=== PATIENT | female | born 1940 | race Caucasian/White ===

== ENCOUNTER 2022-10-08 08:38 | Inpatient (IN) | payer MEDICARE ==
[2022-10-08 09:32] LABS: Basophils % (A) 0 %; Eosinophils # (A) 0.4 k/uL (0-0.7); Eosinophils % (A) 7 %; HCT 41.3 % (34.0-46.0); HGB 14.1 gm/dL (11.4-16.0); Lymphocytes # (A) 1.2 k/uL (1.0-4.8); Lymphocytes % (A) 20 %; MCHC 34.1 g/dL (31.0-37.0); MCV 93.9 fL (80.0-100.0); Mean Platelet Volume 7.1; Monocytes # (A) 0.3 k/uL (0-1.0); Monocytes % (A) 5 %; Neutrophils # (A) 4.1 k/uL (1.3-7.7); Neutrophils % (A) 66 %; Platelet Count 199 k/uL (150-450); RDW 12.7 % (11.5-15.5); WBC 6.2 k/uL (3.8-10.6)
--- NOTE | 2022-10-08 09:36 | ED ---
General Adult HPI - General Chief complaint: Fall Stated complaint: Fall Time Seen by Provider: 10/08/22 09:00 Source: patient, EMS Mode of arrival: EMS Limitations: no limitations - History of Present Illness Initial comments: Dictation was produced using [employer] dictation software. please excuse any grammatical, word or spelling errors. Chief Complaint: 87-year-old female presents emergency department for fall History of Present Illness: To 87-year-old female presents emergency department for fall. She got up when she lost her balance and fell. She stood up when she lost her balance and fell forward. She struck her chest on her walker. Patient also hit the back of her head. No loss of consciousness. Patient brought in by EMS. Patient complaining of central chest pain. Sharp worse when she takes a deep breath. Patient does take anti-correlation medications. The ROS documented in this emergency department record has been reviewed and confirmed by me. Those systems with pertinent positive or negative responses have been documented in the HPI. All other systems are other negative and/or noncontributory. - Related Data Allergies Allergy/AdvReac Type Severity Reaction Status Date / Time Sulfa (Sulfonamide Allergy Rash/Hives Verified 10/08/22 08:53 Antibiotics) Review of Systems ROS Statement: Those systems with pertinent positive or pertinent negative responses have been documented in the HPI. ROS Other: All systems not noted in ROS Statement are negative. Past Medical History Past Medical History: Asthma, Hypertension Additional Past Medical History / Comment(s): thyroid History of Any Multi-Drug Resistant Organisms: None Reported Past Surgical History: Appendectomy, Orthopedic Surgery, Tonsillectomy Past Psychological History: No Psychological Hx Reported Smoking Status: Never smoker Past Alcohol Use History: None Reported Past Drug Use History: None Reported General Exam - General Exam Comments Initial Comments: PHYSICAL EXAM: General Impression: Alert and oriented x3, not in acute distress HEENT: Small hematoma over the left parietal scalp, extra-ocular movements intact, pupils equal and reactive to light bilaterally, mucous membranes moist Cardiovascular: Heart regular rate and rhythm Chest: Able to complete full sentences, no retractions, no tachypnea, palpatory tenderness to the anterior chest Abdomen: abdomen soft, non-tender, non-distended, no organomegaly Musculoskeletal: Pulses present and equal in all extremities, no peripheral edema Motor: no focal deficits noted Neurological: CN II-XII grossly intact, no focal motor or sensory deficits noted Skin: Intact with no visualized rashes Psych: Normal affect and mood Limitations: no limitations Course Vital Signs 10/08/22 10/08/22 10/08/22 08:47 10:36 11:51 Temperature 97.4 F L 97.4 F L Pulse Rate 72 71 65 Respiratory 20 17 18 Rate Blood Pressure 185/82 178/84 183/95 O2 Sat by Pulse 97 97 97 Oximetry Medical Decision Making - Medical Decision Making Was pt. sent in by a medical professional or institution (, PA, GRAIN LOADER, urgent care, hospital, or [place] [facility] facility...) When possible be specific @ -No Did you speak to anyone other than the patient for history (EMS, parent, family, police, friend...)? What history was obtained from this source @ -No Did you review nursing and triage notes (agree or disagree)? Why? @ -I reviewed and agree with nursing and triage notes Were old charts reviewed (outside hosp., previous admission, EMS record, old EKG, old radiological studies, urgent care reports/EKG's, [place] [facility] facility records)? Report findings @ -No old charts were reviewed Differential Diagnosis (chest pain, altered mental status, abdominal pain women, abdominal pain men, vaginal bleeding, musculoskeletal, weakness, fever, dyspnea, syncope, headache, dizziness, GI bleed, back pain, seizure, CVA, palpatations, mental health)? @ -Differential Weakness: Hypoglycemia, shock, sepsis, hyponatremia, anemia, infection, [place], ETOH, adverse medicine reaction, overdose, stroke, this is not meant to be an all-inclusive list. EKG interpreted by me (3pts min.). @ -See above X-rays interpreted by me (1pt min.). @ -Pelvis x-ray was unremarkable CT interpreted by me (1pt min.). @ -Computed tomography scan of brain and C-spine shows no acute processes. Computed tomography scan of the chest shows no acute injuries. U/S interpreted by me (1pt. min.). @ -None done What testing was considered but not performed or refused? (CT, X-rays, U/S, labs)? Why? @ -None What meds were considered but not given or refused? Why? @ -None Did you discuss the management of the patient with other professionals (prof essionals i.e. , PA, GRAIN LOADER, lab, RT, psych nurse, social service worker, arcade attendant, teacher, staff weapons officer, correctional counselor/case manager)? Give summary @ -No Was smoking cessation discussed for >3mins.? @ -No Was critical care preformed (if so, how long)? @ -No Were there social determinants of health that impacted care today? How? (Homelessness, low income, unemployed, alcoholism, drug addiction, transportat ion, low edu. Level, literacy, decrease access to med. care, half-way, rehab)? @ -No Was there de-escalation of care discussed even if they declined (Discuss DNR or withdrawal of care, Hospice)? DNR status @ -No What co-morbidities impacted this encounter? (DM, HTN, Smoking, COPD, CAD, Cancer, CVA, ARF, Chemo, Hep., AIDS, mental health diagnosis, sleep apnea, morbid obesity)? @ -None Was patient admitted / discharged? Hospital course, mention meds given and route, prescriptions, significant lab abnormalities, going to OR and other pertinent info. @ -82-year-old female presents emergency department for her fall with chest pain. She also suffered closed head injury. CBC and metabolic panel obtained found within to be acceptable limits. Imaging studies are negative. Patient observed in emergency department for several hours. Reevaluated at bedside on 40 5 AM found to be in stable medical condition. Patient with a failed due to debility. Do not suspect that patient had a cardiac syncopal event. Disposition options were discussed. Patient states she feels weak. Daughter is at the bedside who lives with the patient states that she has back issues and cannot care for the patient. Family requests observation admission. Case discussed with Dr. Etienne for admission Undiagnosed new problem with uncertain prognosis? @ -No Drug Therapy requiring intensive monitoring for toxicity (Heparin, Nitro, Insulin, Cardizem)? @ -No Were any procedures done? @ -No Diagnosis/symptom? Acute, or Chronic, or Acute on Chronic? Uncomplicated (without systemic symptoms) or Complicated (systemic symptoms)? @ -1. Acute fall, closed head injury, chest contusion Side effects of treatment? @ -No Exacerbation, Progression, or Severe Exacerbation? @ -No Poses a threat to life or bodily function? How? (Chest pain, [place], [place], pneumonia, PE, COPD, DKA, ARF, appy, cholecystitis, CVA, Diverticulitis, Homicidal, Suicidal, threat to staff... and all critical care pts) @ -No - Lab Data Result diagrams: 10/08/22 09:22 10/08/22 09:22 Lab Results 10/08/22 10/08/22 Range/Units 09:22 09:22 WBC 6.2 (3.8-10.6) k/uL RBC 4.40 (3.80-5.40) m/uL Hgb 14.1 (11.4-16.0) gm/dL Hct 41.3 (34.0-46.0) % MCV 93.9 (80.0-100.0) fL MCH 32.0 (25.0-35.0) pg MCHC 34.1 (31.0-37.0) g/dL RDW 12.7 (11.5-15.5) % Plt Count 199 (150-450) k/uL MPV 7.1 Neutrophils % 66 % Lymphocytes % 20 % Monocytes % 5 % Eosinophils % 7 % Basophils % 0 % Neutrophils # 4.1 (1.3-7.7) k/uL Lymphocytes # 1.2 (1.0-4.8) k/uL Monocytes # 0.3 (0-1.0) k/uL Eosinophils # 0.4 (0-0.7) k/uL Basophils # 0.0 (0-0.2) k/uL Sodium 131 L (137-145) mmol/L Potassium 4.1 (3.5-5.1) mmol/L Chloride 94 L (98-107) mmol/L Carbon Dioxide 32 H (22-30) mmol/L Anion Gap 5 mmol/L BUN 11 (7-17) mg/dL Creatinine 0.47 L (0.52-1.04) mg/dL Est GFR (CKD-EPI)AfAm >90 (>60 ml/min/1.73 sqM) Est GFR (CKD-EPI)NonAf >90 (>60 ml/min/1.73 sqM) Glucose 103 H (74-99) mg/dL Calcium 8.9 (8.4-10.2) mg/dL Disposition Clinical Impression: Fall Disposition: ADMITTED IP TO THIS HOSP Condition: Fair Referrals: Nonstaff,Physician [Primary Care Provider] - 1-2 days Decision Time: 12:15
[2022-10-08 09:46] LABS: African American GFR (CKD) >90 (>60 ml/min/1.73 sqM); Anion Gap 5 mmol/L; Blood Urea Nitrogen 11 mg/dL (7-17); Calcium 8.9 mg/dL (8.4-10.2); Carbon Dioxide 32 mmol/L (22-30); Chloride 94 mmol/L (98-107); Glucose 103 mg/dL (74-99); Non-African American GFR(CKD) >90 (>60 ml/min/1.73 sqM); Potassium 4.1 mmol/L (3.5-5.1); Sodium 131 mmol/L (137-145)
--- NOTE | 2022-10-08 11:08 | XR ---
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 Right femoral head articulates with the acetabulum. Symphys is pubis and sacroiliac joints are normal. No acute pelvic fractures are evident. Normal bowel gas is present. Postsurgical changes are at the L4-5 level with pedicle screws and fixation rods. Prior randall tebral plasty appears to be present L3 and L4. IMPRESSION: 1. No acute osseous abnormality AP Pelvis
--- NOTE | 2022-10-08 11:15 | CT ---
EXAMINATION TYPE: CT brain kirk esteves con DATE OF EXAM: 10/08/2022 COMPARISON: None HISTORY: fall, hematoma on back of head CT DLP: 2683 mGycm, Automated exposure control for dose reduction was used. CONTRAST: Patient injected with 0 mL of Isovue 300. CT of the brain is performed utilizing 3 mm thick sections through the posterior fossa and 3 mm thick sections through the remaining calvarium. Study is performed within 24 hours of arrival to the hospital. No abnormal hyperdensity is present to suggest an acute intracranial hemorrhage. No mass lesion is evident. No acute infarcts are evident. Mild periventricular white matter hypodensity is present, likely on t he basis of chronic white matter ischemic changes. Ventricles and sulci are mildly prominent for the patient age. Paranasal sinuses and mastoid air cells within the [id number] are clear. There is soft tissue swelling over the left vertex. No underlying fracture is evident. IMPRESSIONS: 1. Mild age-related atrophy with chronic appearing periventricular white matter ischemic type changes . 2. Superficial soft tissue swelling left vertex CT cervical spine. COMPARISON: None CT of the cervical spine is performed in the axial plane at 2 mm thick sections. Reconstructed image s in the coronal, and sagittal plane are reviewed on the computer. No acute fractures are evident. Vertebral body alignment is normal. There is narrowing of disc height through the cervical spine. This appears greatest at C6-7. Vertebral body heights are preserved. No spinal canal stenosis is evident. No neural foraminal stenosis is evident. IMPRESSIONS: 1. Mild diffuse degenerative disc changes. 2. No acute osseous abnormality.
--- NOTE | 2022-10-08 11:23 | CT ---
EXAMINATION TYPE: CT chest wo con DATE OF EXAM: 10/08/2022 COMPARISON: None HISTORY: fall, chest pain CT DLP: 2683 mGycm, Automated exposure control for dose reduction was used. CONTRAST: Performed injected with 0 mL of Isovue 300. TECHNIQUE: Axial images were obtained at 5 mm thick sections. Reconstructed images are reviewed on [email or web address] computer in the coronal plane. FINDINGS: Beam hardening artifact from a right shoulder prosthesis is in the upper thoracic region. P ortion of the thyroid visualized is normal. Enmanuel this changes are present. Some scattered nonspecific infiltrate may be present. Consider sub segmental atelectasis and atypical pneumonia. There is some nodularity along the right lateral major fissure measuring 0.9 cm. Series 501 image 23. Consider evaluation with PET/CT Some peripheral pulmon murray fibrosis may be present within the anterior right lung base. No pneumothorax is evident. There is a 1.2 cm lymph node in the pretracheal space near the level of the parker. Additional shott y lymphadenopathy is present. No suspicious hilar adenopathy is evident. The ascending aorta diameter at the level of the main pulmonary artery is 3.5 cm. The main pulmonary artery diameter at the bifu rcation is 3.4 cm. Coronary artery calcification is present. Small hiatal hernia is present. There is some deviation of posterior lateral right third rib. Definite fracture is not identified. Th is could be some deformity. Correlate with location of any pain. No additional areas suspicious for r ib fractures evident. Limited CT sections are obtained through the upper abdomen. Abdomen is essentially unremarkable. IMPRESSIONS: 1. Emphysematous changes within the lungs.. 2. There is a prominent lymph node in the pretracheal space with additional smaller shotty adenopathy present. 3. 0.9 cm nodule major fissure right side with a 1.0 cm pleural-based density adjacent. Consider PET/ CT. 4. A nondisplaced posterior-lateral right third rib fractures not excluded. Correlate with pain
[2022-10-08] MEDS ORDERED: NALOXONE 0.4 MG/ML 1 ML VIAL IV PRN (12:15)
[2022-10-08] MEDS: KETOROLAC 15 MG/ML 1 ML VIAL IVP PRN ×2 (13:25→20:16)
[2022-10-08] MEDS: SODIUM CHLORIDE 0.9% 1,000 ML IV SCH (14:03)
[2022-10-08] MEDS: GABAPENTIN 400 MG CAP PO SCH ×2 (16:46→22:34)
[2022-10-08] MEDS: amLODIPine 5 MG TAB PO SCH (17:56)
[2022-10-08] MEDS: NORTRIPTYLINE 25 MG CAP PO SCH (22:34)
[2022-10-08] MEDS: carBAMazepine 200 MG TAB PO SCH (22:34)
[2022-10-09] MEDS: GABAPENTIN 400 MG CAP PO SCH ×4 (04:57→22:42)
[2022-10-09] MEDS: PANTOPRAZOLE 40 MG TABLET PO SCH ×2 (04:58→08:40)
[2022-10-09] MEDS: KETOROLAC 15 MG/ML 1 ML VIAL IVP PRN ×3 (06:17→23:12)
[2022-10-09] MEDS: SYMBICORT 80-4.5 MCG INHALER INHALATION SCH ×2 (08:24→20:25)
[2022-10-09] MEDS: ASCORBIC ACID 500 MG TAB PO SCH (08:40)
[2022-10-09] MEDS: CYANOCOBALAMIN 500 MCG TAB PO SCH (08:40)
[2022-10-09] MEDS: CYCLOBENZAPRINE 5 MG TAB PO PRN ×2 (08:40→17:58)
[2022-10-09 09:14] LABS: Blood Urea Nitrogen 16.1 mg/dL (9.0-27.0); Calcium 8.9 mg/dL (8.7-10.3); Chloride 95 mmol/L (96-109); Glucose 101 mg/dL (70-110); Potassium 4.1 mmol/L (3.5-5.5); Sodium 132 mmol/L (135-145)
[2022-10-09] MEDS: carBAMazepine 200 MG TAB PO SCH ×2 (10:00→22:43)
[2022-10-09] MEDS: lisinopriL 20 MG TAB PO SCH (10:00)
--- NOTE | 2022-10-09 10:37 | P.HPIM ---
History of Present Illness H&P Date: 10/08/22 Chief Complaint: Fall/inability to ambulate 87-year-old female presents emergency department for fall. She got up when she lost her balance and fell. She stood up when she lost her balance and fell forward. She struck her chest on her walker. Patient also hit the back of her head. No loss of consciousness. Patient brought in by EMS. Patient complaining of central chest pain. Sharp worse when she takes a deep breath. Patient does take anti-correlation medications. Upon arrival to ED patient was found to be hypertensive with a blood pressure of 183/95; rest of the vital signs are stable Workup includes CT of the brain and C-spine which was negative for any acute process CT of chest does not reveal any acute injuries Pelvic x-ray is negative for any acute injuries Patient presents to ED with fall and chest pain. She also suffered closed head injury. CBC and metabolic panel obtained found within to be acceptable limits. Imaging studies are negative. Patient was observed in emergency department for several hours. Reevaluated at bedside; Patient with a failed to ambulate due to debility and weakness. Daughter is at the bedside who lives with the patient states that she has back issues and cannot care for the patient. Family requests observation admission. Review of Systems REVIEW OF SYSTEMS: CONSTITUTIONAL: No fever, no malaise, no fatigue. HEENT: No recent visual problems or hearing problems. Denied any sore throat. CARDIOVASCULAR: No chest pain, orthopnea, PND, no palpitations, no syncope. PULMONARY: No shortness of breath, no cough, no hemoptysis. GASTROINTESTINAL: No diarrhea, no nausea, no vomiting, no abdominal pain. NEUROLOGICAL: No headaches, no weakness, no numbness. HEMATOLOGICAL: Denies any bleeding or petechiae. GENITOURINARY: Denies any burning micturition, frequency, or urgency. MUSCULOSKELETAL/RHEUMATOLOGICAL: Reports weakness and pain both knees and hips and inability to ambulate. ENDOCRINE: Denies any polyuria or polydipsia. The rest of the 14-point review of systems is negative. Past Medical History Past Medical History: Asthma, Hypertension Additional Past Medical History / Comment(s): thyroid History of Any Multi-Drug Resistant Organisms: None Reported Past Surgical History: Appendectomy, Orthopedic Surgery, Tonsillectomy Past Psychological History: No Psychological Hx Reported Smoking Status: Never smoker Past Alcohol Use History: None Reported Past Drug Use History: None Reported Medications and Allergies Home Medications Medication Instructions Recorded Confirmed Type Albuterol Inhaler [Ventolin Hfa 1 - 2 puff INHALATION RT-Q6H PRN 10/08/22 10/08/22 History Inhaler] Ascorbic Acid [Vitamin C] 1,000 mg PO DAILY 10/08/22 10/08/22 History Bifidobacterium Infantis [Align 10.5 mg PO DAILY 10/08/22 10/08/22 History Chew] Calcium Carbonate/Vitamin D3 2 tab PO DAILY@1400 10/08/22 10/08/22 History [Caltrate 600 Plus D3 20 Mcg (800 Iu)] Cyanocobalamin (Vitamin B-12) 1,000 mcg PO DAILY 10/08/22 10/08/22 History [Vitamin B-12] Fluticasone/Vilanterol [Breo 1 puff INHALATION RT-DAILY 10/08/22 10/08/22 History Ellipta 100-25 Mcg Inhaler] Gabapentin 400 mg PO HS@2330 10/08/22 10/08/22 History Gabapentin 800 mg PO TID@0500,1400,1800 10/08/22 10/08/22 History Lansoprazole [Prevacid 24Hr] 15 mg PO DAILY 10/08/22 10/08/22 History Nortriptyline [Pamelor] 50 mg PO HS@2300 10/08/22 10/08/22 History Omeprazole 20 mg PO DAILY@0500 10/08/22 10/08/22 History amLODIPine [Norvasc] 5 mg PO DAILY@1800 10/08/22 10/08/22 History carBAMazepine 400 mg PO BID@1000,2300 10/08/22 10/08/22 History lisinopriL 40 mg PO DAILY@1000 10/08/22 10/08/22 History Allergies Allergy/AdvReac Type Severity Reaction Status Date / Time Sulfa (Sulfonamide Allergy Rash/Hives Verified 10/08/22 13:24 Antibiotics) Physical Exam Vitals: Vital Signs Temp Pulse Resp BP Pulse Ox 10/08/22 11:51 65 18 183/95 97 10/08/22 10:36 97.4 F L 71 17 178/84 97 10/08/22 08:47 97.4 F L 72 20 185/82 97 Intake and Output 10/07/22 10/08/2223 22:59 06:59 14:59 Other: Weight 91.626 kg General Impression: Alert and oriented x3, not in acute distress HEENT: Small hematoma over the left parietal scalp, extra-ocular movements intact, pupils equal and reactive to light bilaterally, mucous membranes moist Cardiovascular: Heart regular rate and rhythm Chest: Able to complete full sentences, no retractions, no tachypnea, palpatory tenderness to the anterior chest Abdomen: abdomen soft, non-tender, non-distended, no organomegaly Musculoskeletal: Pulses present and equal in all extremities, no peripheral edema Motor: no focal deficits noted Neurological: CN II-XII grossly intact, no focal motor or sensory deficits noted Skin: Intact with no visualized rashes Psych: Normal affect and mood Results CBC & Chem 7: 10/08/22 09:22 10/09/22 05:59 Labs: Abnormal Lab Results - Last 24 Hours (Table) 10/08/22 Range/Units 09:22 Sodium 131 L (137-145) mmol/L Chloride 94 L (98-107) mmol/L Carbon Dioxide 32 H (22-30) mmol/L Creatinine 0.47 L (0.52-1.04) mg/dL Glucose 103 H (74-99) mg/dL Assessment and Plan Assessment: 1. Chest pain; likely musculoskeletal/ chest contusion - Patient reports falling forward while getting up from the toilet seat and reports falling on the walker bar that hit her in the chest; no shortness of breath, diaphoresis, nausea or vomiting - Patient has been placed on Toradol 15 mg IV every 6 hours as needed along with Flexeril 5 mg 3 times a day when necessary 2. Close head injury; patient reports that when she fell backwards - CT of the head and cervical spine is negative - We will continue to monitor closely 3. Debility/weakness; patient was unable to stand on her feet or ambulate in ED; we have consulted PT/OT for recommendations 4. Hypertension; amlodipine 5 mg daily, lisinopril 40 mg daily 5. Asthma; not in exacerbation; albuterol inhaler 4 times a day when necessary and Lipitor one puff daily 6. Vitamin B12 deficiency; supplemented with vitamin B12 thousand and 6 daily 7. Neuropathy patient takes Neurontin 800 mg 3 times a day and 400 mg daily at bedtime DVT prophylaxis; SCDs/subcu heparin CODE STATUS; full code
[2022-10-09] MEDS: SODIUM CHLORIDE 0.9% 1,000 ML IV SCH (12:43)
[2022-10-09] MEDS: CALCIUM CARB-VIT D 500 MG-5 MCG TAB PO SCH (14:19)
[2022-10-09] MEDS: amLODIPine 5 MG TAB PO SCH (17:58)
--- NOTE | 2022-10-09 21:09 | P.PN ---
Subjective Progress Note Date: 10/09/22 87-year-old female presents emergency department for fall. She got up when she lost her balance and fell. She stood up when she lost her balance and fell forward. She struck her chest on her walker. Patient also hit the back of her head. No loss of consciousness. Patient brought in by EMS. Patient complaining of central chest pain. Sharp worse when she takes a deep breath. Patient does take anti-correlation medications. Upon arrival to ED patient was found to be hypertensive with a blood pressure of 183/95; rest of the vital signs are stable Workup includes CT of the brain and C-spine which was negative for any acute process CT of chest does not reveal any acute injuries Pelvic x-ray is negative for any acute injuries Patient presents to ED with fall and chest pain. She also suffered closed head injury. CBC and metabolic panel obtained found within to be acceptable limits. Imaging studies are negative. Patient was observed in emergency department for several hours. Reevaluated at bedside; Patient with a failed to ambulate due to debility and weakness. Daughter is at the bedside who lives with the patient states that she has back issues and cannot care for the patient. Family requests observation admission. Objective - Vital Signs Vital signs: Vital Signs Temp 98.1 F 10/09/22 14:01 Pulse 70 10/09/22 14:01 Resp 20 10/09/22 14:01 BP 154/84 10/09/22 14:01 Pulse Ox 94 L 10/09/22 14:01 FiO2 Intake & Output 10/09/22 10/09/22 10/10/22 06:59 18:59 06:59 Intake Total 330 Output Total 550 Balance -220 Intake: Oral 330 Output: Urine 550 Other: Voiding Method External Catheter External Catheter # Bowel Movements 0 - Exam General Impression: Alert and oriented x3, not in acute distress HEENT: Small hematoma over the left parietal scalp, extra-ocular movements intact, pupils equal and reactive to light bilaterally, mucous membranes moist Cardiovascular: Heart regular rate and rhythm Chest: Able to complete full sentences, no retractions, no tachypnea, palpatory tenderness to the anterior chest Abdomen: abdomen soft, non-tender, non-distended, no organomegaly Musculoskeletal: Pulses present and equal in all extremities, no peripheral edema Motor: no focal deficits noted Neurological: CN II-XII grossly intact, no focal motor or sensory deficits noted Skin: Intact with no visualized rashes Psych: Normal affect and mood - Labs CBC & Chem 7: 10/08/22 09:22 10/09/22 05:59 Labs: Abnormal Lab Results - Last 24 Hours (Table) 10/09/22 Range/Units 05:59 Sodium 132 L (135-145) mmol/L Chloride 95 L (96-109) mmol/L BUN/Creatinine Ratio 23.00 H (12.00-20.00) Ratio Assessment and Plan Assessment: 1. Chest pain; likely musculoskeletal/ chest contusion - Patient reports falling forward while getting up from the toilet seat and reports falling on the walker bar that hit her in the chest; no shortness of breath, diaphoresis, nausea or vomiting - Patient has been placed on Toradol 15 mg IV every 6 hours as needed along with Flexeril 5 mg 3 times a day when necessary 2. Close head injury; patient reports that when she fell backwards - CT of the head and cervical spine is negative - We will continue to monitor closely 3. Debility/weakness; patient was unable to stand on her feet or ambulate in ED; we have consulted PT/OT for recommendations 4. Hypertension; amlodipine 5 mg daily, lisinopril 40 mg daily 5. Asthma; not in exacerbation; albuterol inhaler 4 times a day when necessary and Lipitor one puff daily 6. Vitamin B12 deficiency; supplemented with vitamin B12 thousand and 6 daily 7. Neuropathy patient takes Neurontin 800 mg 3 times a day and 400 mg daily at bedtime DVT prophylaxis; SCDs/subcu heparin CODE STATUS; full code
[2022-10-09] MEDS: NORTRIPTYLINE 25 MG CAP PO SCH (22:43)
[2022-10-10] MEDS: GABAPENTIN 400 MG CAP PO SCH ×4 (04:42→21:45)
[2022-10-10] MEDS: PANTOPRAZOLE 40 MG TABLET PO SCH ×2 (04:42→08:24)
[2022-10-10] MEDS: CYCLOBENZAPRINE 5 MG TAB PO PRN ×2 (06:23→13:56)
[2022-10-10] MEDS: CYANOCOBALAMIN 500 MCG TAB PO SCH (08:24)
[2022-10-10] MEDS: carBAMazepine 200 MG TAB PO SCH ×2 (08:24→21:45)
[2022-10-10] MEDS: ASCORBIC ACID 500 MG TAB PO SCH (08:24)
[2022-10-10] MEDS: KETOROLAC 15 MG/ML 1 ML VIAL IVP PRN (08:25)
[2022-10-10] MEDS: lisinopriL 20 MG TAB PO SCH (08:25)
[2022-10-10] MEDS: SYMBICORT 80-4.5 MCG INHALER INHALATION SCH ×2 (09:51→19:47)
--- NOTE | 2022-10-10 12:11 | P.CNPUL ---
History of Present Illness Consult date: 10/10/22 Requesting physician: Yandy Etienne Reason for consult: abnormal CXR/CT Chief complaint: Chest wall pain status post fall History of present illness: This is a pleasant 82-year-old female patient with a known history of hypertension, mild intermittent chronic bronchial asthma, gastroesophageal reflux disease, depression. She was brought into the emergency room on 10/08/2022 after sustaining a fall at her home. She states she was sitting on her toilet and fell forward hitting her walker with her chest and also hit the back of her head. She denied any loss of consciousness. She came in with ongoing chest wall pain. Pelvis x-ray revealed no acute fractures. The skin of the brain and C-spine revealed no acute intracranial process. No acute osseous abnormality. Computed tomography scan of the chest revealed areas of emphysema. A prominent pretracheal space lymph node. 1.0 cm pleural-based density. A nondisplaced posterior lateral right third rib fracture not excluded. White count 6.2. Hemoglobin 14.1. Platelets 199. Sodium 132. Potassium 4.1. Bicarb 27. BUN 16. Creatinine 0.7. Glucose 101. HEENT today in consultation on the regular medical floor. She is currently sitting up in a chair at the bedside. Awake and alert in no acute distress. She denies any worsening shortness of breath, cough or congestion. She is having some chest wall pain on deep inhalation. She is maintaining O2 saturations in the 90s on room air. Afebrile. Hemodynamically stable. She is continued on Symbicort and albuterol. Pain is better controlled today. Review of Systems REVIEW OF SYSTEMS: CONSTITUTIONAL: Denies any recent significant weight loss or weight gain. EYES: Denies change in vision. EARS, NOSE, MOUTH, THROAT: Denies headaches, denies sore throat. CARDIOVASCULAR: Positive for chest wall pain, no palpitations or syncopal episodes. RESPIRATORY: Denies shortness of breath, cough, congestion or hemoptysis. GASTROINTESTINAL: Denies change in appetite, denies abdominal pain GENITOURINARY: Denies hematuria, denies infections. MUSKULOSKELETAL: Denies pain, denies swelling. INTEGUMENTARY: Denies rash, denies eczema. NEUROLOGICAL: Denies recent memory loss, no recent seizure activity. PSYCHIATRIC: Denies anxiety, denies depression. HEMATOLOGIC/LYMPHATIC: Denies anemia, denies enlarged lymph nodes. Past Medical History Past Medical History: Asthma, Hypertension Additional Past Medical History / Comment(s): thyroid History of Any Multi-Drug Resistant Organisms: None Reported Past Surgical History: Appendectomy, Orthopedic Surgery, Tonsillectomy Additional Past Surgical History / Comment(s): Bilateral knee replacement, L4-L5 fusion, left hip replacement, right shoulder replacement Past Anesthesia/Blood Transfusion Reactions: No Reported Reaction Past Psychological History: No Psychological Hx Reported Smoking Status: Never smoker Past Alcohol Use History: None Reported Past Drug Use History: None Reported Medications and Allergies Home Medications Medication Instructions Recorded Confirmed Type Albuterol Inhaler [Ventolin Hfa 1 - 2 puff INHALATION RT-Q6H PRN 10/08/22 10/08/22 History Inhaler] Ascorbic Acid [Vitamin C] 1,000 mg PO DAILY 10/08/22 10/08/22 History Bifidobacterium Infantis [Align 10.5 mg PO DAILY 10/08/22 10/08/22 History Chew] Calcium Carbonate/Vitamin D3 2 tab PO DAILY@1400 10/08/22 10/08/22 History [Caltrate 600 Plus D3 20 Mcg (800 Iu)] Cyanocobalamin (Vitamin B-12) 1,000 mcg PO DAILY 10/08/22 10/08/22 History [Vitamin B-12] Fluticasone/Vilanterol [Breo 1 puff INHALATION RT-DAILY 10/08/22 10/08/22 History Ellipta 100-25 Mcg Inhaler] Gabapentin 400 mg PO HS@2330 10/08/22 10/08/22 History Gabapentin 800 mg PO TID@0500,1400,1800 10/08/22 10/08/22 History Lansoprazole [Prevacid 24Hr] 15 mg PO DAILY 10/08/22 10/08/22 History Nortriptyline [Pamelor] 50 mg PO HS@2300 10/08/22 10/08/22 History Omeprazole 20 mg PO DAILY@0500 10/08/22 10/08/22 History amLODIPine [Norvasc] 5 mg PO DAILY@1800 10/08/22 10/08/22 History carBAMazepine 400 mg PO BID@1000,2300 10/08/22 10/08/22 History lisinopriL 40 mg PO DAILY@1000 10/08/22 10/08/22 History Allergies Allergy/AdvReac Type Severity Reaction Status Date / Time Sulfa (Sulfonamide Allergy Rash/Hives Verified 10/08/22 13:24 Antibiotics) Physical Exam Vitals: Vital Signs Temp Pulse Resp BP Pulse Ox 10/10/22 07:00 97.7 F 72 16 188/83 94 L 10/10/22 02:47 97.9 F 68 15 128/72 97 10/09/22 19:36 97.9 F 71 15 138/75 95 10/09/22 14:01 98.1 F 70 20 154/84 94 L Intake and Output 10/09/22 10/10/22 10/10/22 22:59 06:59 14:59 Intake Total 110 188 Output Total 550 Balance -440 188 Intake: Oral 110 188 Output: Urine 550 Other: Voiding Method External Catheter External Catheter # Bowel Movements 0 GENERAL EXAM: Alert, pleasant 82-year-old female, on room air, fairly comfortable in no apparent distress. HEAD: Normocephalic. Small hematoma noted on the back of head. EYES: Normal reaction of pupils, equal size. NOSE: Clear with pink turbinates. THROAT: No erythema or exudates. NECK: No masses, no JVD. CHEST: No chest wall deformity. Tender to palpation. Tender with inhalation. LUNGS: Equal air entry with no crackles, wheeze, rhonchi or dullness. CVS: S1 and S2 normal with no audible murmur, regular rhythm. ABDOMEN: No hepatosplenomegaly, normal bowel sounds, no guarding or rigidity. SPINE: No scoliosis or deformity SKIN: No rashes CENTRAL NERVOUS SYSTEM: No focal deficits, tone is normal in all 4 extremities. EXTREMITIES: There is no peripheral edema. No clubbing, no cyanosis. Peripheral pulses are intact. Results - Laboratory Findings CBC and BMP: 10/08/22 09:22 10/09/22 05:59 Abnormal lab findings: Abnormal Labs 10/08/22 10/09/22 09:22 05:59 Sodium 131 L 132 L Chloride 94 L 95 L Carbon Dioxide 32 H Creatinine 0.47 L BUN/Creatinine Ratio 23.00 H Glucose 103 H - Diagnostic Findings CT scan - chest: image reviewed Assessment and Plan Assessment: Acute anterior chest wall pain secondary to fall. Computed tomography scan of the chest revealed emphysematous changes with a prominent lymph node in the pretracheal space and a 1.0 cm pleural based density. There is a nondisplaced posterior lateral right third rib fracture. Hypertension Mild intermittent chronic bronchial asthma Gastroesophageal reflux disease without esophagitis History of anxiety/depression. Plan: The patient was seen and evaluated Computed tomography scan of the chest, labs and medications reviewed Recommend follow-up CT scan of the chest in 3 months and/or PET scan Continue bronchodilators Add incentive spirometer and encourage deep breathing exercises Increase her activity as tolerated Probable discharge in the a.m. We will continue to follow and make further recommendations based on her clinical status I have personally seen and examined the patient, performed the documentation and the assessment and plan as written. Number of minutes spent on the visit: 20.
--- NOTE | 2022-10-10 12:43 | P.CRDCN ---
History of Present Illness Consult date: 10/10/22 History of present illness: History of present illness: This is an 82 year old female patient with past medical history of hypertension, gastroesophageal reflux disease, asthma. We have been asked to evaluate the patient for chest pain. Patient was brought into the emergency center on 10/08 after a trip and fall forward landing with her chest on her walker and also hit the back of the head. No loss of consciousness. She underwent a CAT scan of the chest which revealed nondisplaced posterior lateral right third rib fractures not excluded. CAT scan of the head and neck did not show any acute findings. EKG unable to be obtained today due to broken EKG machine CBC is unremarkable. Sodium 132, potassium 4.1, chloride 95, CO2 27, BUN 16 creatinine 2.7. Glucose 101. His C-reactive protein 3.4. Sed rate 11. Home cardiac medications: Amlodipine 5 mg daily, lisinopril 40 mg daily Review Of Systems: At the time of my evaluation: Constitutional: No fever, no chills. No weakness, fatigue or lethargy. EENT: No headache. No dizziness. Lungs: No shortness of breath, cough, no sputum production. No wheezing. Cardiovascular: Reports chest pain, no lower extremity edema. No palpitations. No paroxysmal nocturnal dyspnea. No orthopnea. No lightheadedness or dizziness. No syncopal episodes. Abdominal: No abdominal pain. No nausea, vomiting. No diarrhea. No constipation. No bloody or tarry stools. Genitourinary: No dysuria.. No urinary retention. Musculoskeletal: No myalgias. No muscle weakness, no frequent falls. No back pain. No neck pain. Integumentary: No wounds. No rash. No unusual bruising. Neurologic: No aphasia. No facial droop. No change in mentation. No head injury. No headache. Physical examination: Gen: This is an 82-year-old female. She is resting in bed and appears to be in no acute distress VS: reviewed HEENT: Head is atraumatic, normocephalic. Pupils equal, round. Sclerae is anicteric. NECK: Supple. No JVD. . LUNGS: Clear to auscultation. No wheezes or rhonchi. No intercostal retractions. HEART: Regular rate and rhythm. No murmur. Significant chest wall tenderness right of the sternum. ABDOMEN: Soft EXTREMITIES: No pedal edema. NEUROLOGICAL: Patient is awake, alert and oriented x3. Assessment: Mechanical fall Musculoskeletal chest pain, rule out cardiac contusion Hypertension Plan: Obtain EKG Obtain one troponin Obtain 2-D echocardiogram and Doppler study to assess cardiac structure and function Further recommendations to follow based upon clinical course Thank you kindly for this consultation. Nurse practitioner note has been reviewed, I agree with documented findings and plan of care. Patient was seen and examined. Past Medical History Past Medical History: Asthma, Hypertension Additional Past Medical History / Comment(s): thyroid History of Any Multi-Drug Resistant Organisms: None Reported Past Surgical History: Appendectomy, Orthopedic Surgery, Tonsillectomy Additional Past Surgical History / Comment(s): Bilateral knee replacement, L4-L5 fusion, left hip replacement, right shoulder replacement Past Anesthesia/Blood Transfusion Reactions: No Reported Reaction Past Psychological History: No Psychological Hx Reported Smoking Status: Never smoker Past Alcohol Use History: None Reported Past Drug Use History: None Reported Medications and Allergies Home Medications Medication Instructions Recorded Confirmed Type Albuterol Inhaler [Ventolin Hfa 1 - 2 puff INHALATION RT-Q6H PRN 10/08/22 10/08/22 History Inhaler] Ascorbic Acid [Vitamin C] 1,000 mg PO DAILY 10/08/22 10/08/22 History Bifidobacterium Infantis [Align 10.5 mg PO DAILY 10/08/22 10/08/22 History Chew] Calcium Carbonate/Vitamin D3 2 tab PO DAILY@1400 10/08/22 10/08/22 History [Caltrate 600 Plus D3 20 Mcg (800 Iu)] Cyanocobalamin (Vitamin B-12) 1,000 mcg PO DAILY 10/08/22 10/08/22 History [Vitamin B-12] Fluticasone/Vilanterol [Breo 1 puff INHALATION RT-DAILY 10/08/22 10/08/22 History Ellipta 100-25 Mcg Inhaler] Gabapentin 400 mg PO HS@2330 10/08/22 10/08/22 History Gabapentin 800 mg PO TID@0500,1400,1800 10/08/22 10/08/22 History Lansoprazole [Prevacid 24Hr] 15 mg PO DAILY 10/08/22 10/08/22 History Nortriptyline [Pamelor] 50 mg PO HS@2300 10/08/22 10/08/22 History Omeprazole 20 mg PO DAILY@0500 10/08/22 10/08/22 History amLODIPine [Norvasc] 5 mg PO DAILY@1800 10/08/22 10/08/22 History carBAMazepine 400 mg PO BID@1000,2300 10/08/22 10/08/22 History lisinopriL 40 mg PO DAILY@1000 10/08/22 10/08/22 History Allergies Allergy/AdvReac Type Severity Reaction Status Date / Time Sulfa (Sulfonamide Allergy Rash/Hives Verified 10/08/22 13:24 Antibiotics) Physical Exam Vitals: Vital Signs Temp Pulse Resp BP Pulse Ox 10/10/22 07:00 97.7 F 72 16 188/83 94 L 10/10/22 02:47 97.9 F 68 15 128/72 97 10/09/22 19:36 97.9 F 71 15 138/75 95 10/09/22 14:01 98.1 F 70 20 154/84 94 L Intake and Output 10/09/22 10/10/22 10/10/22 22:59 06:59 14:59 Intake Total 110 188 Output Total 550 Balance -440 188 Intake: Oral 110 188 Output: Urine 550 Other: Voiding Method External Catheter External Catheter # Bowel Movements 0 Results 10/08/22 09:22 10/09/22 05:59 Current Medications Generic Name Dose Route Start Last Admin Trade Name Freq PRN Reason Stop Dose Admin Albuterol Sulfate 2.5 mg 10/08/22 15:31 Albuterol Nebulized 2.5 Mg/3 Ml INHALATION RT-Q6H PRN Shortness Of Breath Amlodipine Besylate 5 mg 10/08/22 18:00 10/09/22 17:58 Amlodipine 5 Mg Tab PO 5 mg DAILY@1800 BEST Administration Ascorbic Acid 1,000 mg 10/09/22 09:00 10/10/22 08:24 Ascorbic Acid 500 Mg Tab PO 1,000 mg DAILY BEST Administration Budesonide/Formoterol Fumarate 2 puff 10/09/22 08:00 10/10/22 09:51 Symbicort 80-4.5 Mcg Inhaler INHALATION 2 puff RT-BID BEST Administration Calcium Carbonate 2 each 10/09/22 14:00 10/09/22 14:19 Calcium Carb-Vit D 500 Mg-5 Mcg Tab PO 2 each DAILY@1400 BEST Administration Carbamazepine 400 mg 10/08/22 23:00 10/10/22 08:24 Carbamazepine 200 Mg Tab PO 400 mg BID@1000,2300 BEST Administration Cyanocobalamin 1,000 mcg 10/09/22 09:00 10/10/22 08:24 Cyanocobalamin 500 Mcg Tab PO 1,000 mcg DAILY BEST Administration Cyclobenzaprine HCl 5 mg 10/08/22 13:01 10/10/22 06:23 Cyclobenzaprine 5 Mg Tab PO 5 mg TID PRN Administration Muscle Spasm Gabapentin 400 mg 10/08/22 23:30 10/09/22 22:42 Gabapentin 400 Mg Cap PO 400 mg HS@2330 BEST Administration Gabapentin 800 mg 10/08/22 18:00 10/10/22 04:42 Gabapentin 400 Mg Cap PO 800 mg TID@0500,1400,1800 BEST Administration Sodium Chloride 1,000 mls @ 20 mls/hr 10/08/22 12:15 10/09/22 12:43 Saline 0.9% IV Not Given .Q24H [facility] Ketorolac Tromethamine 15 mg 10/08/22 13:01 10/10/22 08:25 Ketorolac 15 Mg/Ml 1 Ml Vial IVP 10/13/22 13:02 15 mg Q6HR PRN Administration Pain Scale 6 to 10 Lactobacillus Acidophilus 1 each 10/11/22 09:00 Lactobacillus Acidophilus/Pect 1 Each Capsule PO DAILY [facility] Lisinopril 40 mg 10/09/22 10:00 10/10/22 08:25 Lisinopril 20 Mg Tab PO 40 mg DAILY@1000 BEST Administration Naloxone HCl 0.2 mg 10/08/22 12:15 Naloxone 0.4 Mg/Ml 1 Ml Vial IV Q2M PRN Opioid Reversal Nortriptyline HCl 50 mg 10/08/22 23:00 10/09/22 22:43 Nortriptyline 25 Mg Cap PO 50 mg HS@2300 BSET Administration Pantoprazole Sodium 40 mg 10/09/22 09:00 10/10/22 08:24 Pantoprazole 40 Mg Tablet PO 40 mg DAILY BEST Administration Pantoprazole Sodium 40 mg 10/09/22 05:00 10/10/22 04:42 Pantoprazole 40 Mg Tablet PO 40 mg DAILY@0500 BEST Administration Tramadol HCl 50 mg 10/10/22 09:59 Tramadol 50 Mg Tab PO QID PRN Pain Intake and Output 10/09/22 10/10/22 10/10/22 22:59 06:59 14:59 Intake Total 110 188 Output Total 550 Balance -440 188 Intake: Oral 110 188 Output: Urine 550 Other: Voiding Method External Catheter External Catheter # Bowel Movements 0 10/08/22 09:22 10/09/22 05:59
--- NOTE | 2022-10-10 13:35 | XR ---
EXAMINATION TYPE: XR chest 1V portable DATE OF EXAM: 10/10/2022 12:49 PM COMPARISON: 10/08/2022 CT TECHNIQUE: XR chest 1V portable Frontal view of the chest. CLINICAL INDICATION:Female, 82 years old with history of chf chest pain, trauma; FINDINGS: Lungs/Pleura: Prominent interstitial lung markings are seen scattered throughout the lungs with tg ening of the diaphragm and increased lucency of the lung apices. No evidence of focal consolidation, pneumothorax or pleural effusion. Pulmonary vascularity: Unremarkable. Heart/mediastinum: Cardiomediastinal silhouette is unremarkable. Atherosclerotic calcifications are seen in the aorta. Musculoskeletal: No acute osseous pathology. Right shoulder arthroplasty changes. 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 IMPRESSION: No acute cardiopulmonary disease/process. Interstitial lung changes no significant change from prior CT given differences in technique.
[2022-10-10] MEDS: SODIUM CHLORIDE 0.9% 1,000 ML IV SCH (13:53)
[2022-10-10] MEDS: CALCIUM CARB-VIT D 500 MG-5 MCG TAB PO SCH (13:53)
[2022-10-10] MEDS: traMADol 50 MG TAB PO PRN ×2 (13:56→20:09)
[2022-10-10] MEDS: amLODIPine 5 MG TAB PO SCH (17:19)
[2022-10-10] MEDS: NORTRIPTYLINE 25 MG CAP PO SCH (21:44)
[2022-10-11] MEDS: GABAPENTIN 400 MG CAP PO SCH ×4 (05:35→21:49)
[2022-10-11] MEDS: PANTOPRAZOLE 40 MG TABLET PO SCH ×2 (05:35→09:00)
[2022-10-11] MEDS: traMADol 50 MG TAB PO PRN ×2 (05:41→15:27)
--- NOTE | 2022-10-11 07:41 | HP ---
HISTORY AND PHYSICAL HISTORY OF PRESENT ILLNESS: This 82-year-old woman was admitted with persistent chest pain for the last 2 or 3 days. The patient apparently had a trauma to the chest wall also. The patient had abnormal CAT scan. The patient has been closely monitored. PAST MEDICAL HISTORY: Reviewed. REVIEW OF SYSTEMS: 14-point review of systems negative except as mentioned earlier. CURRENT MEDICATIONS: Reviewed include Dose and rest of medication noted. PHYSICAL EXAMINATION: VITAL SIGNS: Pulse is 72, blood pressure 188/80, respirations 16. CHEST: Few scattered rhonchi and crackles. ABDOMEN: Soft. NERVOUS SYSTEM: No focal deficit. LABORATORY DATA: Reviewed. ASSESSMENT: 1. Chest pain, possibly musculoskeletal. Rule out coronary artery disease. 2. Closed head injury. 3. Debility, weakness. 4. Hypertension. 5. History of asthma. RECOMMENDATION AND DISCUSSION: Recommend to continue current medications. Continue symptomatic treatment. Otherwise, Cardiology, Pulmonology consultation. The patient had abnormal CAT scan. So I would recommend a chest x-ray and would also recommend PT/OT evaluation. 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 The prognosis guarded. Further recommendation to follow. See orders for details. MMODL / IJN: [id number] / MTDD
[2022-10-11] MEDS: carBAMazepine 200 MG TAB PO SCH ×2 (08:52→21:49)
[2022-10-11] MEDS: LACTOBACILLUS ACIDOPHILUS/PECT 1 EACH CAPSULE PO SCH (08:52)
[2022-10-11] MEDS: ASCORBIC ACID 500 MG TAB PO SCH (08:52)
[2022-10-11] MEDS: lisinopriL 20 MG TAB PO SCH (08:53)
[2022-10-11] MEDS: LIDOCAINE 5% PATCH TOPICAL SCH (08:53)
[2022-10-11] MEDS: CYANOCOBALAMIN 500 MCG TAB PO SCH (08:53)
[2022-10-11] MEDS: SYMBICORT 80-4.5 MCG INHALER INHALATION SCH ×2 (09:35→20:13)
--- NOTE | 2022-10-11 10:25 | P.PN ---
Subjective Progress Note Date: 10/11/22 History of present illness: This is an 82 year old female patient with past medical history of hypertension, gastroesophageal reflux disease, asthma. We have been asked to evaluate the patient for chest pain. Patient was brought into the emergency center on 10/08 after a trip and fall forward landing with her chest on her walker and also hit the back of the head. No loss of consciousness. She underwent a CAT scan of the chest which revealed nondisplaced posterior lateral right third rib fractures not excluded. CAT scan of the head and neck did not show any acute findings. EKG unable to be obtained today due to broken EKG machine CBC is unremarkable. Sodium 132, potassium 4.1, chloride 95, CO2 27, BUN 16 creatinine 2.7. Glucose 101. His C-reactive protein 3.4. Sed rate 11. Home cardiac medications: Amlodipine 5 mg daily, lisinopril 40 mg daily 10/11 Patient is seen today in follow-up. No change in her chest pain. EKG showed no acute findings. Troponin negative. Limited echocardiogram reveals normal LV size and systolic function. No pericardial effusion, probable fat pad anterior ly. No wall motion abnormalities. Physical examination: Gen: This is an 82-year-old female. She is resting in bed and appears to be in no acute distress VS: reviewed 166/88, heart rate in the 70s, pulse ox 96% on room air, afebrile HEENT: Head is atraumatic, normocephalic. Pupils equal, round. Sclerae is anicteric. NECK: Supple. No JVD. . LUNGS: Clear to auscultation. No wheezes or rhonchi. No intercostal retractions. HEART: Regular rate and rhythm. No murmur. Significant chest wall tenderness right of the sternum. ABDOMEN: Soft EXTREMITIES: No pedal edema. NEUROLOGICAL: Patient is awake, alert and oriented x3. Assessment: Mechanical fall Musculoskeletal chest pain, rule out cardiac contusion Hypertension Plan: Patient is cleared for discharge home. No further cardiac workup is warranted. Cardiology will sign off this case and follow on an as-needed basis. Please reconsult for any new concerns. Nurse practitioner note has been reviewed, I agree with documented findings and plan of care. Patient was seen and examined. Objective - Vital Signs Vital signs: Vital Signs Temp 98.1 F 10/11/22 08:00 Pulse 72 10/11/22 08:00 Resp 16 10/11/22 08:00 BP 166/88 10/11/22 08:00 Pulse Ox 96 10/11/22 08:00 FiO2 Intake & Output 10/10/22 10/11/22 10/11/22 18:59 06:59 18:59 Intake Total 188 Balance 188 Intake: Oral 188 Other: Voiding Method External Catheter External Catheter # Voids 1 500 - Labs CBC & Chem 7: 10/08/22 09:22 10/09/22 05:59 Labs: Abnormal Lab Results - Last 24 Hours (Table) 10/10/22 Range/Units 11:10 C-Reactive Protein 3.4 H (<1.0) mg/dL
--- NOTE | 2022-10-11 10:29 | P.PN ---
Subjective Progress Note Date: 10/11/22 Principal diagnosis: This is a pleasant 82-year-old female patient with a known history of hypertension, mild intermittent chronic bronchial asthma, gastroesophageal reflux disease, depression. She was brought into the emergency room on 10/08/2022 after sustaining a fall at her home. She states she was sitting on her toilet and fell forward hitting her walker with her chest and also hit the back of her head. She denied any loss of consciousness. She came in with ongoing chest wall pain. Pelvis x-ray revealed no acute fractures. The skin of the brain and C-spine revealed no acute intracranial process. No acute osseous abnormality. Computed tomography scan of the chest revealed areas of emphysema. A prominent pretracheal space lymph node. 1.0 cm pleural-based density. A nondisplaced posterior lateral right third rib fracture not excluded. White count 6.2. Hemoglobin 14.1. Platelets 199. Sodium 132. Potassium 4.1. Bicarb 27. BUN 16. Creatinine 0.7. Glucose 101. HEENT today in consultation on the regular medical floor. She is currently sitting up in a chair at the bedside. Awake and alert in no acute distress. She denies any worsening shortness of breath, cough or congestion. She is having some chest wall pain on deep inhalation. She is maintaining O2 saturations in the 90s on room air. Afebrile. Hemodynamically stable. She is continued on Symbicort and albuterol. Pain is better controlled today. The patient is seen today 10/11/2022 in follow-up on the regular medical floor. She is currently sitting up in bed. Awake and alert in no acute distress. She is still having ongoing issues with anterior chest wall pain over the sternal area. No worsening shortness of breath, cough or congestion. Maintaining good O2 saturations in the mid 90s on room air. She's afebrile. Follow-up chest x- ray revealed no acute cardiopulmonary process. She is working well with the incentive spirometer. He tended on Symbicort and albuterol. Objective - Vital Signs Vital signs: Vital Signs Temp 98.1 F 10/11/22 08:00 Pulse 72 10/11/22 08:00 Resp 16 10/11/22 08:00 BP 166/88 10/11/22 08:00 Pulse Ox 96 08/08/23 08:00 FiO2 Intake & Output 10/10/22 10/11/22 10/11/22 18:59 06:59 18:59 Intake Total 188 Balance 188 Intake: Oral 188 Other: Voiding Method External Catheter External Catheter # Voids 1 500 - Exam GENERAL EXAM: Alert, oriented 82-year-old female patient, on room air, fairly comfortable in no apparent distress. HEAD: Normocephalic. Small hematoma noted on the back of head. EYES: Normal reaction of pupils, equal size. NOSE: Clear with pink turbinates. THROAT: No erythema or exudates. NECK: No masses, no JVD. CHEST: No chest wall deformity. Tender to palpation. Tender with inhalation. LUNGS: Equal air entry with no crackles, wheeze, rhonchi or dullness. CVS: S1 and S2 normal with no audible murmur, regular rhythm. ABDOMEN: No hepatosplenomegaly, normal bowel sounds, no guarding or rigidity. SPINE: No scoliosis or deformity SKIN: No rashes CENTRAL NERVOUS SYSTEM: No focal deficits, tone is normal in all 4 extremities. EXTREMITIES: There is no peripheral edema. No clubbing, no cyanosis. Peripheral pulses are intact. - Labs CBC & Chem 7: 10/08/22 09:22 10/09/22 05:59 Labs: Abnormal Lab Results - Last 24 Hours (Table) 10/10/22 Range/Units 11:10 C-Reactive Protein 3.4 H (<1.0) mg/dL Assessment and Plan Assessment: Acute anterior chest wall pain secondary to fall. Computed tomography scan of the chest revealed emphysematous changes with a prominent lymph node in the pretracheal space and a 1.0 cm pleural based density. There is a nondisplaced posterior lateral right third rib fracture. Hypertension Mild intermittent chronic bronchial asthma Gastroesophageal reflux disease without esophagitis History of anxiety/depression. Plan: The patient was seen and evaluated Chest x-ray and medications reviewed Add Lidoderm patch to anterior chest Recommend follow-up CT scan of the chest in 3 months and/or PET scan Continue incentive spirometer and encourage deep breathing exercises Stable and on room air Increase her activity as tolerated Cleared for discharge from the pulmonary standpoint Follow-up in our office in 1 week I have personally seen and examined the patient, performed the documentation and the assessment and plan as written. Number of minutes spent on the visit: 10.
--- NOTE | 2022-10-11 10:33 | CA ---
Transthoracic Echo Report Name: Debbi Robins Age: 82 Gender: F : 1940 Exam Date: 10/10/2022 12:05 Exam Location: [facility] Ht (in): 67 Wt (lb): 202 Ordering Physician: Radha June Attending/Referring Phys: [id number], [employer] Fredo Khan Procedure CPT: Indications: LVF Cardiac Hx: Technical Quality: Fair Contrast 1: Total Dose (mL): Contrast 2: Total Dose (mL): MEASUREMENTS (Male / Female) Normal Values 2D ECHO LV Diastolic Volume MOD BP 35.3 cm??? 67 - 155 / 56 - 104 cm??? LV Systolic Volume MOD BP 9.6 cm??? 22 - 58 / 19 - 49 cm??? LV Ejection Fraction MOD BP 72.8 % >= 55 % LV Cardiac Index MOD BP 840.7 cm???/min???m??? LV Diastolic Volume MOD 4C 42.6 cm??? LV Systolic Volume MOD 4C 10.6 cm??? LV Ejection Fraction MOD 4C 75.0 % LV Cardiac Index MOD 4C 1044.4 cm???/min???m??? LV Diastolic Length 4C 6.0 cm LV Systolic Length 4C 5.2 cm LV Diastolic Volume MOD 2C 27.8 cm??? LV Systolic Volume MOD 2C 8.1 cm??? LV Ejection Fraction MOD 2C 71.0 % LV Cardiac Index MOD 2C 646.3 cm???/min???m??? LV Diastolic Length 2C 6.3 cm LV Systolic Length 2C 5.6 cm FINDINGS Left Ventricle Normal LV size. Left ventricular ejection fraction is estimated at 55 %. Right Ventricle Right Atrium Left Atrium Mitral Valve Aortic Valve Tricuspid Valve Pulmonic Valve Pericardium Grossly normal. Aorta CONCLUSIONS Limited study normal LV size and systolic function. No significant pericardial issue effusion, probable fat pad anteriorly. No wall motion abnormalities Previewed by: Dr. Maryam Man MD (Electronically Signed) Final Date: 11 October 2022 10:32
[2022-10-11 10:58] LABS: ALT 18 U/L (8-44); AST 26 U/L (13-35); Albumin 3.9 d/dL (3.8-4.9); Albumin/Globulin Ratio 1.62 Ratio (1.60-3.17); Alkaline Phosphatase 151 U/L (41-126); Blood Urea Nitrogen 13.7 mg/dL (9.0-27.0); Calcium 8.9 mg/dL (8.7-10.3); Carbon Dioxide 27.5 mmol/L (21.6-31.8); Chloride 92 mmol/L (96-109); Globulin 2.4 d/dL (1.6-3.3); Glucose 102 mg/dL (70-110); Potassium 4.2 mmol/L (3.5-5.5); Sodium 128 mmol/L (135-145); Total Bilirubin 0.3 mg/dL (0.3-1.2); Total Protein 6.3 d/dL (6.2-8.2)
[2022-10-11 11:01] LABS: Basophils # (A) 0.04 X 10*3/uL (0.00-0.10); Basophils % (A) 0.6 %; Eosinophils # (A) 0.45 X 10*3/uL (0.04-0.35); Eosinophils % (A) 6.7 %; HCT 38.7 % (37.2-46.3); HGB 12.9 d/dL (12.0-15.0); Lymphocytes # (A) 1.79 X 10*3/uL (0.90-5.00); Lymphocytes % (A) 26.7 %; MCH 31.3 pg (27.0-32.0); MCHC 33.3 d/dL (32.0-37.0); MCV 93.9 FL (80.0-97.0); Mean Platelet Volume 9.4 FL (9.5-12.2); Monocytes # (A) 0.77 X 10*3/uL (0.20-1.00); Monocytes % (A) 11.5 %; NRBC Per 100 WBC 0 X 10*3/uL (0.00-0.01); Neutrophils # (A) 3.64 X 10*3/uL (1.80-7.70); Neutrophils % (A) 54.2 %; Platelet Count 216 X 10*3/uL (140-440); RBC 4.12 X 10*6/uL (4.10-5.20); RDW 12.8 % (11.5-14.5); WBC 6.71 X 10*3/uL (4.50-10.00)
--- NOTE | 2022-10-11 11:34 | XR ---
EXAMINATION TYPE: XR chest 2V DATE OF EXAM: 10/11/2022 COMPARISON: 10/10/2022 HISTORY: Shortness of breath TECHNIQUE: Frontal and lateral views of the chest are obtained. FINDINGS: Scattered senescent parenchymal changes noted. Hyperinflation compatible with COPD. No evidence for infiltrate. No evidence for atelectasis. Heart size is stable. Mediastinal structures are stable and grossly unremarkable. No evidence for hilar prominence. Degenerative changes dorsal spine. IMPRESSION: 1. No evidence for acute pulmonary disease.
[2022-10-11] MEDS: CALCIUM CARB-VIT D 500 MG-5 MCG TAB PO SCH (15:20)
[2022-10-11] MEDS: amLODIPine 5 MG TAB PO SCH (18:41)
[2022-10-11] MEDS: ALBUTEROL NEBULIZED 2.5 MG/3 ML INHALATION PRN (20:13)
[2022-10-11] MEDS: ONDANSETRON ODT 4 MG TAB PO PRN (21:06)
[2022-10-11] MEDS: NORTRIPTYLINE 25 MG CAP PO SCH (21:49)
[2022-10-12] MEDS: ONDANSETRON ODT 4 MG TAB PO PRN (02:06)
[2022-10-12] MEDS: PANTOPRAZOLE 40 MG TABLET PO SCH ×2 (05:29→10:11)
[2022-10-12] MEDS: GABAPENTIN 400 MG CAP PO SCH ×2 (05:29→15:17)
--- NOTE | 2022-10-12 06:11 | P.PN ---
Subjective Progress Note Date: 10/11/22 This is a pleasant 82-year-old female who was recently admitted with chest pain and generalized weakness with recent fall. Patient being evaluated by cardiology as well as pulmonary recently underwent a CT of the chest which showed emphysematous changes with a prominent lymph node in the pretracheal sp wily and a 1.0 cm pleural based density. There is a nondisplaced posterior lateral right third rib fracture. Will add incentive spirometer and continue with pain management and lidocaine patches. Patient working with physical therapy reports she feels she did a little better today and will have therapy evaluate for possible ECF. Social work is following and has been accepted and requires insurance authorization which has been submitted and pending. Patient is afebrile but no reports of shortness of breath or palpitations. No reported nausea or vomiting and encouraged oral intake. Review of systems: Constitutional: No reports of fatigue, fever, or chills Cardiovascular: No reports of chest pain or palpitations Respiratory: No reports of shortness of breath or cough GI: reports of nausea, no reports of vomiting, or diarrhea : No reports of dysuria or retention Neurovascular: reports of generalized weakness, continued chest wall pain All medications have been reviewed PHYSICAL EXAMINATION: GENERAL: The patient is alert and oriented x4, Well developed, well nourished. Obese HEENT: Pupils are round and equally reacting to light. EOMI. no scleral icterus. No conjunctival pallor. Normocephalic, atraumatic. No pharyngeal erythema. No thyromegaly. CARDIOVASCULAR: S1 and S2 muffled PULMONARY: diminished breath sounds bilaterally with no wheezing or rhonchi noted. ABDOMEN: soft. Nontender on exam. obese. non-distended, normoactive bowel sounds. No palpable organomegaly. MUSCULOSKELETAL: No joint swelling or deformity. EXTREMITIES: No cyanosis, clubbing, or pedal edema. NEUROLOGICAL: Gross neurological examination did not reveal any focal deficits. Diffuse weakness SKIN: No rashes. Assessment: Chest pain, likely musculoskeletal due to fall, ruled out coronary disease Debility with generalized weakness and gait dysfunction Hypertension History of asthma, not in exacerbation Obesity with a BMI of 31.6 GI prophylaxis DVT prophylaxis Full code Plan: Patient to be continued on pain medications and other medications as prescribed. Patient was evaluated by cardiology as well as pulmonary with no further workup warranted recommending pain control and outpatient follow-up Patient working with physical therapy with continued weakness and reports she feels she did better today Patient has been accepted at ECF and social work following and has submitted for insurance authorization Will follow-up with PT/OT therapy for evaluation tomorrow and discuss possible ECF versus home with home care Encouraged increased activity as tolerated Possible discharge in the next 24 hours The impression and plan of care has been dictated by Jessica Castro, nurse practitioner as directed. Dr. Dav MD I have performed a history and examination and MDM of this patient, discussed the same with the dictator, and agree with the dictator's assessment and plan as written ,documented as a scribe. Based on total visit time, I have performed more than 50% of the visit. Any additional findings or plans will be noted. Objective - Vital Signs Vital signs: Vital Signs Temp 98.2 F 10/11/22 14:00 Pulse 95 10/11/22 14:00 Resp 16 10/11/22 14:00 BP 131/83 10/11/22 14:00 Pulse Ox 97 10/11/22 14:00 FiO2 Intake & Output 10/10/22 10/11/22 10/11/22 18:59 06:59 18:59 Intake Total 188 Balance 188 Intake: Oral 188 Other: Voiding Method External Catheter External Catheter External Catheter # Voids 1 500 - Labs CBC & Chem 7: 10/11/22 05:50 10/11/22 05:50 Labs: Abnormal Lab Results - Last 24 Hours (Table) 10/11/22 10/11/22 Range/Units 05:50 05:50 MPV 9.4 L (9.5-12.2) FL Eosinophils # 0.45 H (0.04-0.35) X 10*3/uL Sodium 128 L (135-145) mmol/L Chloride 92 L (96-109) mmol/L Creatinine 0.5 L (0.6-1.5) mg/dL BUN/Creatinine Ratio 27.40 H (12.00-20.00) Ratio Alkaline Phosphatase 151 H (41-126) U/L
[2022-10-12 08:19] LABS: African American GFR (CKD) >90 (>60 ml/min/1.73 sqM); Anion Gap 8 mmol/L; Blood Urea Nitrogen 19 mg/dL (7-17); Calcium 8.8 mg/dL (8.4-10.2); Carbon Dioxide 29 mmol/L (22-30); Chloride 85 mmol/L (98-107); Glucose 114 mg/dL (74-99); Non-African American GFR(CKD) 85 (>60 ml/min/1.73 sqM); Potassium 4.6 mmol/L (3.5-5.1); Sodium 122 mmol/L (137-145)
[2022-10-12] MEDS: SYMBICORT 80-4.5 MCG INHALER INHALATION SCH ×2 (09:02→19:33)
--- NOTE | 2022-10-12 09:51 | P.PN ---
Subjective Progress Note Date: 10/12/22 This is a pleasant 82-year-old female patient with a known history of hypertension, mild intermittent chronic bronchial asthma, gastroesophageal reflux disease, depression. She was brought into the emergency room on 10/08/2022 after sustaining a fall at her home. She states she was sitting on her toilet and fell forward hitting her walker with her chest and also hit the back of her head. She denied any loss of consciousness. She came in with ongoing chest wall pain. Pelvis x-ray revealed no acute fractures. The skin of the brain and C-spine revealed no acute intracranial process. No acute osseous abnormality. Computed tomography scan of the chest revealed areas of emphysema. A prominent pretracheal space lymph node. 1.0 cm pleural-based density. A nondisplaced posterior lateral right third rib fracture not excluded. White count 6.2. Hemoglobin 14.1. Platelets 199. Sodium 132. Potassium 4.1. Bicarb 27. BUN 16. Creatinine 0.7. Glucose 101. HEENT today in consultation on the regular medical floor. She is currently sitting up in a chair at the bedside. Awake and alert in no acute distress. She denies any worsening shortness of breath, cough or congestion. She is having some chest wall pain on deep inhalation. She is maintaining O2 saturations in the 90s on room air. Afebrile. Hemodynamically stable. She is continued on Symbicort and albuterol. Pain is better controlled today. The patient is seen today 10/11/2022 in follow-up on the regular medical floor. She is currently sitting up in bed. Awake and alert in no acute distress. She is still having ongoing issues with anterior chest wall pain over the sternal area. No worsening shortness of breath, cough or congestion. Maintaining good O2 saturations in the mid 90s on room air. She's afebrile. Follow-up chest x- ray revealed no acute cardiopulmonary process. She is working well with the incentive spirometer. He tended on Symbicort and albuterol. Patient is seen today 10/12/2022 in follow-up on the regular medical floor. She is currently sitting up in bed. Awake and alert in no acute distress. Her pain is better controlled today compared to yesterday. Still with discomfort with minimal movement. She continues to work with the incentive spirometer. She is maintaining good O2 saturations in the 90s on room air. Sodium 122. Potassium 4.6. Bicarb 29. BUN 19. Creatinine 0.60. Glucose 114. Pro-calcitonin 0.05. She is continued on Symbicort and albuterol. Objective - Vital Signs Vital signs: Vital Signs Temp 98.8 F 10/12/22 07:57 Pulse 75 10/12/22 07:57 Resp 18 10/12/22 07:57 BP 118/73 10/12/22 07:57 Pulse Ox 90 L 10/12/22 02:35 FiO2 Intake & Output 10/11/22 10/12/22 10/12/22 18:59 06:59 18:59 Output Total 200 675 Balance -200 -675 Output: Urine 200 675 Other: Voiding Method External Catheter External Catheter # Voids 0 - Exam GENERAL EXAM: Alert, 82-year-old female, on room air, fairly comfortable in no apparent distress. HEAD: Normocephalic. Small hematoma noted on the back of head. EYES: Normal reaction of pupils, equal size. NOSE: Clear with pink turbinates. THROAT: No erythema or exudates. NECK: No masses, no JVD. CHEST: No chest wall deformity. Tender to palpation. Tender with inhalation. LUNGS: Equal air entry with no crackles, wheeze, rhonchi or dullness. CVS: S1 and S2 normal with no audible murmur, regular rhythm. ABDOMEN: No hepatosplenomegaly, normal bowel sounds, no guarding or rigidity. SPINE: No scoliosis or deformity SKIN: No rashes CENTRAL NERVOUS SYSTEM: No focal deficits, tone is normal in all 4 extremities. EXTREMITIES: There is no peripheral edema. No clubbing, no cyanosis. Peripheral pulses are intact. - Labs CBC & Chem 7: 10/11/22 05:50 10/12/22 07:42 Labs: Abnormal Lab Results - Last 24 Hours (Table) 10/11/22 10/11/22 10/12/22 Range/Units 05:50 05:50 07:42 MPV 9.4 L (9.5-12.2) FL Eosinophils # 0.45 H (0.04-0.35) X 10*3/uL Sodium 128 L 122 L (135-145) mmol/L Chloride 92 L 85 L (96-109) mmol/L BUN 19 H (7-17) mg/dL Creatinine 0.5 L (0.6-1.5) mg/dL BUN/Creatinine Ratio 27.40 H (12.00-20.00) Ratio Glucose 114 H (74-99) mg/dL Alkaline Phosphatase 151 H (41-126) U/L Assessment and Plan Assessment: Acute anterior chest wall pain secondary to fall. Computed tomography scan of the chest revealed emphysematous changes with a prominent lymph node in the pretracheal space and a 1.0 cm pleural based density. There is a nondisplaced posterior lateral right third rib fracture. Hyponatremia Hypertension Mild intermittent chronic bronchial asthma Gastroesophageal reflux disease without esophagitis History of anxiety/depression. Plan: The patient was seen and evaluated Labs and medications reviewed Nephrology consult for hyponatremia Recommend follow-up CT scan of the chest in 3 months and/or PET scan Continue incentive spirometer and encourage deep breathing exercises Stable and on room air Increase her activity as tolerated Cleared for discharge from the pulmonary standpoint Follow-up in our office in 1 week Plan is for subacute rehab at [facility] I have personally seen and examined the patient, performed the documentation and the assessment and plan as written. Number of minutes spent on the visit: 10.
[2022-10-12] MEDS: ASCORBIC ACID 500 MG TAB PO SCH ×2 (10:10→10:11)
[2022-10-12] MEDS: LACTOBACILLUS ACIDOPHILUS/PECT 1 EACH CAPSULE PO SCH (10:11)
[2022-10-12] MEDS: CYANOCOBALAMIN 500 MCG TAB PO SCH (10:11)
[2022-10-12] MEDS: LIDOCAINE 5% PATCH TOPICAL SCH (10:12)
[2022-10-12] MEDS: carBAMazepine 200 MG TAB PO SCH ×2 (10:13→23:30)
[2022-10-12] MEDS ORDERED: SODIUM CHLORIDE 0.9% 1,000 ML IV SCH (10:15)
--- NOTE | 2022-10-12 10:27 | P.NPCON ---
History of Present Illness - Reason for Consult hyponatremia - History of Present Illness Reason for consultation: Hyponatremia History of present illness: Patient is a 82-year-old female seen in consultation for hyponatremia. Patient's sodium level was 131 on admission dated 10/08/2022 and has been grad ually decreasing and is down to 122 today. Patient's his oral intake is poor. She denies drinking excessive fluids. Denies use of nonsteroidals. Denies personal history of malignancy. I don't see any diuretics and her home medication list. She is getting Toradol as needed for pain. She is currently not on any IV fluids. No edema. Good urine output. No hematuria. No chest pain or shortness of breath. Patient came to the hospital initially after she fell in the bathroom by tripping. Patient is also maintained on Tegretol. No vomiting or diarrhea. Echocardiogram showed preserved ejection fraction. CT of the chest on this admission showed emphysema in the lungs as well as a prominent lymph node and a 0.9 cm right major fissure nodule. Vital signs are stable. General: No acute distress. HEENT: Head exam is unremarkable. LUNGS: No audible rhonchi or wheezes. HEART: Rate and Rhythm are regular. ABDOMEN: Soft, nontender. EXTREMITITES: No edema. Past Medical History Past Medical History: Asthma, Hypertension Additional Past Medical History / Comment(s): thyroid History of Any Multi-Drug Resistant Organisms: None Reported Past Surgical History: Appendectomy, Orthopedic Surgery, Tonsillectomy Additional Past Surgical History / Comment(s): Bilateral knee replacement, L4-L5 fusion, left hip replacement, right shoulder replacement Past Anesthesia/Blood Transfusion Reactions: No Reported Reaction Past Psychological History: No Psychological Hx Reported Smoking Status: Never smoker Past Alcohol Use History: None Reported Past Drug Use History: None Reported Medications and Allergies Home Medications Medication Instructions Recorded Confirmed Type Albuterol Inhaler [Ventolin Hfa 1 - 2 puff INHALATION RT-Q6H PRN 10/08/22 10/08/22 History Inhaler] Ascorbic Acid [Vitamin C] 1,000 mg PO DAILY 10/08/22 10/08/22 History Bifidobacterium Infantis [Align 10.5 mg PO DAILY 10/08/22 10/08/22 History Chew] Calcium Carbonate/Vitamin D3 2 tab PO DAILY@1400 10/08/22 10/08/22 History [Caltrate 600 Plus D3 20 Mcg (800 Iu)] Cyanocobalamin (Vitamin B-12) 1,000 mcg PO DAILY 10/08/22 10/08/22 History [Vitamin B-12] Fluticasone/Vilanterol [Breo 1 puff INHALATION RT-DAILY 10/08/22 10/08/22 History Ellipta 100-25 Mcg Inhaler] Lansoprazole [Prevacid 24Hr] 15 mg PO DAILY 10/08/22 10/08/22 History Nortriptyline [Pamelor] 50 mg PO HS@2300 10/08/22 10/08/22 History Omeprazole 20 mg PO DAILY@0500 10/08/22 10/08/22 History amLODIPine [Norvasc] 5 mg PO DAILY@1800 10/08/22 10/08/22 History carBAMazepine 400 mg PO BID@1000,2300 10/08/22 10/08/22 History lisinopriL 40 mg PO DAILY@1000 10/08/22 10/08/22 History Cyclobenzaprine [Flexeril] 5 mg PO TID PRN tab 10/12/22 Rx Gabapentin 400 mg PO HS@2330 #4 tab 10/12/22 Rx Gabapentin 800 mg PO TID@0500,1400,1800 #3 tab 10/12/22 Rx Lidocaine 5% Patch [Lidoderm 5% 1 patch TOPICAL DAILY patch 10/12/22 Rx Patch] Ondansetron Odt [Zofran ODT] 4 mg PO Q6HR PRN tab 10/12/22 Rx traMADol HCl [Ultram] 50 mg PO QID PRN #4 tab 10/12/22 Rx Allergies Allergy/AdvReac Type Severity Reaction Status Date / Time Sulfa (Sulfonamide Allergy Rash/Hives Verified 10/08/22 13:24 Antibiotics) Physical Exam Vitals: Vital Signs Temp Pulse Pulse Resp BP Pulse Ox 10/12/22 07:57 98.8 F 75 18 118/73 10/12/22 02:35 98.9 F 74 13 127/76 90 L 10/11/22 20:27 90 10/11/22 20:14 97 10/11/22 19:35 98.2 F 103 H 16 156/86 90 L 10/11/22 14:00 98.2 F 95 16 131/83 97 Intake and Output 10/11/22 10/12/22 10/12/22 22:59 06:59 14:59 Intake Total 0 Output Total 200 675 Balance -200 -675 0 Intake: Oral 0 Output: Urine 200 675 Other: Voiding Method External Catheter # Voids 0 Results - Lab Results Most recent lab results Calcium 8.8 mg/dL (8.4-10.2) 10/12/22 07:42 10/11/22 05:50 10/12/22 07:42 Assessment and Plan Plan: Assessment: 1. Hypovolemic hyponatremia from poor solute intake and use of NSAIDs. 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 Sodium level 122 today. 2. Status post fall. 3. Benign hypertension. Stable. 4. Lymphadenopathy and lung nodule being followed by pulmonology. Plan: Start normal saline at 75 mL an hour. Encourage oral intake. Add 1200 mL fluid restriction. Check serum and urine osmolality and urine sodium level. Check TSH and PTH related peptide. Repeat sodium level this evening. Thank you for the consultation. I will continue to follow the patient with you during her hospital stay.
[2022-10-12 12:28] LABS: African American GFR (CKD) 80 (>60 ml/min/1.73 sqM); Anion Gap 7 mmol/L; Blood Urea Nitrogen 22 mg/dL (7-17); Calcium 8.9 mg/dL (8.4-10.2); Carbon Dioxide 26 mmol/L (22-30); Chloride 87 mmol/L (98-107); Glucose 136 mg/dL (74-99); Non-African American GFR(CKD) 69 (>60 ml/min/1.73 sqM); Potassium 4.4 mmol/L (3.5-5.1); Sodium 120 mmol/L (137-145)
--- NOTE | 2022-10-12 12:57 | P.PN ---
Subjective Progress Note Date: 10/12/22 This is a pleasant 82-year-old female who was recently admitted with chest pain and generalized weakness with recent fall. Patient being evaluated by cardiology as well as pulmonary recently underwent a CT of the chest which showed emphysematous changes with a prominent lymph node in the pretracheal sp wily and a 1.0 cm pleural based density. There is a nondisplaced posterior lateral right third rib fracture. Will add incentive spirometer and continue with pain management and lidocaine patches. Patient working with physical therapy reports she feels she did a little better today and will have therapy evaluate for possible ECF. Social work is following and has been accepted and requires insurance authorization which has been submitted and pending. Patient is afebrile but no reports of shortness of breath or palpitations. No reported nausea or vomiting and encouraged oral intake. 10/12/2022 Patient is seen and evaluated in follow-up this morning currently sitting up in the chair and has been cleared by cardiology and pulmonary. Patient continues to report some chest wall pain and feeling generally weak. Repeat labs done showing a sodium of 122 which she reports she runs in the 127 range normally. Patient does take Tegretol scheduled which could contribute to some of the hypon atremia along with poor oral intake. Patient reports has not been eating very well. Nephrology consulted and appreciate input and recommendations. Patient also having some intermittent nausea which is being controlled by Zofran. Patient is currently afebrile denies vomiting, denies palpitations or shortness of breath. Patient to be started on gentle IV hydration with follow-up labs this afternoon as well as tomorrow. Encouraged increase activity as tolerated and continued physical therapy evaluation. Plan is for ECF in the next few days and insurance authorization has been obtained. Review of systems: Constitutional: No reports of fatigue, fever, or chills Cardiovascular: No reports of chest pain or palpitations Respiratory: No reports of shortness of breath or cough GI: reports of nausea, no reports of vomiting, or diarrhea : No reports of dysuria or retention Neurovascular: reports of generalized weakness, continued chest wall pain All medications have been reviewed PHYSICAL EXAMINATION: GENERAL: The patient is alert and oriented x4, Well developed, well nourished. Obese, elderly-appearing HEENT: Pupils are round and equally reacting to light. EOMI. no scleral icterus. No conjunctival pallor. Normocephalic, atraumatic. No pharyngeal erythema. No thyromegaly. CARDIOVASCULAR: S1 and S2 muffled PULMONARY: diminished breath sounds bilaterally with no wheezing or rhonchi noted. ABDOMEN: soft. Nontender on exam. obese. non-distended, normoactive bowel s ounds. No palpable organomegaly. MUSCULOSKELETAL: No joint swelling or deformity. EXTREMITIES: No cyanosis, clubbing, or pedal edema. NEUROLOGICAL: Gross neurological examination did not reveal any focal deficits. Diffuse weakness SKIN: No rashes. Assessment: Chest pain, likely musculoskeletal due to fall, ruled out coronary disease Hyponatremia, likely secondary to poor solute intake Debility with generalized weakness and gait dysfunction Hypertension History of asthma, not in exacerbation Obesity with a BMI of 31.6 GI prophylaxis DVT prophylaxis Full code Plan: Patient to be continued on pain medications and other medications as prescribed. Patient was evaluated by cardiology as well as pulmonary with no further workup warranted recommending pain control and outpatient follow-up. Patient will need outpatient CT or PET imaging in the next 3 months regarding a prominent lymph node Patient working with physical therapy with continued weakness and has been accepted at [facility] and insurance authorization has been obtained Patient with some hyponatremia and poor oral intake is being started on gentle IV hydration and will have follow-up labs this afternoon as well as tomorrow and nephrology has been consulted and following Patient reports she has had issues with her sodium being low previously normally in the 127 range Patient with some nausea will use Zofran and will add Protonix Encouraged increased activity as tolerated Possible discharge to [facility] in the next 24-48 hours The impression and plan of care has been dictated by nurse Dangelo pra ctitioner as directed. Dr. Dav MD I have performed a history and examination and MDM of this patient, discussed the same with the dictator, and agree with the dictator's assessment and plan as written ,documented as a scribe. Based on total visit time, I have performed more than 50% of the visit. Any additional findings or plans will be noted. Objective - Vital Signs Vital signs: Vital Signs Temp 98.8 F 10/12/22 07:57 Pulse 75 10/12/22 07:57 Resp 18 10/12/22 10:11 BP 118/73 10/12/22 07:57 Pulse Ox 90 L 10/12/22 02:35 FiO2 Intake & Output 10/11/22 10/12/22 10/12/22 18:59 06:59 18:59 Intake Total 0 Output Total 200 675 Balance -200 -675 0 Intake: Oral 0 Output: Urine 200 675 Other: Voiding Method External Catheter External Catheter External Catheter # Voids 0 - Labs CBC & Chem 7: 10/11/22 05:50 10/12/22 10:49 Labs: Abnormal Lab Results - Last 24 Hours (Table) 10/12/22 Range/Units 07:42 Sodium 122 L (137-145) mmol/L Chloride 85 L (98-107) mmol/L BUN 19 H (7-17) mg/dL Glucose 114 H (74-99) mg/dL
[2022-10-12 13:05] LABS: Glucose,Whole Blood 147 mg/dL (70-110)
--- NOTE | 2022-10-12 14:26 | CT ---
EXAMINATION TYPE: CT brain wo con DATE OF EXAM: 10/12/2022 COMPARISON: 10/08/2022 HISTORY: Fall, weakness, altered mentation CT DLP: 1199.[address] of the brain was performed. The ventricles, basal cisterns and sulci overlying the cerebral convexities demonstrate mild enlargem ent. There is no evidence for intracranial hemorrhage or sulcal effacement. There is decreased attenuation about the periventricular white matter and deep white matter of both c erebral hemispheres, compatible with chronic small vessel ischemia. Differential diagnosis does inclu de demyelination. No mass effects are seen.No midline shift. Osseous calvarium is intact. Small scalp hematoma posterior left parietal region. If symptoms persist consider MRI. IMPRESSION: 1. Age related atrophic and chronic small vessel ischemic change without acute intracranial process s een at this time.
--- NOTE | 2022-10-12 14:31 | XR ---
EXAMINATION TYPE: XR knee limited LT DATE OF EXAM: 10/12/2022 COMPARISON: NONE HISTORY: 82-year-old female fall left hip and knee pain TECHNIQUE: 2 views FINDINGS: There is a nondisplaced, oblique fracture extending through the distal femoral diaphysis, metadiaphys is, and likely to the level of the femoral prosthetic component. Minimal offset of the oblique compon ent of the fracture by 5 mm. Underlying large knee joint effusion. IMPRESSION: Minimally comminuted, long, oblique fracture spanning from the distal femoral diaphysis down to the f emoral component of the knee arthroplasty. The oblique component along the shaft of the femur is mini luis felipe offset by 5 mm. Associated large knee joint effusion.
--- NOTE | 2022-10-12 14:31 | XR ---
EXAMINATION TYPE: XR Hip Limited LT DATE OF EXAM: 10/12/2022 CLINICAL HISTORY: Postoperative evaluation TECHNIQUE: Single portable view of the left hip was submitted. FINDINGS: Noted are changes of total hip arthroplasty with femoral and acetabular components appearin g well seated. Alignment is anatomic. Postsurgical soft tissue changes are evident. IMPRESSION: Satisfactory postoperative alignment
--- NOTE | 2022-10-12 15:11 | US ---
EXAMINATION TYPE: US venous doppler duplex LE LT DATE OF EXAM: 10/12/2022 3:01 PM COMPARISON: NONE CLINICAL INDICATION: Female, 82 years old with history of fall, left hip and knee pain; No hx of DVT. Patient fell, left hip and knee pain. SIDE PERFORMED: Left TECHNIQUE: The lower extremity deep venous system is examined utilizing real time linear array sonog emir with graded compression, doppler sonography and color-flow sonography. VESSELS IMAGED: Common Femoral Vein Deep Femoral Vein Greater Saphenous Vein * Femoral Vein Popliteal Vein Small Saphenous Vein * Proximal Calf Veins (* superficial vessels) Left Leg: No evidence of DVT. IMPRESSION: No ultrasound evidence for deep venous thrombosis of the left lower extremity.
[2022-10-12] MEDS ORDERED: CYCLOBENZAPRINE 5 MG TAB PO PRN (15:12)
[2022-10-12] MEDS: CALCIUM CARB-VIT D 500 MG-5 MCG TAB PO SCH (15:32)
[2022-10-12] MEDS ORDERED: SODIUM CHLORIDE 3%(HYPERTONIC) 500 ML IV ONE ×2 (16:30→23:00)
[2022-10-12 18:10] LABS: Glucose,Whole Blood 143 mg/dL (70-110)
[2022-10-12] MEDS: amLODIPine 5 MG TAB PO SCH (18:20)
[2022-10-12 19:42] LABS: Glucose,Whole Blood 128 mg/dL (70-110)
[2022-10-12] MEDS ORDERED: SODIUM CHLORIDE 0.9% 500 ML 500 ML IV ONE (19:59)
[2022-10-12 20:07] LABS: ABG Base Excess 1.7 mmol/L; ABG HCO3 26 mmol/L (21-25); ABG Oxygen Saturation 94.8 % (94-97); ABG PCO2 42 mmHg (35-45); ABG PH 7.41 (7.35-7.45); ABG PO2 77 mmHg (83-108); ABG TCO2 28 mmol/L (19-24); Allen Test Performed? Yes
[2022-10-12] MEDS: NOREPINEPHRINE 4 MG in SODIUM CHLORIDE 0.9% 250 ML IV SCH (20:07)
[2022-10-12] MEDS ORDERED: DEXTROSE 5% IN WATER 1,000 ML IV ONE (20:21)
--- NOTE | 2022-10-12 21:17 | CT ---
EXAMINATION TYPE: CT brain wo con DATE OF EXAM: 10/12/2022 COMPARISON: 10/12/2022 HISTORY: 82-year-old female with confusion, Unresponsive TECHNIQUE: Examination was done in axial plane without intravenous contrast. Coronal and sagittal r econstructions performed. CT DLP: combined DLP 2242.1 mGycm Automated exposure control for dose reduction was used. FINDINGS: There is no evidence of acute intracranial hemorrhage, acute ischemic changes, mass, mass-effect, or extra-axial fluid collection. There is no effacement of cerebral sulci or basal subarachnoid cister ns. There is no hydrocephalus. There is no midline shift. Webb-white matter distinction is preserv ed. There is mild generalized supratentorial volume loss. Mild patchy white matter hypodensities in poste rior hemispheres. Paranasal sinuses and mastoid air cells are well pneumatized. Orbits and globes are intact. IMPRESSION: Mild generalized atrophy and mild burden of chronic small vessel ischemic disease. No acute intracran ial abnormality seen.
--- NOTE | 2022-10-12 21:28 | CT ---
EXAMINATION TYPE: CT angio chest DATE OF EXAM: 10/12/2022 COMPARISON: 10/08/2022 HISTORY: 82-year-old female unresponsive confusion, Rule our cardiac tamponade TECHNIQUE: Contiguous axial scanning of the chest performed without and with IV Contrast, patient inj ected with 100 mL of Isovue 370. Coronal and sagittal MIP reconstructions performed. CT DLP: combined DLP 2242.1 mGycm Automated exposure control for dose reduction was used. FINDINGS: Heart normal size without pericardial effusion. There is left ventricular wall hypertrophy noted. Pr ominent proximal LAD coronary artery calcifications are present. Initial noncontrast images show no evidence for acute intramural hematoma. Ectatic ascending aorta 3.6 cm. Mild atherosclerotic arch calcifications. No evidence for aortic dissection. No evidence for pulmonary embolus. Mildly enlarged lower right paratracheal lymph node at 1.2 cm. Otherwise, no thoracic lymphadenopathy by CT size criteria. Extensive patchy peripheral groundglass changes are redemonstrated. Extensive septal lines and microc ystic change in the areas of patchy peripheral densities. Underlying emphysematous change. Some scattered granular opacities overlie may be slightly increased from prior. No bertha consolidation or pleural effusion. Scattered bronchial opacification throughout the lower lobes. There is a small hiatal hernia. Circumferential wall thickening. Appears to have progressed from rece nt 10/08/2022 prior. Visualized upper abdomen shows moderate fatty stool. Bones: Multiple vertebral compression deformities. Vertebroplasty change at multiple levels including T5, T12, L1, and L2 levels IMPRESSION: 1. NO PERICARDIAL EFFUSION OR CT EVIDENCE FOR CARDIAC TAMPONADE. THERE IS SOME LEFT VENTRICULAR WALL HYPERTROPHY NOTED. 2. PROMINENT PROXIMAL LAD CORONARY ARTERY CALCIFICATIONS. 3. NO EVIDENCE FOR AORTIC DISSECTION OR PULMONARY EMBOLUS. 4. PATCHY PERIPHERAL GROUNDGLASS CHANGES AND SCATTERED INTERSTITIAL CHANGES. 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 5. SOME TREE-IN-BUD OPACITY IS NOTED IN THE UPPER LOBES MAY BE SLIGHTLY INCREASED AND MAY BE SEEN WIT H BRONCHIOLITIS. SOME SCATTERED ENDOBRONCHIAL OPACIFICATION IN THE LOWER LOBES PROBABLY RETAINED SECR ETIONS OR ASPIRATION. CLINICALLY CORRELATE. 6. SMALL HIATAL HERNIA. CIRCUMFERENTIAL WALL THICKENING OF THE DISTAL ESOPHAGUS HAS DEVELOPED FROM 10/08/2022. CONSIDER ESOPHAGITIS.
[2022-10-12 21:32] LABS: Basophils % (A) 0 %; Eosinophils # (A) 0.2 k/uL (0-0.7); Eosinophils % (A) 2 %; HCT 35.9 % (34.0-46.0); HGB 12.3 gm/dL (11.4-16.0); Lymphocytes # (A) 2.2 k/uL (1.0-4.8); Lymphocytes % (A) 18 %; MCH 32.6 pg (25.0-35.0); MCHC 34.2 g/dL (31.0-37.0); MCV 95.5 fL (80.0-100.0); Mean Platelet Volume 7.6; Monocytes # (A) 0.7 k/uL (0-1.0); Monocytes % (A) 6 %; Neutrophils % (A) 72 %; Platelet Count 262 k/uL (150-450); RBC 3.76 m/uL (3.80-5.40); RDW 12.9 % (11.5-15.5); WBC 12.4 k/uL (3.8-10.6)
[2022-10-12 22:09] LABS: African American GFR (CKD) 60 (>60 ml/min/1.73 sqM); Anion Gap 10 mmol/L; Blood Urea Nitrogen 27 mg/dL (7-17); Calcium 8.8 mg/dL (8.4-10.2); Carbon Dioxide 23 mmol/L (22-30); Chloride 88 mmol/L (98-107); Glucose 139 mg/dL (74-99); Non-African American GFR(CKD) 52 (>60 ml/min/1.73 sqM); Potassium 4.7 mmol/L (3.5-5.1); Sodium 121 mmol/L (137-145)
[2022-10-12] MEDS: NORTRIPTYLINE 25 MG CAP PO SCH (23:29)
[2022-10-12] MEDS: traMADol 50 MG TAB PO PRN (23:30)
[2022-10-12] MEDS: PANTOPRAZOLE 40 MG/10 ML VIAL IVP SCH (23:38)
[2022-10-13] MEDS: NOREPINEPHRINE 4 MG in SODIUM CHLORIDE 0.9% 250 ML IV SCH ×3 (03:03→15:48)
[2022-10-13] MEDS ORDERED: SODIUM CHLORIDE 0.9% 1,000 ML IV ONE (03:28)
[2022-10-13] MEDS ORDERED: LIDOCAINE 1% INJ 10MG/ML (20 ML MDV) ONE (03:54)
[2022-10-13 05:23] LABS: Appearance,Urine Clear (Clear); Bilirubin,Urine Negative (Negative); Blood,Urine Trace (Negative); Color,Urine Dark Brown; Glucose,Urine (UA) Negative (Negative); Ketones,Urine Negative (Negative); Leukocyte Esterase,Urine Small (Negative); Nitrite,Urine Negative (Negative); PH, Urine 5.5 (5.0-8.0); Protein,Urine 1+ (Negative); RBC,Urine 5 /hpf (0-5); Specific Gravity,Urine >1.050 (1.001-1.035); WBC,Urine 9 /hpf (0-5)
--- NOTE | 2022-10-13 05:33 | P.PCN ---
Date of Procedure: 10/13/22 Preoperative Diagnosis: Hypotension and shock Postoperative Diagnosis: Hypotension and shock Procedure(s) Performed: Insertion of a right radial arterial line Indications for Procedure: Continuous blood pressure monitoring and frequent blood draws Description of Procedure: Informed consent was obtained, and a procedural timeout was performed . The patient was placed in supine position. Jason test indicates adequate collateral perfusion. The right radial region was prepared in a sterile fashion, and a sterile drape was applied. The right radial artery was palpated, easily cannulated, and a guidewire was placed. A Cook catheter was inserted over the guidewire, and the guidewire was removed. There was good arterial blood flow, good arterial waveform, and no complications. The line was secured with using a 3-0 silk suture.
[2022-10-13 06:11] LABS: ABG Base Excess 0.2 mmol/L; ABG HCO3 26 mmol/L (21-25); ABG Oxygen Saturation 93.5 % (94-97); ABG PCO2 44 mmHg (35-45); ABG PH 7.37 (7.35-7.45); ABG PO2 69 mmHg (83-108); ABG TCO2 27 mmol/L (19-24)
[2022-10-13 06:18] LABS: Allen Test Performed? no
[2022-10-13 07:26] LABS: Basophils % (A) 0 %; Eosinophils % (A) 0 %; HCT 31.9 % (34.0-46.0); HGB 10.9 gm/dL (11.4-16.0); Lymphocytes # (A) 1.3 k/uL (1.0-4.8); Lymphocytes % (A) 8 %; MCH 32.2 pg (25.0-35.0); MCHC 34.3 g/dL (31.0-37.0); MCV 93.7 fL (80.0-100.0); Mean Platelet Volume 7.6; Monocytes # (A) 0.9 k/uL (0-1.0); Monocytes % (A) 5 %; Neutrophils # (A) 13.6 k/uL (1.3-7.7); Neutrophils % (A) 85 %; Platelet Count 259 k/uL (150-450); RDW 12.9 % (11.5-15.5)
--- NOTE | 2022-10-13 07:28 | P.CNOR ---
History of Present Illness - [facility] Consult date: 10/13/22 Consult reason: fracture History of present illness: The patient is an 82-year-old female who presents after a fall at home recently with left leg/knee pain. She is in the ICU and is a poor story. She claims to walk with a walker at home. She is unable to give details of her injury. Review of Systems ROS unobtainable: due to mental status Past Medical History Past Medical History: Asthma, Hypertension Additional Past Medical History / Comment(s): thyroid History of Any Multi-Drug Resistant Organisms: None Reported Past Surgical History: Appendectomy, Orthopedic Surgery, Tonsillectomy Additional Past Surgical History / Comment(s): Bilateral knee replacement, L4-L5 fusion, left hip replacement, right shoulder replacement Past Anesthesia/Blood Transfusion Reactions: No Reported Reaction Past Psychological History: No Psychological Hx Reported Smoking Status: Never smoker Past Alcohol Use History: None Reported Past Drug Use History: None Reported Medications and Allergies Home Medications Medication Instructions Recorded Confirmed Type Albuterol Inhaler [Ventolin Hfa 1 - 2 puff INHALATION RT-Q6H PRN 10/08/22 10/08/22 History Inhaler] Ascorbic Acid [Vitamin C] 1,000 mg PO DAILY 10/08/22 10/08/22 History Bifidobacterium Infantis [Align 10.5 mg PO DAILY 10/08/22 10/08/22 History Chew] Calcium Carbonate/Vitamin D3 2 tab PO DAILY@1400 10/08/22 10/08/22 History [Caltrate 600 Plus D3 20 Mcg (800 Iu)] Cyanocobalamin (Vitamin B-12) 1,000 mcg PO DAILY 10/08/22 10/08/22 History [Vitamin B-12] Fluticasone/Vilanterol [Breo 1 puff INHALATION RT-DAILY 10/08/22 10/08/22 History Ellipta 100-25 Mcg Inhaler] Lansoprazole [Prevacid 24Hr] 15 mg PO DAILY 10/08/22 10/08/22 History Nortriptyline [Pamelor] 50 mg PO HS@2300 10/08/22 10/08/22 History Omeprazole 20 mg PO DAILY@0500 10/08/22 10/08/22 History amLODIPine [Norvasc] 5 mg PO DAILY@1800 10/08/22 10/08/22 History carBAMazepine 400 mg PO BID@1000,2300 10/08/22 10/08/22 History lisinopriL 40 mg PO DAILY@1000 10/08/22 10/08/22 History Cyclobenzaprine [Flexeril] 5 mg PO TID PRN tab 10/12/22 Rx Gabapentin 400 mg PO HS@2330 #4 tab 10/12/22 Rx Gabapentin 800 mg PO TID@0500,1400,1800 #3 tab 10/12/22 Rx Lidocaine 5% Patch [Lidoderm 5% 1 patch TOPICAL DAILY patch 10/12/22 Rx Patch] Ondansetron Odt [Zofran ODT] 4 mg PO Q6HR PRN tab 10/12/22 Rx traMADol HCl [Ultram] 50 mg PO QID PRN #4 tab 10/12/22 Rx Allergies Allergy/AdvReac Type Severity Reaction Status Date / Time Sulfa (Sulfonamide Allergy Rash/Hives Verified 10/08/22 13:24 Antibiotics) Physical Examination - Knee left Appearance: effusion Effusion grade: grade 3 Tenderness with palpation: medial, lateral Pain: throughout ROM Gait: other (Nonambulatory) ROM: extension: -15 degrees ROM: flexion: 40 degrees Results The patient is a well-developed well-nourished obese elderly female who appears to be in mild distress. She is currently on maximum oxygen per nasal cannula. She is nontender about the cervical, thoracic, and lumbar spine. No point ten derness about the upper extremities is noted. The pelvis is stable external rotation stress. She has minimal discomfort with log roll of the left hip. She's tender about the left distal thigh/medial and lateral distal femur. She has moderate swelling along with a large joint effusion. Homans is negative. Her distal neurovascular exam appears to be intact in the left lower Knee. She is nontender about the right knee, bilateral ankles and feet. - Labs Labs: Abnormal Lab Results - Last 24 Hours (Table) 10/12/22 10/12/22 10/12/22 Range/Units 07:42 10:49 10:49 WBC (3.8-10.6) k/uL RBC (3.80-5.40) m/uL Neutrophils # (1.3-7.7) k/uL ABG pO2 (83-108) mmHg ABG HCO3 (21-25) mmol/L ABG Total CO2 (19-24) mmol/L ABG O2 Saturation (94-97) % Sodium 122 L 120 L (137-145) mmol/L Chloride 85 L 87 L (98-107) mmol/L BUN 19 H 22 H (7-17) mg/dL Glucose 114 H 136 H (74-99) mg/dL POC Glucose (mg/dL) (70-110) mg/dL Osmolality 265 L (280-301) mosm/kg Plasma Lactic Acid Artem (0.7-2.0) mmol/L Vitamin B12 (200.0-944.0) pg/mL Ur Specific Clarkia (1.001-1.035) Urine Protein (Negative) Urine Blood (Negative) Ur Leukocyte Esterase (Negative) Urine WBC (0-5) /hpf Ur Random Sodium (40-220) mmol/L 10/12/22 10/12/22 10/12/22 Range/Units 13:03 14:31 16:40 WBC (3.8-10.6) k/uL RBC (3.80-5.40) m/uL Neutrophils # (1.3-7.7) k/uL ABG pO2 (83-108) mmHg ABG HCO3 (21-25) mmol/L ABG Total CO2 (19-24) mmol/L ABG O2 Saturation (94-97) % Sodium 120 L (137-145) mmol/L Chloride (98-107) mmol/L BUN (7-17) mg/dL Glucose (74-99) mg/dL POC Glucose (mg/dL) 147 H (70-110) mg/dL Osmolality (280-301) mosm/kg Plasma Lactic Acid Artem (0.7-2.0) mmol/L Vitamin B12 (200.0-944.0) pg/mL Ur Specific Clarkia (1.001-1.035) Urine Protein (Negative) Urine Blood (Negative) Ur Leukocyte Esterase (Negative) Urine WBC (0-5) /hpf Ur Random Sodium 25 L (40-220) mmol/L 10/12/22 10/12/22 10/12/22 Range/Units 16:47 16:47 18:09 WBC (3.8-10.6) k/uL RBC (3.80-5.40) m/uL Neutrophils # (1.3-7.7) k/uL ABG pO2 (83-108) mmHg ABG HCO3 (21-25) mmol/L ABG Total CO2 (19-24) mmol/L ABG O2 Saturation (94-97) % Sodium 120 L (137-145) mmol/L Chloride (98-107) mmol/L BUN (7-17) mg/dL Glucose (74-99) mg/dL POC Glucose (mg/dL) 143 H (70-110) mg/dL Osmolality (280-301) mosm/kg Plasma Lactic Acid Artem (0.7-2.0) mmol/L Vitamin B12 1937.0 H (200.0-944.0) pg/mL Ur Specific Clarkia (1.001-1.035) Urine Protein (Negative) Urine Blood (Negative) Ur Leukocyte Esterase (Negative) Urine WBC (0-5) /hpf Ur Random Sodium (40-220) mmol/L 10/12/22 10/12/22 10/12/22 Range/Units 19:40 20:05 21:28 WBC 12.4 H (3.8-10.6) k/uL RBC 3.76 L (3.80-5.40) m/uL Neutrophils # 9.0 H (1.3-7.7) k/uL ABG pO2 77 L (83-108) mmHg ABG HCO3 26 H (21-25) mmol/L ABG Total CO2 28 H (19-24) mmol/L ABG O2 Saturation (94-97) % Sodium (137-145) mmol/L Chloride (98-107) mmol/L BUN (7-17) mg/dL Glucose (74-99) mg/dL POC Glucose (mg/dL) 128 H (70-110) mg/dL Osmolality (280-301) mosm/kg Plasma Lactic Acid Artem (0.7-2.0) mmol/L Vitamin B12 (200.0-944.0) pg/mL Ur Specific Clarkia (1.001-1.035) Urine Protein (Negative) Urine Blood (Negative) Ur Leukocyte Esterase (Negative) Urine WBC (0-5) /hpf Ur Random Sodium (40-220) mmol/L 10/12/22 10/13/22 10/13/22 Range/Units 21:39 00:32 01:54 WBC (3.8-10.6) k/uL RBC (3.80-5.40) m/uL Neutrophils # (1.3-7.7) k/uL ABG pO2 (83-108) mmHg ABG HCO3 (21-25) mmol/L ABG Total CO2 (19-24) mmol/L ABG O2 Saturation (94-97) % Sodium 121 L 120 L 120 L (137-145) mmol/L Chloride 88 L (98-107) mmol/L BUN 27 H (7-17) mg/dL Glucose 139 H (74-99) mg/dL POC Glucose (mg/dL) (70-110) mg/dL Osmolality (280-301) mosm/kg Plasma Lactic Acid Artem (0.7-2.0) mmol/L Vitamin B12 (200.0-944.0) pg/mL Ur Specific Clarkia (1.001-1.035) Urine Protein (Negative) Urine Blood (Negative) Ur Leukocyte Esterase (Negative) Urine WBC (0-5) /hpf Ur Random Sodium (40-220) mmol/L 10/13/22 10/13/22 10/13/22 Range/Units 03:26 03:26 04:58 WBC (3.8-10.6) k/uL RBC (3.80-5.40) m/uL Neutrophils # (1.3-7.7) k/uL ABG pO2 (83-108) mmHg ABG HCO3 (21-25) mmol/L ABG Total CO2 (19-24) mmol/L ABG O2 Saturation (94-97) % Sodium 121 L (137-145) mmol/L Chloride (98-107) mmol/L BUN (7-17) mg/dL Glucose (74-99) mg/dL POC Glucose (mg/dL) (70-110) mg/dL Osmolality (280-301) mosm/kg Plasma Lactic Acid Artem 3.2 H* (0.7-2.0) mmol/L Vitamin B12 (200.0-944.0) pg/mL Ur Specific Clarkia >1.050 H (1.001-1.035) Urine Protein 1+ H (Negative) Urine Blood Trace H (Negative) Ur Leukocyte Esterase Small H (Negative) Urine WBC 9 H (0-5) /hpf Ur Random Sodium (40-220) mmol/L 10/13/22 10/13/22 Range/Units 05:26 06:10 WBC (3.8-10.6) k/uL RBC (3.80-5.40) m/uL Neutrophils # (1.3-7.7) k/uL ABG pO2 69 L (83-108) mmHg ABG HCO3 26 H (21-25) mmol/L ABG Total CO2 27 H (19-24) mmol/L ABG O2 Saturation 93.5 L (94-97) % Sodium 122 L (137-145) mmol/L Chloride (98-107) mmol/L BUN (7-17) mg/dL Glucose (74-99) mg/dL POC Glucose (mg/dL) (70-110) mg/dL Osmolality (280-301) mosm/kg Plasma Lactic Acid Artem (0.7-2.0) mmol/L Vitamin B12 (200.0-944.0) pg/mL Ur Specific Clarkia (1.001-1.035) Urine Protein (Negative) Urine Blood (Negative) Ur Leukocyte Esterase (Negative) Urine WBC (0-5) /hpf Ur Random Sodium (40-220) mmol/L H & H 10/08/22 10/11/22 10/12/22 Range/Units 09:22 05:50 21:28 Hgb 14.1 12.9 12.3 (11.4-16.0) gm/dL Hct 41.3 38.7 35.9 (34.0-46.0) % Result Diagrams: 10/12/22 21:28 10/13/22 05:26 - Diagnostic results Knee x-ray: image reviewed (X-rays of the left femur/knee show a periprosthetic distal femur fracture with mild displacement. Associated total knee and total hip arthroplasties are noted.) Assessment and Plan Assessment: Left periprosthetic distal femur fracture Multiple medical comorbidities Plan: At this point I recommend attempted conservative measures as the patient does not appear to be a surgical candidate. We will order a hinged knee brace locked at 30 of flexion. Once she is fitted for that, mobilization to a chair may be possible. Thank you for this consultation, we will continue to follow the patient while in the hospital.
[2022-10-13] MEDS: SYMBICORT 80-4.5 MCG INHALER INHALATION SCH ×2 (07:59→21:22)
[2022-10-13] MEDS ORDERED: DEXTROSE 5%-0.45% NACL 1,000 ML IV SCH (08:30)
[2022-10-13 09:04] LABS: African American GFR (CKD) 51 (>60 ml/min/1.73 sqM); Anion Gap 10 mmol/L; Blood Urea Nitrogen 29 mg/dL (7-17); Calcium 8.5 mg/dL (8.4-10.2); Carbon Dioxide 21 mmol/L (22-30); Chloride 91 mmol/L (98-107); Glucose 132 mg/dL (74-99); Non-African American GFR(CKD) 45 (>60 ml/min/1.73 sqM); Potassium 5.3 mmol/L (3.5-5.1); Sodium 122 mmol/L (137-145)
--- NOTE | 2022-10-13 09:39 | P.PN ---
Subjective Progress Note Date: 10/13/22 The patient is an 82-year-old female who initially presented to the hospital after a fall. She experienced rib and right distal femur fracture. She underwent echocardiogram showed preserved LV function and she was cleared for discharged by cardiology. Yesterday she experienced a fall on the orthopedic f jerome yet again. She was noted to be hyponatremic and was transferred to the ICU. While on a bedpan, she became nonresponsive for approximately 15 minutes according to nursing staff. At that time she was notably hypotensive. She had neurological changes and was seen by neurology. She is currently on low-dose Levophed and has received multiple fluid boluses. Patient was interviewed and examined resting comfortably in bed. She is lethargic, but answers questions appropriately. She denies any chest pain, chest pressure, difficulty breathing, or dizziness. GENERAL: Well-appearing, well-nourished and in no acute distress. NECK: Supple without JVD or thyromegaly. LUNGS: Breath sounds clear to auscultation bilaterally. Respiration equal and unlabored. No wheezes, rales or rhonchi. HEART: Regular rate and rhythm without murmurs, rubs or gallops. S1 and S2 heard. EXTREMITIES: Normal range of motion, no edema. No clubbing or cyanosis. Peripheral pulses intact and strong. VITALS: Systolic pressures in the 80s to 90s TELEMETRY: Sinus rhythm to sinus tachycardia LABS: WBC 16.0, hemoglobin 10.9, hematocrit 31.9, platelet 259, sodium 123 IMPRESSION: Mechanical fall Hyponatremia Hypotension PLAN: Repeat limited echo pending Continue supportive treatment Further recommendations based on clinical course I am dictating on behalf of Dr Sg Loza's history/physical and assessmen t/plan. Objective - Vital Signs Vital signs: Vital Signs Temp 99.1 F 10/13/22 07:00 Pulse 96 10/13/22 07:00 Resp 20 10/13/22 07:00 BP 110/79 10/13/22 07:00 Pulse Ox 96 10/13/22 06:00 FiO2 Intake & Output 10/12/22 10/13/22 10/13/22 18:59 06:59 18:59 Intake Total 120 2439.472 103.783 Output Total 630 280 40 Balance -510 2159.472 63.783 Intake: IV 1910 20 Dextrose 5% in Water 1, 200 000 ml @ 100 mls/hr IV . Q10H ONE Rx#:[id number] Sodium Chloride 0.9% 1, 1000 000 ml @ 999 mls/hr IV . Q1H1M ONE Rx#:[id number] Sodium Chloride 0.9% 500 500 ml 500 ml @ 999 mls/hr IV .Q31M ONE Rx#:[id number] Sodium Chloride 3%( 160 20 Hypertonic) 500 ml @ 20 mls/hr IV .Q24H ONE Rx#: [id number] cefTRIAXone 2 gm In 50 Sodium Chloride 0.9% 50 ml @ 100 mls/hr IVPB Q24H [facility] Rx#:[id number] Intake, IV Titration 529.472 83.783 Amount Norepinephrine 4 mg In 499.472 83.783 Sodium Chloride 0.9% 250 ml @ 0.03 MCG/KG/MIN 10. 473 mls/hr IV .Q24H [facility] Rx#:[id number] Sodium Chloride 3%( 30 Hypertonic) 500 ml @ 30 mls/hr IV .[id number] ONE Rx #:[id number] Oral 120 Output: Urine 630 280 40 Uretheral ([place]) 320 Other: Voiding Method External Catheter Indwelling Catheter # Voids 0 ABP, PAP, CO, CI - Last Documented Arterial Blood Pressure 100/47 - Labs CBC & Chem 7: 10/13/22 07:17 10/13/22 07:17 Labs: Abnormal Lab Results - Last 24 Hours (Table) 10/12/22 10/12/22 10/12/22 Range/Units 10:49 10:49 13:03 WBC (3.8-10.6) k/uL RBC (3.80-5.40) m/uL Hgb (11.4-16.0) gm/dL Hct (34.0-46.0) % Neutrophils # (1.3-7.7) k/uL ABG pO2 (83-108) mmHg ABG HCO3 (21-25) mmol/L ABG Total CO2 (19-24) mmol/L ABG O2 Saturation (94-97) % Sodium 120 L (137-145) mmol/L Potassium (3.5-5.1) mmol/L Chloride 87 L (98-107) mmol/L Carbon Dioxide (22-30) mmol/L BUN 22 H (7-17) mg/dL Creatinine (0.52-1.04) mg/dL Glucose 136 H (74-99) mg/dL POC Glucose (mg/dL) 147 H (70-110) mg/dL Osmolality 265 L (280-301) mosm/kg Plasma Lactic Acid Artem (0.7-2.0) mmol/L Vitamin B12 (200.0-944.0) pg/mL Ur Specific [place] (1.001-1.035) Urine Protein (Negative) Urine Blood (Negative) Ur Leukocyte Esterase (Negative) Urine WBC (0-5) /hpf Ur Random Sodium (40-220) mmol/L 10/12/22 10/12/22 10/12/22 Range/Units 14:31 16:40 16:47 WBC (3.8-10.6) k/uL RBC (3.80-5.40) m/uL Hgb (11.4-16.0) gm/dL Hct (34.0-46.0) % Neutrophils # (1.3-7.7) k/uL ABG pO2 (83-108) mmHg ABG HCO3 (21-25) mmol/L ABG Total CO2 (19-24) mmol/L ABG O2 Saturation (94-97) % Sodium 120 L 120 L (137-145) mmol/L Potassium (3.5-5.1) mmol/L Chloride (98-107) mmol/L Carbon Dioxide (22-30) mmol/L BUN (7-17) mg/dL Creatinine (0.52-1.04) mg/dL Glucose (74-99) mg/dL POC Glucose (mg/dL) (70-110) mg/dL Osmolality (280-301) mosm/kg Plasma Lactic Acid Artem (0.7-2.0) mmol/L Vitamin B12 (200.0-944.0) pg/mL Ur Specific [place] (1.001-1.035) Urine Protein (Negative) Urine Blood (Negative) Ur Leukocyte Esterase (Negative) Urine WBC (0-5) /hpf Ur Random Sodium 25 L (40-220) mmol/L 10/12/22 10/12/22 10/12/22 Range/Units 16:47 18:09 19:40 WBC (3.8-10.6) k/uL RBC (3.80-5.40) m/uL Hgb (11.4-16.0) gm/dL Hct (34.0-46.0) % Neutrophils # (1.3-7.7) k/uL ABG pO2 (83-108) mmHg ABG HCO3 (21-25) mmol/L ABG Total CO2 (19-24) mmol/L ABG O2 Saturation (94-97) % Sodium (137-145) mmol/L Potassium (3.5-5.1) mmol/L Chloride (98-107) mmol/L Carbon Dioxide (22-30) mmol/L BUN (7-17) mg/dL Creatinine (0.52-1.04) mg/dL Glucose (74-99) mg/dL POC Glucose (mg/dL) 143 H 128 H (70-110) mg/dL Osmolality (280-301) mosm/kg Plasma Lactic Acid Artem (0.7-2.0) mmol/L Vitamin B12 1937.0 H (200.0-944.0) pg/mL Ur Specific [place] (1.001-1.035) Urine Protein (Negative) Urine Blood (Negative) Ur Leukocyte Esterase (Negative) Urine WBC (0-5) /hpf Ur Random Sodium (40-220) mmol/L 10/12/22 10/12/22 10/12/22 Range/Units 20:05 21:28 21:39 WBC 12.4 H (3.8-10.6) k/uL RBC 3.76 L (3.80-5.40) m/uL Hgb (11.4-16.0) gm/dL Hct (34.0-46.0) % Neutrophils # 9.0 H (1.3-7.7) k/uL ABG pO2 77 L (83-108) mmHg ABG HCO3 26 H (21-25) mmol/L ABG Total CO2 28 H (19-24) mmol/L ABG O2 Saturation (94-97) % Sodium 121 L (137-145) mmol/L Potassium (3.5-5.1) mmol/L Chloride 88 L (98-107) mmol/L Carbon Dioxide (22-30) mmol/L BUN 27 H (7-17) mg/dL Creatinine (0.52-1.04) mg/dL Glucose 139 H (74-99) mg/dL POC Glucose (mg/dL) (70-110) mg/dL Osmolality (280-301) mosm/kg Plasma Lactic Acid Artem (0.7-2.0) mmol/L Vitamin B12 (200.0-944.0) pg/mL Ur Specific [place] (1.001-1.035) Urine Protein (Negative) Urine Blood (Negative) Ur Leukocyte Esterase (Negative) Urine WBC (0-5) /hpf Ur Random Sodium (40-220) mmol/L 10/13/22 10/13/22 10/13/22 Range/Units 00:32 01:54 03:26 WBC (3.8-10.6) k/uL RBC (3.80-5.40) m/uL Hgb (11.4-16.0) gm/dL Hct (34.0-46.0) % Neutrophils # (1.3-7.7) k/uL ABG pO2 (83-108) mmHg ABG HCO3 (21-25) mmol/L ABG Total CO2 (19-24) mmol/L ABG O2 Saturation (94-97) % Sodium 120 L 120 L 121 L (137-145) mmol/L Potassium (3.5-5.1) mmol/L Chloride (98-107) mmol/L Carbon Dioxide (22-30) mmol/L BUN (7-17) mg/dL Creatinine (0.52-1.04) mg/dL Glucose (74-99) mg/dL POC Glucose (mg/dL) (70-110) mg/dL Osmolality (280-301) mosm/kg Plasma Lactic Acid Artem (0.7-2.0) mmol/L Vitamin B12 (200.0-944.0) pg/mL Ur Specific [place] (1.001-1.035) Urine Protein (Negative) Urine Blood (Negative) Ur Leukocyte Esterase (Negative) Urine WBC (0-5) /hpf Ur Random Sodium (40-220) mmol/L 10/13/22 10/13/22 10/13/22 Range/Units 03:26 04:58 05:26 WBC (3.8-10.6) k/uL RBC (3.80-5.40) m/uL Hgb (11.4-16.0) gm/dL Hct (34.0-46.0) % Neutrophils # (1.3-7.7) k/uL ABG pO2 (83-108) mmHg ABG HCO3 (21-25) mmol/L ABG Total CO2 (19-24) mmol/L ABG O2 Saturation (94-97) % Sodium 122 L (137-145) mmol/L Potassium 5.3 H (3.5-5.1) mmol/L Chloride 91 L (98-107) mmol/L Carbon Dioxide 21 L (22-30) mmol/L BUN 29 H (7-17) mg/dL Creatinine 1.15 H (0.52-1.04) mg/dL Glucose 132 H (74-99) mg/dL POC Glucose (mg/dL) (70-110) mg/dL Osmolality (280-301) mosm/kg Plasma Lactic Acid Artem 3.2 H* (0.7-2.0) mmol/L Vitamin B12 (200.0-944.0) pg/mL Ur Specific [place] >1.050 H (1.001-1.035) Urine Protein 1+ H (Negative) Urine Blood Trace H (Negative) Ur Leukocyte Esterase Small H (Negative) Urine WBC 9 H (0-5) /hpf Ur Random Sodium (40-220) mmol/L 10/13/22 10/13/22 10/13/22 Range/Units 05:26 06:10 07:17 WBC (3.8-10.6) k/uL RBC (3.80-5.40) m/uL Hgb (11.4-16.0) gm/dL Hct (34.0-46.0) % Neutrophils # (1.3-7.7) k/uL ABG pO2 69 L (83-108) mmHg ABG HCO3 26 H (21-25) mmol/L ABG Total CO2 27 H (19-24) mmol/L ABG O2 Saturation 93.5 L (94-97) % Sodium 122 L 123 L (137-145) mmol/L Potassium (3.5-5.1) mmol/L Chloride (98-107) mmol/L Carbon Dioxide (22-30) mmol/L BUN (7-17) mg/dL Creatinine (0.52-1.04) mg/dL Glucose (74-99) mg/dL POC Glucose (mg/dL) (70-110) mg/dL Osmolality (280-301) mosm/kg Plasma Lactic Acid Artem (0.7-2.0) mmol/L Vitamin B12 (200.0-944.0) pg/mL Ur Specific [place] (1.001-1.035) Urine Protein (Negative) Urine Blood (Negative) Ur Leukocyte Esterase (Negative) Urine WBC (0-5) /hpf Ur Random Sodium (40-220) mmol/L 10/13/22 Range/Units 07:17 WBC 16.0 H (3.8-10.6) k/uL RBC 3.40 L (3.80-5.40) m/uL Hgb 10.9 L (11.4-16.0) gm/dL Hct 31.9 L (34.0-46.0) % Neutrophils # 13.6 H (1.3-7.7) k/uL ABG pO2 (83-108) mmHg ABG HCO3 (21-25) mmol/L ABG Total CO2 (19-24) mmol/L ABG O2 Saturation (94-97) % Sodium (137-145) mmol/L Potassium (3.5-5.1) mmol/L Chloride (98-107) mmol/L Carbon Dioxide (22-30) mmol/L BUN (7-17) mg/dL Creatinine (0.52-1.04) mg/dL Glucose (74-99) mg/dL POC Glucose (mg/dL) (70-110) mg/dL Osmolality (280-301) mosm/kg Plasma Lactic Acid Artem (0.7-2.0) mmol/L Vitamin B12 (200.0-944.0) pg/mL Ur Specific [place] (1.001-1.035) Urine Protein (Negative) Urine Blood (Negative) Ur Leukocyte Esterase (Negative) Urine WBC (0-5) /hpf Ur Random Sodium (40-220) mmol/L
[2022-10-13 10:07] LABS: T4, Free (Free Thyroxine) 1.56 ng/dL (0.78-2.19)
[2022-10-13] MEDS: CYANOCOBALAMIN 500 MCG TAB PO SCH (10:07)
[2022-10-13] MEDS: PANTOPRAZOLE 40 MG/10 ML VIAL IVP SCH ×2 (10:07→20:11)
[2022-10-13] MEDS: LACTOBACILLUS ACIDOPHILUS/PECT 1 EACH CAPSULE PO SCH (10:07)
[2022-10-13] MEDS: LIDOCAINE 5% PATCH TOPICAL SCH (10:08)
[2022-10-13] MEDS ORDERED: SODIUM CHLORIDE 0.9% 500 ML 500 ML IV ONE (11:03)
--- NOTE | 2022-10-13 11:41 | P.PN ---
Subjective Patient is seen in follow-up for acute kidney injury and hyponatremia. Sodium level 123 this morning. Receiving 3% at 20 mL an hour. Patient's mentation worsened yesterday and she also sustained a fall. She is noted to have left knee fracture. Also on vasopressor support. Urine output 35-40 mL an hour for the last few hours. Vital signs are stable. On vasopressor support. General: No acute distress. HEENT: Head exam is unremarkable. On nasal cannula. LUNGS: No audible rhonchi or wheezes. HEART: Rate and Rhythm are regular. ABDOMEN: Soft, no distention. EXTREMITITES: No edema. Objective - Vital Signs Vital signs: Vital Signs Temp 99.1 F 10/13/22 07:00 Pulse 96 10/13/22 07:00 Resp 20 10/13/22 07:00 BP 110/79 10/13/22 07:00 Pulse Ox 96 10/13/22 06:00 FiO2 Intake & Output 10/12/22 10/13/22 10/13/22 18:59 06:59 18:59 Intake Total 120 2439.472 274.000 Output Total 630 280 40 Balance -510 2159.472 234.000 Intake: IV 1910 20 Dextrose 5% in Water 1, 200 000 ml @ 100 mls/hr IV . Q10H [facility] Rx#:[id number] Sodium Chloride 0.9% 1, 1000 000 ml @ 999 mls/hr IV . Q1H1M [facility] Rx#:[id number] Sodium Chloride 0.9% 500 500 ml 500 ml @ 999 mls/hr IV .Q31M [facility] Rx#:[id number] Sodium Chloride 3%( 160 20 Hypertonic) 500 ml @ 20 mls/hr IV .Q24H [facility] Rx#: [id number] cefTRIAXone 2 gm In 50 Sodium Chloride 0.9% 50 ml @ 100 mls/hr IVPB Q24H [facility] Rx#:[id number] Intake, IV Titration 529.472 254.000 Amount Norepinephrine 4 mg In 499.472 254.000 Sodium Chloride 0.9% 250 ml @ 0.03 MCG/KG/MIN 10. 473 mls/hr IV .Q24H [facility] Rx#:[id number] Sodium Chloride 3%( 30 Hypertonic) 500 ml @ 30 mls/hr IV .[id number] [facility] Rx #:[id number] Oral 120 Output: Urine 630 280 40 Uretheral ([place]) 320 Other: Voiding Method External Catheter Indwelling Catheter # Voids 0 ABP, PAP, CO, CI - Last Documented Arterial Blood Pressure 100/47 - Labs CBC & Chem 7: 10/13/22 07:17 10/13/22 10:10 Labs: Abnormal Lab Results - Last 24 Hours (Table) 10/12/22 10/12/22 10/12/22 Range/Units 10:49 10:49 13:03 WBC (3.8-10.6) k/uL RBC (3.80-5.40) m/uL Hgb (11.4-16.0) gm/dL Hct (34.0-46.0) % Neutrophils # (1.3-7.7) k/uL ABG pO2 (83-108) mmHg ABG HCO3 (21-25) mmol/L ABG Total CO2 (19-24) mmol/L ABG O2 Saturation (94-97) % Sodium 120 L (137-145) mmol/L Potassium (3.5-5.1) mmol/L Chloride 87 L (98-107) mmol/L Carbon Dioxide (22-30) mmol/L BUN 22 H (7-17) mg/dL Creatinine (0.52-1.04) mg/dL Glucose 136 H (74-99) mg/dL POC Glucose (mg/dL) 147 H (70-110) mg/dL Osmolality 265 L (280-301) mosm/kg Plasma Lactic Acid Artem (0.7-2.0) mmol/L Vitamin B12 (200.0-944.0) pg/mL TSH (0.465-4.680) mIU/L Ur Specific [place] (1.001-1.035) Urine Protein (Negative) Urine Blood (Negative) Ur Leukocyte Esterase (Negative) Urine WBC (0-5) /hpf Ur Random Sodium (40-220) mmol/L 10/12/22 10/12/22 10/12/22 Range/Units 14:31 16:40 16:47 WBC (3.8-10.6) k/uL RBC (3.80-5.40) m/uL Hgb (11.4-16.0) gm/dL Hct (34.0-46.0) % Neutrophils # (1.3-7.7) k/uL ABG pO2 (83-108) mmHg ABG HCO3 (21-25) mmol/L ABG Total CO2 (19-24) mmol/L ABG O2 Saturation (94-97) % Sodium 120 L 120 L (137-145) mmol/L Potassium (3.5-5.1) mmol/L Chloride (98-107) mmol/L Carbon Dioxide (22-30) mmol/L BUN (7-17) mg/dL Creatinine (0.52-1.04) mg/dL Glucose (74-99) mg/dL POC Glucose (mg/dL) (70-110) mg/dL Osmolality (280-301) mosm/kg Plasma Lactic Acid Artem (0.7-2.0) mmol/L Vitamin B12 (200.0-944.0) pg/mL TSH (0.465-4.680) mIU/L Ur Specific [place] (1.001-1.035) Urine Protein (Negative) Urine Blood (Negative) Ur Leukocyte Esterase (Negative) Urine WBC (0-5) /hpf Ur Random Sodium 25 L (40-220) mmol/L 10/12/22 10/12/22 10/12/22 Range/Units 16:47 18:09 19:40 WBC (3.8-10.6) k/uL RBC (3.80-5.40) m/uL Hgb (11.4-16.0) gm/dL Hct (34.0-46.0) % Neutrophils # (1.3-7.7) k/uL ABG pO2 (83-108) mmHg ABG HCO3 (21-25) mmol/L ABG Total CO2 (19-24) mmol/L ABG O2 Saturation (94-97) % Sodium (137-145) mmol/L Potassium (3.5-5.1) mmol/L Chloride (98-107) mmol/L Carbon Dioxide (22-30) mmol/L BUN (7-17) mg/dL Creatinine (0.52-1.04) mg/dL Glucose (74-99) mg/dL POC Glucose (mg/dL) 143 H 128 H (70-110) mg/dL Osmolality (280-301) mosm/kg Plasma Lactic Acid Artem (0.7-2.0) mmol/L Vitamin B12 1937.0 H (200.0-944.0) pg/mL TSH (0.465-4.680) mIU/L Ur Specific [place] (1.001-1.035) Urine Protein (Negative) Urine Blood (Negative) Ur Leukocyte Esterase (Negative) Urine WBC (0-5) /hpf Ur Random Sodium (40-220) mmol/L 10/12/22 10/12/22 10/12/22 Range/Units 20:05 21:28 21:39 WBC 12.4 H (3.8-10.6) k/uL RBC 3.76 L (3.80-5.40) m/uL Hgb (11.4-16.0) gm/dL Hct (34.0-46.0) % Neutrophils # 9.0 H (1.3-7.7) k/uL ABG pO2 77 L (83-108) mmHg ABG HCO3 26 H (21-25) mmol/L ABG Total CO2 28 H (19-24) mmol/L ABG O2 Saturation (94-97) % Sodium 121 L (137-145) mmol/L Potassium (3.5-5.1) mmol/L Chloride 88 L (98-107) mmol/L Carbon Dioxide (22-30) mmol/L BUN 27 H (7-17) mg/dL Creatinine (0.52-1.04) mg/dL Glucose 139 H (74-99) mg/dL POC Glucose (mg/dL) (70-110) mg/dL Osmolality (280-301) mosm/kg Plasma Lactic Acid Artem (0.7-2.0) mmol/L Vitamin B12 (200.0-944.0) pg/mL TSH (0.465-4.680) mIU/L Ur Specific [place] (1.001-1.035) Urine Protein (Negative) Urine Blood (Negative) Ur Leukocyte Esterase (Negative) Urine WBC (0-5) /hpf Ur Random Sodium (40-220) mmol/L 10/13/22 10/13/22 10/13/22 Range/Units 00:32 01:54 03:26 WBC (3.8-10.6) k/uL RBC (3.80-5.40) m/uL Hgb (11.4-16.0) gm/dL Hct (34.0-46.0) % Neutrophils # (1.3-7.7) k/uL ABG pO2 (83-108) mmHg ABG HCO3 (21-25) mmol/L ABG Total CO2 (19-24) mmol/L ABG O2 Saturation (94-97) % Sodium 120 L 120 L 121 L (137-145) mmol/L Potassium (3.5-5.1) mmol/L Chloride (98-107) mmol/L Carbon Dioxide (22-30) mmol/L BUN (7-17) mg/dL Creatinine (0.52-1.04) mg/dL Glucose (74-99) mg/dL POC Glucose (mg/dL) (70-110) mg/dL Osmolality (280-301) mosm/kg Plasma Lactic Acid Artem (0.7-2.0) mmol/L Vitamin B12 (200.0-944.0) pg/mL TSH (0.465-4.680) mIU/L Ur Specific [place] (1.001-1.035) Urine Protein (Negative) Urine Blood (Negative) Ur Leukocyte Esterase (Negative) Urine WBC (0-5) /hpf Ur Random Sodium (40-220) mmol/L 10/13/22 10/13/22 10/13/22 Range/Units 03:26 04:58 05:26 WBC (3.8-10.6) k/uL RBC (3.80-5.40) m/uL Hgb (11.4-16.0) gm/dL Hct (34.0-46.0) % Neutrophils # (1.3-7.7) k/uL ABG pO2 (83-108) mmHg ABG HCO3 (21-25) mmol/L ABG Total CO2 (19-24) mmol/L ABG O2 Saturation (94-97) % Sodium 122 L (137-145) mmol/L Potassium 5.3 H (3.5-5.1) mmol/L Chloride 91 L (98-107) mmol/L Carbon Dioxide 21 L (22-30) mmol/L BUN 29 H (7-17) mg/dL Creatinine 1.15 H (0.52-1.04) mg/dL Glucose 132 H (74-99) mg/dL POC Glucose (mg/dL) (70-110) mg/dL Osmolality (280-301) mosm/kg Plasma Lactic Acid Artem 3.2 H* (0.7-2.0) mmol/L Vitamin B12 (200.0-944.0) pg/mL TSH 0.230 L (0.465-4.680) mIU/L Ur Specific [place] >1.050 H (1.001-1.035) Urine Protein 1+ H (Negative) Urine Blood Trace H (Negative) Ur Leukocyte Esterase Small H (Negative) Urine WBC 9 H (0-5) /hpf Ur Random Sodium (40-220) mmol/L 10/13/22 10/13/22 10/13/22 Range/Units 05:26 06:10 07:17 WBC (3.8-10.6) k/uL RBC (3.80-5.40) m/uL Hgb (11.4-16.0) gm/dL Hct (34.0-46.0) % Neutrophils # (1.3-7.7) k/uL ABG pO2 69 L (83-108) mmHg ABG HCO3 26 H (21-25) mmol/L ABG Total CO2 27 H (19-24) mmol/L ABG O2 Saturation 93.5 L (94-97) % Sodium 122 L 123 L (137-145) mmol/L Potassium (3.5-5.1) mmol/L Chloride (98-107) mmol/L Carbon Dioxide (22-30) mmol/L BUN (7-17) mg/dL Creatinine (0.52-1.04) mg/dL Glucose (74-99) mg/dL POC Glucose (mg/dL) (70-110) mg/dL Osmolality (280-301) mosm/kg Plasma Lactic Acid Artem (0.7-2.0) mmol/L Vitamin B12 (200.0-944.0) pg/mL TSH (0.465-4.680) mIU/L Ur Specific [place] (1.001-1.035) Urine Protein (Negative) Urine Blood (Negative) Ur Leukocyte Esterase (Negative) Urine WBC (0-5) /hpf Ur Random Sodium (40-220) mmol/L 10/13/22 10/13/22 Range/Units 07:17 10:10 WBC 16.0 H (3.8-10.6) k/uL RBC 3.40 L (3.80-5.40) m/uL Hgb 10.9 L (11.4-16.0) gm/dL Hct 31.9 L (34.0-46.0) % Neutrophils # 13.6 H (1.3-7.7) k/uL ABG pO2 (83-108) mmHg ABG HCO3 (21-25) mmol/L ABG Total CO2 (19-24) mmol/L ABG O2 Saturation (94-97) % Sodium 123 L (137-145) mmol/L Potassium (3.5-5.1) mmol/L Chloride (98-107) mmol/L Carbon Dioxide (22-30) mmol/L BUN (7-17) mg/dL Creatinine (0.52-1.04) mg/dL Glucose (74-99) mg/dL POC Glucose (mg/dL) (70-110) mg/dL Osmolality (280-301) mosm/kg Plasma Lactic Acid Artem (0.7-2.0) mmol/L Vitamin B12 (200.0-944.0) pg/mL TSH (0.465-4.680) mIU/L Ur Specific [place] (1.001-1.035) Urine Protein (Negative) Urine Blood (Negative) Ur Leukocyte Esterase (Negative) Urine WBC (0-5) /hpf Ur Random Sodium (40-220) mmol/L Assessment and Plan Plan: Assessment: 1. Hypovolemic hyponatremia from poor solute intake and use of NSAIDs. 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 Sodium level 123 this morning. Currently on 3% saline. TSH 0.23. Cortisol level not low. Urine sodium 25 and urine osmolality 454. 2. Status post fall with left knee fracture. 3. Shock maintained on Levophed. Questionable septic versus fat emboli. CTA done 10/12/2022 showed no evidence of pericardial effusion or tamponade. No evidence of PE. 4. Lymphadenopathy and lung nodule being followed by pulmonology. 5. Acute kidney injury secondary to ATN secondary to hypotension. Also received IV contrast on 10/12/2022. Creatinine 1.15 today. Plan: Maintain 3%. Stop once sodium level above 125. Encourage oral intake. Maintain 1200 mL fluid restriction. Follow-up PTH related peptide. Add midodrine. Wean Levophed. Follow-up cultures.
--- NOTE | 2022-10-13 11:49 | P.CNNES ---
History of Present Illness Consult date: 10/12/22 Requesting physician: Jessica Castro Reason for Consult: altered mentation, fall, weakness History of Present Illness: Patient was seen in the [address] room number 630 at around 4 PM. Patient is a 82-year-old female with history of trigeminal neuralgia since 1988, follows up with Dr. Dumont in [facility], came to the hospital by ambulance on 10/08/2022 at 8:38 AM after patient suffered from a fall. Patient was laying on the bathroom floor when EMS arrived with alert and oriented 4. Patient was attempting to stand from the toilet when she fell hitting the walker in front of her with her chest and then fell to the ground striking her head. She did not lose consciousness before or during after the fall. No dizziness or lightheadedness prior to the fall. Her head was hurting where the hematoma was forming. Patient's vitals in the scene was blood pressure 189/97, pulse rate 68, respirations 16, saturation 97%. Patient states that she fell 2 months ago on the walker as well. Patient says that she has been confused at night time when she goes to bed. Her neurologist has decreased the dose of gabapentin. She is to take gabapentin 800 mg at bedtime and her neurologist told her to take half tablet. I spoke to patient's nurse and the nursing department chairperson, who states that since morning patient has been slightly confused, "spaces out" off and on. Sometimes she answers questions, sometimes don't fully understand. at around 1 PM, patient was on the bedside commode and while trying to get back to the recliner, her legs buckled and she was lowered to the floor. Her vitals taken at that time showed blood pressure 101/67, pulse rate 62, and saturation 93% on room air. Patient was alert and oriented 3 but delayed in response and was sleepy. Blood sugar was 146. Patient complained of pain in the left leg with movement. X-ray revealed left knee fracture. Patient's blood test shows normal CBC, sodium is 120 (on arrival sodium was 131), potassium 4.4, BU and 22 creatinine 0.8. Hepatic panel is normal. Troponin is negative. CRP mildly elevated 3.4, with normal ESR 11. CT head re vealed age-related atrophic and chronic small vessel ischemic disease. I personally reviewed CT head, agree with the findings. Venous Doppler negative for DVT in the left lower limb. X-ray of the left knee revealed minimally comminuted long of like fractures spanning from the distal femoral diaphysis down to the femoral component of the knee arthroplasty. The of like component along the shaft of the femur is minimally offset by 5 mm. Associated large knee joint effusion. CT of the cervical spine showed mild diffuse degenerative disc changes, no acute osseous abnormality. 2-D echo revealed normal left ventricular size and systolic function with EF 55%. No wall motion abnormalities. Patient has history of trigeminal neuralgia that was diagnosed in 1988. She is currently on Tegretol 400 mg twice a day. Her last breakthrough neuralgia was about a year ago when her . She believes that it was the stress of her passing away that resulted in a flareup. Patient currently takes carbamazepine 400 mg twice a day, admitted B12 1000 g daily, Flexeril, nortriptyline 50 mg at bedtime and tramadol 50 mg 4 times a day when necessary. Review of Systems Constitutional: Reports weight loss, Denies chills, Denies fever Eyes: denies blurred vision, denies diplopia, denies pain Ears: bilateral: decreased hearing, tinnitus, deny: ear discharge, earache Ears, nose, mouth and throat: Denies headache, Denies sore throat Cardiovascular: Reports chest pain (Fell on monday on her chest (sternum)), Denies shortness of breath Respiratory: Reports excessive sputum, Denies cough Gastrointestinal: Denies abdominal pain, Denies diarrhea, Denies nausea, Denies vomiting Genitourinary: Reports urge incontinence, Reports urgency, Denies urinary frequency Musculoskeletal: Reports low back pain, Denies myalgias, Denies neck pain Musculoskeletal: left: knee pain, knee stiffness Integumentary: Denies pruritus, Denies rash Neurological: Reports as per HPI Psychiatric: Denies anxiety, Denies depression Endocrine: Reports weight change, Denies fatigue Past Medical History Past Medical History: Asthma, Hypertension Additional Past Medical History / Comment(s): thyroid History of Any Multi-Drug Resistant Organisms: None Reported Past Surgical History: Appendectomy, Orthopedic Surgery, Tonsillectomy Additional Past Surgical History / Comment(s): Bilateral knee replacement, L4-L5 fusion, left hip replacement, right shoulder replacement Past Anesthesia/Blood Transfusion Reactions: No Reported Reaction Past Psychological History: No Psychological Hx Reported Smoking Status: Never smoker Past Alcohol Use History: None Reported Past Drug Use History: None Reported Medications and Allergies Home Medications Medication Instructions Recorded Confirmed Type Albuterol Inhaler [Ventolin Hfa 1 - 2 puff INHALATION RT-Q6H PRN 10/08/22 10/08/22 History Inhaler] Ascorbic Acid [Vitamin C] 1,000 mg PO DAILY 10/08/22 10/08/22 History Bifidobacterium Infantis [Align 10.5 mg PO DAILY 10/08/22 10/08/22 History Chew] Calcium Carbonate/Vitamin D3 2 tab PO DAILY@1400 10/08/22 10/08/22 History [Caltrate 600 Plus D3 20 Mcg (800 Iu)] Cyanocobalamin (Vitamin B-12) 1,000 mcg PO DAILY 10/08/22 10/08/22 History [Vitamin B-12] Fluticasone/Vilanterol [Breo 1 puff INHALATION RT-DAILY 10/08/22 10/08/22 History Ellipta 100-25 Mcg Inhaler] Lansoprazole [Prevacid 24Hr] 15 mg PO DAILY 10/08/22 10/08/22 History Nortriptyline [Pamelor] 50 mg PO HS@2300 10/08/22 10/08/22 History Omeprazole 20 mg PO DAILY@0500 10/08/22 10/08/22 History amLODIPine [Norvasc] 5 mg PO DAILY@1800 10/08/22 10/08/22 History carBAMazepine 400 mg PO BID@1000,2300 10/08/22 10/08/22 History lisinopriL 40 mg PO DAILY@1000 10/08/22 10/08/22 History Cyclobenzaprine [Flexeril] 5 mg PO TID PRN tab 10/12/22 Rx Gabapentin 400 mg PO HS@2330 #4 tab 10/12/22 Rx Gabapentin 800 mg PO TID@0500,1400,1800 #3 tab 10/12/22 Rx Lidocaine 5% Patch [Lidoderm 5% 1 patch TOPICAL DAILY patch 10/12/22 Rx Patch] Ondansetron Odt [Zofran ODT] 4 mg PO Q6HR PRN tab 10/12/22 Rx traMADol HCl [Ultram] 50 mg PO QID PRN #4 tab 10/12/22 Rx Allergies Allergy/AdvReac Type Severity Reaction Status Date / Time Sulfa (Sulfonamide Allergy Rash/Hives Verified 10/08/22 13:24 Antibiotics) Physical Examination - Vital Signs Vital Signs: Vital Signs Temp Pulse Pulse Resp BP Pulse Ox 10/12/22 15:31 97.5 F L 71 18 92/53 96 10/12/22 10:11 18 10/12/22 07:57 98.8 F 75 18 118/73 10/12/22 02:35 98.9 F 74 13 127/76 90 L 10/11/22 20:27 90 10/11/22 20:14 97 10/11/22 19:35 98.2 F 103 H 16 156/86 90 L Intake and Output 10/12/22 10/12/22 10/12/22 06:59 14:59 22:59 Intake Total 120 Output Total 675 300 Balance -675 -180 Intake: Oral 120 Output: Urine 675 300 Other: Voiding Method External Catheter # Voids 0 Patient is an elderly female, very pleasant, in no acute distress. Patient is alert awake oriented to time place and person. Patient states it is September, but then said it is November 2022. She knows that she is in the hospital in [facility]. She could not tell which hospital but after given roldan jolly, she did state was [facility]. She knows name of the current president Mr. Phu Muñoz. Speech and language functions are normal. Patient can name and repeat very well. No aphasia or dysarthria. Attention, concentration is slightly impaired and fund of knowledge is adequate. Patient has slightly hoarse voice. On cranial nerve examination, pupils are equal, round and reacting to light, visual broderick are full on confrontation, with no neglect on double simultaneous stimulation. Extraocular muscles are intact with no nystagmus. Face is symmetric, tongue protrudes to the midline. Palatal elevation and sensation normal, hearing and shoulder shrug normal, facial sensation normal. On muscle strength testing, there is no pronator drift and the strength is normal in both arms and the right leg. The left leg not checked because of recent fracture. Deep tendon reflexes are symmetric 2 at the biceps, 2 brachioradialis, absent in the lower limbs. Plantars are flat. Sensory to touch is equal with no neglect on double simultaneous stimulation. Cerebellar function showed mild ataxia for [id number] testing bilaterally. Tone and bulk of muscles normal. Patient has mild myoclonic jerks of outstretched hands. Gait deferred.. On general examination, there is no carotid bruit or murmur, S1-S2 audible. Chest is clear on consultation. Abdomen is soft nontender. No organomegaly, bowel sounds present. Peripheral pulses are present. No edema. Results - Laboratory Findings CBC and BMP: 10/13/22 07:17 10/13/22 10:10 Abnormal Lab Findings: Abnormal Labs 10/08/22 10/09/22 10/10/22 09:22 05:59 11:10 MPV Eosinophils # Sodium 131 L 132 L Chloride 94 L 95 L Carbon Dioxide 32 H BUN Creatinine 0.47 L BUN/Creatinine Ratio 23.00 H Glucose 103 H POC Glucose (mg/dL) Osmolality Alkaline Phosphatase C-Reactive Protein 3.4 H 10/11/22 10/11/22 10/12/22 05:50 05:50 07:42 MPV 9.4 L Eosinophils # 0.45 H Sodium 128 L 122 L Chloride 92 L 85 L Carbon Dioxide BUN 19 H Creatinine 0.5 L BUN/Creatinine Ratio 27.40 H Glucose 114 H POC Glucose (mg/dL) Osmolality Alkaline Phosphatase 151 H C-Reactive Protein 10/12/22 10/12/22 10/12/22 10:49 10:49 13:03 MPV Eosinophils # Sodium 120 L Chloride 87 L Carbon Dioxide BUN 22 H Creatinine BUN/Creatinine Ratio Glucose 136 H POC Glucose (mg/dL) 147 H Osmolality 265 L Alkaline Phosphatase C-Reactive Protein Assessment and Plan Assessment: * Altered mental status, likely due metabolic encephalopathy. Reasons multifactorial as below. * Acute hyponatremia * Rule out Tegretol toxicity * Status post in-hospital fall earlier today, with left knee fracture. * Myoclonic jerks noted of outstretched hands, suggestive of metabolic encephalopathy. * History of trigeminal neuralgia since 1988, on carbamazepine 400 mg twice a day. * Hypertension * History of bilateral knee replacement * History of L4-L5 fusion Plan: * Patient has metabolic encephalopathy likely due to acute hyponatremia. The hyponatremia is likely from carbamazepine, which she is on for trigeminal neuralgia. * May consider decreasing the dose of Tegretol, but concerns about flareup of trigeminal neuralgia. Nephrology on board for hyponatremia. * Tegretol level, B12, folate, methylmalonic acid level. * Orthopedic surgery on board for left knee fracture. * Patient being transferred to ICU for close monitoring due to her hyponatremia. * Neurology will follow clinically. Thank you for the consult. Addendum: I was called by the ICU staff at 7:30 PM, the patient was in the bed henley, when she suddenly became unresponsive. Her blood pressure dropped to 64/45, then 92/34. IV fluids were started. Patient has been on 3% hypertonic saline for hyponatremia at 30 mL per hour. I immediately came over in the ICU to examine the patient. Patient was laying in the bed, appeared comfortable, but was unresponsive. Patient was not responding to calling her name. As soon as I pressed on her nail bed, patient woke up, was fully alert and awake, oriented. She knew that when she was on a bedpan, her leg was hurting, and when the nurse tried to lift her up to remove the bedpan, apparently she passed out. Appears vasovagal syncope. On examination at this time, patient's speech and language functions are completely normal. No aphasia or dysarthria. Patient can name and repeat. Her face is symmetric, pupils are equal, round and reacting, visual broderick are fu ll. Tongue protrudes to the midline. No seizure-like activity noted. On muscle strength testing, there is no pronator drift. The strength is normal in the arms. Her strength is at baseline in the legs. Left leg not checked. At present patient's examination is completely nonfocal as compared to earlier examination. Appears vasovagal syncope. No evidence of stroke or TIA. Patient will undergo CT head. Continue neuro checks. Neurology will follow. Time with Patient: Greater than 30
[2022-10-13] MEDS: carBAMazepine 200 MG TAB PO SCH ×2 (12:14→22:29)
--- NOTE | 2022-10-13 12:21 | P.PN ---
Subjective Progress Note Date: 10/13/22 Principal diagnosis: Anterior chest wall contusion secondary to fall, hyponatremia This is a pleasant 82-year-old female patient with a known history of hypertension, mild intermittent chronic bronchial asthma, gastroesophageal reflux disease, depression. She was brought into the emergency room on 10/08/2022 after sustaining a fall at her home. She states she was sitting on her toilet and fell forward hitting her walker with her chest and also hit the back of her head. She denied any loss of consciousness. She came in with ongoing chest wall pain. Pelvis x-ray revealed no acute fractures. The skin of the brain and C-spine revealed no acute intracranial process. No acute osseous abnormality. Computed tomography scan of the chest revealed areas of emphysema. A prominent pretracheal space lymph node. 1.0 cm pleural-based density. A nondisplaced posterior lateral right third rib fracture not excluded. White count 6.2. Hemoglobin 14.1. Platelets 199. Sodium 132. Potassium 4.1. Bicarb 27. BUN 16. Creatinine 0.7. Glucose 101. HEENT today in consultation on the regular medical floor. She is currently sitting up in a chair at the bedside. Awake and alert in no acute distress. She denies any worsening shortness of breath, cough or congestion. She is having some chest wall pain on deep inhalation. She is maintaining O2 saturations in the 90s on room air. Afebrile. Hemodynamically stable. She is continued on Symbicort and albuterol. Pain is better controlled today. The patient is seen today 10/11/2022 in follow-up on the regular medical floor. She is currently sitting up in bed. Awake and alert in no acute distress. She is still having ongoing issues with anterior chest wall pain over the sternal area. No worsening shortness of breath, cough or congestion. Maintaining good O2 saturations in the mid 90s on room air. She's afebrile. Follow-up chest x- ray revealed no acute cardiopulmonary process. She is working well with the incentive spirometer. He tended on Symbicort and albuterol. Patient is seen today 10/12/2022 in follow-up on the regular medical floor. She is currently sitting up in bed. Awake and alert in no acute distress. Her pain is better controlled today compared to yesterday. Still with discomfort with minimal movement. She continues to work with the incentive spirometer. She is maintaining good O2 saturations in the 90s on room air. Sodium 122. Potassium 4.6. Bicarb 29. BUN 19. Creatinine 0.60. Glucose 114. Pro-calcitonin 0.05. She is continued on Symbicort and albuterol. Patient was reevaluated today on 10/13/2022, patient was transferred to the ICU yesterday because of hyponatremia requiring hypertonic saline, however as soon as the patient arrived to the ICU, she developed an episode of syncope and sustained a fall, further workup revealed a left knee fracture patient had CT of the head which came back negative for acute process. She required vasopressor support and she is still receiving vasopressors for her borderline low blood pressure. She is now on norepinephrine at 0.2 mcg/kg/m. She received 3% saline and her sodium today is 123 hence the percent saline is presently on hold. ABG on 36% FiO2 showed a pO2 of 69 pCO2 44 pH of 7.37 hence patient did not require intubation or mechanical ventilation. Mentation-escobar, the patient remains a bit slow but she was quite confused yesterday after her fall, workup included a workup for pulmonary embolism which came back negative CT of the brain findings were negative, EKG showed mostly sinus tachycardia, no acute process. Venous Doppler of the legs came back negative x-rays of the knee showed comminuted long oblique fracture spanning from the distal femoral diaphyses down to the femoral component of the knee arthroplasty. Hence I'm raising fat embolism, her blood pressure remains low and the patient is most likely dehydrated/hypovolemic, I'm recommending a liter of D5 45 bolus to be given and hopefully we could taper down the norepinephrine and possibly discontinue. And right femoral triple- lumen catheter was placed because the patient is requiring pressors she is also on antibiotics empirically although possibility of sepsis is extremely low. Cultures of blood and urine are pending labs today showed WBC count of 16 hemoglobin is 10.9. Sodium is up to 123 patient had a baseline in the 126 trace supposedly. Cortisol level came back normal. Urine specific gravity is elevated which is consistent with hypovolemia. I believe the hyponatremia could be either related to SIADH or could be hypovolemia related. Considering her recent head injury and a sudden change in her sodium upon her presentation this could be related to her recent head injury/SIADH. Objective - Vital Signs Vital signs: Vital Signs Temp 99.1 F 10/13/22 07:00 Pulse 96 10/13/22 07:00 Resp 20 10/13/22 07:00 BP 110/79 10/13/22 07:00 Pulse Ox 96 10/13/22 06:00 FiO2 Intake & Output 10/12/22 10/13/22 10/13/22 18:59 06:59 18:59 Intake Total 120 2439.472 274.000 Output Total 630 280 40 Balance -510 2159.472 234.000 Intake: IV 1910 20 Dextrose 5% in Water 1, 200 000 ml @ 100 mls/hr IV . Q10H [facility] Rx#:[id number] Sodium Chloride 0.9% 1, 1000 000 ml @ 999 mls/hr IV . Q1H1M [facility] Rx#:[id number] Sodium Chloride 0.9% 500 500 ml 500 ml @ 999 mls/hr IV .Q31M [facility] Rx#:[id number] Sodium Chloride 3%( 160 20 Hypertonic) 500 ml @ 20 mls/hr IV .Q24H [facility] Rx#: [id number] cefTRIAXone 2 gm In 50 Sodium Chloride 0.9% 50 ml @ 100 mls/hr IVPB Q24H [facility] Rx#:[id number] Intake, IV Titration 529.472 254.000 Amount Norepinephrine 4 mg In 499.472 254.000 Sodium Chloride 0.9% 250 ml @ 0.03 MCG/KG/MIN 10. 473 mls/hr IV .Q24H [facility] Rx#:[id number] Sodium Chloride 3%( 30 Hypertonic) 500 ml @ 30 mls/hr IV .[id number] [facility] Rx #:[id number] Oral 120 Output: Urine 630 280 40 Uretheral ([place]) 320 Other: Voiding Method External Catheter Indwelling Catheter # Voids 0 ABP, PAP, CO, CI - Last Documented Arterial Blood Pressure 100/47 - Exam Physical Exam: Revealed 82-year-old female slightly lethargic however arousable, follows instructions, and seems to be oriented 3. Head: Atraumatic, normocephalic she does have a small tiny bruising at the upper portion of her scalp. From recent trauma and fall. HEENT:[Neck is supple.] [No neck masses.] [No thyromegaly.] [No JVD.] Chest: [Clear throughout, no crackles, no rhonchi, no wheezes.] Cardiac Exam: [Normal S1 and S2, no S3 gallop, no murmur.] Abdomen: [Soft, nontender, no megaly, no rebound, no guarding, normal bowel sounds.] Extremities: [No clubbing, no edema, no cyanosis.] Neurological Exam: [No focal neurologic deficit.] Slightly lethargic but seems to be oriented to time and place. Psychiatric: Normal mood, flat affect, normal mental status except slow. - Labs CBC & Chem 7: 10/13/22 07:17 10/13/22 10:10 Labs: Abnormal Lab Results - Last 24 Hours (Table) 10/12/22 10/12/22 10/12/22 Range/Units 10:49 10:49 13:03 WBC (3.8-10.6) k/uL RBC (3.80-5.40) m/uL Hgb (11.4-16.0) gm/dL Hct (34.0-46.0) % Neutrophils # (1.3-7.7) k/uL ABG pO2 (83-108) mmHg ABG HCO3 (21-25) mmol/L ABG Total CO2 (19-24) mmol/L ABG O2 Saturation (94-97) % Sodium 120 L (137-145) mmol/L Potassium (3.5-5.1) mmol/L Chloride 87 L (98-107) mmol/L Carbon Dioxide (22-30) mmol/L BUN 22 H (7-17) mg/dL Creatinine (0.52-1.04) mg/dL Glucose 136 H (74-99) mg/dL POC Glucose (mg/dL) 147 H (70-110) mg/dL Osmolality 265 L (280-301) mosm/kg Plasma Lactic Acid Artem (0.7-2.0) mmol/L Vitamin B12 (200.0-944.0) pg/mL TSH (0.465-4.680) mIU/L Ur Specific [place] (1.001-1.035) Urine Protein (Negative) Urine Blood (Negative) Ur Leukocyte Esterase (Negative) Urine WBC (0-5) /hpf Ur Random Sodium (40-220) mmol/L 0810/12/22 10/12/22 Range/Units 14:31 16:40 16:47 WBC (3.8-10.6) k/uL RBC (3.80-5.40) m/uL Hgb (11.4-16.0) gm/dL Hct (34.0-46.0) % Neutrophils # (1.3-7.7) k/uL ABG pO2 (83-108) mmHg ABG HCO3 (21-25) mmol/L ABG Total CO2 (19-24) mmol/L ABG O2 Saturation (94-97) % Sodium 120 L 120 L (137-145) mmol/L Potassium (3.5-5.1) mmol/L Chloride (98-107) mmol/L Carbon Dioxide (22-30) mmol/L BUN (7-17) mg/dL Creatinine (0.52-1.04) mg/dL Glucose (74-99) mg/dL POC Glucose (mg/dL) (70-110) mg/dL Osmolality (280-301) mosm/kg Plasma Lactic Acid Artem (0.7-2.0) mmol/L Vitamin B12 (200.0-944.0) pg/mL TSH (0.465-4.680) mIU/L Ur Specific [place] (1.001-1.035) Urine Protein (Negative) Urine Blood (Negative) Ur Leukocyte Esterase (Negative) Urine WBC (0-5) /hpf Ur Random Sodium 25 L (40-220) mmol/L 10/12/22 10/12/22 10/12/22 Range/Units 16:47 18:09 19:40 WBC (3.8-10.6) k/uL RBC (3.80-5.40) m/uL Hgb (11.4-16.0) gm/dL Hct (34.0-46.0) % Neutrophils # (1.3-7.7) k/uL ABG pO2 (83-108) mmHg ABG HCO3 (21-25) mmol/L ABG Total CO2 (19-24) mmol/L ABG O2 Saturation (94-97) % Sodium (137-145) mmol/L Potassium (3.5-5.1) mmol/L Chloride (98-107) mmol/L Carbon Dioxide (22-30) mmol/L BUN (7-17) mg/dL Creatinine (0.52-1.04) mg/dL Glucose (74-99) mg/dL POC Glucose (mg/dL) 143 H 128 H (70-110) mg/dL Osmolality (280-301) mosm/kg Plasma Lactic Acid Artem (0.7-2.0) mmol/L Vitamin B12 1937.0 H (200.0-944.0) pg/mL TSH (0.465-4.680) mIU/L Ur Specific [place] (1.001-1.035) Urine Protein (Negative) Urine Blood (Negative) Ur Leukocyte Esterase (Negative) Urine WBC (0-5) /hpf Ur Random Sodium (40-220) mmol/L 10/12/22 10/12/22 10/12/22 Range/Units 20:05 21:28 21:39 WBC 12.4 H (3.8-10.6) k/uL RBC 3.76 L (3.80-5.40) m/uL Hgb (11.4-16.0) gm/dL Hct (34.0-46.0) % Neutrophils # 9.0 H (1.3-7.7) k/uL ABG pO2 77 L (83-108) mmHg ABG HCO3 26 H (21-25) mmol/L ABG Total CO2 28 H (19-24) mmol/L ABG O2 Saturation (94-97) % Sodium 121 L (137-145) mmol/L Potassium (3.5-5.1) mmol/L Chloride 88 L (98-107) mmol/L Carbon Dioxide (22-30) mmol/L BUN 27 H (7-17) mg/dL Creatinine (0.52-1.04) mg/dL Glucose 139 H (74-99) mg/dL POC Glucose (mg/dL) (70-110) mg/dL Osmolality (280-301) mosm/kg Plasma Lactic Acid Artem (0.7-2.0) mmol/L Vitamin B12 (200.0-944.0) pg/mL TSH (0.465-4.680) mIU/L Ur Specific [place] (1.001-1.035) Urine Protein (Negative) Urine Blood (Negative) Ur Leukocyte Esterase (Negative) Urine WBC (0-5) /hpf Ur Random Sodium (40-220) mmol/L 08/10/23 08/10/23 08/10/23 Range/Units 00:32 01:54 03:26 WBC (3.8-10.6) k/uL RBC (3.80-5.40) m/uL Hgb (11.4-16.0) gm/dL Hct (34.0-46.0) % Neutrophils # (1.3-7.7) k/uL ABG pO2 (83-108) mmHg ABG HCO3 (21-25) mmol/L ABG Total CO2 (19-24) mmol/L ABG O2 Saturation (94-97) % Sodium 120 L 120 L 121 L (137-145) mmol/L Potassium (3.5-5.1) mmol/L Chloride (98-107) mmol/L Carbon Dioxide (22-30) mmol/L BUN (7-17) mg/dL Creatinine (0.52-1.04) mg/dL Glucose (74-99) mg/dL POC Glucose (mg/dL) (70-110) mg/dL Osmolality (280-301) mosm/kg Plasma Lactic Acid Artem (0.7-2.0) mmol/L Vitamin B12 (200.0-944.0) pg/mL TSH (0.465-4.680) mIU/L Ur Specific [place] (1.001-1.035) Urine Protein (Negative) Urine Blood (Negative) Ur Leukocyte Esterase (Negative) Urine WBC (0-5) /hpf Ur Random Sodium (40-220) mmol/L 10/13/22 10/13/22 10/13/22 Range/Units 03:26 04:58 05:26 WBC (3.8-10.6) k/uL RBC (3.80-5.40) m/uL Hgb (11.4-16.0) gm/dL Hct (34.0-46.0) % Neutrophils # (1.3-7.7) k/uL ABG pO2 (83-108) mmHg ABG HCO3 (21-25) mmol/L ABG Total CO2 (19-24) mmol/L ABG O2 Saturation (94-97) % Sodium 122 L (137-145) mmol/L Potassium 5.3 H (3.5-5.1) mmol/L Chloride 91 L (98-107) mmol/L Carbon Dioxide 21 L (22-30) mmol/L BUN 29 H (7-17) mg/dL Creatinine 1.15 H (0.52-1.04) mg/dL Glucose 132 H (74-99) mg/dL POC Glucose (mg/dL) (70-110) mg/dL Osmolality (280-301) mosm/kg Plasma Lactic Acid Artem 3.2 H* (0.7-2.0) mmol/L Vitamin B12 (200.0-944.0) pg/mL TSH 0.230 L (0.465-4.680) mIU/L Ur Specific [place] >1.050 H (1.001-1.035) Urine Protein 1+ H (Negative) Urine Blood Trace H (Negative) Ur Leukocyte Esterase Small H (Negative) Urine WBC 9 H (0-5) /hpf Ur Random Sodium (40-220) mmol/L 10/13/22 10/13/22 10/13/22 Range/Units 05:26 06:10 07:17 WBC (3.8-10.6) k/uL RBC (3.80-5.40) m/uL Hgb (11.4-16.0) gm/dL Hct (34.0-46.0) % Neutrophils # (1.3-7.7) k/uL ABG pO2 69 L (83-108) mmHg ABG HCO3 26 H (21-25) mmol/L ABG Total CO2 27 H (19-24) mmol/L ABG O2 Saturation 93.5 L (94-97) % Sodium 122 L 123 L (137-145) mmol/L Potassium (3.5-5.1) mmol/L Chloride (98-107) mmol/L Carbon Dioxide (22-30) mmol/L BUN (7-17) mg/dL Creatinine (0.52-1.04) mg/dL Glucose (74-99) mg/dL POC Glucose (mg/dL) (70-110) mg/dL Osmolality (280-301) mosm/kg Plasma Lactic Acid Artem (0.7-2.0) mmol/L Vitamin B12 (200.0-944.0) pg/mL TSH (0.465-4.680) mIU/L Ur Specific [place] (1.001-1.035) Urine Protein (Negative) Urine Blood (Negative) Ur Leukocyte Esterase (Negative) Urine WBC (0-5) /hpf Ur Random Sodium (40-220) mmol/L 10/13/22 10/13/22 Range/Units 07:17 10:10 WBC 16.0 H (3.8-10.6) k/uL RBC 3.40 L (3.80-5.40) m/uL Hgb 10.9 L (11.4-16.0) gm/dL Hct 31.9 L (34.0-46.0) % Neutrophils # 13.6 H (1.3-7.7) k/uL ABG pO2 (83-108) mmHg ABG HCO3 (21-25) mmol/L ABG Total CO2 (19-24) mmol/L ABG O2 Saturation (94-97) % Sodium 123 L (137-145) mmol/L Potassium (3.5-5.1) mmol/L Chloride (98-107) mmol/L Carbon Dioxide (22-30) mmol/L BUN (7-17) mg/dL Creatinine (0.52-1.04) mg/dL Glucose (74-99) mg/dL POC Glucose (mg/dL) (70-110) mg/dL Osmolality (280-301) mosm/kg Plasma Lactic Acid [place]em (0.7-2.0) mmol/L Vitamin B12 (200.0-944.0) pg/mL TSH (0.465-4.680) mIU/L Ur Specific [place] (1.001-1.035) Urine Protein (Negative) Urine Blood (Negative) Ur Leukocyte Esterase (Negative) Urine WBC (0-5) /hpf Ur Random Sodium (40-220) mmol/L Assessment and Plan Assessment: Impression: Altered mental status, suspect metabolic encephalopathy also suspect possible fat embolism. From recent fracture. Hyponatremia, most likely secondary to SIADH and should improve with fluid restriction, patient did receive 3% saline and her sodium today is 123. Benign essential hypertension Chest wall trauma/contusion History of bilateral knee replacements History of L4-L5 fusion Nonspecific mediastinal adenopathy Acute kidney injury secondary to ATN secondary to hypotension patient is now on norepinephrine Doubt sepsis, although it is not entirely ruled out, patient is empirically on Rocephin. Recommendation: Discontinue 3% saline once her sodium is 125 or higher Maintain fluid restrictions 1200 mL per day. Wean off norepinephrine if possible patient did receive fluid boluses yesterday and this morning and hopefully that will help weaning off norepinephrine Agree with midodrine Continue to monitor in the ICU Continue antibiotics/Rocephin empirically, check cultures We will continue to follow. Discussed her condition with different consultants including cardiology and nephrology on the case. Critical care time is over 30 minutes not including time for procedures. Time with Patient: Greater than 30
[2022-10-13] MEDS: MIDODRINE 5 MG TAB PO SCH ×2 (13:08→17:46)
--- NOTE | 2022-10-13 14:05 | OP ---
OPERATIVE REPORT DATE OF SERVICE : PROCEDURE PERFORMED: Placement of a right femoral triple-lumen catheter. PREOPERATIVE DIAGNOSIS: Hypotension. POSTOPERATIVE DIAGNOSIS: Hypotension. The patient is requiring norepinephrine. ANESTHESIA USED: 2 mL of 1% lidocaine. DESCRIPTION OF PROCEDURE: The patient was placed in the supine position. The right groin was prepared in a sterile fashion, and drapes were applied. The area was locally anesthetized. Then, medial to the right femoral artery, the right femoral vein was easily cannulated, and a guidewire was placed. The area around the guidewire was dilated. Then, a triple-lumen catheter was inserted over the guidewire, and the guidewire was removed. Good blood flow was noted. No immediate complications. Line was secured using 3-0 silk sutures. Procedure was well tolerated. MMODL / IJN: [id number] /
[2022-10-13] MEDS ORDERED: SODIUM CHLORIDE 3%(HYPERTONIC) 500 ML IV ONE (15:00)
[2022-10-13] MEDS ORDERED: KETOROLAC 15 MG/ML 1 ML VIAL IVP SCH (15:28)
[2022-10-13] MEDS: CALCIUM CARB-VIT D 500 MG-5 MCG TAB PO SCH (15:48)
[2022-10-13] MEDS: GABAPENTIN 400 MG CAP PO SCH ×2 (15:48→22:29)
--- NOTE | 2022-10-13 16:39 | P.PN ---
Subjective Progress Note Date: 10/13/22 This is a pleasant 82-year-old female who was recently admitted with chest pain and generalized weakness with recent fall. Patient being evaluated by cardiology as well as pulmonary recently underwent a CT of the chest which showed emphysematous changes with a prominent lymph node in the pretracheal sp wily and a 1.0 cm pleural based density. There is a nondisplaced posterior lateral right third rib fracture. Will add incentive spirometer and continue with pain management and lidocaine patches. Patient working with physical therapy reports she feels she did a little better today and will have therapy evaluate for possible ECF. Social work is following and has been accepted and requires insurance authorization which has been submitted and pending. Patient is afebrile but no reports of shortness of breath or palpitations. No reported nausea or vomiting and encouraged oral intake. 10/12/2022 Patient is seen and evaluated in follow-up this morning currently sitting up in the chair and has been cleared by cardiology and pulmonary. Patient continues to report some chest wall pain and feeling generally weak. Repeat labs done showing a sodium of 122 which she reports she runs in the 127 range normally. Patient does take Tegretol scheduled which could contribute to some of the hypon atremia along with poor oral intake. Patient reports has not been eating very well. Nephrology consulted and appreciate input and recommendations. Patient also having some intermittent nausea which is being controlled by Zofran. Patient is currently afebrile denies vomiting, denies palpitations or shortness of breath. Patient to be started on gentle IV hydration with follow-up labs this afternoon as well as tomorrow. Encouraged increase activity as tolerated and continued physical therapy evaluation. Plan is for ECF in the next few days and insurance authorization has been obtained. 10/13/2022 Patient is seen and evaluated and was transferred to the ICU after patient's sodium was found to be 120 and placed on 3% hypertonic solution with nephrology following. Patient became somewhat more lethargic and delayed and confused with difficulty in ambulation and left leg buckling from under her while attempting to get up from the commode and assisted to the floor and having some increased pain in the left knee. CT brain along with hip and left knee x-rays were obtained and CT was negative for acute process. Hip was intact with postsurgical changes noted from previous surgery. Left knee showed a minimally comminuted long oblique fracture spanning from the distal femoral diaphysis down to the femoral component of the knee arthroplasty with oblique component along the shaft of the femur minimally offset by 5 mm along with an associated large knee effusion. Orthopedics consultation recommending conservative management is patient is not a good surgical candidate at this time and a knee brace is being ordered. Patient is having some pain and will readdress medications as mentation is improved somewhat today. Patient continues on 3% and sodium level is improved at 121. Nephrology following closely. Patient is hypotensive as well and currently on pressor support which per nursing staff is slowly being weaned. Patient is afebrile currently although did have a low-grade temp of 100.4 this morning and has been started on antibiotics empirically. CT Billie of the chest was also done showing some prominent proximal LAD coronary artery calcifications with no evidence of aortic dissection or PE with some groundglass changes and scattered interstitial changes with concerns of pneumonitis with some tree-in-bud opacification is noted that may be seen in those with bronchiolitis along with a small hiatal hernia and some circumferential wall thickening of the distal esophagus representing possible esophagitis. Patient is on Protonix IV twice daily and is continued on a heart healthy diet with fluid restrictions. Neurology consulted as well and pending. 2-D echo was ordered and awaiting report. Review of systems: Constitutional: reports of fatigue, no reports of fever, or chills Cardiovascular: No reports of chest pain or palpitations Respiratory: No reports of shortness of breath or cough GI: reports of nausea, no reports of vomiting, or diarrhea : No reports of dysuria or retention Neurovascular: reports of generalized weakness, continued chest wall pain And severe left knee pain All medications have been reviewed Active Medications Acetaminophen (Acetaminophen Tab 325 Mg Tab) 650 mg PO Q6HR PRN PRN Reason: Fever and/ or Pain Albuterol Sulfate (Albuterol Nebulized 2.5 Mg/3 Ml) 2.5 mg INHALATION RT-Q6H FL N PRN Reason: Shortness Of Breath Last Admin: 10/11/22 20:13 Dose: 2.5 mg Ascorbic Acid (Ascorbic Acid 500 Mg Tab) 1,000 mg PO DAILY [facility] Last Admin: 10/12/22 10:11 Dose: 1,000 mg Budesonide/Formoterol Fumarate (Symbicort 80-4.5 Mcg Inhaler) 2 puff INHALATION RT-BID [facility]ST Last Admin: 10/13/22 07:59 Dose: 2 puff Calcium Carbonate (Calcium Carb-Vit D 500 Mg-5 Mcg Tab) 2 each PO DAILY@1400 [facility] Last Admin: 10/13/22 15:48 Dose: 2 each Carbamazepine (Carbamazepine 200 Mg Tab) 400 mg PO BID@1000,2300 [facility] Last Admin: 10/13/22 12:14 Dose: 400 mg Cyanocobalamin (Cyanocobalamin 500 Mcg Tab) 1,000 mcg PO DAILY [facility] Last Admin: 10/13/22 10:07 Dose: 1,000 mcg Cyclobenzaprine HCl (Cyclobenzaprine 5 Mg Tab) 5 mg PO BID PRN PRN Reason: Muscle Spasm Gabapentin (Gabapentin 400 Mg Cap) 800 mg PO TID [facility] Last Admin: 10/13/22 15:48 Dose: 800 mg Gabapentin (Gabapentin 400 Mg Cap) 400 mg PO DAILY@2300 [facility]ST Norepinephrine Bitartrate 4 mg (/ Sodium Chloride) 254 mls @ 10.473 mls/hr IV .Q24H [facility]; Protocol Last Admin: 10/13/22 15:48 Dose: 0.1 mcg/kg/min, 34.91 mls/hr Ceftriaxone Sodium 2 gm/ (Sodium Chloride) 50 mls @ 100 mls/hr IVPB Q24H [facility]; Protocol Last Admin: 10/13/22 06:02 Dose: 100 mls/hr Sodium Chloride (Hypertonic) (Saline 3% (Hypertonic)) 500 mls @ 30 mls/hr IV .[id number] [facility]; Protocol Stop: 10/14/22 07:39 Last Admin: 10/13/22 15:48 Dose: 30 mls/hr Ketorolac Tromethamine (Ketorolac 15 Mg/Ml 1 Ml Vial) 15 mg IVP Q6HR [facility] Stop: 10/18/22 15:28 Last Admin: 10/13/22 15:47 Dose: 15 mg Lactobacillus Acidophilus (Lactobacillus Acidophilus/Pect 1 Each Capsule) 1 each PO DAILY [facility] Last Admin: 10/13/22 10:07 Dose: 1 each Lidocaine (Lidocaine 5% Patch) 1 patch TOPICAL DAILY [facility]; Protocol Last Admin: 10/13/22 10:08 Dose: 1 patch Midodrine (Midodrine 5 Mg Tab) 10 mg PO AC-TID [facility] Last Admin: 08/10/23 13:08 Dose: 10 mg Naloxone HCl (Naloxone 0.4 Mg/Ml 1 Ml Vial) 0.2 mg IV Q2M PRN PRN Reason: Opioid Reversal Ondansetron HCl (Ondansetron Odt 4 Mg Tab) 4 mg PO Q6HR PRN PRN Reason: Nausea And Vomiting Last Admin: 10/12/22 02:06 Dose: 4 mg Pantoprazole Sodium (Pantoprazole 40 Mg/10 Ml Vial) 40 mg IVP BID [facility]ST Last Admin: 10/13/22 10:07 Dose: 40 mg Tramadol HCl (Tramadol 50 Mg Tab) 50 mg PO QID PRN PRN Reason: Pain Last Admin: 10/12/22 23:30 Dose: 50 mg PHYSICAL EXAMINATION: GENERAL: The patient is alert and oriented x3, lethargic but easily arousable, Well developed, well nourished. Obese, elderly-appearing HEENT: Pupils are round and equally reacting to light. EOMI. no scleral icterus. No conjunctival pallor. Normocephalic, atraumatic. No pharyngeal erythema. No thyromegaly. CARDIOVASCULAR: S1 and S2 muffled PULMONARY: diminished breath sounds bilaterally with no wheezing or rhonchi noted. ABDOMEN: soft. Nontender on exam. obese. non-distended, normoactive bowel sounds. No palpable organomegaly. MUSCULOSKELETAL: No joint swelling or deformity. EXTREMITIES: No cyanosis, clubbing, or pedal edema. Left knee and lower extremity tenderness and pain with palpation with some swelling noted at the kneecap posteriorly NEUROLOGICAL: Gross neurological examination did not reveal any focal deficits. Diffuse weakness SKIN: No rashes. Assessment: Chest pain, likely musculoskeletal due to fall, ruled out coronary disease Hyponatremia, multifactorial, likely secondary to SIADH as well as poor solute intake Debility with generalized weakness and gait dysfunction Hypertension, currently hypotensive requiring pressor support Fall with left knee pain , imaging showing minimally comminuted long oblique fracture spanning from the distal femoral diaphysis down to the femoral component of the knee arthroplasty with oblique component along the shaft of the femur minimally offset by 5 mm along with an associated large knee effusion. History of asthma, not in exacerbation Obesity with a BMI of 31.6 GI prophylaxis DVT prophylaxis Full code Plan: Patient became extremely hyponatremic requiring 3% solution and moved to the ICU for close monitoring as well as some hypotension receiving fluid boluses Multiple consultations following including cardiology, nephrology, pulmonary chemist enzymes as well as neurology and orthopedics Patient experienced an assisted fall to the floor after her knee was buckling and patient became increasingly weak after getting off a commode and was noted t o have a minimally comminuted long oblique fracture of the left femur and orthopedics evaluated the patient recommending conservative management as patient is not a surgical candidate at this time Patient having significant pain and will resume Neurontin and give IV Toradol scheduled Patient undergoing neurological workup which is currently pending Patient to continue on 3% hypertonic saline with follow-up labs this evening and continued fluid restrictions Will follow-up with repeat labs Due to multiple complex medical issues, prognosis is guarded The impression and plan of care has been dictated by Jessica Castro, nurse practitioner as directed. Dr. Dav MD I have performed a history and examination and MDM of this patient, discussed the same with the dictator, and agree with the dictator's assessment and plan as written ,documented as a scribe. Based on total visit time, I have performed more than 50% of the visit. Any additional findings or plans will be noted. Objective - Vital Signs Vital signs: Vital Signs Temp 100.4 F H 10/13/22 04:00 Pulse 91 10/13/22 05:00 Resp 18 10/13/22 05:00 BP 108/48 10/13/22 05:00 Pulse Ox 100 10/13/22 05:00 FiO2 Intake & Output 10/12/22 10/12/22 10/13/22 06:59 18:59 06:59 Intake Total 120 2293.835 Output Total 675 630 230 Balance -675 -510 2063.835 Intake: IV 1840 Dextrose 5% in Water 1, 200 000 ml @ 100 mls/hr IV . Q10H [facility] Rx#:[id number] Sodium Chloride 0.9% 1, 1000 000 ml @ 999 mls/hr IV . Q1H1M [facility] Rx#:[id number] Sodium Chloride 0.9% 500 500 ml 500 ml @ 999 mls/hr IV .Q31M [facility] Rx#:[id number] Sodium Chloride 3%( 140 Hypertonic) 500 ml @ 20 mls/hr IV .Q24H [facility] Rx#: [id number] Intake, IV Titration 453.835 Amount Norepinephrine 4 mg In 423.835 Sodium Chloride 0.9% 250 ml @ 0.03 MCG/KG/MIN 10. 473 mls/hr IV .Q24H [facility] Rx#:[id number] Sodium Chloride 3%( 30 Hypertonic) 500 ml @ 30 mls/hr IV .[id number] ONE Rx #:[id number] Oral 120 Output: Urine 675 630 230 Uretheral ([place]) 320 Other: Voiding Method External Catheter External Catheter Indwelling Catheter # Voids 0 ABP, PAP, CO, CI - Last Documented Arterial Blood Pressure 98/43 - Labs CBC & Chem 7: 10/13/22 07:17 10/13/22 15:30 Labs: Abnormal Lab Results - Last 24 Hours (Table) 10/12/22 10/12/22 10/12/22 Range/Units 07:42 10:49 10:49 WBC (3.8-10.6) k/uL RBC (3.80-5.40) m/uL Neutrophils # (1.3-7.7) k/uL ABG pO2 (83-108) mmHg ABG HCO3 (21-25) mmol/L ABG Total CO2 (19-24) mmol/L Sodium 122 L 120 L (137-145) mmol/L Chloride 85 L 87 L (98-107) mmol/L BUN 19 H 22 H (7-17) mg/dL Glucose 114 H 136 H (74-99) mg/dL POC Glucose (mg/dL) (70-110) mg/dL Osmolality 265 L (280-301) mosm/kg Plasma Lactic Acid Artem (0.7-2.0) mmol/L Ur Specific Tatamy (1.001-1.035) Urine Protein (Negative) Urine Blood (Negative) Ur Leukocyte Esterase (Negative) Urine WBC (0-5) /hpf Ur Random Sodium (40-220) mmol/L 10/12/22 10/12/22 10/12/22 Range/Units 13:03 14:31 16:40 WBC (3.8-10.6) k/uL RBC (3.80-5.40) m/uL Neutrophils # (1.3-7.7) k/uL ABG pO2 (83-108) mmHg ABG HCO3 (21-25) mmol/L ABG Total CO2 (19-24) mmol/L Sodium 120 L (137-145) mmol/L Chloride (98-107) mmol/L BUN (7-17) mg/dL Glucose (74-99) mg/dL POC Glucose (mg/dL) 147 H (70-110) mg/dL Osmolality (280-301) mosm/kg Plasma Lactic Acid Artem (0.7-2.0) mmol/L Ur Specific Tatamy (1.001-1.035) Urine Protein (Negative) Urine Blood (Negative) Ur Leukocyte Esterase (Negative) Urine WBC (0-5) /hpf Ur Random Sodium 25 L (40-220) mmol/L 10/12/22 10/12/22 10/12/22 Range/Units 16:47 18:09 19:40 WBC (3.8-10.6) k/uL RBC (3.80-5.40) m/uL Neutrophils # (1.3-7.7) k/uL ABG pO2 (83-108) mmHg ABG HCO3 (21-25) mmol/L ABG Total CO2 (19-24) mmol/L Sodium 120 L (137-145) mmol/L Chloride (98-107) mmol/L BUN (7-17) mg/dL Glucose (74-99) mg/dL POC Glucose (mg/dL) 143 H 128 H (70-110) mg/dL Osmolality (280-301) mosm/kg Plasma Lactic Acid Artem (0.7-2.0) mmol/L Ur Specific Tatamy (1.001-1.035) Urine Protein (Negative) Urine Blood (Negative) Ur Leukocyte Esterase (Negative) Urine WBC (0-5) /hpf Ur Random Sodium (40-220) mmol/L 10/12/22 10/12/22 10/12/22 Range/Units 20:05 21:28 21:39 WBC 12.4 H (3.8-10.6) k/uL RBC 3.76 L (3.80-5.40) m/uL Neutrophils # 9.0 H (1.3-7.7) k/uL ABG pO2 77 L (83-108) mmHg ABG HCO3 26 H (21-25) mmol/L ABG Total CO2 28 H (19-24) mmol/L Sodium 121 L (137-145) mmol/L Chloride 88 L (98-107) mmol/L BUN 27 H (7-17) mg/dL Glucose 139 H (74-99) mg/dL POC Glucose (mg/dL) (70-110) mg/dL Osmolality (280-301) mosm/kg Plasma Lactic Acid Artem (0.7-2.0) mmol/L Ur Specific Tatamy (1.001-1.035) Urine Protein (Negative) Urine Blood (Negative) Ur Leukocyte Esterase (Negative) Urine WBC (0-5) /hpf Ur Random Sodium (40-220) mmol/L 10/13/22 10/13/22 10/13/22 Range/Units 00:32 01:54 03:26 WBC (3.8-10.6) k/uL RBC (3.80-5.40) m/uL Neutrophils # (1.3-7.7) k/uL ABG pO2 (83-108) mmHg ABG HCO3 (21-25) mmol/L ABG Total CO2 (19-24) mmol/L Sodium 120 L 120 L 121 L (137-145) mmol/L Chloride (98-107) mmol/L BUN (7-17) mg/dL Glucose (74-99) mg/dL POC Glucose (mg/dL) (70-110) mg/dL Osmolality (280-301) mosm/kg Plasma Lactic Acid Artem (0.7-2.0) mmol/L Ur Specific Tatamy (1.001-1.035) Urine Protein (Negative) Urine Blood (Negative) Ur Leukocyte Esterase (Negative) Urine WBC (0-5) /hpf Ur Random Sodium (40-220) mmol/L 10/13/22 10/13/22 Range/Units 03:26 04:58 WBC (3.8-10.6) k/uL RBC (3.80-5.40) m/uL Neutrophils # (1.3-7.7) k/uL ABG pO2 (83-108) mmHg ABG HCO3 (21-25) mmol/L ABG Total CO2 (19-24) mmol/L Sodium (137-145) mmol/L Chloride (98-107) mmol/L BUN (7-17) mg/dL Glucose (74-99) mg/dL POC Glucose (mg/dL) (70-110) mg/dL Osmolality (280-301) mosm/kg Plasma Lactic Acid Artem 3.2 H* (0.7-2.0) mmol/L Ur Specific Tatamy >1.050 H (1.001-1.035) Urine Protein 1+ H (Negative) Urine Blood Trace H (Negative) Ur Leukocyte Esterase Small H (Negative) Urine WBC 9 H (0-5) /hpf Ur Random Sodium (40-220) mmol/L
[2022-10-13] MEDS ORDERED: MORPHINE SULFATE 2 MG/ML SYRINGE IVP STA (17:11)
[2022-10-13] MEDS ORDERED: MORPHINE SULFATE 2 MG/ML SYRINGE IVP PRN (17:11)
--- NOTE | 2022-10-13 17:22 | CA ---
Transthoracic Echo Report Name: Debbi Robins Age: 82 Gender: F : 1940 Exam Date: 10/12/2022 21:30 Exam Location: [place] [facility] Ht (in): 67 Wt (lb): 202 Ordering Physician: Jessenia Mcclendon MD Attending/Referring Phys: [employer] Law Clerk Omayra Maya RDCS Procedure CPT: Indications: Rule our cardiac tamponade Cardiac Hx: Technical Quality: Fair Contrast 1: Total Dose (mL): Contrast 2: Total Dose (mL): MEASUREMENTS (Male / Female) Normal Values 2D ECHO LV Diastolic Diameter PLAX 3.0 cm 4.2 - 5.9 / 3.9 - 5.3 cm LV Systolic Diameter PLAX 2.1 cm IVS Diastolic Thickness 1.1 cm 0.6 - 1.0 / 0.6 - 0.9 cm LVPW Diastolic Thickness 1.3 cm 0.6 - 1.0 / 0.6 - 0.9 cm LV Relative Wall Thickness 0.8 FINDINGS Left Ventricle Limited study to R/O tamponade. Mildly increased left ventricular wall thickness. Left ventricular cavity size normal. Normal left ventricular systolic function with no obvious regional wall motion abnormalities. Left ventricular ejection fraction is estimated at 55 %. Right Ventricle Right Atrium Left Atrium Mitral Valve Aortic Valve Tricuspid Valve Pulmonic Valve Pericardium No Tamponade. No pericardial effusion. No echocardiographic findings to suggest a hemodynamically significant pericardial effusion. Prominent epicardial fat. Aorta CONCLUSIONS Limited study to R/O tamponade. Left ventricular ejection fraction is estimated at 55 %. No obvious regional wall motion abnormalities. No pericardial effusion. Prominent epicardial fat. Previewed by: Dr Rodney Duncan (Electronically Signed) Final Date: 13 October 2022 17:21
[2022-10-13] MEDS: ALBUTEROL NEBULIZED 2.5 MG/3 ML INHALATION PRN (17:25)
[2022-10-13] MEDS ORDERED: FUROSEMIDE 10 MG/ML 2 ML VIAL IV ONE (22:58)
[2022-10-14] MEDS: NOREPINEPHRINE 4 MG in SODIUM CHLORIDE 0.9% 250 ML IV SCH (01:26)
[2022-10-14] MEDS: ACETAMINOPHEN TAB 325 MG TAB PO PRN ×2 (03:09→16:20)
[2022-10-14 05:20] LABS: Basophils % (A) 0 %; Eosinophils # (A) 0.1 k/uL (0-0.7); Eosinophils % (A) 1 %; HCT 25.9 % (34.0-46.0); Lymphocytes # (A) 0.7 k/uL (1.0-4.8); Lymphocytes % (A) 6 %; MCH 32.5 pg (25.0-35.0); MCHC 33.9 g/dL (31.0-37.0); MCV 95.8 fL (80.0-100.0); Mean Platelet Volume 7.6; Monocytes # (A) 0.6 k/uL (0-1.0); Monocytes % (A) 6 %; Neutrophils # (A) 8.9 k/uL (1.3-7.7); Neutrophils % (A) 85 %; Platelet Count 162 k/uL (150-450); RDW 13.1 % (11.5-15.5); WBC 10.4 k/uL (3.8-10.6)
[2022-10-14 05:31] LABS: African American GFR (CKD) 60 (>60 ml/min/1.73 sqM); Anion Gap 5 mmol/L; Blood Urea Nitrogen 31 mg/dL (7-17); Calcium 7.8 mg/dL (8.4-10.2); Carbon Dioxide 23 mmol/L (22-30); Chloride 97 mmol/L (98-107); Glucose 122 mg/dL (74-99); Non-African American GFR(CKD) 52 (>60 ml/min/1.73 sqM); Sodium 125 mmol/L (137-145)
[2022-10-14 06:05] LABS: HGB 8.8 gm/dL (11.4-16.0)
[2022-10-14] MEDS: MIDODRINE 5 MG TAB PO SCH ×3 (06:45→17:31)
--- NOTE | 2022-10-14 07:55 | XR ---
EXAMINATION TYPE: XR chest 1V portable DATE OF EXAM: 10/14/2022 HISTORY: Shortness of breath. COMPARISON: October 11, 2022 TECHNIQUE: Single view of the chest is submitted. FINDINGS: Demonstrated are scattered senescent parenchymal change. There is no evidence for focal infiltrate. Chronic appearing interstitial prominence primarily throug hout the right lung. The heart is stable. Hilar and mediastinal structures are within normal limits. Degenerative changes are seen of the dorsal spine. IMPRESSION: 1. Chronic changes without evidence for acute pulmonary disease.
[2022-10-14] MEDS: SYMBICORT 80-4.5 MCG INHALER INHALATION SCH ×2 (08:40→19:29)
[2022-10-14] MEDS: ALBUTEROL NEBULIZED 2.5 MG/3 ML INHALATION PRN ×3 (08:40→21:52)
[2022-10-14] MEDS: GABAPENTIN 400 MG CAP PO SCH ×2 (08:46→22:08)
[2022-10-14] MEDS: traMADol 50 MG TAB PO PRN (08:47)
[2022-10-14] MEDS: LIDOCAINE 5% PATCH TOPICAL SCH (08:48)
[2022-10-14] MEDS: ASCORBIC ACID 500 MG TAB PO SCH (08:48)
[2022-10-14] MEDS: LACTOBACILLUS ACIDOPHILUS/PECT 1 EACH CAPSULE PO SCH (08:48)
[2022-10-14] MEDS: CYANOCOBALAMIN 500 MCG TAB PO SCH (08:48)
[2022-10-14] MEDS: PANTOPRAZOLE 40 MG/10 ML VIAL IVP SCH ×2 (08:49→20:39)
--- NOTE | 2022-10-14 10:06 | P.PN ---
Subjective Progress Note Date: 10/14/22 The patient is an 82-year-old female who initially presented to the hospital after a fall. She experienced rib and right distal femur fracture. She underwent echocardiogram showed preserved LV function and she was cleared for discharged by cardiology. She had an additional phone the orthopedic floor and was transferred to the ICU. While on a bedpan, she became nonresponsive for approximately 15 minutes according to nursing staff. At that time she was notably hypotensive. Overnight nursing staff states they were able to wean off the Levophed. She currently has systolic pressures in the high 80s with overall MAP in the 70s. Patient was interviewed and examined resting comfortably in bed. She is lethargic, but answers questions appropriately. She denies any chest pain, chest pressure, difficulty breathing, or dizziness. GENERAL: Well-appearing, well-nourished and in no acute distress. NECK: Supple without JVD or thyromegaly. LUNGS: Breath sounds clear to auscultation bilaterally. Respiration equal and unlabored. No wheezes, rales or rhonchi. HEART: Regular rate and rhythm without murmurs, rubs or gallops. S1 and S2 heard. EXTREMITIES: Normal range of motion, no edema. No clubbing or cyanosis. Peripheral pulses intact and strong. VITALS: Systolic pressures in the 80s to 90s TELEMETRY: Sinus rhythm to sinus tachycardia LABS: WBC 10.4, hemoglobin 8.8, hematocrit 25.9, platelet 162, sodium 125, potassium 5.0, BUN 31, creatinine 1.02 IMPRESSION: Mechanical fall Hyponatremia, unchanged Hypotension Anemia, likely hemodilution PLAN: Continue supportive treatment No further recommendations from the cardiac standpoint I am dictating on behalf of Dr Sg Loza's history/physical and assessment/plan. Objective - Vital Signs Vital signs: Vital Signs Temp 100.5 F H 10/14/22 08:00 Pulse 85 10/14/22 08:53 Resp 20 10/14/22 08:00 BP 94/53 10/14/22 08:00 Pulse Ox 96 10/14/22 04:00 FiO2 Intake & Output 10/13/22 10/14/22 10/14/22 18:59 06:59 18:59 Intake Total 1675.930 475.705 10 Output Total 505 1332 Balance 1170.930 -856.295 10 Weight 101.1 kg Intake: IV 250 180 10 Sodium Chloride 3%( 250 180 Hypertonic) 500 ml @ 20 mls/hr IV .Q24H [facility] Rx#: [id number] normal saline 10 Intake, IV Titration 875.930 265.705 Amount Norepinephrine 4 mg In 345.930 165.705 Sodium Chloride 0.9% 250 ml @ 0.03 MCG/KG/MIN 10. 473 mls/hr IV .Q24H [facility] Rx#:[id number] Sodium Chloride 0.9% 500 500 ml 500 ml @ 999 mls/hr IV .Q31M [facility] Rx#:[id number] Sodium Chloride 3%( 30 Hypertonic) 500 ml @ 30 mls/hr IV .[id number] ONE Rx #:[id number] cefTRIAXone 2 gm In 100 Sodium Chloride 0.9% 50 ml @ 100 mls/hr IVPB Q24H [facility] Rx#:[id number] Oral 550 30 Output: Urine 505 1332 Other: Voiding Method Indwelling Catheter Indwelling Catheter # Bowel Movements 1 ABP, PAP, CO, CI - Last Documented Arterial Blood Pressure 81/75 - Labs CBC & Chem 7: 10/14/22 04:19 10/14/22 04:19 Labs: Abnormal Lab Results - Last 24 Hours (Table) 10/13/22 10/13/22 10/13/22 Range/Units 10:10 12:28 15:30 RBC (3.80-5.40) m/uL Hgb (11.4-16.0) gm/dL Hct (34.0-46.0) % Neutrophils # (1.3-7.7) k/uL Lymphocytes # (1.0-4.8) k/uL Sodium 123 L 122 L 123 L (137-145) mmol/L Chloride (98-107) mmol/L BUN (7-17) mg/dL Glucose (74-99) mg/dL Calcium (8.4-10.2) mg/dL 10/13/22 10/13/22 10/13/22 Range/Units 17:45 19:45 21:41 RBC (3.80-5.40) m/uL Hgb (11.4-16.0) gm/dL Hct (34.0-46.0) % Neutrophils # (1.3-7.7) k/uL Lymphocytes # (1.0-4.8) k/uL Sodium 123 L 124 L 123 L (137-145) mmol/L Chloride (98-107) mmol/L BUN (7-17) mg/dL Glucose (74-99) mg/dL Calcium (8.4-10.2) mg/dL 10/13/22 10/14/22 10/14/22 Range/Units 23:48 01:39 04:19 RBC 2.70 L (3.80-5.40) m/uL Hgb 8.8 L D (11.4-16.0) gm/dL Hct 25.9 L (34.0-46.0) % Neutrophils # 8.9 H (1.3-7.7) k/uL Lymphocytes # 0.7 L (1.0-4.8) k/uL Sodium 125 L 126 L (137-145) mmol/L Chloride (98-107) mmol/L BUN (7-17) mg/dL Glucose (74-99) mg/dL Calcium (8.4-10.2) mg/dL 10/14/22 Range/Units 04:19 RBC (3.80-5.40) m/uL Hgb (11.4-16.0) gm/dL Hct (34.0-46.0) % Neutrophils # (1.3-7.7) k/uL Lymphocytes # (1.0-4.8) k/uL Sodium 125 L (137-145) mmol/L Chloride 97 L (98-107) mmol/L BUN 31 H (7-17) mg/dL Glucose 122 H (74-99) mg/dL Calcium 7.8 L (8.4-10.2) mg/dL
[2022-10-14] MEDS: carBAMazepine 200 MG TAB PO SCH (10:09)
--- NOTE | 2022-10-14 10:43 | P.PN ---
Subjective Patient is seen in follow-up for acute kidney injury and hyponatremia. Sodium level 125 this morning. Status post 3%. Resting in bed. Oral intake poor. Renal function stable. Levophed turned off this morning. Vital signs are stable. General: No acute distress. HEENT: Head exam is unremarkable. On nasal cannula. LUNGS: No audible rhonchi or wheezes. HEART: Rate and Rhythm are regular. ABDOMEN: Soft, no distention. EXTREMITITES: No edema. Objective - Vital Signs Vital signs: Vital Signs Temp 100.5 F H 10/14/22 08:00 Pulse 85 10/14/22 08:53 Resp 20 10/14/22 08:00 BP 94/53 10/14/22 08:00 Pulse Ox 96 10/14/22 04:00 FiO2 Intake & Output 10/13/22 10/14/22 10/14/22 18:59 06:59 18:59 Intake Total 1675.930 475.705 10 Output Total 505 1332 Balance 1170.930 -856.295 10 Weight 101.1 kg Intake: IV 250 180 10 Sodium Chloride 3%( 250 180 Hypertonic) 500 ml @ 20 mls/hr IV .Q24H [facility] Rx#: [id number] normal saline 10 Intake, IV Titration 875.930 265.705 Amount Norepinephrine 4 mg In 345.930 165.705 Sodium Chloride 0.9% 250 ml @ 0.03 MCG/KG/MIN 10. 473 mls/hr IV .Q24H [facility] Rx#:[id number] Sodium Chloride 0.9% 500 500 ml 500 ml @ 999 mls/hr IV .Q31M [facility] Rx#:[id number] Sodium Chloride 3%( 30 Hypertonic) 500 ml @ 30 mls/hr IV .[id number] [facility] Rx #:[id number] cefTRIAXone 2 gm In 100 Sodium Chloride 0.9% 50 ml @ 100 mls/hr IVPB Q24H [facility] Rx#:[id number] Oral 550 30 Output: Urine 505 1332 Other: Voiding Method Indwelling Catheter Indwelling Catheter # Bowel Movements 1 ABP, PAP, CO, CI - Last Documented Arterial Blood Pressure 81/75 - Labs CBC & Chem 7: 10/14/22 04:19 10/14/22 04:19 Labs: Abnormal Lab Results - Last 24 Hours (Table) 10/13/22 10/13/22 10/13/22 Range/Units 12:28 15:30 17:45 RBC (3.80-5.40) m/uL Hgb (11.4-16.0) gm/dL Hct (34.0-46.0) % Neutrophils # (1.3-7.7) k/uL Lymphocytes # (1.0-4.8) k/uL Sodium 122 L 123 L 123 L (137-145) mmol/L Chloride (98-107) mmol/L BUN (7-17) mg/dL Glucose (74-99) mg/dL Calcium (8.4-10.2) mg/dL 10/13/22 10/13/22 10/13/22 Range/Units 19:45 21:41 23:48 RBC (3.80-5.40) m/uL Hgb (11.4-16.0) gm/dL Hct (34.0-46.0) % Neutrophils # (1.3-7.7) k/uL Lymphocytes # (1.0-4.8) k/uL Sodium 124 L 123 L 125 L (137-145) mmol/L Chloride (98-107) mmol/L BUN (7-17) mg/dL Glucose (74-99) mg/dL Calcium (8.4-10.2) mg/dL 10/14/22 10/14/22 10/14/22 Range/Units 01:39 04:19 04:19 RBC 2.70 L (3.80-5.40) m/uL Hgb 8.8 L D (11.4-16.0) gm/dL Hct 25.9 L (34.0-46.0) % Neutrophils # 8.9 H (1.3-7.7) k/uL Lymphocytes # 0.7 L (1.0-4.8) k/uL Sodium 126 L 125 L (137-145) mmol/L Chloride 97 L (98-107) mmol/L BUN 31 H (7-17) mg/dL Glucose 122 H (74-99) mg/dL Calcium 7.8 L (8.4-10.2) mg/dL Assessment and Plan Plan: Assessment: 1. Hypovolemic hyponatremia (acute on chronic) from poor solute intake and use of NSAIDs. 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 Sodium level 125 this morning. Currently on 3% saline. TSH 0.23. Cortisol level not low. Urine sodium 25 and urine osmolality 454. 2. Status post fall with left knee fracture. 3. Shock s/p Levophed. Questionable septic versus fat emboli. CTA done 10/12/2022 showed no evidence of pericardial effusion or tamponade. No evidence of PE. 4. Lymphadenopathy and lung nodule being followed by pulmonology. 5. Acute kidney injury secondary to ATN secondary to hypotension. Also received IV contrast on 10/12/2022. Creatinine 1.02 today. Plan: Currently off 3%. Add sodium chloride tablet 1 g twice daily. Encourage oral intake. Maintain 1200 mL fluid restriction. Follow-up PTH related peptide. Maintain midodrine. Discontinued Toradol. Status post 1 dose of IV Lasix last night.
--- NOTE | 2022-10-14 10:58 | P.PN ---
Subjective Progress Note Date: 10/14/22 Principal diagnosis: Anterior chest wall contusion secondary to fall, hyponatremia This is a pleasant 82-year-old female patient with a known history of hypertension, mild intermittent chronic bronchial asthma, gastroesophageal reflux disease, depression. She was brought into the emergency room on 10/08/2022 after sustaining a fall at her home. She states she was sitting on her toilet and fell forward hitting her walker with her chest and also hit the back of her head. She denied any loss of consciousness. She came in with ongoing chest wall pain. Pelvis x-ray revealed no acute fractures. The skin of the brain and C-spine revealed no acute intracranial process. No acute osseous abnormality. Computed tomography scan of the chest revealed areas of emphysema. A prominent pretracheal space lymph node. 1.0 cm pleural-based density. A nondisplaced posterior lateral right third rib fracture not excluded. White count 6.2. Hemoglobin 14.1. Platelets 199. Sodium 132. Potassium 4.1. Bicarb 27. BUN 16. Creatinine 0.7. Glucose 101. HEENT today in consultation on the regular medical floor. She is currently sitting up in a chair at the bedside. Awake and alert in no acute distress. She denies any worsening shortness of breath, cough or congestion. She is having some chest wall pain on deep inhalation. She is maintaining O2 saturations in the 90s on room air. Afebrile. Hemodynamically stable. She is continued on Symbicort and albuterol. Pain is better controlled today. The patient is seen today 10/11/2022 in follow-up on the regular medical floor. She is currently sitting up in bed. Awake and alert in no acute distress. She is still having ongoing issues with anterior chest wall pain over the sternal area. No worsening shortness of breath, cough or congestion. Maintaining good O2 saturations in the mid 90s on room air. She's afebrile. Follow-up chest x- ray revealed no acute cardiopulmonary process. She is working well with the incentive spirometer. He tended on Symbicort and albuterol. Patient is seen today 10/12/2022 in follow-up on the regular medical floor. She is currently sitting up in bed. Awake and alert in no acute distress. Her pain is better controlled today compared to yesterday. Still with discomfort with minimal movement. She continues to work with the incentive spirometer. She is maintaining good O2 saturations in the 90s on room air. Sodium 122. Potassium 4.6. Bicarb 29. BUN 19. Creatinine 0.60. Glucose 114. Pro-calcitonin 0.05. She is continued on Symbicort and albuterol. Patient was reevaluated today on 10/13/2022, patient was transferred to the ICU yesterday because of hyponatremia requiring hypertonic saline, however as soon as the patient arrived to the ICU, she developed an episode of syncope and sustained a fall, further workup revealed a left knee fracture patient had CT of the head which came back negative for acute process. She required vasopressor support and she is still receiving vasopressors for her borderline low blood pressure. She is now on norepinephrine at 0.2 mcg/kg/m. She received 3% saline and her sodium today is 123 hence the percent saline is presently on hold. ABG on 36% FiO2 showed a pO2 of 69 pCO2 44 pH of 7.37 hence patient did not require intubation or mechanical ventilation. Mentation-escobar, the patient remains a bit slow but she was quite confused yesterday after her fall, workup included a workup for pulmonary embolism which came back negative CT of the brain findings were negative, EKG showed mostly sinus tachycardia, no acute process. Venous Doppler of the legs came back negative x-rays of the knee showed comminuted long oblique fracture spanning from the distal femoral diaphyses down to the femoral component of the knee arthroplasty. Hence I'm raising fat embolism, her blood pressure remains low and the patient is most likely dehydrated/hypovolemic, I'm recommending a liter of D5 45 bolus to be given and hopefully we could taper down the norepinephrine and possibly discontinue. And right femoral triple- lumen catheter was placed because the patient is requiring pressors she is also on antibiotics empirically although possibility of sepsis is extremely low. Cultures of blood and urine are pending labs today showed WBC count of 16 hemoglobin is 10.9. Sodium is up to 123 patient had a baseline in the 126 trace supposedly. Cortisol level came back normal. Urine specific gravity is elevated which is consistent with hypovolemia. I believe the hyponatremia could be either related to SIADH or could be hypovolemia related. Considering her recent head injury and a sudden change in her sodium upon her presentation this could be related to her recent head injury/SIADH. Reevaluated today on 10/14/2022, patient remains in the ICU, she is having intermittent episodes of low-grade fever, her mental status is waxing and waning this morning she seems to be doing better and her mental status is improved. Mark mancilla has her sodium up to 125 today, responded well to 3% saline, however she is off the 3% percent saline at this point. WBC count today is 10.4 hemoglobin is 8.8, patient came in initially with a hemoglobin of 14.1 and has been gradually dropping down. No clear-cut evidence of any GI blood losses. On hemoglobin was 14.1 patient is on few liters nasal cannula, not in any distress, he seems to be quite comfortable. She was on norepinephrine and they will early this morning this was discontinued and now she is maintaining adequate blood pressure off norepinephrine. Remains on fluid restriction at 1200 mL per day remains on midodrine. Remains on ceftriaxone empirically patient is having episodes of diarrhea, and I ordered a C. difficile screen on this patient Objective - Vital Signs Vital signs: Vital Signs Temp 100.5 F H 10/14/22 08:00 Pulse 85 10/14/22 08:53 Resp 20 10/14/22 08:00 BP 94/53 10/14/22 08:00 Pulse Ox 96 10/14/22 04:00 FiO2 Intake & Output 10/13/22 10/14/22 10/14/22 18:59 06:59 18:59 Intake Total 1675.930 475.705 10 Output Total 505 1332 Balance 1170.930 -856.295 10 Weight 101.1 kg Intake: IV 250 180 10 Sodium Chloride 3%( 250 180 Hypertonic) 500 ml @ 20 mls/hr IV .Q24H [facility] Rx#: [id number] normal saline 10 Intake, IV Titration 875.930 265.705 Amount Norepinephrine 4 mg In 345.930 165.705 Sodium Chloride 0.9% 250 ml @ 0.03 MCG/KG/MIN 10. 473 mls/hr IV .Q24H [facility] Rx#:[id number] Sodium Chloride 0.9% 500 500 ml 500 ml @ 999 mls/hr IV .Q31M [facility] Rx#:[id number] Sodium Chloride 3%( 30 Hypertonic) 500 ml @ 30 mls/hr IV .[id number] [facility] Rx #:[id number] cefTRIAXone 2 gm In 100 Sodium Chloride 0.9% 50 ml @ 100 mls/hr IVPB Q24H [facility] Rx#:[id number] Oral 550 30 Output: Urine 505 1332 Other: Voiding Method Indwelling Catheter Indwelling Catheter # Bowel Movements 1 ABP, PAP, CO, CI - Last Documented Arterial Blood Pressure 81/75 - Exam Physical Exam: Revealed 82-year-old female awake, not in distress, on 3 L nasal cannula Head: Atraumatic, normocephalic she does have a small tiny bruising at the upper portion of her scalp. From recent trauma and fall. HEENT:[Neck is supple.] [No neck masses.] [No thyromegaly.] [No JVD.] Chest: [Clear throughout, no crackles, no rhonchi, no wheezes.] Cardiac Exam: [Normal S1 and S2, no S3 gallop, no murmur.] Abdomen: [Soft, nontender, no megaly, no rebound, no guarding, normal bowel sounds.] Extremities: [No clubbing, no edema, no cyanosis.] Neurological Exam: [No focal neurologic deficit.] Intermittently her mental status is waxing and waning Psychiatric: Normal mood, flat affect, normal mental status except slow. - Labs CBC & Chem 7: 10/14/22 04:19 10/14/22 04:19 Labs: Abnormal Lab Results - Last 24 Hours (Table) 10/13/22 10/13/22 10/13/22 Range/Units 12:28 15:30 17:45 RBC (3.80-5.40) m/uL Hgb (11.4-16.0) gm/dL Hct (34.0-46.0) % Neutrophils # (1.3-7.7) k/uL Lymphocytes # (1.0-4.8) k/uL Sodium 122 L 123 L 123 L (137-145) mmol/L Chloride (98-107) mmol/L BUN (7-17) mg/dL Glucose (74-99) mg/dL Calcium (8.4-10.2) mg/dL 10/13/22 10/13/22 10/13/22 Range/Units 19:45 21:41 23:48 RBC (3.80-5.40) m/uL Hgb (11.4-16.0) gm/dL Hct (34.0-46.0) % Neutrophils # (1.3-7.7) k/uL Lymphocytes # (1.0-4.8) k/uL Sodium 124 L 123 L 125 L (137-145) mmol/L Chloride (98-107) mmol/L BUN (7-17) mg/dL Glucose (74-99) mg/dL Calcium (8.4-10.2) mg/dL 10/14/22 10/14/22 10/14/22 Range/Units 01:39 04:19 04:19 RBC 2.70 L (3.80-5.40) m/uL Hgb 8.8 L D (11.4-16.0) gm/dL Hct 25.9 L (34.0-46.0) % Neutrophils # 8.9 H (1.3-7.7) k/uL Lymphocytes # 0.7 L (1.0-4.8) k/uL Sodium 126 L 125 L (137-145) mmol/L Chloride 97 L (98-107) mmol/L BUN 31 H (7-17) mg/dL Glucose 122 H (74-99) mg/dL Calcium 7.8 L (8.4-10.2) mg/dL Assessment and Plan Assessment: Impression: Altered mental status, suspect metabolic encephalopathy also suspect possible fat embolism. From recent fracture. Hyponatremia, most likely secondary to SIADH and should improve with fluid restriction, patient did receive 3% saline. Sodium today is 125 Benign essential hypertension Chest wall trauma/contusion History of bilateral knee replacements History of L4-L5 fusion Nonspecific mediastinal adenopathy Acute kidney injury secondary to ATN secondary to hypotension , required norepinephrine, presently off norepinephrine Diarrhea, rule out C. difficile colitis Doubt sepsis, although it is not entirely ruled out, patient is empirically on Rocephin. Recommendation: Discontinue 3% saline Continue fluid restrictions 1200 mL per day Discontinue norepinephrine Continue midodrine Continue to monitor in the ICU Continue antibiotics/Rocephin empirically, check cultures, check C. difficile toxin Not quite ready for transfer out of the ICU yet We will continue to follow. Time with Patient: Less than 30
[2022-10-14] MEDS: SODIUM CHLORIDE TAB 1 GM TAB PO SCH ×2 (11:53→20:28)
--- NOTE | 2022-10-14 13:00 | P.PN ---
Subjective Progress Note Date: 10/14/22 Principal diagnosis: Left periprosthetic distal femur fracture Patient was seen at bedside this morning. Patient nurse was present at bedside during encounter and stated that patient did lose continence of her bowels overnight and had a hinged knee brace on and fecal matter got onto the knee brace so it is drying currently. Medicine currently following the patient as well as other medical specialties and planning for discharge to rehab next week. Patient is currently sleeping and doesn't respond when asked questions. No other changes orthopedically at this time Objective - Vital Signs Vital signs: Vital Signs Temp 100.5 F H 10/14/22 08:00 Pulse 79 10/14/22 11:30 Resp 17 10/14/22 11:30 BP 111/56 10/14/22 11:30 Pulse Ox 96 10/14/22 04:00 FiO2 Intake & Output 10/13/22 10/14/22 10/14/22 18:59 06:59 18:59 Intake Total 1675.930 475.705 190 Output Total 505 1332 35 Balance 1170.930 -856.295 155 Weight 101.1 kg Intake: IV 250 180 40 Sodium Chloride 3%( 250 180 Hypertonic) 500 ml @ 20 mls/hr IV .Q24H [facility] Rx#: [id number] normal saline 40 Intake, IV Titration 875.930 265.705 0 Amount Norepinephrine 4 mg In 345.930 165.705 0 Sodium Chloride 0.9% 250 ml @ 0.03 MCG/KG/MIN 10. 473 mls/hr IV .Q24H [facility] Rx#:[id number] Sodium Chloride 0.9% 500 500 ml 500 ml @ 999 mls/hr IV .Q31M [facility] Rx#:[id number] Sodium Chloride 3%( 30 Hypertonic) 500 ml @ 30 mls/hr IV .[id number] [facility] Rx #:[id number] cefTRIAXone 2 gm In 100 Sodium Chloride 0.9% 50 ml @ 100 mls/hr IVPB Q24H [facility] Rx#:[id number] Oral 550 30 150 Output: Urine 505 1332 35 Other: Voiding Method Indwelling Catheter Indwelling Catheter Indwelling Catheter # Bowel Movements 1 ABP, PAP, CO, CI - Last Documented Arterial Blood Pressure 81/75 - Exam Patient nontender about the cervical, thoracic, and lumbar spine. No point tenderness about the upper extremities is noted. The pelvis is stable external rotation stress. She has minimal discomfort with log roll of the left hip. She's tender about the left distal thigh/medial and lateral distal femur. She has moderate swelling along with a large joint effusion. Homans is negative. Her distal neurovascular exam appears to be intact in the left lower Knee. She is nontender about the right knee, bilateral ankles and feet. - Labs CBC & Chem 7: 10/14/22 04:19 10/14/22 04:19 Labs: Abnormal Lab Results - Last 24 Hours (Table) 10/13/22 10/13/22 10/13/22 Range/Units 12:28 15:30 17:45 RBC (3.80-5.40) m/uL Hgb (11.4-16.0) gm/dL Hct (34.0-46.0) % Neutrophils # (1.3-7.7) k/uL Lymphocytes # (1.0-4.8) k/uL Sodium 122 L 123 L 123 L (137-145) mmol/L Chloride (98-107) mmol/L BUN (7-17) mg/dL Glucose (74-99) mg/dL Calcium (8.4-10.2) mg/dL 10/13/22 10/13/22 10/13/22 Range/Units 19:45 21:41 23:48 RBC (3.80-5.40) m/uL Hgb (11.4-16.0) gm/dL Hct (34.0-46.0) % Neutrophils # (1.3-7.7) k/uL Lymphocytes # (1.0-4.8) k/uL Sodium 124 L 123 L 125 L (137-145) mmol/L Chloride (98-107) mmol/L BUN (7-17) mg/dL Glucose (74-99) mg/dL Calcium (8.4-10.2) mg/dL 10/14/22 10/14/22 10/14/22 Range/Units 01:39 04:19 04:19 RBC 2.70 L (3.80-5.40) m/uL Hgb 8.8 L D (11.4-16.0) gm/dL Hct 25.9 L (34.0-46.0) % Neutrophils # 8.9 H (1.3-7.7) k/uL Lymphocytes # 0.7 L (1.0-4.8) k/uL Sodium 126 L 125 L (137-145) mmol/L Chloride 97 L (98-107) mmol/L BUN 31 H (7-17) mg/dL Glucose 122 H (74-99) mg/dL Calcium 7.8 L (8.4-10.2) mg/dL Assessment and Plan Assessment: Left periprosthetic distal femur fracture Multiple medical comorbidities Plan: 1. Left periprosthetic distal femur fracture - x-ray of the left knee/femur does reveal left periprosthetic distal femur fracture with total hip arthroplasty and total knee arthroplasty components in place. Due to the patient's medical comor bidities currently being in the ICU we do not recommend any emergent/urgent orthopedic surgical intervention. We have ordered a hinged knee brace that is at bedside for patient. Brace is to be locked at 30 of flexion. When patient has the brace on locked in 30 flexion patient may ambulate to chair with assistance as needed. We recommend patient to follow-up with the orthopedic surgeon who performed her knee and hip replacements. Patient is stable from an orthopedic standpoint for discharge. Orthopedics is signing off at this time. Please do not hesitate to contact us for any further questions. 2. Appreciate medical management 3. Pain management - Tylenol; gabapentin; tramadol 4. DVT prophylaxis - mechanical 5. GI prophylaxis - Protonix 6. PT/OT recs 7. Appreciate consult Time with Patient: Less than 30
[2022-10-14] MEDS: ENOXAPARIN 40 MG/0.4 ML SYRINGE SQ SCH (15:08)
--- NOTE | 2022-10-14 15:45 | P.PN ---
Subjective Progress Note Date: 10/14/22 This is a pleasant 82-year-old female who was recently admitted with chest pain and generalized weakness with recent fall. Patient being evaluated by cardiology as well as pulmonary recently underwent a CT of the chest which showed emphysematous changes with a prominent lymph node in the pretracheal sp wily and a 1.0 cm pleural based density. There is a nondisplaced posterior lateral right third rib fracture. Will add incentive spirometer and continue with pain management and lidocaine patches. Patient working with physical therapy reports she feels she did a little better today and will have therapy evaluate for possible ECF. Social work is following and has been accepted and requires insurance authorization which has been submitted and pending. Patient is afebrile but no reports of shortness of breath or palpitations. No reported nausea or vomiting and encouraged oral intake. 10/12/2022 Patient is seen and evaluated in follow-up this morning currently sitting up in the chair and has been cleared by cardiology and pulmonary. Patient continues to report some chest wall pain and feeling generally weak. Repeat labs done showing a sodium of 122 which she reports she runs in the 127 range normally. Patient does take Tegretol scheduled which could contribute to some of the hypon atremia along with poor oral intake. Patient reports has not been eating very well. Nephrology consulted and appreciate input and recommendations. Patient also having some intermittent nausea which is being controlled by Zofran. Patient is currently afebrile denies vomiting, denies palpitations or shortness of breath. Patient to be started on gentle IV hydration with follow-up labs this afternoon as well as tomorrow. Encouraged increase activity as tolerated and continued physical therapy evaluation. Plan is for ECF in the next few days and insurance authorization has been obtained. 10/13/2022 Patient is seen and evaluated and was transferred to the ICU after patient's sodium was found to be 120 and placed on 3% hypertonic solution with nephrology following. Patient became somewhat more lethargic and delayed and confused with difficulty in ambulation and left leg buckling from under her while attempting to get up from the commode and assisted to the floor and having some increased pain in the left knee. CT brain along with hip and left knee x-rays were obtained and CT was negative for acute process. Hip was intact with postsurgical changes noted from previous surgery. Left knee showed a minimally comminuted long oblique fracture spanning from the distal femoral diaphysis down to the femoral component of the knee arthroplasty with oblique component along the shaft of the femur minimally offset by 5 mm along with an associated large knee effusion. Orthopedics consultation recommending conservative management is patient is not a good surgical candidate at this time and a knee brace is being ordered. Patient is having some pain and will readdress medications as mentation is improved somewhat today. Patient continues on 3% and sodium level is improved at 121. Nephrology following closely. Patient is hypotensive as well and currently on pressor support which per nursing staff is slowly being weaned. Patient is afebrile currently although did have a low-grade temp of 100.4 this morning and has been started on antibiotics empirically. CT Billie of the chest was also done showing some prominent proximal LAD coronary artery calcifications with no evidence of aortic dissection or PE with some groundglass changes and scattered interstitial changes with concerns of pneumonitis with some tree-in-bud opacification is noted that may be seen in those with bronchiolitis along with a small hiatal hernia and some circumferential wall thickening of the distal esophagus representing possible esophagitis. Patient is on Protonix IV twice daily and is continued on a heart healthy diet with fluid restrictions. Neurology consulted as well and pending. 2-D echo was ordered and awaiting report. 10/14/2022 Patient seen and evaluated in the ICU continues to be on low-dose Levophed for low blood pressures and has been started on midodrine although continues to have periods of fatigue and lethargy. Patient is maintained on pain medications as patient continues to report significant left knee pain. Patient was evaluated by orthopedics recommending no surgical interventions and conservative management for now. Discussed possible large knee effusion drainage as well as possible steroid injection and was reported to risky and close to her previous l eft knee arthroplasty. Patient also continues to be hyponatremic and sodium is improving and currently at 125. Kidney function stable at 1.02 with a BUN of 31. Patient is having some diarrhea and C. diff sample was sent and came back positive. Will initiate oral Vanco liquid and consult infectious disease and appreciate input and recommendations. Review of systems: Constitutional: reports of fatigue, no reports of fever, or chills Cardiovascular: No reports of chest pain or palpitations Respiratory: No reports of shortness of breath or cough GI: No reports of nausea, no reports of vomiting, reports diarrhea : No reports of dysuria or retention Neurovascular: reports of generalized weakness, continued severe left knee pain with any movement All medications have been reviewed Active Medications Acetaminophen (Acetaminophen Tab 325 Mg Tab) 650 mg PO Q6HR PRN PRN Reason: Fever and/ or Pain Last Admin: 10/14/22 03:09 Dose: 650 mg Albuterol Sulfate (Albuterol Nebulized 2.5 Mg/3 Ml) 2.5 mg INHALATION RT-Q6H PRN PRN Reason: Shortness Of Breath Last Admin: 10/14/22 08:40 Dose: 2.5 mg Ascorbic Acid (Ascorbic Acid 500 Mg Tab) 1,000 mg PO DAILY [facility] Last Admin: 10/14/22 08:48 Dose: 1,000 mg Budesonide/Formoterol Fumarate (Symbicort 80-4.5 Mcg Inhaler) 2 puff INHALATION RT-BID [facility] Last Admin: 10/14/22 08:40 Dose: 2 puff Calcium Carbonate (Calcium Carb-Vit D 500 Mg-5 Mcg Tab) 2 each PO DAILY@1400 [facility] Last Admin: 10/13/22 15:48 Dose: 2 each Carbamazepine (Carbamazepine 200 Mg Tab) 400 mg PO DAILY [facility] Carbamazepine (Carbamazepine 200 Mg Tab) 300 mg PO HS [facility] Cyanocobalamin (Cyanocobalamin 500 Mcg Tab) 1,000 mcg PO DAILY [facility] Last Admin: 10/14/22 08:48 Dose: 1,000 mcg Cyclobenzaprine HCl (Cyclobenzaprine 5 Mg Tab) 5 mg PO BID PRN PRN Reason: Muscle Spasm Enoxaparin Sodium (Enoxaparin 40 Mg/0.4 Ml Syringe) 40 mg SQ DAILY [facility] Last Admin: 10/14/22 15:08 Dose: 40 mg Gabapentin (Gabapentin 400 Mg Cap) 800 mg PO TID [facility] Last Admin: 10/14/22 08:46 Dose: 800 mg Gabapentin (Gabapentin 400 Mg Cap) 400 mg PO DAILY@2300 [facility] Norepinephrine Bitartrate 4 mg (/ Sodium Chloride) 254 mls @ 10.473 mls/hr IV .Q24H [facility]; Protocol Last Titration: 10/14/22 12:32 Dose: 0 mcg/kg/min, 0 mls/hr Ceftriaxone Sodium 2 gm/ (Sodium Chloride) 50 mls @ 100 mls/hr IVPB Q24H [facility]; Protocol Last Admin: 10/14/22 06:27 Dose: 100 mls/hr Lactobacillus Acidophilus (Lactobacillus Acidophilus/Pect 1 Each Capsule) 1 each PO DAILY [facility] Last Admin: 10/14/22 08:48 Dose: 1 each Lidocaine (Lidocaine 5% Patch) 1 patch TOPICAL DAILY [facility]; Protocol Last Admin: 10/14/22 08:48 Dose: 1 patch Midodrine (Midodrine 5 Mg Tab) 10 mg PO AC-TID [facility] Last Admin: 10/14/22 11:54 Dose: 10 mg Morphine Sulfate (Morphine Sulfate 2 Mg/Ml Syringe) 2 mg IVP Q4HR PRN PRN Reason: Pain/Discomfort Last Admin: 10/14/22 00:35 Dose: 2 mg Naloxone HCl (Naloxone 0.4 Mg/Ml 1 Ml Vial) 0.2 mg IV Q2M PRN PRN Reason: Opioid Reversal Ondansetron HCl (Ondansetron Odt 4 Mg Tab) 4 mg PO Q6HR PRN PRN Reason: Nausea And Vomiting Last Admin: 10/12/22 02:06 Dose: 4 mg Pantoprazole Sodium (Pantoprazole 40 Mg/10 Ml Vial) 40 mg IVP BID [facility] Last Admin: 10/14/22 08:49 Dose: 40 mg Sodium Bicarbonate (Sodium Bicarbonate Tab 650 Mg Tab) 325 mg PO BID [facility] Sodium Chloride (Sodium Chloride Tab 1 Gm Tab) 1 gm PO BID [facility] Last Admin: 10/14/22 11:53 Dose: 1 gm Tramadol HCl (Tramadol 50 Mg Tab) 50 mg PO QID PRN PRN Reason: Pain Last Admin: 10/14/22 08:47 Dose: 50 mg PHYSICAL EXAMINATION: GENERAL: The patient is alert and oriented x3, lethargic but easily arousable, Well developed, well nourished. Obese, elderly-appearing HEENT: Pupils are round and equally reacting to light. EOMI. no scleral icterus. No conjunctival pallor. Normocephalic, atraumatic. No pharyngeal erythema. No thyromegaly. CARDIOVASCULAR: S1 and S2 muffled PULMONARY: diminished breath sounds bilaterally with no wheezing or rhonchi noted. ABDOMEN: soft. Nontender on exam. obese. non-distended, normoactive bowel sounds. No palpable organomegaly. MUSCULOSKELETAL: No joint swelling or deformity. EXTREMITIES: No cyanosis, clubbing, or pedal edema. Left knee and lower extremity tenderness and pain with palpation with some swelling noted at the kneecap posteriorly NEUROLOGICAL: Gross neurological examination did not reveal any focal deficits. Diffuse weakness SKIN: No rashes. Assessment: Chest pain, likely musculoskeletal due to fall, ruled out coronary disease Hyponatremia, multifactorial, likely secondary to SIADH as well as poor solute intake Debility with generalized weakness and gait dysfunction Hypertension history, currently hypotensive requiring pressor support, likely hypovolemic shock Fall with left knee pain , imaging showing minimally comminuted long oblique fracture spanning from the distal femoral diaphysis down to the femoral component of the knee arthroplasty with oblique component along the shaft of the femur minimally offset by 5 mm along with an associated large knee effusion. Diarrhea with multiple loose stools, positive for C. diff 10/14/2022 History of asthma, not in exacerbation Obesity with a BMI of 31.6 GI prophylaxis DVT prophylaxis Full code Plan: Patient became extremely hyponatremic requiring 3% solution and moved to the ICU for close monitoring as well as some hypotension receiving fluid boluses. Patient is on pressor support currently attempting to wean and sodiums are impro ving and has been taken off 3% solution maintained on sodium bicarb along with sodium chloride tablets. Multiple consultations following including cardiology, nephrology, pulmonary watch dial maker as well as neurology and orthopedics Patient continues with severe pain of the left knee and discussed with orthopedics about possible knee aspiration or steroid injection as there was a large effusion noted as well and per Dr. Palacios, intervention is too risky given the location of the previous arthroplasty on the left knee recommending using the knee immobilizer as well as pain management Patient had multiple episodes of loose stool and C. diff was sent and positive and will initiate vancomycin oral and also consult infectious disease and appreciate input and recommendations. Patient undergoing neurological workup which is currently pending Will follow-up with repeat labs Due to multiple complex medical issues, prognosis is guarded Patient will need rehab once stabilized and discharged The impression and plan of care has been dictated by Jessica Castro, nurse practitioner as directed. Dr. Dav MD I have performed a history and examination and MDM of this patient, discussed the same with the dictator, and agree with the dictator's assessment and plan as written ,documented as a scribe. Based on total visit time, I have performed more than 50% of the visit. Any additional findings or plans will be noted. Objective - Vital Signs Vital signs: Vital Signs Temp 99.9 F H 10/14/22 12:00 Pulse 92 10/14/22 15:00 Resp 21 10/14/22 15:00 BP 102/48 10/14/22 15:00 Pulse Ox 95 10/14/22 12:00 FiO2 Intake & Output 10/13/22 10/14/22 10/14/22 18:59 06:59 18:59 Intake Total 1675.930 475.705 338.437 Output Total 505 1332 175 Balance 1170.930 -856.295 163.437 Weight 101.1 kg Intake: IV 250 180 80 Sodium Chloride 3%( 250 180 Hypertonic) 500 ml @ 20 mls/hr IV .Q24H [facility] Rx#: [id number] normal saline 80 Intake, IV Titration 875.930 265.705 8.437 Amount Norepinephrine 4 mg In 345.930 165.705 8.437 Sodium Chloride 0.9% 250 ml @ 0.03 MCG/KG/MIN 10. 473 mls/hr IV .Q24H [facility] Rx#:[id number] Sodium Chloride 0.9% 500 500 ml 500 ml @ 999 mls/hr IV .Q31M [facility] Rx#:[id number] Sodium Chloride 3%( 30 Hypertonic) 500 ml @ 30 mls/hr IV .[id number] [facility] Rx #:[id number] cefTRIAXone 2 gm In 100 Sodium Chloride 0.9% 50 ml @ 100 mls/hr IVPB Q24H [facility] Rx#:[id number] Oral 550 30 250 Output: Urine 505 1332 175 Other: Voiding Method Indwelling Catheter Indwelling Catheter Indwelling Catheter # Bowel Movements 1 ABP, PAP, CO, CI - Last Documented Arterial Blood Pressure 81/75 - Labs CBC & Chem 7: 10/14/22 04:19 10/14/22 04:19 Labs: Abnormal Lab Results - Last 24 Hours (Table) 10/13/22 10/13/22 10/13/22 Range/Units 15:30 17:45 19:45 RBC (3.80-5.40) m/uL Hgb (11.4-16.0) gm/dL Hct (34.0-46.0) % Neutrophils # (1.3-7.7) k/uL Lymphocytes # (1.0-4.8) k/uL Sodium 123 L 123 L 124 L (137-145) mmol/L Chloride (98-107) mmol/L BUN (7-17) mg/dL Glucose (74-99) mg/dL Calcium (8.4-10.2) mg/dL C. difficile (EIA) Intrp (Negative) 10/13/22 10/13/22 10/14/22 Range/Units 21:41 23:48 01:39 RBC (3.80-5.40) m/uL Hgb (11.4-16.0) gm/dL Hct (34.0-46.0) % Neutrophils # (1.3-7.7) k/uL Lymphocytes # (1.0-4.8) k/uL Sodium 123 L 125 L 126 L (137-145) mmol/L Chloride (98-107) mmol/L BUN (7-17) mg/dL Glucose (74-99) mg/dL Calcium (8.4-10.2) mg/dL C. difficile (EIA) Intrp (Negative) 10/14/22 10/14/22 10/14/22 Range/Units 04:19 04:19 06:00 RBC 2.70 L (3.80-5.40) m/uL Hgb 8.8 L D (11.4-16.0) gm/dL Hct 25.9 L (34.0-46.0) % Neutrophils # 8.9 H (1.3-7.7) k/uL Lymphocytes # 0.7 L (1.0-4.8) k/uL Sodium 125 L (137-145) mmol/L Chloride 97 L (98-107) mmol/L BUN 31 H (7-17) mg/dL Glucose 122 H (74-99) mg/dL Calcium 7.8 L (8.4-10.2) mg/dL C. difficile (EIA) Intrp Positive A (Negative)
--- NOTE | 2022-10-14 16:04 | P.PN ---
Subjective Progress Note Date: 10/13/22 Patient was seen for a follow-up. Patient's daughter and son both were present today. Patient continues to have hyponatremia. Patient continues to be encephalopathic. She is also hypertensive on Levophed. Patient's daughter mentions that patients lives with her for last few years. Patient walks with a walker for last 12 years. She has history of recent frequent falls, which could be related to medication side effect. Objective - Vital Signs Vital signs: Vital Signs Temp 98.1 F 10/13/22 08:00 Pulse 104 H 10/13/22 13:00 Resp 19 10/13/22 13:00 BP 83/67 10/13/22 13:00 Pulse Ox 95 10/13/22 10:00 FiO2 Intake & Output 10/12/22 10/13/22 10/13/22 18:59 06:59 18:59 Intake Total 120 2439.472 1794.000 Output Total 630 280 310 Balance -510 2159.472 1484.000 Intake: IV 1910 140 Dextrose 5% in Water 1, 200 000 ml @ 100 mls/hr IV . Q10H [facility] Rx#:[id number] Sodium Chloride 0.9% 1, 1000 000 ml @ 999 mls/hr IV . Q1H1M [facility] Rx#:[id number] Sodium Chloride 0.9% 500 500 ml 500 ml @ 999 mls/hr IV .Q31M [facility] Rx#:[id number] Sodium Chloride 3%( 160 140 Hypertonic) 500 ml @ 20 mls/hr IV .Q24H [facility] Rx#: [id number] cefTRIAXone 2 gm In 50 Sodium Chloride 0.9% 50 ml @ 100 mls/hr IVPB Q24H [facility] Rx#:[id number] Intake, IV Titration 529.472 754.000 Amount Norepinephrine 4 mg In 499.472 254.000 Sodium Chloride 0.9% 250 ml @ 0.03 MCG/KG/MIN 10. 473 mls/hr IV .Q24H [facility] Rx#:[id number] Sodium Chloride 0.9% 500 500 ml 500 ml @ 999 mls/hr IV .Q31M [facility] Rx#:[id number] Sodium Chloride 3%( 30 Hypertonic) 500 ml @ 30 mls/hr IV .[id number] [facility] Rx #:[id number] Oral 120 900 Output: Urine 630 280 310 Uretheral ([place]) 320 Other: Voiding Method External Catheter Indwelling Catheter # Voids 0 ABP, PAP, CO, CI - Last Documented Arterial Blood Pressure 103/55 - Exam Patient is alert and awake, but appears encephalopathic. Speech and language functions are normal. She has slow mentation, worse than yesterday. Her strength appears normal in the arms. Left leg not checked. - Labs CBC & Chem 7: 10/14/22 04:19 10/14/22 04:19 Labs: Abnormal Lab Results - Last 24 Hours (Table) 10/12/22 10/12/22 10/12/22 Range/Units 14:31 16:40 16:47 WBC (3.8-10.6) k/uL RBC (3.80-5.40) m/uL Hgb (11.4-16.0) gm/dL Hct (34.0-46.0) % Neutrophils # (1.3-7.7) k/uL ABG pO2 (83-108) mmHg ABG HCO3 (21-25) mmol/L ABG Total CO2 (19-24) mmol/L ABG O2 Saturation (94-97) % Sodium 120 L 120 L (137-145) mmol/L Potassium (3.5-5.1) mmol/L Chloride (98-107) mmol/L Carbon Dioxide (22-30) mmol/L BUN (7-17) mg/dL Creatinine (0.52-1.04) mg/dL Glucose (74-99) mg/dL POC Glucose (mg/dL) (70-110) mg/dL Plasma Lactic Acid Artem (0.7-2.0) mmol/L Vitamin B12 (200.0-944.0) pg/mL TSH (0.465-4.680) mIU/L Ur Specific [place] (1.001-1.035) Urine Protein (Negative) Urine Blood (Negative) Ur Leukocyte Esterase (Negative) Urine WBC (0-5) /hpf Ur Random Sodium 25 L (40-220) mmol/L 10/12/22 10/12/22 10/12/22 Range/Units 16:47 18:09 19:40 WBC (3.8-10.6) k/uL RBC (3.80-5.40) m/uL Hgb (11.4-16.0) gm/dL Hct (34.0-46.0) % Neutrophils # (1.3-7.7) k/uL ABG pO2 (83-108) mmHg ABG HCO3 (21-25) mmol/L ABG Total CO2 (19-24) mmol/L ABG O2 Saturation (94-97) % Sodium (137-145) mmol/L Potassium (3.5-5.1) mmol/L Chloride (98-107) mmol/L Carbon Dioxide (22-30) mmol/L BUN (7-17) mg/dL Creatinine (0.52-1.04) mg/dL Glucose (74-99) mg/dL POC Glucose (mg/dL) 143 H 128 H (70-110) mg/dL Plasma Lactic Acid Artem (0.7-2.0) mmol/L Vitamin B12 1937.0 H (200.0-944.0) pg/mL TSH (0.465-4.680) mIU/L Ur Specific [place] (1.001-1.035) Urine Protein (Negative) Urine Blood (Negative) Ur Leukocyte Esterase (Negative) Urine WBC (0-5) /hpf Ur Random Sodium (40-220) mmol/L 10/12/22 10/12/22 10/12/22 Range/Units 20:05 21:28 21:39 WBC 12.4 H (3.8-10.6) k/uL RBC 3.76 L (3.80-5.40) m/uL Hgb (11.4-16.0) gm/dL Hct (34.0-46.0) % Neutrophils # 9.0 H (1.3-7.7) k/uL ABG pO2 77 L (83-108) mmHg ABG HCO3 26 H (21-25) mmol/L ABG Total CO2 28 H (19-24) mmol/L ABG O2 Saturation (94-97) % Sodium 121 L (137-145) mmol/L Potassium (3.5-5.1) mmol/L Chloride 88 L (98-107) mmol/L Carbon Dioxide (22-30) mmol/L BUN 27 H (7-17) mg/dL Creatinine (0.52-1.04) mg/dL Glucose 139 H (74-99) mg/dL POC Glucose (mg/dL) (70-110) mg/dL Plasma Lactic Acid Artem (0.7-2.0) mmol/L Vitamin B12 (200.0-944.0) pg/mL TSH (0.465-4.680) mIU/L Ur Specific [place] (1.001-1.035) Urine Protein (Negative) Urine Blood (Negative) Ur Leukocyte Esterase (Negative) Urine WBC (0-5) /hpf Ur Random Sodium (40-220) mmol/L 10/13/22 10/13/22 10/13/22 Range/Units 00:32 01:54 03:26 WBC (3.8-10.6) k/uL RBC (3.80-5.40) m/uL Hgb (11.4-16.0) gm/dL Hct (34.0-46.0) % Neutrophils # (1.3-7.7) k/uL ABG pO2 (83-108) mmHg ABG HCO3 (21-25) mmol/L ABG Total CO2 (19-24) mmol/L ABG O2 Saturation (94-97) % Sodium 120 L 120 L 121 L (137-145) mmol/L Potassium (3.5-5.1) mmol/L Chloride (98-107) mmol/L Carbon Dioxide (22-30) mmol/L BUN (7-17) mg/dL Creatinine (0.52-1.04) mg/dL Glucose (74-99) mg/dL POC Glucose (mg/dL) (70-110) mg/dL Plasma Lactic Acid Artem (0.7-2.0) mmol/L Vitamin B12 (200.0-944.0) pg/mL TSH (0.465-4.680) mIU/L Ur Specific [place] (1.001-1.035) Urine Protein (Negative) Urine Blood (Negative) Ur Leukocyte Esterase (Negative) Urine WBC (0-5) /hpf Ur Random Sodium (40-220) mmol/L 10/13/22 10/13/22 10/13/22 Range/Units 03:26 04:58 05:26 WBC (3.8-10.6) k/uL RBC (3.80-5.40) m/uL Hgb (11.4-16.0) gm/dL Hct (34.0-46.0) % Neutrophils # (1.3-7.7) k/uL ABG pO2 (83-108) mmHg ABG HCO3 (21-25) mmol/L ABG Total CO2 (19-24) mmol/L ABG O2 Saturation (94-97) % Sodium 122 L (137-145) mmol/L Potassium 5.3 H (3.5-5.1) mmol/L Chloride 91 L (98-107) mmol/L Carbon Dioxide 21 L (22-30) mmol/L BUN 29 H (7-17) mg/dL Creatinine 1.15 H (0.52-1.04) mg/dL Glucose 132 H (74-99) mg/dL POC Glucose (mg/dL) (70-110) mg/dL Plasma Lactic Acid Artem 3.2 H* (0.7-2.0) mmol/L Vitamin B12 (200.0-944.0) pg/mL TSH 0.230 L (0.465-4.680) mIU/L Ur Specific [place] >1.050 H (1.001-1.035) Urine Protein 1+ H (Negative) Urine Blood Trace H (Negative) Ur Leukocyte Esterase Small H (Negative) Urine WBC 9 H (0-5) /hpf Ur Random Sodium (40-220) mmol/L 10/13/22 10/13/22 10/13/22 Range/Units 05:26 06:10 07:17 WBC (3.8-10.6) k/uL RBC (3.80-5.40) m/uL Hgb (11.4-16.0) gm/dL Hct (34.0-46.0) % Neutrophils # (1.3-7.7) k/uL ABG pO2 69 L (83-108) mmHg ABG HCO3 26 H (21-25) mmol/L ABG Total CO2 27 H (19-24) mmol/L ABG O2 Saturation 93.5 L (94-97) % Sodium 122 L 123 L (137-145) mmol/L Potassium (3.5-5.1) mmol/L Chloride (98-107) mmol/L Carbon Dioxide (22-30) mmol/L BUN (7-17) mg/dL Creatinine (0.52-1.04) mg/dL Glucose (74-99) mg/dL POC Glucose (mg/dL) (70-110) mg/dL Plasma Lactic Acid Artem (0.7-2.0) mmol/L Vitamin B12 (200.0-944.0) pg/mL TSH (0.465-4.680) mIU/L Ur Specific [place] (1.001-1.035) Urine Protein (Negative) Urine Blood (Negative) Ur Leukocyte Esterase (Negative) Urine WBC (0-5) /hpf Ur Random Sodium (40-220) mmol/L 10/13/22 10/13/22 10/13/22 Range/Units 07:17 10:10 12:28 WBC 16.0 H (3.8-10.6) k/uL RBC 3.40 L (3.80-5.40) m/uL Hgb 10.9 L (11.4-16.0) gm/dL Hct 31.9 L (34.0-46.0) % Neutrophils # 13.6 H (1.3-7.7) k/uL ABG pO2 (83-108) mmHg ABG HCO3 (21-25) mmol/L ABG Total CO2 (19-24) mmol/L ABG O2 Saturation (94-97) % Sodium 123 L 122 L (137-145) mmol/L Potassium (3.5-5.1) mmol/L Chloride (98-107) mmol/L Carbon Dioxide (22-30) mmol/L BUN (7-17) mg/dL Creatinine (0.52-1.04) mg/dL Glucose (74-99) mg/dL POC Glucose (mg/dL) (70-110) mg/dL Plasma Lactic Acid Artem (0.7-2.0) mmol/L Vitamin B12 (200.0-944.0) pg/mL TSH (0.465-4.680) mIU/L Ur Specific [place] (1.001-1.035) Urine Protein (Negative) Urine Blood (Negative) Ur Leukocyte Esterase (Negative) Urine WBC (0-5) /hpf Ur Random Sodium (40-220) mmol/L Assessment and Plan Assessment: * Altered mental status, likely due metabolic encephalopathy. Reasons multifactorial as below. * Acute hyponatremia * Mild Tegretol toxicity * Status post vasovagal syncope while having bowel movement in the ICU 10/13/2022. * Status post in-hospital fall 10/13/2022, with left knee fracture. * Myoclonic jerks noted of outstretched hands, suggestive of metabolic encephalopathy. * History of trigeminal neuralgia since 1988, on carbamazepine 400 mg twice a day. * Hypertension * History of bilateral knee replacement * History of L4-L5 fusion Plan: * Patient has metabolic encephalopathy likely due to acute hyponatremia. The hyponatremia is likely from carbamazepine, which she is on for trigeminal neuralgia. * I discussed at length with patient's daughter and son about cutting back on the dose of Tegretol, but patient declined, as her trigeminal neuralgia is very severe when it acts up. We will resume her home dose of gabapentin to 800 mg 3 times a day and 400 mg at night, which she was on prior to arrival. Her renal functions are normal. Nephrology on board for hyponatremia. * Tegretol level 11(4-12), B12 1937, folate, methylmalonic acid level still pending. * Orthopedic surgery on board for left knee fracture. * Medical management as per ICU and IM team.
--- NOTE | 2022-10-14 16:13 | P.PN ---
Subjective Progress Note Date: 10/14/22 Patient was seen for a follow-up. Patient's daughter was present today. They have discussed with the patient, and she has agreed to decrease Tegretol slightly. Her sodium is 125 daily. Patient continues to have hyponatremia. Patient continues to be encephalopathic, appears slightly worse than yesterday. She is off Levophed. However her urine output decreases in Levophed is discontinued. Patient appears to have chest congestion, slightly labored breathing, appears that encephalopathic. Patient's daughter mentions that patients lives with her for last few years. Patient walks with a walker for last 12 years. She has history of recent frequent falls, which could be related to medication side effect. Objective - Vital Signs Vital signs: Vital Signs Temp 99.9 F H 10/14/22 12:00 Pulse 92 10/14/22 15:54 Resp 21 10/14/22 15:00 BP 102/48 10/14/22 15:00 Pulse Ox 95 10/14/22 12:00 FiO2 Intake & Output 10/13/22 10/14/22 10/14/22 18:59 06:59 18:59 Intake Total 1675.930 475.705 338.437 Output Total 505 1332 175 Balance 1170.930 -856.295 163.437 Weight 101.1 kg Intake: IV 250 180 80 Sodium Chloride 3%( 250 180 Hypertonic) 500 ml @ 20 mls/hr IV .Q24H [facility] Rx#: [id number] normal saline 80 Intake, IV Titration 875.930 265.705 8.437 Amount Norepinephrine 4 mg In 345.930 165.705 8.437 Sodium Chloride 0.9% 250 ml @ 0.03 MCG/KG/MIN 10. 473 mls/hr IV .Q24H [facility] Rx#:[id number] Sodium Chloride 0.9% 500 500 ml 500 ml @ 999 mls/hr IV .Q31M [facility] Rx#:[id number] Sodium Chloride 3%( 30 Hypertonic) 500 ml @ 30 mls/hr IV .[id number] [facility] Rx #:[id number] cefTRIAXone 2 gm In 100 Sodium Chloride 0.9% 50 ml @ 100 mls/hr IVPB Q24H [facility] Rx#:[id number] Oral 550 30 250 Output: Urine 505 1332 175 Other: Voiding Method Indwelling Catheter Indwelling Catheter Indwelling Catheter # Bowel Movements 1 ABP, PAP, CO, CI - Last Documented Arterial Blood Pressure 81/75 - Exam Patient is alert and awake, but appears more encephalopathic as compared to yesterday. Speech and language functions are normal. She has slow mentation, worse than yesterday. Prolonged latency time to answer questions. Patient states it is October and the year is 2022. She states that she is in [facility]. Her pupils are equal, round and reactive to light, visual broderick are full on confrontation, face is symmetric and tongue protrudes in midline. Hearing is decreased. On muscle strength testing, patient has very significant myoclonic jerks of the outstretched hands. The strength is normal in the arms. - Labs CBC & Chem 7: 10/14/22 04:19 10/14/22 04:19 Labs: Abnormal Lab Results - Last 24 Hours (Table) 10/13/22 10/13/22 10/13/22 Range/Units 17:45 19:45 21:41 RBC (3.80-5.40) m/uL Hgb (11.4-16.0) gm/dL Hct (34.0-46.0) % Neutrophils # (1.3-7.7) k/uL Lymphocytes # (1.0-4.8) k/uL Sodium 123 L 124 L 123 L (137-145) mmol/L Chloride (98-107) mmol/L BUN (7-17) mg/dL Glucose (74-99) mg/dL Calcium (8.4-10.2) mg/dL C. difficile (EIA) Intrp (Negative) 10/13/22 10/14/22 10/14/22 Range/Units 23:48 01:39 04:19 RBC 2.70 L (3.80-5.40) m/uL Hgb 8.8 L D (11.4-16.0) gm/dL Hct 25.9 L (34.0-46.0) % Neutrophils # 8.9 H (1.3-7.7) k/uL Lymphocytes # 0.7 L (1.0-4.8) k/uL Sodium 125 L 126 L (137-145) mmol/L Chloride (98-107) mmol/L BUN (7-17) mg/dL Glucose (74-99) mg/dL Calcium (8.4-10.2) mg/dL C. difficile (EIA) Intrp (Negative) 10/14/22 10/14/22 Range/Units 04:19 06:00 RBC (3.80-5.40) m/uL Hgb (11.4-16.0) gm/dL Hct (34.0-46.0) % Neutrophils # (1.3-7.7) k/uL Lymphocytes # (1.0-4.8) k/uL Sodium 125 L (137-145) mmol/L Chloride 97 L (98-107) mmol/L BUN 31 H (7-17) mg/dL Glucose 122 H (74-99) mg/dL Calcium 7.8 L (8.4-10.2) mg/dL C. difficile (EIA) Intrp Positive A (Negative) Assessment and Plan Assessment: * Altered mental status, likely due metabolic encephalopathy. Reasons multifactorial as below. * Acute hyponatremia, most recent sodium 125 * Spiking temperature with T-max of 101.6, rule out sepsis. Rule out pneumonia. Patient has labored breathing. * Mild Tegretol toxicity * Status post vasovagal syncope while having bowel movement in the ICU 10/13/2022. * Status post in-hospital fall 10/13/2022, with left knee fracture. * Myoclonic jerks noted of outstretched hands, suggestive of metabolic encephalopathy. * History of trigeminal neuralgia since 1988, on carbamazepine 400 mg twice a da y. * Hypertension * History of bilateral knee replacement * History of L4-L5 fusion Plan: * Patient has metabolic encephalopathy likely due to acute hyponatremia, possible sepsis, with spiking temperature. 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 * I discussed at length with patient's daughter about cutting back on the dose of Tegretol, and she agreed. We will decrease Tegretol to 400 mg in the morning and 300 mg at bedtime. * Patient has very profound myoclonic jerks. We will decrease gabapentin down to 600 mg 3 times a day, and stay with 400 mg at bedtime. Nephrology on board for hyponatremia. * Tegretol level 11(4-12), B12 1937, folate, methylmalonic acid level still pending. * Orthopedic surgery on board for left knee fracture. * Medical management as per ICU and IM team. * Dr. Tang covering neurology service over the weekend.
[2022-10-14] MEDS: CALCIUM CARB-VIT D 500 MG-5 MCG TAB PO SCH (16:21)
[2022-10-14] MEDS: VANCOMYCIN ORAL SOLUTION 250 MG/5 ML BOTTLE PO SCH ×2 (17:31→20:36)
[2022-10-14] MEDS: GABAPENTIN 300 MG CAP PO SCH (17:31)
[2022-10-14] MEDS: SODIUM BICARBONATE TAB 650 MG TAB PO SCH (20:29)
--- NOTE | 2022-10-14 21:57 | P.CONS ---
History of Present Illness - Reason for Consult Consult date: 10/14/22 - History of Present Illness Patient is a 82-year-old female presenting to the hospital about a week ago after the patient did have a fall apparently the patient did got up and lost her balance fell forward and struck her chest on the walker no loss of consciousness patient was subsequently admitted to the hospital has been evaluated by cardiology pulmonary and neurology services x-rays did shows left femur/knee periprosthetic distal femur fracture with mild displacement with associated total knee and total hip arthroplasties for which orthopedics has advised hinged knee brace patient was afebrile initially however she did spike a fever 100.4 on 10/13/2022 and did spike a fever of 101. degrees Fahrenheit earlier this morning patient also has developed significant diarrhea stool for C. difficile came back positive this afternoon that has prompted this infectious disease consultation patient did have a white count of 16,000 yesterday however is down to 20.4 today with a left shift lactic acid elevated creatinine was normal lipase is normal urine has been negative patient did have a chest x-ray this morning chronic change without evidence for acute pulmonary disease patient is currently on Rocephin 2 g daily in addition to oral vancomycin most information has been obtained from review the chart and talking to nursing staff patient is currently awake alert however did not answer any question patient is on 2 L nasal cannula oxygen, patient did have a significant diarrhea with multiple loose stools per the nursing staff patient also have a right groin triple-lumen catheter that has been there since admission patient to have an IV on the right forearm with no evidence of any cellulitis no vomiting has been reported Past Medical History Past Medical History: Asthma, Hypertension Additional Past Medical History / Comment(s): thyroid History of Any Multi-Drug Resistant Organisms: None Reported Past Surgical History: Appendectomy, Orthopedic Surgery, Tonsillectomy Additional Past Surgical History / Comment(s): Bilateral knee replacement, L4-L5 fusion, left hip replacement, right shoulder replacement Past Anesthesia/Blood Transfusion Reactions: No Reported Reaction Past Psychological History: No Psychological Hx Reported Smoking Status: Never smoker Past Alcohol Use History: None Reported Past Drug Use History: None Reported Medications and Allergies Home Medications Medication Instructions Recorded Confirmed Type Albuterol Inhaler [Ventolin Hfa 1 - 2 puff INHALATION RT-Q6H PRN 10/08/22 10/08/22 History Inhaler] Ascorbic Acid [Vitamin C] 1,000 mg PO DAILY 10/08/22 10/08/22 History Bifidobacterium Infantis [Align 10.5 mg PO DAILY 10/08/22 10/08/22 History Chew] Calcium Carbonate/Vitamin D3 2 tab PO DAILY@1400 10/08/22 10/08/22 History [Caltrate 600 Plus D3 20 Mcg (800 Iu)] Cyanocobalamin (Vitamin B-12) 1,000 mcg PO DAILY 10/08/22 10/08/22 History [Vitamin B-12] Fluticasone/Vilanterol [Breo 1 puff INHALATION RT-DAILY 10/08/22 10/08/22 History Ellipta 100-25 Mcg Inhaler] Lansoprazole [Prevacid 24Hr] 15 mg PO DAILY 10/08/22 10/08/22 History Nortriptyline [Pamelor] 50 mg PO HS@2300 10/08/22 10/08/22 History Omeprazole 20 mg PO DAILY@0500 10/08/22 10/08/22 History amLODIPine [Norvasc] 5 mg PO DAILY@1800 10/08/22 10/08/22 History carBAMazepine 400 mg PO BID@1000,2300 10/08/22 10/08/22 History lisinopriL 40 mg PO DAILY@1000 10/08/22 10/08/22 History Cyclobenzaprine [Flexeril] 5 mg PO TID PRN tab 10/12/22 Rx Gabapentin 400 mg PO HS@2330 #4 tab 10/12/22 Rx Gabapentin 800 mg PO TID@0500,1400,1800 #3 tab 10/12/22 Rx Lidocaine 5% Patch [Lidoderm 5% 1 patch TOPICAL DAILY patch 10/12/22 Rx Patch] Ondansetron Odt [Zofran ODT] 4 mg PO Q6HR PRN tab 10/12/22 Rx traMADol HCl [Ultram] 50 mg PO QID PRN #4 tab 10/12/22 Rx Allergies Allergy/AdvReac Type Severity Reaction Status Date / Time Sulfa (Sulfonamide Allergy Rash/Hives Verified 10/08/22 13:24 Antibiotics) Physical Exam Vitals: Vital Signs Temp Pulse Resp BP Pulse Ox 10/14/22 15:41 93 10/14/22 15:00 92 21 102/48 10/14/22 14:30 85 18 126/60 10/14/22 14:00 86 18 133/61 10/14/22 13:30 87 20 115/69 10/14/22 13:00 89 18 122/62 10/14/22 12:30 87 19 110/67 10/14/22 12:00 99.9 F H 82 15 95/51 95 10/14/22 11:30 79 17 111/56 10/14/22 11:15 81 17 86/58 10/14/22 11:00 84 18 90/43 94 L 10/14/22 10:45 81 17 102/44 10/14/22 10:30 84 20 92/61 10/14/22 10:15 83 17 99/53 10/14/22 10:00 82 19 99/49 95 10/14/22 09:45 84 20 101/50 10/14/22 09:30 83 14 104/51 10/14/22 09:15 83 20 80/62 10/14/22 09:00 84 22 104/53 95 10/14/22 08:53 85 10/14/22 08:45 80 20 88/49 10/14/22 08:43 83 10/14/22 08:30 80 20 90/52 10/14/22 08:15 82 20 91/47 10/14/22 08:00 100.5 F H 82 20 94/53 95 10/14/22 07:45 85 22 103/50 10/14/22 07:30 85 20 97/54 10/14/22 07:15 85 20 120/49 10/14/22 07:00 89 22 92/58 10/14/22 06:45 86 18 92/58 10/14/22 06:30 86 20 110/49 10/14/22 06:15 94 17 103/52 10/14/22 06:00 89 22 115/56 10/14/22 05:45 88 21 100/59 10/14/22 05:30 88 22 98/44 10/14/22 05:15 89 18 114/51 10/14/22 05:00 99.6 F 87 22 101/51 10/14/22 04:45 90 23 99/57 10/14/22 04:30 89 21 105/52 10/14/22 04:15 90 22 102/61 10/14/22 04:00 101.6 F H 89 18 112/54 96 10/14/22 03:45 88 96/46 10/14/22 03:30 90 20 109/51 10/14/22 03:15 92 22 85/60 10/14/22 03:00 101.6 F H 93 18 105/49 10/14/22 02:45 92 23 98/52 10/14/22 02:30 93 23 119/57 10/14/22 02:15 93 22 118/54 10/14/22 02:00 93 22 118/54 94 L 10/14/22 01:45 94 24 10/14/22 01:30 94 21 114/44 10/14/22 01:15 93 23 115/55 10/14/22 01:00 92 21 107/52 10/14/22 00:45 93 22 107/55 10/14/22 00:30 96 21 116/56 10/14/22 00:15 93 22 101/52 10/14/22 00:00 99.6 F 93 21 95/51 10/13/22 23:45 96 21 116/61 10/13/22 23:30 99 22 122/74 10/13/22 23:15 97 24 134/59 10/13/22 23:00 98 23 126/75 10/13/22 22:45 98 23 132/68 10/13/22 22:30 100 22 125/65 10/13/22 22:15 101 H 17 125/73 10/13/22 22:00 97 22 116/71 10/13/22 21:45 99 25 H 99/85 10/13/22 21:30 94 23 123/59 10/13/22 21:15 90 20 109/52 10/13/22 21:00 89 20 104/75 10/13/22 20:45 88 20 119/75 10/13/22 20:30 88 21 10/13/22 20:20 87 19 10/13/22 20:15 86 21 10/13/22 20:00 97.7 F 86 21 10/13/22 19:45 85 22 10/13/22 19:30 84 20 10/13/22 19:15 85 16 10/13/22 19:00 85 19 10/13/22 18:45 85 17 83/67 10/13/23 18:30 86 20 8310/13/22 18:15 87 20 8310/13/22 18:00 86 21 10/13/22 17:45 87 23 10/13/22 17:38 90 20 10/13/22 17:30 87 18 10/13/22 17:26 90 23 10/13/22 17:15 90 17 10/13/22 17:00 88 22 10/13/22 16:45 87 21 10/13/22 16:30 88 22 10/13/22 16:15 88 21 10/13/22 16:00 98.2 F 88 92 L Intake and Output 10/14/22 10/14/22 10/14/22 06:59 14:59 22:59 Intake Total 256.328 328.437 10 Output Total 1102 130 45 Balance -845.672 198.437 -35 Intake: IV 60 70 10 Sodium Chloride 3%( 60 Hypertonic) 500 ml @ 20 mls/hr IV .Q24H [facility] Rx#: [id number] normal saline 70 10 Intake, IV Titration 166.328 8.437 Amount Norepinephrine 4 mg In 66.328 8.437 Sodium Chloride 0.9% 250 ml @ 0.03 MCG/KG/MIN 10. 473 mls/hr IV .Q24H [facility] Rx#:[id number] cefTRIAXone 2 gm In 100 Sodium Chloride 0.9% 50 ml @ 100 mls/hr IVPB Q24H [facility] Rx#:[id number] Oral 30 250 Output: Urine 1102 130 45 Other: Voiding Method Indwelling Catheter Indwelling Catheter # Bowel Movements 1 Weight 101.1 kg Results CBC & Chem 7: 10/14/22 04:19 10/14/22 17:01 Labs: Abnormal Lab Results - Last 24 Hours (Table) 10/13/22 10/13/22 10/13/22 Range/Units 15:30 17:45 19:45 RBC (3.80-5.40) m/uL Hgb (11.4-16.0) gm/dL Hct (34.0-46.0) % Neutrophils # (1.3-7.7) k/uL Lymphocytes # (1.0-4.8) k/uL Sodium 123 L 123 L 124 L (137-145) mmol/L Chloride (98-107) mmol/L BUN (7-17) mg/dL Glucose (74-99) mg/dL Calcium (8.4-10.2) mg/dL C. difficile (EIA) Intrp (Negative) 10/13/22 10/13/22 10/14/22 Range/Units 21:41 23:48 01:39 RBC (3.80-5.40) m/uL Hgb (11.4-16.0) gm/dL Hct (34.0-46.0) % Neutrophils # (1.3-7.7) k/uL Lymphocytes # (1.0-4.8) k/uL Sodium 123 L 125 L 126 L (137-145) mmol/L Chloride (98-107) mmol/L BUN (7-17) mg/dL Glucose (74-99) mg/dL Calcium (8.4-10.2) mg/dL C. difficile (EIA) Intrp (Negative) 10/14/22 10/14/22 10/14/22 Range/Units 04:19 04:19 06:00 RBC 2.70 L (3.80-5.40) m/uL Hgb 8.8 L D (11.4-16.0) gm/dL Hct 25.9 L (34.0-46.0) % Neutrophils # 8.9 H (1.3-7.7) k/uL Lymphocytes # 0.7 L (1.0-4.8) k/uL Sodium 125 L (137-145) mmol/L Chloride 97 L (98-107) mmol/L BUN 31 H (7-17) mg/dL Glucose 122 H (74-99) mg/dL Calcium 7.8 L (8.4-10.2) mg/dL C. difficile (EIA) Intrp Positive A (Negative) Assessment and Plan Plan: 1patient presented to hospital with a fall with evidence of left distal femur/periprosthetic joint fracture being treated conservatively patient did have a fever yesterday and also having significant diarrhea with the stool for C . difficile is positive, I currently do not have any other obvious focus of infection and need for Rocephin which will be discontinued 2-nursing staff has been advised to discontinue right groin triple-lumen catheter to decrease risk of meningitis sepsis 3-we will continue patient on oral vancomycin, will add Questran if have persistent diarrhea however avoid antimotility agents We will follow on clinical condition and cultures to further adjust medication if needed Thank you for this consultation we will follow the patient along with you Dictation was produced using [employer] dictation software. please excuse any grammatical, word or spelling errors. Time with Patient: Greater than 30
[2022-10-14] MEDS ORDERED: GABAPENTIN 300 MG CAP PO SCH (22:00)
[2022-10-15] MEDS: ACETAMINOPHEN TAB 325 MG TAB PO PRN ×3 (04:00→17:18)
[2022-10-15] MEDS: GABAPENTIN 300 MG CAP PO SCH ×3 (05:37→17:18)
[2022-10-15 06:16] LABS: HCT 22.9 % (34.0-46.0); HGB 7.5 gm/dL (11.4-16.0); MCH 31.5 pg (25.0-35.0); MCHC 32.6 g/dL (31.0-37.0); MCV 96.7 fL (80.0-100.0); Mean Platelet Volume 7.9; Platelet Count 165 k/uL (150-450); RBC 2.36 m/uL (3.80-5.40); RDW 13.3 % (11.5-15.5); WBC 8.4 k/uL (3.8-10.6)
[2022-10-15 06:44] LABS: African American GFR (CKD) 80 (>60 ml/min/1.73 sqM); Anion Gap 4 mmol/L; Blood Urea Nitrogen 29 mg/dL (7-17); Calcium 7.6 mg/dL (8.4-10.2); Carbon Dioxide 26 mmol/L (22-30); Chloride 96 mmol/L (98-107); Glucose 115 mg/dL (74-99); Non-African American GFR(CKD) 69 (>60 ml/min/1.73 sqM); Potassium 4.8 mmol/L (3.5-5.1); Sodium 126 mmol/L (137-145)
[2022-10-15] MEDS: MIDODRINE 5 MG TAB PO SCH ×3 (07:00→17:05)
[2022-10-15] MEDS: SYMBICORT 80-4.5 MCG INHALER INHALATION SCH ×2 (08:28→19:52)
[2022-10-15] MEDS: ENOXAPARIN 40 MG/0.4 ML SYRINGE SQ SCH (08:31)
[2022-10-15] MEDS: ASCORBIC ACID 500 MG TAB PO SCH (08:31)
[2022-10-15] MEDS: CYANOCOBALAMIN 500 MCG TAB PO SCH (08:31)
[2022-10-15] MEDS: carBAMazepine 200 MG TAB PO SCH ×2 (08:31→19:27)
[2022-10-15] MEDS: LIDOCAINE 5% PATCH TOPICAL SCH (08:32)
[2022-10-15] MEDS: LACTOBACILLUS ACIDOPHILUS/PECT 1 EACH CAPSULE PO SCH (08:32)
[2022-10-15] MEDS: PANTOPRAZOLE 40 MG/10 ML VIAL IVP SCH ×3 (08:33→19:33)
[2022-10-15] MEDS: SODIUM CHLORIDE TAB 1 GM TAB PO SCH ×2 (08:34→19:27)
[2022-10-15] MEDS: SODIUM BICARBONATE TAB 650 MG TAB PO SCH (08:36)
[2022-10-15] MEDS: VANCOMYCIN ORAL SOLUTION 250 MG/5 ML BOTTLE PO SCH ×4 (08:38→19:33)
--- NOTE | 2022-10-15 09:48 | P.PN ---
Subjective Progress Note Date: 10/15/22 Principal diagnosis: Anterior chest wall contusion secondary to fall, hyponatremia This is a pleasant 82-year-old female patient with a known history of hypertension, mild intermittent chronic bronchial asthma, gastroesophageal reflux disease, depression. She was brought into the emergency room on 10/08/2022 after sustaining a fall at her home. She states she was sitting on her toilet and fell forward hitting her walker with her chest and also hit the back of her head. She denied any loss of consciousness. She came in with ongoing chest wall pain. Pelvis x-ray revealed no acute fractures. The skin of the brain and C-spine revealed no acute intracranial process. No acute osseous abnormality. Computed tomography scan of the chest revealed areas of emphysema. A prominent pretracheal space lymph node. 1.0 cm pleural-based density. A nondisplaced posterior lateral right third rib fracture not excluded. White count 6.2. Hemoglobin 14.1. Platelets 199. Sodium 132. Potassium 4.1. Bicarb 27. BUN 16. Creatinine 0.7. Glucose 101. HEENT today in consultation on the regular medical floor. She is currently sitting up in a chair at the bedside. Awake and alert in no acute distress. She denies any worsening shortness of breath, cough or congestion. She is having some chest wall pain on deep inhalation. She is maintaining O2 saturations in the 90s on room air. Afebrile. Hemodynamically stable. She is continued on Symbicort and albuterol. Pain is better controlled today. The patient is seen today 10/11/2022 in follow-up on the regular medical floor. She is currently sitting up in bed. Awake and alert in no acute distress. She is still having ongoing issues with anterior chest wall pain over the sternal area. No worsening shortness of breath, cough or congestion. Maintaining good O2 saturations in the mid 90s on room air. She's afebrile. Follow-up chest x- ray revealed no acute cardiopulmonary process. She is working well with the incentive spirometer. He tended on Symbicort and albuterol. Patient is seen today 10/12/2022 in follow-up on the regular medical floor. She is currently sitting up in bed. Awake and alert in no acute distress. Her pain is better controlled today compared to yesterday. Still with discomfort with minimal movement. She continues to work with the incentive spirometer. She is maintaining good O2 saturations in the 90s on room air. Sodium 122. Potassium 4.6. Bicarb 29. BUN 19. Creatinine 0.60. Glucose 114. Pro-calcitonin 0.05. She is continued on Symbicort and albuterol. Patient was reevaluated today on 10/13/2022, patient was transferred to the ICU yesterday because of hyponatremia requiring hypertonic saline, however as soon as the patient arrived to the ICU, she developed an episode of syncope and sustained a fall, further workup revealed a left knee fracture patient had CT of the head which came back negative for acute process. She required vasopressor support and she is still receiving vasopressors for her borderline low blood pressure. She is now on norepinephrine at 0.2 mcg/kg/m. She received 3% saline and her sodium today is 123 hence the percent saline is presently on hold. ABG on 36% FiO2 showed a pO2 of 69 pCO2 44 pH of 7.37 hence patient did not require intubation or mechanical ventilation. Mentation-escobar, the patient remains a bit slow but she was quite confused yesterday after her fall, workup included a workup for pulmonary embolism which came back negative CT of the brain findings were negative, EKG showed mostly sinus tachycardia, no acute process. Venous Doppler of the legs came back negative x-rays of the knee showed comminuted long oblique fracture spanning from the distal femoral diaphyses down to the femoral component of the knee arthroplasty. Hence I'm raising fat embolism, her blood pressure remains low and the patient is most likely dehydrated/hypovolemic, I'm recommending a liter of D5 45 bolus to be given and hopefully we could taper down the norepinephrine and possibly discontinue. And right femoral triple- lumen catheter was placed because the patient is requiring pressors she is also on antibiotics empirically although possibility of sepsis is extremely low. Cultures of blood and urine are pending labs today showed WBC count of 16 hemoglobin is 10.9. Sodium is up to 123 patient had a baseline in the 126 trace supposedly. Cortisol level came back normal. Urine specific gravity is elevated which is consistent with hypovolemia. I believe the hyponatremia could be either related to SIADH or could be hypovolemia related. Considering her recent head injury and a sudden change in her sodium upon her presentation this could be related to her recent head injury/SIADH. Reevaluated today on 10/14/2022, patient remains in the ICU, she is having intermittent episodes of low-grade fever, her mental status is waxing and waning this morning she seems to be doing better and her mental status is improved. Mark mancilla has her sodium up to 125 today, responded well to 3% saline, however she is off the 3% percent saline at this point. WBC count today is 10.4 hemoglobin is 8.8, patient came in initially with a hemoglobin of 14.1 and has been gradually dropping down. No clear-cut evidence of any GI blood losses. On hemoglobin was 14.1 patient is on few liters nasal cannula, not in any distress, he seems to be quite comfortable. She was on norepinephrine and they will early this morning this was discontinued and now she is maintaining adequate blood pressure off norepinephrine. Remains on fluid restriction at 1200 mL per day remains on midodrine. Remains on ceftriaxone empirically patient is having episodes of diarrhea, and I ordered a C. difficile screen on this patient Reevaluated today on 10/15/2022, patient remains in the ICU, she is definitely more alert today, oriented 3, she is now on oral vancomycin for what seems to be a C. difficile colitis. She had a low temp of 100.8, she is on 2 L nasal cannula, does not seem to be in any distress. Not receiving any fluids, remains on fluid restrictions because of her hyponatremia, and her sodium today is up to 126. WBC count is 8.4 hemoglobin 7.5 renal profile is normal BUN is 29 creatinine 0.8, C. diff screening is positive Objective - Vital Signs Vital signs: Vital Signs Temp 100.8 F H 10/15/22 04:00 Pulse 93 10/15/22 07:00 Resp 18 10/15/22 07:00 BP 122/104 10/15/22 07:00 Pulse Ox 94 L 10/15/22 07:00 FiO2 2 10/15/22 04:00 Intake & Output 10/14/22 10/15/22 10/15/22 18:59 06:59 18:59 Intake Total 468.437 451.011 10 Output Total 275 605 80 Balance 193.437 -153.989 -70 Weight 99.5 kg Intake: IV 110 120 10 normal saline 110 120 10 Intake, IV Titration 8.437 31.011 Amount Norepinephrine 4 mg In 8.437 31.011 Sodium Chloride 0.9% 250 ml @ 0.03 MCG/KG/MIN 10. 473 mls/hr IV .Q24H [facility] Rx#:[id number] Oral 350 300 Output: Urine 275 605 80 Other: Voiding Method Indwelling Catheter Indwelling Catheter ABP, PAP, CO, CI - Last Documented Arterial Blood Pressure 81/75 - Exam Physical Exam: Revealed 82-year-old female awake, not in distress, on 2 L nasal cannula Head: Atraumatic, normocephalic HEENT:[Neck is supple.] [No neck masses.] [No thyromegaly.] [No JVD.] Chest: [Clear throughout, no crackles, no rhonchi, no wheezes.] Cardiac Exam: [Normal S1 and S2, no S3 gallop, no murmur.] Abdomen: [Soft, nontender, no megaly, no rebound, no guarding, normal bowel sounds.] Extremities: [No clubbing, no edema, no cyanosis.] Neurological Exam: Alert and oriented 3, no gross focal deficit Psychiatric: Normal mood, flat affect, normal mental status except slow. - Labs CBC & Chem 7: 10/15/22 05:30 10/15/22 05:30 Labs: Abnormal Lab Results - Last 24 Hours (Table) 10/14/22 10/14/22 10/15/22 Range/Units 06:00 17:01 05:30 RBC 2.36 L (3.80-5.40) m/uL Hgb 7.5 L (11.4-16.0) gm/dL Hct 22.9 L (34.0-46.0) % Sodium 127 L (137-145) mmol/L Chloride (98-107) mmol/L BUN (7-17) mg/dL Glucose (74-99) mg/dL Calcium (8.4-10.2) mg/dL C. difficile (EIA) Intrp Positive A (Negative) 10/15/22 Range/Units 05:30 RBC (3.80-5.40) m/uL Hgb (11.4-16.0) gm/dL Hct (34.0-46.0) % Sodium 126 L (137-145) mmol/L Chloride 96 L (98-107) mmol/L BUN 29 H (7-17) mg/dL Glucose 115 H (74-99) mg/dL Calcium 7.6 L (8.4-10.2) mg/dL C. difficile (EIA) Intrp (Negative) Microbiology - Last 24 Hours (Table) 10/13/22 15:30 Blood Culture - Preliminary Blood Assessment and Plan Assessment: Impression: Altered mental status, suspect metabolic encephalopathy also suspect possible fat embolism. From recent fracture. Hyponatremia, most likely secondary to SIADH improving with fluid restrictions Benign essential hypertension Chest wall trauma/contusion History of bilateral knee replacements History of L4-L5 fusion Nonspecific mediastinal adenopathy Acute kidney injury secondary to ATN secondary to hypotension , required norepinephrine, presently off norepinephrine Acute C. diff colitis, on oral vancomycin Recommendation: Continue fluid restrictions Continue oral vancomycin Continue midodrine Discontinue ceftriaxone Continue to monitor the ICU for one more day. We will continue to follow. Time with Patient: Less than 30
--- NOTE | 2022-10-15 12:19 | P.PN ---
Subjective Progress Note Date: 10/15/22 The patient is an 82-year-old female who is seen in neurologic follow-up on October 15, 2022, in collaboration with Ina Finn, via teleneurology. The chart has been reviewed. Per nursing, the patient is alert and oriented today. They report that she had been receiving morphine and tramadol for pain. These medications were reportedly making the patient very sleepy. Nursing has significantly reduced the frequency of Dosing of this medication. Since that has occurred, the patient has been more alert and responsive. According to the patient today, she is feeling well. Objective - Vital Signs Vital signs: Vital Signs Temp 97.5 F L 10/15/22 08:00 Pulse 92 10/15/22 12:00 Resp 21 10/15/22 12:00 BP 135/57 10/15/22 12:00 Pulse Ox 92 L 10/15/22 12:00 FiO2 2 10/15/22 04:00 Intake & Output 10/14/22 10/15/22 10/15/22 18:59 06:59 18:59 Intake Total 468.437 451.011 310 Output Total 275 605 690 Balance 193.437 -153.989 -380 Weight 99.5 kg Intake: IV 110 120 10 normal saline 110 120 10 Intake, IV Titration 8.437 31.011 Amount Norepinephrine 4 mg In 8.437 31.011 Sodium Chloride 0.9% 250 ml @ 0.03 MCG/KG/MIN 10. 473 mls/hr IV .Q24H [facility] Rx#:[id number] Oral 350 300 300 Output: Urine 275 605 690 Other: Voiding Method Indwelling Catheter Indwelling Catheter Indwelling Catheter ABP, PAP, CO, CI - Last Documented Arterial Blood Pressure 81/75 - Exam Gen.: The patient is reclining in the bed. She is well-nourished, well- developed and in no acute distress. HEENT: Head is atraumatic, normocephalic. Fundus not visualized. There is no scleral icterus. Mucous membranes are moist. Neurological examination Mental status: The patient is awake, alert and oriented 3. Her speech is clear. There is no dysarthria or aphasia. Cranial nerves: 2-12 grossly intact - Labs CBC & Chem 7: 10/15/22 05:30 10/15/22 11:26 Labs: Abnormal Lab Results - Last 24 Hours (Table) 10/14/22 10/14/22 10/15/22 Range/Units 06:00 17:01 05:30 RBC 2.36 L (3.80-5.40) m/uL Hgb 7.5 L (11.4-16.0) gm/dL Hct 22.9 L (34.0-46.0) % Sodium 127 L (137-145) mmol/L Chloride (98-107) mmol/L BUN (7-17) mg/dL Glucose (74-99) mg/dL Calcium (8.4-10.2) mg/dL C. difficile (EIA) Intrp Positive A (Negative) 10/15/22 10/15/22 Range/Units 05:30 11:26 RBC (3.80-5.40) m/uL Hgb (11.4-16.0) gm/dL Hct (34.0-46.0) % Sodium 126 L 128 L (137-145) mmol/L Chloride 96 L (98-107) mmol/L BUN 29 H (7-17) mg/dL Glucose 115 H (74-99) mg/dL Calcium 7.6 L (8.4-10.2) mg/dL C. difficile (EIA) Intrp (Negative) Microbiology - Last 24 Hours (Table) 10/13/22 15:30 Blood Culture - Preliminary Blood Assessment and Plan Assessment: 1. Toxic metabolic encephalopathy secondary to hyponatremia as well as likely, medication effect-markedly improved today 2. History of trigeminal [id number] 3. Femur fracture Plan: 1. Continue current dosing of Tegretol and gabapentin 2. Agree with nursing regarding frequency of the morphine and tramadol 3. Continue to slowly raise sodium level Thank you for allowing us to participate in the care of this patient. Neurology will sign off at this time. If there are questions or concerns please contact us Time with Patient: Less than 30 (25 minutes were spent caring for this patient today including, obtained history, examining the patient, reviewing labs, chart documentation and creating this note)
--- NOTE | 2022-10-15 12:43 | P.PN ---
Subjective Patient is seen for follow-up for hyponatremia and acute kidney injury. Renal function has improved Serum sodium has improved as well. Patient is status post 3% saline. Mentation is better. Tolerating oral intake fairly well. Sodium at 128 today Objective - Vital Signs Vital signs: Vital Signs Temp 97.5 F L 10/15/22 08:00 Pulse 92 10/15/22 12:00 Resp 21 10/15/22 12:00 BP 135/57 10/15/22 12:00 Pulse Ox 92 L 10/15/22 12:00 FiO2 2 10/15/22 04:00 Intake & Output 10/14/22 10/15/22 10/15/22 18:59 06:59 18:59 Intake Total 468.437 451.011 310 Output Total 275 605 690 Balance 193.437 -153.989 -380 Weight 99.5 kg Intake: IV 110 120 10 normal saline 110 120 10 Intake, IV Titration 8.437 31.011 Amount Norepinephrine 4 mg In 8.437 31.011 Sodium Chloride 0.9% 250 ml @ 0.03 MCG/KG/MIN 10. 473 mls/hr IV .Q24H [facility] Rx#:[id number] Oral 350 300 300 Output: Urine 275 605 690 Other: Voiding Method Indwelling Catheter Indwelling Catheter Indwelling Catheter ABP, PAP, CO, CI - Last Documented Arterial Blood Pressure 81/75 - Exam Awake, comfortable, no acute distress Examination of the heart S1 and S2 Examination of the lungs bilateral breath sounds are heard Abdomen is soft nontender Examination lower ex Mittie shows no evidence of edema OBSTETRICS SPECIALIST exam shows patient is moving all 4 extremities. - Labs CBC & Chem 7: 10/15/22 05:30 10/15/22 11:26 Labs: Abnormal Lab Results - Last 24 Hours (Table) 10/14/22 10/14/22 10/15/22 Range/Units 06:00 17:01 05:30 RBC 2.36 L (3.80-5.40) m/uL Hgb 7.5 L (11.4-16.0) gm/dL Hct 22.9 L (34.0-46.0) % Sodium 127 L (137-145) mmol/L Chloride (98-107) mmol/L BUN (7-17) mg/dL Glucose (74-99) mg/dL Calcium (8.4-10.2) mg/dL C. difficile (EIA) Intrp Positive A (Negative) 10/15/22 10/15/22 Range/Units 05:30 11:26 RBC (3.80-5.40) m/uL Hgb (11.4-16.0) gm/dL Hct (34.0-46.0) % Sodium 126 L 128 L (137-145) mmol/L Chloride 96 L (98-107) mmol/L BUN 29 H (7-17) mg/dL Glucose 115 H (74-99) mg/dL Calcium 7.6 L (8.4-10.2) mg/dL C. difficile (EIA) Intrp (Negative) Microbiology - Last 24 Hours (Table) 10/13/22 15:30 Blood Culture - Preliminary Blood Assessment and Plan Assessment: 1. Hypovolemic hyponatremia (acute on chronic) from poor solute intake and use of NSAIDs. 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 Status post 3% saline Sodium level 128 this morning. TSH 0.23. Cortisol level not low. Urine sodium 25 and urine osmolality 454. 2. Status post fall with left knee fracture. 3. Shock s/p Levophed. Questionable septic versus fat emboli. CTA done 10/12/2022 showed no evidence of pericardial effusion or tamponade. No evidence of PE. 4. Lymphadenopathy and lung nodule being followed by pulmonology. 5. Acute kidney injury secondary to ATN secondary to hypotension. Also receiv ed IV contrast on 10/12/2022. Creatinine 1.02 today. 6. C. diff colitis Plan: Decrease sodium bicarb Continue with sodium chloride tabs Continue to encourage increase oral intake.
[2022-10-15] MEDS: CALCIUM CARB-VIT D 500 MG-5 MCG TAB PO SCH (15:25)
[2022-10-15] MEDS: GABAPENTIN 400 MG CAP PO SCH (22:06)
--- NOTE | 2022-10-15 22:14 | PN ---
PROGRESS NOTE DATE OF SERVICE: 10/15/2022 SUBJECTIVE: This is an 82-year-old woman, who was admitted with hyponatremia, who also had a comminuted oblique fracture spanning from the distal femoral area. The patient is confused. The patient is also getting Tylenol with some improvement. Multiple consultants are following the patient closely. The patient also had C difficile positive. PAST MEDICAL HISTORY: Reviewed. REVIEW OF SYSTEMS: Could not be taken. The patient is confused. CURRENT MEDICATIONS: Reviewed include p.o. vancomycin. Rest of the medications and rest of the chart is also reviewed. PHYSICAL EXAMINATION: VITAL SIGNS: Pulse is 93, blood pressure 159/74, respirations 20. HEENT: Conjunctivae normal. NECK: No JVD. CARDIOVASCULAR: S1, S2. RESPIRATIONS: Breath sounds diminished at the bases. ABDOMEN: Soft. NERVOUS SYSTEM: No focal deficits. LABORATORY DATA: Hemoglobin 7.5. Rest of the labs are noted. Sodium 126. ASSESSMENT: 1. Fall and left knee pain with comminuted fracture of the distal femur. 2. Severe pain. 3. Change in mental status, acute metabolic encephalopathy. 4. Hyponatremia, multifactorial, possibly secondary to SIADH and excess solute intake. 5. Clostridium difficile colitis. 6. History of asthma. 7. Multiple complex medical issues. RECOMMENDATIONS: Recommend to continue current management and continue symptomatic treatment. Otherwise, recommend repeat labs in the morning. Closely follow with multiple consultants. P.o. vancomycin. Stick to Tylenol for now till the sensorium improves. Otherwise, Neurology is following the patient closely as well. Prognosis guarded. Further recommendations to follow. MMODL / IJN: [id number] /
[2022-10-15] MEDS: HYDROmorphone 0.5 MG/0.5 ML SYRINGE IVP PRN (22:40)
[2022-10-16 04:22] LABS: Basophils % (A) 0 %; Eosinophils # (A) 0.3 k/uL (0-0.7); Eosinophils % (A) 4 %; HCT 22.2 % (34.0-46.0); HGB 7.5 gm/dL (11.4-16.0); Lymphocytes # (A) 0.8 k/uL (1.0-4.8); Lymphocytes % (A) 12 %; MCH 32.5 pg (25.0-35.0); MCV 95.6 fL (80.0-100.0); Mean Platelet Volume 7.5; Monocytes # (A) 0.3 k/uL (0-1.0); Monocytes % (A) 5 %; Neutrophils # (A) 4.9 k/uL (1.3-7.7); Neutrophils % (A) 76 %; Platelet Count 183 k/uL (150-450); RBC 2.32 m/uL (3.80-5.40); WBC 6.5 k/uL (3.8-10.6)
[2022-10-16 04:26] LABS: African American GFR (CKD) >90 (>60 ml/min/1.73 sqM); Anion Gap 5 mmol/L; Blood Urea Nitrogen 24 mg/dL (7-17); Calcium 7.8 mg/dL (8.4-10.2); Carbon Dioxide 27 mmol/L (22-30); Chloride 98 mmol/L (98-107); Glucose 102 mg/dL (74-99); Non-African American GFR(CKD) >90 (>60 ml/min/1.73 sqM); Potassium 3.9 mmol/L (3.5-5.1); Sodium 130 mmol/L (137-145)
[2022-10-16] MEDS: SYMBICORT 80-4.5 MCG INHALER INHALATION SCH ×2 (06:18→20:23)
[2022-10-16] MEDS: ALBUTEROL NEBULIZED 2.5 MG/3 ML INHALATION PRN (06:18)
[2022-10-16] MEDS: GABAPENTIN 300 MG CAP PO SCH ×3 (06:20→17:25)
[2022-10-16] MEDS ORDERED: Potassium Replacement Protocol 1 EACH MISC MISCELLANE PRN (06:47)
[2022-10-16] MEDS: HYDROmorphone 0.5 MG/0.5 ML SYRINGE IVP PRN (07:00)
[2022-10-16] MEDS ORDERED: POTASSIUM CHLORIDE ER 20 MEQ TAB.ER PO SCH (08:00)
[2022-10-16] MEDS: MIDODRINE 5 MG TAB PO SCH ×3 (08:14→16:46)
[2022-10-16] MEDS: ENOXAPARIN 40 MG/0.4 ML SYRINGE SQ SCH (08:21)
[2022-10-16] MEDS: CYANOCOBALAMIN 500 MCG TAB PO SCH (08:22)
[2022-10-16] MEDS: LACTOBACILLUS ACIDOPHILUS/PECT 1 EACH CAPSULE PO SCH (08:22)
[2022-10-16] MEDS: ASCORBIC ACID 500 MG TAB PO SCH (08:22)
[2022-10-16] MEDS: SODIUM CHLORIDE TAB 1 GM TAB PO SCH ×2 (08:23→19:54)
[2022-10-16] MEDS: carBAMazepine 200 MG TAB PO SCH ×2 (08:23→19:54)
[2022-10-16] MEDS: LIDOCAINE 5% PATCH TOPICAL SCH (08:26)
[2022-10-16] MEDS: VANCOMYCIN ORAL SOLUTION 250 MG/5 ML BOTTLE PO SCH ×4 (08:26→19:55)
[2022-10-16] MEDS ORDERED: SODIUM BICARBONATE TAB 650 MG TAB PO SCH (09:00)
--- NOTE | 2022-10-16 09:50 | P.PN ---
Subjective Progress Note Date: 10/15/22 Principal diagnosis: c diff colitis Patient is a 82-year-old female presenting to the hospital about a week ago after the patient did have a fall apparently the patient did got up and lost her balance fell forward and struck her chest on the walker no loss of consciousness, patient did have a left distal femur/periprosthetic fracture being managed by Ortho conservatively did spike a fever significant diarrhea stool for C. difficile positive. On today's evaluation that is 10/15/2022 the patient did have a low-grade fever 100.8 around 4 this a.m. the patient is afebrile since then patient is breathing comfortably on 2 L nasal cannula oxygen the patient is more awake and alert per the nursing staff patient diarrhea has slowed down no vomiting has been reported. Patient did have a white count of 8.4 creatinine 0.80 blood cultures so far pending Objective - Vital Signs Vital signs: Vital Signs Temp 97.5 F L 10/15/22 08:00 Pulse 93 10/15/22 15:00 Resp 22 10/15/22 15:00 BP 159/74 10/15/22 15:00 Pulse Ox 95 10/15/22 15:00 FiO2 2 10/15/22 04:00 Intake & Output 10/14/22 10/15/22 10/15/22 18:59 06:59 18:59 Intake Total 468.437 451.011 510 Output Total 275 605 825 Balance 193.437 -153.989 -315 Weight 99.5 kg Intake: IV 110 120 10 normal saline 110 120 10 Intake, IV Titration 8.437 31.011 Amount Norepinephrine 4 mg In 8.437 31.011 Sodium Chloride 0.9% 250 ml @ 0.03 MCG/KG/MIN 10. 473 mls/hr IV .Q24H [facility] Rx#:[id number] Oral 350 300 500 Output: Urine 275 605 825 Other: Voiding Method Indwelling Catheter Indwelling Catheter Indwelling Catheter ABP, PAP, CO, CI - Last Documented Arterial Blood Pressure 81/75 - Exam GENERAL DESCRIPTION: Elderly female lying in bed in no distress RESPIRATORY SYSTEM: Unlabored breathing , decreased breath sounds at bases HEART: S1 S2 regular rate and rhythm ,no loud murmurs ABDOMEN: Soft , no tenderness EXTREMITIES: No edema feet - Labs CBC & Chem 7: 10/16/22 03:44 10/16/22 03:44 Labs: Abnormal Lab Results - Last 24 Hours (Table) 10/14/22 10/15/22 10/15/22 Range/Units 17:01 05:30 05:30 RBC 2.36 L (3.80-5.40) m/uL Hgb 7.5 L (11.4-16.0) gm/dL Hct 22.9 L (34.0-46.0) % Sodium 127 L 126 L (137-145) mmol/L Chloride 96 L (98-107) mmol/L BUN 29 H (7-17) mg/dL Glucose 115 H (74-99) mg/dL Calcium 7.6 L (8.4-10.2) mg/dL 10/15/22 Range/Units 11:26 RBC (3.80-5.40) m/uL Hgb (11.4-16.0) gm/dL Hct (34.0-46.0) % Sodium 128 L (137-145) mmol/L Chloride (98-107) mmol/L BUN (7-17) mg/dL Glucose (74-99) mg/dL Calcium (8.4-10.2) mg/dL Microbiology - Last 24 Hours (Table) 10/13/22 15:30 Blood Culture - Preliminary Blood Assessment and Plan (1) C. difficile colitis Current Visit: Yes Status: Acute Code(s): A04.72 - ENTEROCOLITIS D/T CLOSTRIDIUM DIFFICILE, NOT SPCF RECUR SNOMED Code(s): 538790416 Plan: 1patient presented to hospital with a fall with evidence of left distal femur/periprosthetic joint fracture being treated conservatively patient did have a fever yesterday and also having significant diarrhea with the stool for C. difficile is positive, I currently do not have any other obvious focus of infection and need for Rocephin which was discontinued 2patient seems to-some clinical improvement per the nursing staff and did have improvement the diarrhea we will keep the patient on oral vancomycin and monitor clinical course closely Dictation was produced using orderboltation software. please excuse any grammatical, word or spelling errors.
--- NOTE | 2022-10-16 10:39 | P.PN ---
Subjective Patient is seen for follow-up for hyponatremia and acute kidney injury. Renal function has improved Serum sodium has improved as well. Patient is status post 3% saline. Patient is more sleepy today but arousable and able to communicate well. She did get Dilaudid for pain. Sodium at 130 today Objective - Vital Signs Vital signs: Vital Signs Temp 99.3 F 10/16/22 08:00 Pulse 92 10/16/22 10:00 Resp 25 H 10/16/22 10:00 BP 125/55 10/16/22 10:00 Pulse Ox 94 L 10/16/22 10:00 FiO2 2 10/15/22 04:00 Intake & Output 10/15/22 10/16/22 10/16/22 18:59 06:59 18:59 Intake Total 810 100 100 Output Total 925 625 90 Balance -115 -525 10 Weight 97.9 kg Intake: IV 10 normal saline 10 Oral 800 100 100 Output: Urine 925 625 90 Other: Voiding Method Indwelling Catheter Indwelling Catheter Indwelling Catheter ABP, PAP, CO, CI - Last Documented Arterial Blood Pressure 81/75 - Exam Awake, comfortable, no acute distress Examination of the heart S1 and S2 Examination of the lungs bilateral breath sounds are heard Abdomen is soft nontender Examination lower ex Mittie shows no evidence of edema DISTILLATION OPERATOR HELPER exam shows patient is moving all 4 extremities. - Labs CBC & Chem 7: 10/16/22 03:44 10/16/22 03:44 Labs: Abnormal Lab Results - Last 24 Hours (Table) 10/15/22 10/16/22 10/16/22 Range/Units 11:26 03:44 03:44 RBC 2.32 L (3.80-5.40) m/uL Hgb 7.5 L (11.4-16.0) gm/dL Hct 22.2 L (34.0-46.0) % Lymphocytes # 0.8 L (1.0-4.8) k/uL Sodium 128 L 130 L (137-145) mmol/L BUN 24 H (7-17) mg/dL Creatinine 0.49 L (0.52-1.04) mg/dL Glucose 102 H (74-99) mg/dL Calcium 7.8 L (8.4-10.2) mg/dL Microbiology - Last 24 Hours (Table) 08/10/23 15:30 Blood Culture - Preliminary Blood Assessment and Plan Assessment: 1. Hypovolemic hyponatremia (acute on chronic) from poor solute intake and use of NSAIDs. 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 Status post 3% saline Sodium level 130 this morning. TSH 0.23. Cortisol level not low. Urine sodium 25 and urine osmolality 454. Maintained on sodium chloride tab. 2. Status post fall with left knee fracture. 3. Shock s/p Levophed. Questionable septic versus fat emboli. CTA done 10/12/2022 showed no evidence of pericardial effusion or tamponade. No evidence of PE. 4. Lymphadenopathy and lung nodule being followed by pulmonology. 5. Acute kidney injury secondary to ATN secondary to hypotension. Also received IV contrast on 10/12/2022. Creatinine 1.02 today. 6. C. diff colitis Plan: Discontinue sodium bicarb Continue with sodium chloride tabs Continue to encourage increase oral intake. Okay to try one dose of Toradol for pain.
--- NOTE | 2022-10-16 10:56 | XR ---
EXAMINATION TYPE: XR chest 1V portable DATE OF EXAM: 10/16/2022 HISTORY: Shortness of breath. COMPARISON: 10/14/2022 TECHNIQUE: Single view of the chest is submitted. FINDINGS: Demonstrated are scattered senescent parenchymal change. There is no evidence for focal infiltrate. The heart is stable. Hilar and mediastinal structures are within normal limits. Degenerative changes are seen of the dorsal spine. IMPRESSION: 1. Chronic changes without evidence for acute pulmonary disease.
[2022-10-16] MEDS ORDERED: KETOROLAC 15 MG/ML 1 ML VIAL IVP STA (11:58)
--- NOTE | 2022-10-16 12:15 | P.PN ---
Subjective Progress Note Date: 10/16/22 Principal diagnosis: Anterior chest wall contusion secondary to fall, hyponatremia This is a pleasant 82-year-old female patient with a known history of hypertension, mild intermittent chronic bronchial asthma, gastroesophageal reflux disease, depression. She was brought into the emergency room on 10/08/2022 after sustaining a fall at her home. She states she was sitting on her toilet and fell forward hitting her walker with her chest and also hit the back of her head. She denied any loss of consciousness. She came in with ongoing chest wall pain. Pelvis x-ray revealed no acute fractures. The skin of the brain and C-spine revealed no acute intracranial process. No acute osseous abnormality. Computed tomography scan of the chest revealed areas of emphysema. A prominent pretracheal space lymph node. 1.0 cm pleural-based density. A nondisplaced posterior lateral right third rib fracture not excluded. White count 6.2. Hemoglobin 14.1. Platelets 199. Sodium 132. Potassium 4.1. Bicarb 27. BUN 16. Creatinine 0.7. Glucose 101. HEENT today in consultation on the regular medical floor. She is currently sitting up in a chair at the bedside. Awake and alert in no acute distress. She denies any worsening shortness of breath, cough or congestion. She is having some chest wall pain on deep inhalation. She is maintaining O2 saturations in the 90s on room air. Afebrile. Hemodynamically stable. She is continued on Symbicort and albuterol. Pain is better controlled today. The patient is seen today 10/11/2022 in follow-up on the regular medical floor. She is currently sitting up in bed. Awake and alert in no acute distress. She is still having ongoing issues with anterior chest wall pain over the sternal area. No worsening shortness of breath, cough or congestion. Maintaining good O2 saturations in the mid 90s on room air. She's afebrile. Follow-up chest x- ray revealed no acute cardiopulmonary process. She is working well with the incentive spirometer. He tended on Symbicort and albuterol. Patient is seen today 10/12/2022 in follow-up on the regular medical floor. She is currently sitting up in bed. Awake and alert in no acute distress. Her pain is better controlled today compared to yesterday. Still with discomfort with minimal movement. She continues to work with the incentive spirometer. She is maintaining good O2 saturations in the 90s on room air. Sodium 122. Potassium 4.6. Bicarb 29. BUN 19. Creatinine 0.60. Glucose 114. Pro-calcitonin 0.05. She is continued on Symbicort and albuterol. Patient was reevaluated today on 10/13/2022, patient was transferred to the ICU yesterday because of hyponatremia requiring hypertonic saline, however as soon as the patient arrived to the ICU, she developed an episode of syncope and sustained a fall, further workup revealed a left knee fracture patient had CT of the head which came back negative for acute process. She required vasopressor support and she is still receiving vasopressors for her borderline low blood pressure. She is now on norepinephrine at 0.2 mcg/kg/m. She received 3% saline and her sodium today is 123 hence the percent saline is presently on hold. ABG on 36% FiO2 showed a pO2 of 69 pCO2 44 pH of 7.37 hence patient did not require intubation or mechanical ventilation. Mentation-escobar, the patient remains a bit slow but she was quite confused yesterday after her fall, workup included a workup for pulmonary embolism which came back negative CT of the brain findings were negative, EKG showed mostly sinus tachycardia, no acute process. Venous Doppler of the legs came back negative x-rays of the knee showed comminuted long oblique fracture spanning from the distal femoral diaphyses down to the femoral component of the knee arthroplasty. Hence I'm raising fat embolism, her blood pressure remains low and the patient is most likely dehydrated/hypovolemic, I'm recommending a liter of D5 45 bolus to be given and hopefully we could taper down the norepinephrine and possibly discontinue. And right femoral triple- lumen catheter was placed because the patient is requiring pressors she is also on antibiotics empirically although possibility of sepsis is extremely low. Cultures of blood and urine are pending labs today showed WBC count of 16 hemoglobin is 10.9. Sodium is up to 123 patient had a baseline in the 126 trace supposedly. Cortisol level came back normal. Urine specific gravity is elevated which is consistent with hypovolemia. I believe the hyponatremia could be either related to SIADH or could be hypovolemia related. Considering her recent head injury and a sudden change in her sodium upon her presentation this could be related to her recent head injury/SIADH. Reevaluated today on 10/14/2022, patient remains in the ICU, she is having intermittent episodes of low-grade fever, her mental status is waxing and waning this morning she seems to be doing better and her mental status is improved. Mark mancilla has her sodium up to 125 today, responded well to 3% saline, however she is off the 3% percent saline at this point. WBC count today is 10.4 hemoglobin is 8.8, patient came in initially with a hemoglobin of 14.1 and has been gradually dropping down. No clear-cut evidence of any GI blood losses. On hemoglobin was 14.1 patient is on few liters nasal cannula, not in any distress, he seems to be quite comfortable. She was on norepinephrine and they will early this morning this was discontinued and now she is maintaining adequate blood pressure off norepinephrine. Remains on fluid restriction at 1200 mL per day remains on midodrine. Remains on ceftriaxone empirically patient is having episodes of diarrhea, and I ordered a C. difficile screen on this patient Reevaluated today on 10/15/2022, patient remains in the ICU, she is definitely more alert today, oriented 3, she is now on oral vancomycin for what seems to be a C. difficile colitis. She had a low temp of 100.8, she is on 2 L nasal cannula, does not seem to be in any distress. Not receiving any fluids, remains on fluid restrictions because of her hyponatremia, and her sodium today is up to 126. WBC count is 8.4 hemoglobin 7.5 renal profile is normal BUN is 29 creatinine 0.8, C. diff screening is positive Reevaluated today on 10/16/2022, patient remains in the ICU, her mental status seems to be waxing and waning times, she is on 2 L nasal cannula, does not seem to be in any distress. Her sodium is significantly improved it's up to 130 today. Renal profile is normal. Basic metabolic profile is normal hemoglobin remains low at 7.5 WBC count is 6.5. Minimal episodes of diarrhea, patient remains on treatment for C. difficile colitis. Objective - Vital Signs Vital signs: Vital Signs Temp 99.3 F 10/16/22 08:00 Pulse 92 10/16/22 10:00 Resp 25 H 10/16/22 10:00 BP 125/55 10/16/22 10:00 Pulse Ox 94 L 10/16/22 10:00 FiO2 2 10/15/22 04:00 Intake & Output 10/15/22 10/16/22 10/16/22 18:59 06:59 18:59 Intake Total 810 100 100 Output Total 925 625 90 Balance -115 -525 10 Weight 97.9 kg Intake: IV 10 normal saline 10 Oral 800 100 100 Output: Urine 925 625 90 Other: Voiding Method Indwelling Catheter Indwelling Catheter Indwelling Catheter ABP, PAP, CO, CI - Last Documented Arterial Blood Pressure 81/75 - Exam Physical Exam: Revealed 82-year-old female awake, not in distress, on 2 L nasal cannula Head: Atraumatic, normocephalic HEENT:[Neck is supple.] [No neck masses.] [No thyromegaly.] [No JVD.] Chest: [Clear throughout, no crackles, no rhonchi, no wheezes.] Cardiac Exam: [Normal S1 and S2, no S3 gallop, no murmur.] Abdomen: [Soft, nontender, no megaly, no rebound, no guarding, normal bowel sounds.] Extremities: [No clubbing, no edema, no cyanosis.] Neurological Exam: Alert and oriented 3, no gross focal deficit Psychiatric: Normal mood, flat affect, normal mental status except slow. - Labs CBC & Chem 7: 10/16/22 03:44 10/16/22 03:44 Labs: Abnormal Lab Results - Last 24 Hours (Table) 10/16/22 10/16/22 Range/Units 03:44 03:44 RBC 2.32 L (3.80-5.40) m/uL Hgb 7.5 L (11.4-16.0) gm/dL Hct 22.2 L (34.0-46.0) % Lymphocytes # 0.8 L (1.0-4.8) k/uL Sodium 130 L (137-145) mmol/L BUN 24 H (7-17) mg/dL Creatinine 0.49 L (0.52-1.04) mg/dL Glucose 102 H (74-99) mg/dL Calcium 7.8 L (8.4-10.2) mg/dL Microbiology - Last 24 Hours (Table) 10/13/22 15:30 Blood Culture - Preliminary Blood Assessment and Plan Assessment: Impression: Altered mental status, suspect metabolic encephalopathy also suspect possible f at embolism. From recent fracture. Hyponatremia, most likely secondary to SIADH improving with fluid restrictions Benign essential hypertension Chest wall trauma/contusion History of bilateral knee replacements History of L4-L5 fusion Nonspecific mediastinal adenopathy Acute kidney injury secondary to ATN secondary to hypotension , required norepinephrine, presently off norepinephrine Acute C. diff colitis, on oral vancomycin Left femoral fracture secondary to fall, being addressed by orthopedics on the case, no plans for surgery Recommendation: Continue fluid restrictions Continue oral vancomycin Continue midodrine Continue to monitor the ICU Likely transfer to a regular medical floor in the next 24 hours. We will continue to follow. Time with Patient: Less than 30
--- NOTE | 2022-10-16 16:01 | P.PN ---
Subjective Progress Note Date: 10/16/22 Principal diagnosis: c diff colitis Patient is a 82-year-old female presenting to the hospital about a week ago after the patient did have a fall apparently the patient did got up and lost her balance fell forward and struck her chest on the walker no loss of consciousness, patient did have a left distal femur/periprosthetic fracture being managed by Ortho conservatively did spike a fever significant diarrhea stool for C. difficile positive. On today's evaluation that is 10/16/2022 the patient is afebrile today, the patient is breathing comfortably on 2 L nasal cannula oxygen the patient is slightly confused per the nursing staff patient diarrhea has slowed down no vomiting has been reported. Patient denies having any chest pain shortness of breath or cough when asked specifically Patient did have a white count of 6.5 creatinine is 0.49, the patient blood c ultures so far pending Objective - Vital Signs Vital signs: Vital Signs Temp 98.4 F 10/16/22 12:00 Pulse 84 10/16/22 15:00 Resp 17 10/16/22 15:00 BP 143/68 10/16/22 15:00 Pulse Ox 95 10/16/22 15:00 FiO2 2 10/15/22 04:00 Intake & Output 10/15/22 10/16/22 10/16/22 18:59 06:59 18:59 Intake Total 810 100 450 Output Total 925 625 300 Balance -115 -525 150 Weight 97.9 kg Intake: IV 10 normal saline 10 Oral 800 100 450 Output: Urine 925 625 300 Other: Voiding Method Indwelling Catheter Indwelling Catheter Indwelling Catheter ABP, PAP, CO, CI - Last Documented Arterial Blood Pressure 81/75 - Exam GENERAL DESCRIPTION: Elderly female lying in bed in no distress RESPIRATORY SYSTEM: Unlabored breathing , decreased breath sounds at bases HEART: S1 S2 regular rate and rhythm ,no loud murmurs ABDOMEN: Soft , no tenderness EXTREMITIES: No edema feet - Labs CBC & Chem 7: 10/16/22 03:44 10/16/22 03:44 Labs: Abnormal Lab Results - Last 24 Hours (Table) 10/16/22 10/16/22 Range/Units 03:44 03:44 RBC 2.32 L (3.80-5.40) m/uL Hgb 7.5 L (11.4-16.0) gm/dL Hct 22.2 L (34.0-46.0) % Lymphocytes # 0.8 L (1.0-4.8) k/uL Sodium 130 L (137-145) mmol/L BUN 24 H (7-17) mg/dL Creatinine 0.49 L (0.52-1.04) mg/dL Glucose 102 H (74-99) mg/dL Calcium 7.8 L (8.4-10.2) mg/dL Microbiology - Last 24 Hours (Table) 10/13/22 15:30 Blood Culture - Preliminary Blood Assessment and Plan (1) C. difficile colitis Current Visit: Yes Status: Acute Code(s): A04.72 - ENTEROCOLITIS D/T CLOSTRIDIUM DIFFICILE, NOT SPCF RECUR SNOMED Code(s): 596468586 Plan: 1patient presented to hospital with a fall with evidence of left distal femur/periprosthetic joint fracture being treated conservatively patient did have a fever yesterday and also having significant diarrhea with the stool for C. difficile is positive, I currently do not have any other obvious focus of infection and need for Rocephin which was discontinued 2patient has shown clinical improvement and did have improvement the diarrhea, we will continue the patient on oral vancomycin and monitor clinical course closely Dictation was produced using [employer] dictation software. please excuse any grammatical, word or spelling errors. Time with Patient: Less than 30
[2022-10-16] MEDS: CALCIUM CARB-VIT D 500 MG-5 MCG TAB PO SCH (16:15)
[2022-10-16] MEDS: PANTOPRAZOLE 40 MG/10 ML VIAL IVP SCH (19:54)
[2022-10-16] MEDS ORDERED: FUROSEMIDE 10 MG/ML 2 ML VIAL IV ONE (20:00)
[2022-10-16] MEDS: ACETAMINOPHEN TAB 325 MG TAB PO PRN (20:35)
[2022-10-16 21:33] LABS: African American GFR (CKD) >90 (>60 ml/min/1.73 sqM); Carbon Dioxide 29 mmol/L (22-30); Non-African American GFR(CKD) >90 (>60 ml/min/1.73 sqM)
[2022-10-16 21:54] LABS: Anion Gap 6 mmol/L; Blood Urea Nitrogen 22 mg/dL (7-17); Chloride 95 mmol/L (98-107); Glucose 113 mg/dL (74-99); Potassium 4.1 mmol/L (3.5-5.1); Sodium 130 mmol/L (137-145)
[2022-10-16 22:11] LABS: Calcium 8.2 mg/dL (8.4-10.2)
[2022-10-16] MEDS: GABAPENTIN 400 MG CAP PO SCH (23:00)
[2022-10-17] MEDS: ALBUTEROL NEBULIZED 2.5 MG/3 ML INHALATION PRN ×3 (02:09→21:05)
[2022-10-17] MEDS: ACETAMINOPHEN TAB 325 MG TAB PO PRN ×2 (02:38→20:08)
--- NOTE | 2022-10-17 03:41 | PN ---
PROGRESS NOTE DATE OF SERVICE: 10/16/2022 SUBJECTIVE: This 82-year-old woman who was admitted due to fall and left knee pain and had comminuted fracture of the distal femur. The patient also complains of severe pain, but because of the change in mental status, all the narcotics have been stopped. Hemoglobin 7.5 today. REVIEW OF SYSTEMS: 14-point review is negative as mentioned earlier. CURRENT MEDICATIONS: Reviewed. PHYSICAL EXAMINATION: VITAL SIGNS: Pulse is 84, blood pressure 143/68, respirations 17. CHEST: Few scattered crackles. ABDOMEN: Soft. NERVOUS SYSTEM: No focal deficits. LABORATORY DATA: Reviewed. ASSESSMENT: 1. Fall and left knee pain with comminuted fracture of the distal femur. 2. Severe pain. 3. Change in mental status and acute metabolic encephalopathy. 4. Hyponatremia, multifactorial, possibly secondary to SIADH and excess solute intake. 5. Clostridium difficile colitis history. 6. History of asthma. 7. Multiple complex medical issues. RECOMMENDATIONS: Recommend to continue current medications and continue symptomatic treatment. The patient has been sanctioned 1 dose of Toradol by Nephrology because of improving renal function, however, Dr. Mcclendon has recommended to avoid all sedatives and narcotics because change in mental status. Otherwise, prognosis extremely guarded. Closely follow with Orthopedic Surgery. I would also recommend 1 unit of transfusion with Lasix 20 after that for symptomatic anemia. Prognosis guarded. See orders for details. MMODL / IJN: [id number] /
[2022-10-17 04:27] LABS: HCT 25.3 % (34.0-46.0); HGB 8.5 gm/dL (11.4-16.0); MCH 31.6 pg (25.0-35.0); MCHC 33.6 g/dL (31.0-37.0); MCV 94.2 fL (80.0-100.0); Platelet Count 213 k/uL (150-450); RBC 2.69 m/uL (3.80-5.40); RDW 14.8 % (11.5-15.5); WBC 8.9 k/uL (3.8-10.6)
[2022-10-17] MEDS: GABAPENTIN 300 MG CAP PO SCH ×3 (06:05→18:24)
[2022-10-17] MEDS: SYMBICORT 80-4.5 MCG INHALER INHALATION SCH ×2 (08:15→21:04)
[2022-10-17] MEDS: LACTOBACILLUS ACIDOPHILUS/PECT 1 EACH CAPSULE PO SCH (09:45)
[2022-10-17] MEDS: MIDODRINE 5 MG TAB PO SCH ×3 (09:45→16:44)
[2022-10-17] MEDS: CYANOCOBALAMIN 500 MCG TAB PO SCH (09:45)
[2022-10-17] MEDS: ASCORBIC ACID 500 MG TAB PO SCH (09:45)
[2022-10-17] MEDS: ENOXAPARIN 40 MG/0.4 ML SYRINGE SQ SCH (09:45)
[2022-10-17] MEDS: LIDOCAINE 5% PATCH TOPICAL SCH (09:46)
[2022-10-17] MEDS: carBAMazepine 200 MG TAB PO SCH ×2 (09:46→20:08)
[2022-10-17] MEDS: PANTOPRAZOLE 40 MG/10 ML VIAL IVP SCH ×2 (09:48→20:08)
[2022-10-17] MEDS: VANCOMYCIN ORAL SOLUTION 250 MG/5 ML BOTTLE PO SCH ×4 (09:48→22:02)
[2022-10-17] MEDS: SODIUM CHLORIDE TAB 1 GM TAB PO SCH ×2 (09:50→22:01)
[2022-10-17 10:06] LABS: African American GFR (CKD) >90 (>60 ml/min/1.73 sqM); Anion Gap 4 mmol/L; Blood Urea Nitrogen 19 mg/dL (7-17); Calcium 7.7 mg/dL (8.4-10.2); Carbon Dioxide 29 mmol/L (22-30); Chloride 95 mmol/L (98-107); Glucose 115 mg/dL (74-99); Non-African American GFR(CKD) >90 (>60 ml/min/1.73 sqM); Potassium 3.7 mmol/L (3.5-5.1); Sodium 128 mmol/L (137-145)
[2022-10-17 10:36] VITALS: BMI 33.7
--- NOTE | 2022-10-17 10:54 | P.PN ---
Subjective Progress Note Date: 10/17/22 Principal diagnosis: This is a pleasant 82-year-old female patient with a known history of hypertension, mild intermittent chronic bronchial asthma, gastroesophageal reflux disease, depression. She was brought into the emergency room on 10/08/2022 after sustaining a fall at her home. She states she was sitting on her toilet and fell forward hitting her walker with her chest and also hit the back of her head. She denied any loss of consciousness. She came in with ongoing chest wall pain. Pelvis x-ray revealed no acute fractures. The skin of the brain and C-spine revealed no acute intracranial process. No acute osseous abnormality. Computed tomography scan of the chest revealed areas of emphysema. A prominent pretracheal space lymph node. 1.0 cm pleural-based density. A nondisplaced posterior lateral right third rib fracture not excluded. White count 6.2. Hemoglobin 14.1. Platelets 199. Sodium 132. Potassium 4.1. Bicarb 27. BUN 16. Creatinine 0.7. Glucose 101. HEENT today in consultation on the regular medical floor. She is currently sitting up in a chair at the bedside. Awake and alert in no acute distress. She denies any worsening shortness of breath, cough or congestion. She is having some chest wall pain on deep inhalation. She is maintaining O2 saturations in the 90s on room air. Afebrile. Hemodynamically stable. She is continued on Symbicort and albuterol. Pain is better controlled today. The patient is seen today 10/11/2022 in follow-up on the regular medical floor. She is currently sitting up in bed. Awake and alert in no acute distress. She is still having ongoing issues with anterior chest wall pain over the sternal area. No worsening shortness of breath, cough or congestion. Maintaining good O2 saturations in the mid 90s on room air. She's afebrile. Follow-up chest x- ray revealed no acute cardiopulmonary process. She is working well with the incentive spirometer. He tended on Symbicort and albuterol. This is a pleasant 82-year-old female patient with a known history of hypertension, mild intermittent chronic bronchial asthma, gastroesophageal reflux disease, depression. She was brought into the emergency room on 10/08/2022 after sustaining a fall at her home. She states she was sitting on h er toilet and fell forward hitting her walker with her chest and also hit the back of her head. She denied any loss of consciousness. She came in with ongoing chest wall pain. Pelvis x-ray revealed no acute fractures. The skin of the brain and C-spine revealed no acute intracranial process. No acute osseous abnormality. Computed tomography scan of the chest revealed areas of emphysema. A prominent pretracheal space lymph node. 1.0 cm pleural-based density. A nondisplaced posterior lateral right third rib fracture not excluded. White count 6.2. Hemoglobin 14.1. Platelets 199. Sodium 132. Potassium 4.1. Bicarb 27. BUN 16. Creatinine 0.7. Glucose 101. HEENT today in consultation on the regular medical floor. She is currently sitting up in a chair at the bedside. Awake and alert in no acute distress. She denies any worsening shortness of breath, cough or congestion. She is having some chest wall pain on deep inhalation. She is maintaining O2 saturations in the 90s on room air. Afebrile. Hemodynamically stable. She is continued on Symbicort and albuterol. Pain is better controlled today. The patient is seen today 10/11/2022 in follow-up on the regular medical floor. She is currently sitting up in bed. Awake and alert in no acute distress. She is still having ongoing issues with anterior chest wall pain over the sternal area. No worsening shortness of breath, cough or congestion. Maintaining good O2 saturations in the mid 90s on room air. She's afebrile. Follow-up chest x- ray revealed no acute cardiopulmonary process. She is working well with the incentive spirometer. He tended on Symbicort and albuterol. Patient is seen today 10/12/2022 in follow-up on the regular medical floor. She is currently sitting up in bed. Awake and alert in no acute distress. Her pain is better controlled today compared to yesterday. Still with discomfort with minimal movement. She continues to work with the incentive spirometer. She is maintaining good O2 saturations in the 90s on room air. Sodium 122. Potassium 4.6. Bicarb 29. BUN 19. Creatinine 0.60. Glucose 114. Pro-calcitonin 0.05. She is continued on Symbicort and albuterol. The patient is seen today October 17 2022 in follow-up in the intensive care unit. She is currently awake and alert sitting up in bed having breakfast. She is maintaining good O2 saturations in the 90s on 2 L/m per nasal cannula. White count 8.9. Hemoglobin 8.5. Platelets 213. Sodium 128. Potassium 3.7. Bicarb 29. BUN 19. Creatinine 0.40. Glucose 1:15. She remains on Symbicort, albuterol. Continued on oral vancomycin for her C. diff colitis. Objective - Vital Signs Vital signs: Vital Signs Temp 97.7 F 10/17/22 04:00 Pulse 88 10/17/22 08:32 Resp 23 10/17/22 07:00 BP 120/109 10/17/22 07:00 Pulse Ox 98 10/17/22 07:00 FiO2 2 10/17/22 01:00 Intake & Output 10/16/22 10/17/22 10/17/22 18:59 06:59 18:59 Intake Total 750 360 Output Total 390 1460 80 Balance 360 -1100 -80 Weight 97.9 kg 97.9 kg Intake: Oral 750 50 Blood Product 0 310 Rc As-1 Unit 0 310 [id number] Output: Urine 390 1460 80 Other: Voiding Method Indwelling Catheter Indwelling Catheter Indwelling Catheter ABP, PAP, CO, CI - Last Documented Arterial Blood Pressure 81/75 - Exam GENERAL EXAM: Alert, 82-year-old female, on 2 L nasal cannula, comfortable in no apparent distress. HEAD: Normocephalic. Small hematoma noted on the back of head. EYES: Normal reaction of pupils, equal size. NOSE: Clear with pink turbinates. THROAT: No erythema or exudates. NECK: No masses, no JVD. CHEST: No chest wall deformity. Tender to palpation. Tender with inhalation. LUNGS: Equal air entry with no crackles, wheeze, rhonchi or dullness. CVS: S1 and S2 normal with no audible murmur, regular rhythm. ABDOMEN: No hepatosplenomegaly, normal bowel sounds, no guarding or rigidity. SPINE: No scoliosis or deformity SKIN: No rashes CENTRAL NERVOUS SYSTEM: No focal deficits, tone is normal in all 4 extremities. EXTREMITIES: There is no peripheral edema. No clubbing, no cyanosis. Peripheral pulses are intact. - Labs CBC & Chem 7: 10/17/22 03:40 10/17/22 03:40 Labs: Abnormal Lab Results - Last 24 Hours (Table) 10/16/22 10/16/22 10/17/22 Range/Units 15:17 20:40 03:40 RBC 2.69 L (3.80-5.40) m/uL Hgb 8.5 L (11.4-16.0) gm/dL Hct 25.3 L (34.0-46.0) % Sodium 130 L (137-145) mmol/L Chloride 95 L (98-107) mmol/L BUN 22 H (7-17) mg/dL Creatinine 0.43 L (0.52-1.04) mg/dL Glucose 113 H (74-99) mg/dL Calcium 8.2 L (8.4-10.2) mg/dL Crossmatch See Detail 10/17/22 Range/Units 03:40 RBC (3.80-5.40) m/uL Hgb (11.4-16.0) gm/dL Hct (34.0-46.0) % Sodium 128 L (137-145) mmol/L Chloride 95 L (98-107) mmol/L BUN 19 H (7-17) mg/dL Creatinine 0.40 L (0.52-1.04) mg/dL Glucose 115 H (74-99) mg/dL Calcium 7.7 L (8.4-10.2) mg/dL Crossmatch Microbiology - Last 24 Hours (Table) 10/13/22 15:30 Blood Culture - Preliminary Blood Assessment and Plan Assessment: Acute anterior chest wall pain secondary to fall. Computed tomography scan of the chest revealed emphysematous changes with a prominent lymph node in the pretracheal space and a 1.0 cm pleural based density. There is a nondisplaced posterior lateral right third rib fracture Altered mental status, suspect metabolic encephalopathy also suspect possible fat embolism. From recent left femoral fracture. 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 much improved with fluid restrictions Hypotension requiring norepinephrine, recovered Hypertension, history of Mild intermittent chronic bronchial asthma Gastroesophageal reflux disease without esophagitis History of anxiety/depression Nonspecific mediastinal adenopathy, recommend follow-up computed tomography scan or PET scan in 3 months Acute kidney injury secondary to ATN and hypotension Plan: The patient was seen and evaluated Labs and medications reviewed Current stable and on 2 L nasal cannula Transfer to the regular medical floor today We will continue to follow I have personally seen and examined the patient, performed the documentation and the assessment and plan as written. Number of minutes spent on the visit: 10.
--- NOTE | 2022-10-17 11:40 | P.PN ---
Subjective Patient is seen for follow-up for hyponatremia and acute kidney injury. Renal function has improved Serum sodium had improved to 130. Patient received Toradol yesterday. Sodium is down to 128 today. Diarrhea from C. diff colitis is improving. Objective - Vital Signs Vital signs: Vital Signs Temp 97.7 F 10/17/22 04:00 Pulse 88 10/17/22 08:32 Resp 23 10/17/22 07:00 BP 120/109 10/17/22 07:00 Pulse Ox 98 10/17/22 07:00 FiO2 2 10/17/22 01:00 Intake & Output 10/16/22 10/17/22 10/17/22 18:59 06:59 18:59 Intake Total 750 360 Output Total 390 1460 80 Balance 360 -1100 -80 Weight 97.9 kg 97.9 kg Intake: Oral 750 50 Blood Product 0 310 Rc As-1 Unit 0 310 [id number] Output: Urine 390 1460 80 Other: Voiding Method Indwelling Catheter Indwelling Catheter Indwelling Catheter ABP, PAP, CO, CI - Last Documented Arterial Blood Pressure 81/75 - Exam Awake, comfortable, no acute distress Examination of the heart S1 and S2 Examination of the lungs bilateral breath sounds are heard Abdomen is soft nontender Examination lower extremities shows 1+ edema OUTREACH REPRESENTATIVE exam shows patient is moving all 4 extremities. - Labs CBC & Chem 7: 10/17/22 03:40 10/17/22 03:40 Labs: Abnormal Lab Results - Last 24 Hours (Table) 10/16/22 10/16/22 10/17/22 Range/Units 15:17 20:40 03:40 RBC 2.69 L (3.80-5.40) m/uL Hgb 8.5 L (11.4-16.0) gm/dL Hct 25.3 L (34.0-46.0) % Sodium 130 L (137-145) mmol/L Chloride 95 L (98-107) mmol/L BUN 22 H (7-17) mg/dL Creatinine 0.43 L (0.52-1.04) mg/dL Glucose 113 H (74-99) mg/dL Calcium 8.2 L (8.4-10.2) mg/dL Crossmatch See Detail 10/17/22 Range/Units 03:40 RBC (3.80-5.40) m/uL Hgb (11.4-16.0) gm/dL Hct (34.0-46.0) % Sodium 128 L (137-145) mmol/L Chloride 95 L (98-107) mmol/L BUN 19 H (7-17) mg/dL Creatinine 0.40 L (0.52-1.04) mg/dL Glucose 115 H (74-99) mg/dL Calcium 7.7 L (8.4-10.2) mg/dL Crossmatch Microbiology - Last 24 Hours (Table) 10/13/22 15:30 Blood Culture - Preliminary Blood Assessment and Plan Assessment: 1. Hypovolemic hyponatremia (acute on chronic) from poor solute intake and use of NSAIDs. 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 Status post 3% saline Sodium had improved to 113 down to 128 today. Patient received Toradol yesterday.. TSH 0.23. Cortisol level not low. Urine sodium 25 and urine osmolality 454. Maintained on sodium chloride tab. 2. Status post fall with left knee fracture. 3. Shock s/p Levophed. Questionable septic versus fat emboli. CTA done 10/12/2022 showed no evidence of pericardial effusion or tamponade. No evidence of PE. 4. Lymphadenopathy and lung nodule being followed by pulmonology. 5. Acute kidney injury secondary to ATN secondary to hypotension. Also received IV contrast on 10/12/2022. Creatinine 1.02 today. 6. C. diff colitis Plan: Avoid NSAIDs Continue with sodium chloride tabs Continue to encourage increase oral intake. Repeat sodium this evening
[2022-10-17 11:45] LABS: Glucose,Whole Blood 139 mg/dL (70-110)
--- NOTE | 2022-10-17 12:15 | P.PN ---
Subjective Progress Note Date: 10/17/22 This is a pleasant 82-year-old female who was recently admitted with chest pain and generalized weakness with recent fall. Patient being evaluated by cardiology as well as pulmonary recently underwent a CT of the chest which showed emphysematous changes with a prominent lymph node in the pretracheal sp wily and a 1.0 cm pleural based density. There is a nondisplaced posterior lateral right third rib fracture. Will add incentive spirometer and continue with pain management and lidocaine patches. Patient working with physical therapy reports she feels she did a little better today and will have therapy evaluate for possible ECF. Social work is following and has been accepted and requires insurance authorization which has been submitted and pending. Patient is afebrile but no reports of shortness of breath or palpitations. No reported nausea or vomiting and encouraged oral intake. 10/12/2022 Patient is seen and evaluated in follow-up this morning currently sitting up in the chair and has been cleared by cardiology and pulmonary. Patient continues to report some chest wall pain and feeling generally weak. Repeat labs done showing a sodium of 122 which she reports she runs in the 127 range normally. Patient does take Tegretol scheduled which could contribute to some of the hypon atremia along with poor oral intake. Patient reports has not been eating very well. Nephrology consulted and appreciate input and recommendations. Patient also having some intermittent nausea which is being controlled by Zofran. Patient is currently afebrile denies vomiting, denies palpitations or shortness of breath. Patient to be started on gentle IV hydration with follow-up labs this afternoon as well as tomorrow. Encouraged increase activity as tolerated and continued physical therapy evaluation. Plan is for ECF in the next few days and insurance authorization has been obtained. 10/13/2022 Patient is seen and evaluated and was transferred to the ICU after patient's sodium was found to be 120 and placed on 3% hypertonic solution with nephrology following. Patient became somewhat more lethargic and delayed and confused with difficulty in ambulation and left leg buckling from under her while attempting to get up from the commode and assisted to the floor and having some increased pain in the left knee. CT brain along with hip and left knee x-rays were obtained and CT was negative for acute process. Hip was intact with postsurgical changes noted from previous surgery. Left knee showed a minimally comminuted long oblique fracture spanning from the distal femoral diaphysis down to the femoral component of the knee arthroplasty with oblique component along the shaft of the femur minimally offset by 5 mm along with an associated large knee effusion. Orthopedics consultation recommending conservative management is patient is not a good surgical candidate at this time and a knee brace is being ordered. Patient is having some pain and will readdress medications as mentation is improved somewhat today. Patient continues on 3% and sodium level is improved at 121. Nephrology following closely. Patient is hypotensive as well and currently on pressor support which per nursing staff is slowly being weaned. Patient is afebrile currently although did have a low-grade temp of 100.4 this morning and has been started on antibiotics empirically. CT Billie of the chest was also done showing some prominent proximal LAD coronary artery calcifications with no evidence of aortic dissection or PE with some groundglass changes and scattered interstitial changes with concerns of pneumonitis with some tree-in-bud opacification is noted that may be seen in those with bronchiolitis along with a small hiatal hernia and some circumferential wall thickening of the distal esophagus representing possible esophagitis. Patient is on Protonix IV twice daily and is continued on a heart healthy diet with fluid restrictions. Neurology consulted as well and pending. 2-D echo was ordered and awaiting report. 10/14/2022 Patient seen and evaluated in the ICU continues to be on low-dose Levophed for low blood pressures and has been started on midodrine although continues to have periods of fatigue and lethargy. Patient is maintained on pain medications as patient continues to report significant left knee pain. Patient was evaluated by orthopedics recommending no surgical interventions and conservative management for now. Discussed possible large knee effusion drainage as well as possible steroid injection and was reported to risky and close to her previous l eft knee arthroplasty. Patient also continues to be hyponatremic and sodium is improving and currently at 125. Kidney function stable at 1.02 with a BUN of 31. Patient is having some diarrhea and C. diff sample was sent and came back positive. Will initiate oral Vanco liquid and consult infectious disease and appreciate input and recommendations. 10/17/2022 Patient is seen and evaluated in the ICU although awaiting a down grade out of ICU to [facility]. Multiple medical consultations including nephrology, infectious disease, orthopedics, pulmonary following. Patient is currently maintained on 2 L via nasal cannula and denies any worsening shortness of breath. Sodium today is 128 with nephrology following and is maintained on sodium chloride tabs. Recommend to continue with fluid restrictions. Orthopedics with no plans for surgical intervention on the left lower extremity fracture currently awaiting a brace to be fitted for the left knee and patient will likely continue to be ECF on discharge. Encourage physical therapy evaluation daily and continued increased activity with restrictions per orthopedics. Patient is afebrile with no reports of chest pain or worsening shortness of breath. Patient reports feeling better and pain is currently managed. Patient reporting less frequent stools and is maintained on oral vancomycin with infectious disease following as patient was C. diff positive. Review of systems: Constitutional: no reports of fatigue, no reports of fever, or chills Cardiovascular: No reports of chest pain or palpitations Respiratory: No reports of shortness of breath or cough GI: No reports of nausea, no reports of vomiting, reports diarrhea that has gotten less frequent and slightly more formed : No reports of dysuria or retention Neurovascular: reports of generalized weakness, reports some better pain control of the left knee and lower extremity All medications have been reviewed Active Medications Acetaminophen (Acetaminophen Tab 325 Mg Tab) 650 mg PO Q6HR PRN PRN Reason: Fever and/ or Pain Last Admin: 10/17/22 02:38 Dose: 650 mg Albuterol Sulfate (Albuterol Nebulized 2.5 Mg/3 Ml) 2.5 mg INHALATION RT-Q6H PRN PRN Reason: Shortness Of Breath Last Admin: 10/17/22 08:15 Dose: 2.5 mg Ascorbic Acid (Ascorbic Acid 500 Mg Tab) 1,000 mg PO DAILY [facility] Last Admin: 10/17/22 09:45 Dose: 1,000 mg Budesonide/Formoterol Fumarate (Symbicort 80-4.5 Mcg Inhaler) 2 puff INHALATION RT-BID [facility] Last Admin: 10/17/22 08:15 Dose: 2 puff Calcium Carbonate (Calcium Carb-Vit D 500 Mg-5 Mcg Tab) 2 each PO DAILY@1400 [facility] Last Admin: 10/16/22 16:15 Dose: 2 each Carbamazepine (Carbamazepine 200 Mg Tab) 400 mg PO DAILY [facility] Last Admin: 10/17/22 09:46 Dose: 400 mg Carbamazepine (Carbamazepine 200 Mg Tab) 300 mg PO HS [facility] Last Admin: 10/16/22 19:54 Dose: 300 mg Cyanocobalamin (Cyanocobalamin 500 Mcg Tab) 1,000 mcg PO DAILY [facility] Last Admin: 10/17/22 09:45 Dose: 1,000 mcg Cyclobenzaprine HCl (Cyclobenzaprine 5 Mg Tab) 5 mg PO BID PRN PRN Reason: Muscle Spasm Enoxaparin Sodium (Enoxaparin 40 Mg/0.4 Ml Syringe) 40 mg SQ DAILY [facility] Last Admin: 10/17/22 09:45 Dose: 40 mg Gabapentin (Gabapentin 400 Mg Cap) 400 mg PO DAILY@2300 [facility] Last Admin: 10/16/22 23:00 Dose: 400 mg Gabapentin (Gabapentin 300 Mg Cap) 600 mg PO 0500,1400,1800 [facility] Last Admin: 10/17/22 06:05 Dose: 600 mg Hydromorphone HCl (Hydromorphone 0.5 Mg/0.5 Ml Syringe) 0.5 mg IVP Q3HR PRN PRN Reason: Severe Pain (Scale 7 to 10) Last Admin: 10/16/22 07:00 Dose: 0.5 mg Lactobacillus Acidophilus (Lactobacillus Acidophilus/Pect 1 Each Capsule) 1 each PO DAILY [facility] Last Admin: 10/17/22 09:45 Dose: 1 each Lidocaine (Lidocaine 5% Patch) 1 patch TOPICAL DAILY [facility]; Protocol Last Admin: 10/17/22 09:46 Dose: 1 patch Midodrine (Midodrine 5 Mg Tab) 10 mg PO AC-TID [facility] Last Admin: 10/17/22 09:45 Dose: Not Given Miscellaneous Information (Potassium Replacement Protocol 1 Each Misc) 1 each MISCELLANE DAILY PRN; Protocol PRN Reason: Per Protocol Naloxone HCl (Naloxone 0.4 Mg/Ml 1 Ml Vial) 0.2 mg IV Q2M PRN PRN Reason: Opioid Reversal Ondansetron HCl (Ondansetron Odt 4 Mg Tab) 4 mg PO Q6HR PRN PRN Reason: Nausea And Vomiting Last Admin: 10/12/22 02:06 Dose: 4 mg Pantoprazole Sodium (Pantoprazole 40 Mg/10 Ml Vial) 40 mg IVP BID [facility] Last Admin: 10/17/22 09:48 Dose: 40 mg Sodium Chloride (Sodium Chloride Tab 1 Gm Tab) 1 gm PO BID [facility] Last Admin: 10/17/22 09:50 Dose: 1 gm Tramadol HCl (Tramadol 50 Mg Tab) 50 mg PO QID PRN PRN Reason: Pain Last Admin: 10/14/22 08:47 Dose: 50 mg Vancomycin HCl (Vancomycin Oral Solution 250 Mg/5 Ml Bottle) 125 mg PO QID [facility]; Protocol Last Admin: 10/17/22 09:48 Dose: 125 mg PHYSICAL EXAMINATION: GENERAL: The patient is alert and oriented x3, awake, Well developed, well nourished. Obese, elderly-appearing HEENT: Pupils are round and equally reacting to light. EOMI. no scleral icterus. No conjunctival pallor. Normocephalic, atraumatic. No pharyngeal erythema. No thyromegaly. CARDIOVASCULAR: S1 and S2 muffled PULMONARY: diminished breath sounds bilaterally with no wheezing or rhonchi noted. ABDOMEN: soft. Nontender on exam. obese. non-distended, normoactive bowel sounds. No palpable organomegaly. MUSCULOSKELETAL: No joint swelling or deformity. EXTREMITIES: No cyanosis, clubbing, or pedal edema. Left knee and lower extremity tenderness and pain with palpation with some swelling noted at the kn eecap posteriorly NEUROLOGICAL: Gross neurological examination did not reveal any focal deficits. Diffuse weakness SKIN: No rashes. Assessment: Chest pain, likely musculoskeletal due to fall, ruled out coronary disease hypovolemic Hyponatremia, multifactorial, likely secondary to SIADH as well as poor solute intake, improving Debility with generalized weakness and gait dysfunction Change in mental status, acute metabolic encephalopathy, multifactorial secondary to low sodium as well as narcotic use, improved Hypertension history Hypotension, did require pressor support, secondary to hypovolemic shock, improved Fall with left knee pain , comminuted long oblique fracture spanning from the distal femoral diaphysis down to the femoral component of the knee arthroplasty with oblique component along the shaft of the femur minimally offset by 5 mm along with an associated large knee effusion. Diarrhea with multiple loose stools, positive for C. diff 10/14/2022 History of asthma, not in exacerbation Obesity with a BMI of 33.8 GI prophylaxis DVT prophylaxis Full code Plan: Patient is currently in the ICU and off pressor support as well as percent hypertonic solution with multiple medical consultations following. Patient is a down grade awaiting a bed on selective or MedSurg patient is not requiring pressor support and sodium is improving currently 128 maintained on sodium tabs with nephrology following recommending repeat labs later today Encouraged oral intake and continued fluid restrictions Patient being fitted for a knee brace by orthopedics with no plans for surgical intervention and would recommend restrictions per orthopedics and physical therapy evaluation Patient to go to ECF once cleared by consultations Mentation has improved and would recommend limiting narcotic use Patient is continued on antibiotics with infectious disease following for C. diff and reports less frequent stools and slightly more formed Will follow-up with consultations about discharge planning to ECF once stabilized Due to multiple complex medical issues, prognosis is guarded The impression and plan of care has been dictated by Jessica Castro, nurse practitioner as directed. Dr. Sondra MD I have performed a history and examination and MDM of this patient, discussed the same with the dictator, and agree with the dictator's assessment and plan as written ,documented as a scribe. Based on total visit time, I have performed more than 50% of the visit. Any additional findings or plans will be noted. Objective - Vital Signs Vital signs: Vital Signs Temp 97.7 F 10/17/22 04:00 Pulse 88 10/17/22 08:32 Resp 23 10/17/22 07:00 BP 120/109 10/17/22 07:00 Pulse Ox 98 10/17/22 07:00 FiO2 2 10/17/22 01:00 Intake & Output 10/16/22 10/17/22 10/17/22 18:59 06:59 18:59 Intake Total 750 360 Output Total 390 1460 Balance 360 -1100 Weight 97.9 kg Intake: Oral 750 50 Blood Product 0 310 Rc As-1 Unit 0 310 [id number] Output: Urine 390 1460 Other: Voiding Method Indwelling Catheter Indwelling Catheter ABP, PAP, CO, CI - Last Documented Arterial Blood Pressure 81/75 - Labs CBC & Chem 7: 10/17/22 03:40 10/17/22 03:40 Labs: Abnormal Lab Results - Last 24 Hours (Table) 10/16/22 10/16/22 10/17/22 Range/Units 15:17 20:40 03:40 RBC 2.69 L (3.80-5.40) m/uL Hgb 8.5 L (11.4-16.0) gm/dL Hct 25.3 L (34.0-46.0) % Sodium 130 L (137-145) mmol/L Chloride 95 L (98-107) mmol/L BUN 22 H (7-17) mg/dL Creatinine 0.43 L (0.52-1.04) mg/dL Glucose 113 H (74-99) mg/dL Calcium 8.2 L (8.4-10.2) mg/dL Crossmatch See Detail Microbiology - Last 24 Hours (Table) 10/13/22 15:30 Blood Culture - Preliminary Blood
[2022-10-17] MEDS: CALCIUM CARB-VIT D 500 MG-5 MCG TAB PO SCH (14:32)
[2022-10-17] MEDS ORDERED: DEXTROSE 5% IN WATER 100 ML with AMIODARONE 150 MG IV ONE (16:40)
[2022-10-17] MEDS ORDERED: AMIODARONE 360 MG in DEXTROSE 5% IN WATER 200 ML IV ONE ×2 (17:00)
[2022-10-17] MEDS: GABAPENTIN 400 MG CAP PO SCH ×2 (19:40→23:15)
[2022-10-17] MEDS ORDERED: AMIODARONE 450 MG in DEXTROSE 5% IN WATER 250 ML IV SCH ×2 (23:00)
[2022-10-18] MEDS: ACETAMINOPHEN TAB 325 MG TAB PO PRN ×2 (03:08→15:14)
[2022-10-18] MEDS: MIDODRINE 5 MG TAB PO SCH ×3 (05:08→16:08)
[2022-10-18] MEDS: GABAPENTIN 300 MG CAP PO SCH ×3 (05:26→17:56)
[2022-10-18] MEDS: SYMBICORT 80-4.5 MCG INHALER INHALATION SCH ×2 (07:44→21:18)
[2022-10-18] MEDS: carBAMazepine 200 MG TAB PO SCH ×2 (09:18→20:08)
[2022-10-18] MEDS: LACTOBACILLUS ACIDOPHILUS/PECT 1 EACH CAPSULE PO SCH (09:18)
[2022-10-18] MEDS: APIXABAN 2.5 MG TABLET PO SCH ×2 (09:18→20:08)
[2022-10-18] MEDS: METOPROLOL SUCCINATE (ER) 25 MG TAB.ER.24H PO SCH (09:19)
[2022-10-18] MEDS: ASCORBIC ACID 500 MG TAB PO SCH (09:19)
[2022-10-18] MEDS: CYANOCOBALAMIN 500 MCG TAB PO SCH (09:19)
[2022-10-18] MEDS: PANTOPRAZOLE 40 MG/10 ML VIAL IVP SCH ×2 (09:19→20:10)
[2022-10-18] MEDS: VANCOMYCIN ORAL SOLUTION 250 MG/5 ML BOTTLE PO SCH ×4 (09:19→23:12)
[2022-10-18] MEDS: LIDOCAINE 5% PATCH TOPICAL SCH (09:20)
[2022-10-18] MEDS: SODIUM CHLORIDE TAB 1 GM TAB PO SCH ×2 (09:38→20:13)
[2022-10-18] MEDS: ENOXAPARIN 40 MG/0.4 ML SYRINGE SQ SCH (09:39)
[2022-10-18] MEDS: ALBUTEROL NEBULIZED 2.5 MG/3 ML INHALATION PRN ×2 (09:50→21:21)
--- NOTE | 2022-10-18 10:41 | P.PN ---
Subjective Progress Note Date: 10/18/22 History of present illness: This is an 82 year old female patient with past medical history of hypertension, gastroesophageal reflux disease, asthma. We have been asked to evaluate the patient for chest pain. Patient was brought into the emergency center on 10/08 after a trip and fall forward landing with her chest on her walker and also hit the back of the head. No loss of consciousness. She underwent a CAT scan of the chest which revealed nondisplaced posterior lateral right third rib fractures not excluded. CAT scan of the head and neck did not show any acute findings. EKG unable to be obtained today due to broken EKG machine CBC is unremarkable. Sodium 132, potassium 4.1, chloride 95, CO2 27, BUN 16 creatinine 2.7. Glucose 101. His C-reactive protein 3.4. Sed rate 11. Home cardiac medications: Amlodipine 5 mg daily, lisinopril 40 mg daily 10/18 Patient has had a complicated stay finding a distal femur fracture, unresponsive episode with hypotension requiring Levophed and was transferred into the intensive care unit. She is also treated for C. difficile colitis She is now seen today on the cardiac stepdown unit. We have been reconsulted for A. fib with RVR. Patient went into A. fib yesterday EKG showing ventricular rate of 143. Patient was started on amiodarone and has subsequently converted to sinus rhythm. Blood pressure 139/97, heart rate 87601. Sodium today 128. TSH on 10/13 was 0.23. Patient is not on thyroid medication. Physical examination: Gen: This is an 82-year-old female. She is resting in bed and appears to be in no acute distress VS: reviewed 166/88, heart rate in the 70s, pulse ox 96% on room air, afebrile HEENT: Head is atraumatic, normocephalic. Pupils equal, round. Sclerae is anicteric. NECK: Supple. No JVD. . LUNGS: Clear to auscultation. No wheezes or rhonchi. No intercostal retractions. HEART: Regular rate and rhythm. No murmur. ABDOMEN: Soft EXTREMITIES: No pedal edema. Assessment: Mechanical fall Musculoskeletal chest pain, rule out cardiac contusion Hypertension New onset atrial fibrillation with RVR, paroxysmal Plan: Start patient on Toprol-XL 25 mg every day Discontinue amiodarone drip Start patient on eliquis 2.5 mg twice daily which will be evaluated due to patient's recent falls. Nurse practitioner note has been reviewed, I agree with documented findings and plan of care. Patient was seen and examined. Objective - Vital Signs Vital signs: Vital Signs Temp 97.7 F 10/18/22 05:24 Pulse 91 10/18/22 03:08 Resp 18 10/18/22 03:08 BP 161/71 10/18/22 03:08 Pulse Ox 98 10/18/22 03:08 FiO2 2 10/17/22 01:00 Intake & Output 10/17/22 10/18/22 10/18/22 18:59 06:59 18:59 Intake Total 240 118 Output Total 780 350 Balance -540 -350 118 Weight 97.9 kg Intake: Oral 240 118 Output: Urine 780 350 Other: Voiding Method Indwelling Catheter Indwelling Catheter ABP, PAP, CO, CI - Last Documented Arterial Blood Pressure 81/75 - Labs CBC & Chem 7: 10/17/22 03:40 10/17/22 18:39 Labs: Abnormal Lab Results - Last 24 Hours (Table) 10/17/22 10/17/22 10/17/22 Range/Units 03:40 11:44 18:39 Sodium 128 L 128 L (137-145) mmol/L Chloride 95 L (98-107) mmol/L BUN 19 H (7-17) mg/dL Creatinine 0.40 L (0.52-1.04) mg/dL Glucose 115 H (74-99) mg/dL POC Glucose (mg/dL) 139 H (70-110) mg/dL Calcium 7.7 L (8.4-10.2) mg/dL
--- NOTE | 2022-10-18 12:19 | P.PN ---
Subjective Progress Note Date: 10/18/22 Principal diagnosis: Weakness. This is a pleasant 82-year-old female patient with a known history of hypertension, mild intermittent chronic bronchial asthma, gastroesophageal ref lux disease, depression. She was brought into the emergency room on 10/08/2022 after sustaining a fall at her home. She states she was sitting on her toilet and fell forward hitting her walker with her chest and also hit the back of her head. She denied any loss of consciousness. She came in with ongoing chest wall pain. Pelvis x-ray revealed no acute fractures. The skin of the brain and C-sp ine revealed no acute intracranial process. No acute osseous abnormality. Computed tomography scan of the chest revealed areas of emphysema. A prominent pretracheal space lymph node. 1.0 cm pleural-based density. A nondisplaced posterior lateral right third rib fracture not excluded. White count 6.2. Hemoglobin 14.1. Platelets 199. Sodium 132. Potassium 4.1. Bicarb 27. BUN 16. Creatinine 0.7. Glucose 101. HEENT today in consultation on the regular medical floor. She is currently sitting up in a chair at the bedside. Awake and alert in no acute distress. She denies any worsening shortness of breath, cough or congestion. She is having some chest wall pain on deep inhalation. She is maintaining O2 saturations in the 90s on room air. Afebrile. Hemodynamically stable. She is continued on Symbicort and albuterol. Pain is better controlled today. The patient is seen today 10/11/2022 in follow-up on the regular medical floor. She is currently sitting up in bed. Awake and alert in no acute distress. She is still having ongoing issues with anterior chest wall pain over the sternal area. No worsening shortness of breath, cough or congestion. Maintaining good O2 saturations in the mid 90s on room air. She's afebrile. Follow-up chest x- ray revealed no acute cardiopulmonary process. She is working well with the incentive spirometer. He tended on Symbicort and albuterol. This is a pleasant 82-year-old female patient with a known history of hypertension, mild intermittent chronic bronchial asthma, gastroesophageal reflux disease, depression. She was brought into the emergency room on 10/08/2022 after sustaining a fall at her home. She states she was sitting on her toilet and fell forward hitting her walker with her chest and also hit the back of her head. She denied any loss of consciousness. She came in with ongoing chest wall pain. Pelvis x-ray revealed no acute fractures. The skin of the brain and C-spine revealed no acute intracranial process. No acute osseous abnormality. Computed tomography scan of the chest revealed areas of emphysema. A prominent pretracheal space lymph node. 1.0 cm pleural-based density. A nondisplaced posterior lateral right third rib fracture not excluded. White count 6.2. Hemoglobin 14.1. Platelets 199. Sodium 132. Potassium 4.1. Bicarb 27. BUN 16. Creatinine 0.7. Glucose 101. HEENT today in consultation on the regular medical floor. She is currently sitting up in a chair at the bedside. Awake and alert in no acute distress. She denies any worsening shortness of breath, cough or congestion. She is having some chest wall pain on deep inhalation. She is maintaining O2 saturations in the 90s on room air. Afebrile. Hemodynamically stable. She is continued on Symbicort and albuterol. Pain is better controlled today. The patient is seen today 10/11/2022 in follow-up on the regular medical floor. She is currently sitting up in bed. Awake and alert in no acute distress. She is still having ongoing issues with anterior chest wall pain over the sternal area. No worsening shortness of breath, cough or congestion. Maintaining good O2 saturations in the mid 90s on room air. She's afebrile. Follow-up chest x- ray revealed no acute cardiopulmonary process. She is working well with the incentive spirometer. He tended on Symbicort and albuterol. Patient is seen today 10/12/2022 in follow-up on the regular medical floor. She is currently sitting up in bed. Awake and alert in no acute distress. Her pain is better controlled today compared to yesterday. Still with discomfort with minimal movement. She continues to work with the incentive spirometer. She is maintaining good O2 saturations in the 90s on room air. Sodium 122. Potassium 4.6. Bicarb 29. BUN 19. Creatinine 0.60. Glucose 114. Pro-calcitonin 0.05. She is continued on Symbicort and albuterol. The patient is seen today October 17 2022 in follow-up in the intensive care unit. She is currently awake and alert sitting up in bed having breakfast. She is maintaining good O2 saturations in the 90s on 2 L/m per nasal cannula. White count 8.9. Hemoglobin 8.5. Platelets 213. Sodium 128. Potassium 3.7. Bicarb 29. BUN 19. Creatinine 0.40. Glucose 1:15. She remains on Symbicort, albut bimal. Continued on oral vancomycin for her C. diff colitis. Progress note dated 10/18/2022. The patient was seen in the intensive care unit yesterday. She was transferred out, and seen today on the floor, room 366. She continues on oxygen by nasal cannula at 2 L. She is currently on amiodarone at 0.5 mg/m. She is feeling a lot better. No new labs today. Labs from October 17 have been reviewed. Blood cultures are negative. The most recent chest x-ray was done on October 16. Objective - Vital Signs Vital signs: Vital Signs Temp 98.9 F 10/18/22 08:00 Pulse 104 H 10/18/22 10:03 Resp 18 10/18/22 08:00 BP 139/97 10/18/22 08:00 Pulse Ox 98 10/18/22 08:00 FiO2 2 10/17/22 01:00 Intake & Output 10/17/22 10/18/22 10/18/22 18:59 06:59 18:59 Intake Total 240 118 Output Total 780 350 Balance -540 -350 118 Weight 97.9 kg Intake: Oral 240 118 Output: Urine 780 350 Other: Voiding Method Indwelling Catheter Indwelling Catheter Indwelling Catheter # Bowel Movements 1 ABP, PAP, CO, CI - Last Documented Arterial Blood Pressure 81/75 - Exam No acute distress, oriented 3. Currently on 2 L by nasal cannula. Saturations are 98% HEENT examination is grossly unremarkable. Neck supple. Full range of motion. No adenopathy thyromegaly or neck vein distention. Cardiovascular examination reveals regular rhythm rate. S1-S2 normal. No S3 or S4. No discernible murmur noted. Heart rate 100 bpm. Heart sounds are distant. Lungs reveal mostly clear breath sounds. Breath sounds are equal bilaterally. Scattered rhonchi and crackles are noted. No wheezes. Abdomen soft bowel sounds are heard. No masses or tenderness. Extremities are intact. No cyanosis clubbing or edema. Skin is without rash or lesion. Neurologic examination is brief but nonfocal. - Labs CBC & Chem 7: 10/17/22 03:40 10/17/22 18:39 Labs: Abnormal Lab Results - Last 24 Hours (Table) 10/17/22 Range/Units 18:39 Sodium 128 L (137-145) mmol/L Assessment and Plan Assessment: Acute anterior chest wall pain secondary to fall. Computed tomography scan of the chest revealed emphysematous changes with a prominent lymph node in the pretracheal space and a 1.0 cm pleural based density. There is a nondisplaced posterior lateral right third rib fracture. Acute atrial tachycardia, currently on amiodarone. Altered mental status, suspect metabolic encephalopathy also suspect possible fat embolism. From recent left femoral fracture. 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 Hypotension requiring norepinephrine, recovered. Hypertension. Mild intermittent chronic bronchial asthma. Gastroesophageal reflux disease without esophagitis. History of anxiety/depression. Nonspecific mediastinal adenopathy, recommend follow-up computed tomography scan or PET scan in 3 months. Acute kidney injury secondary to ATN and hypotension. Plan: Plan dated 10/18/2022. The patient is seen today in room 366. She remains on oxygen by nasal cannula at 2 L. Because of her irregular atrial tachycardia, the patient was placed on amiodarone 0.5 mg/m labs, x-rays, and all medications are reviewed. Clinically, the patient feels much better. We will continue to follow the patient and make recommendations along the way. Prognosis is certainly guarded. Time with Patient: Less than 30
--- NOTE | 2022-10-18 12:30 | P.PN ---
Subjective Patient is seen for follow-up for hyponatremia and acute kidney injury. Renal function has improved Serum sodium staying around 128. Labs are pending from today. Diarrhea from C. diff colitis is improving. No complaints today. Objective - Vital Signs Vital signs: Vital Signs Temp 98.2 F 10/18/22 12:00 Pulse 76 10/18/22 12:00 Resp 16 10/18/22 12:00 BP 134/70 10/18/22 12:00 Pulse Ox 99 10/18/22 12:00 FiO2 2 10/17/22 01:00 Intake & Output 10/17/22 10/18/22 10/18/22 18:59 06:59 18:59 Intake Total 240 118 Output Total 780 350 Balance -540 -350 118 Weight 97.9 kg Intake: Oral 240 118 Output: Urine 780 350 Other: Voiding Method Indwelling Catheter Indwelling Catheter Indwelling Catheter # Bowel Movements 1 ABP, PAP, CO, CI - Last Documented Arterial Blood Pressure 81/75 - Exam Awake, comfortable, no acute distress Examination of the heart S1 and S2 Examination of the lungs bilateral breath sounds are heard Abdomen is soft nontender Examination lower extremities shows 1+ edema [employer]ATE exam shows patient is moving all 4 extremities. - Labs CBC & Chem 7: 10/17/22 03:40 10/17/22 18:39 Labs: Abnormal Lab Results - Last 24 Hours (Table) 10/17/22 Range/Units 18:39 Sodium 128 L (137-145) mmol/L Assessment and Plan Assessment: 1. Hypovolemic hyponatremia (acute on chronic) from poor solute intake and use of NSAIDs. 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 Status post 3% saline Sodium had improved to 113 down to 128 today. Patient received Toradol and sodium had dropped to 128. TSH 0.23. Cortisol level not low. Urine sodium 25 and urine osmolality 454. Maintained on sodium chloride tab. 2. Status post fall with left knee fracture. 3. Shock s/p Levophed. Questionable septic versus fat emboli. CTA done 10/12/2022 showed no evidence of pericardial effusion or tamponade. No evidence of PE. 4. Lymphadenopathy and lung nodule being followed by pulmonology. 5. Acute kidney injury secondary to ATN secondary to hypotension. Also received IV contrast on 10/12/2022. Creatinine 1.02 today. 6. C. diff colitis Plan: Avoid NSAIDs Continue with sodium chloride tabs Continue to encourage increase oral intake. Samsca 1 if sodium is lower today.
[2022-10-18 12:50] LABS: African American GFR (CKD) >90 (>60 ml/min/1.73 sqM); Anion Gap 5 mmol/L; Blood Urea Nitrogen 14 mg/dL (7-17); Calcium 7.7 mg/dL (8.4-10.2); Carbon Dioxide 32 mmol/L (22-30); Chloride 90 mmol/L (98-107); Glucose 120 mg/dL (74-99); Non-African American GFR(CKD) >90 (>60 ml/min/1.73 sqM); Potassium 3.5 mmol/L (3.5-5.1); Sodium 127 mmol/L (137-145)
[2022-10-18] MEDS: CALCIUM CARB-VIT D 500 MG-5 MCG TAB PO SCH (14:11)
--- NOTE | 2022-10-18 15:20 | P.PN ---
Subjective Progress Note Date: 10/17/22 Principal diagnosis: c diff colitis Patient is a 82-year-old female presenting to the hospital about a week ago after the patient did have a fall apparently the patient did got up and lost her balance fell forward and struck her chest on the walker no loss of consciousness, patient did have a left distal femur/periprosthetic fracture being managed by Ortho conservatively did spike a fever significant diarrhea stool for C. difficile positive. On today's evaluation that is 10/17/2022 the patient did spike a fever of 101F, the patient is breathing comfortably on 2 L nasal cannula oxygen the patient is more awake and alert today and is breathing comfortably denies any chest pain occasional cough no nausea no vomiting no abdominal pain and diarrhea has slowed down Patient did have a white count of 8.9, creatinine 0.40 blood culture has been negative so far Objective - Vital Signs Vital signs: Vital Signs Temp 97.7 F 10/17/22 04:00 Pulse 90 10/17/22 11:00 Resp 15 10/17/22 11:00 BP 130/67 10/17/22 11:00 Pulse Ox 95 10/17/22 09:00 FiO2 2 10/17/22 01:00 Intake & Output 10/16/22 10/17/22 10/17/22 18:59 06:59 18:59 Intake Total 750 360 Output Total 390 1460 80 Balance 360 -1100 -80 Weight 97.9 kg 97.9 kg Intake: Oral 750 50 Blood Product 0 310 Rc As-1 Unit 0 310 [id number] Output: Urine 390 1460 80 Other: Voiding Method Indwelling Catheter Indwelling Catheter Indwelling Catheter ABP, PAP, CO, CI - Last Documented Arterial Blood Pressure 81/75 - Exam GENERAL DESCRIPTION: Elderly female lying in bed in no distress RESPIRATORY SYSTEM: Unlabored breathing , decreased breath sounds at bases HEART: S1 S2 regular rate and rhythm ,no loud murmurs ABDOMEN: Soft , no tenderness EXTREMITIES: No edema feet - Labs CBC & Chem 7: 10/17/22 03:40 10/18/22 11:33 Labs: Abnormal Lab Results - Last 24 Hours (Table) 10/16/22 10/16/22 10/17/22 Range/Units 15:17 20:40 03:40 RBC 2.69 L (3.80-5.40) m/uL Hgb 8.5 L (11.4-16.0) gm/dL Hct 25.3 L (34.0-46.0) % Sodium 130 L (137-145) mmol/L Chloride 95 L (98-107) mmol/L BUN 22 H (7-17) mg/dL Creatinine 0.43 L (0.52-1.04) mg/dL Glucose 113 H (74-99) mg/dL POC Glucose (mg/dL) (70-110) mg/dL Calcium 8.2 L (8.4-10.2) mg/dL Crossmatch See Detail 10/17/22 10/17/22 Range/Units 03:40 11:44 RBC (3.80-5.40) m/uL Hgb (11.4-16.0) gm/dL Hct (34.0-46.0) % Sodium 128 L (137-145) mmol/L Chloride 95 L (98-107) mmol/L BUN 19 H (7-17) mg/dL Creatinine 0.40 L (0.52-1.04) mg/dL Glucose 115 H (74-99) mg/dL POC Glucose (mg/dL) 139 H (70-110) mg/dL Calcium 7.7 L (8.4-10.2) mg/dL Crossmatch Microbiology - Last 24 Hours (Table) 10/13/22 15:30 Blood Culture - Preliminary Blood Assessment and Plan (1) C. difficile colitis Current Visit: Yes Status: Acute Code(s): A04.72 - ENTEROCOLITIS D/T CLOSTRIDIUM DIFFICILE, NOT SPCF RECUR SNOMED Code(s): 382389556 Plan: 1patient presented to hospital with a fall with evidence of left distal femur/periprosthetic joint fracture being treated conservatively patient did have a fever yesterday and also having significant diarrhea with the stool for C. difficile is positive, I currently do not have any other obvious focus of infection and need for Rocephin which was discontinued 2patient has shown clinical improvement and did have improvement the diarrhea, however the patient is likely a fever and will be monitored closely 3- we will continue the patient on oral vancomycin and continue supportive care Dictation was produced using [employer] dictation software. please excuse any grammatical, word or spelling errors. Time with Patient: Less than 30
--- NOTE | 2022-10-18 15:24 | P.PN ---
Subjective Progress Note Date: 10/18/22 Principal diagnosis: c diff colitis Patient is a 82-year-old female presenting to the hospital about a week ago after the patient did have a fall apparently the patient did got up and lost her balance fell forward and struck her chest on the walker no loss of consciousness, patient did have a left distal femur/periprosthetic fracture being managed by Ortho conservatively did spike a fever significant diarrhea stool for C. difficile positive. On today's evaluation that is 10/18/2022 the patient did spike a fever of 102F around 3 AM the patient is afebrile since then patient has been moved out of the ICU and is breathing comfortably on 2 L nasal cannula oxygen patient denies having any chest pain or cough has been complaining of pain in the left leg and wanted to have an MRI no nausea no vomiting or any worsening diarrhea Patient did have a white count of 8.9 and hemoglobin of 8.5 as of yesterday no CBC was done today, creatinine 0.42, blood culture has been negative so far Objective - Vital Signs Vital signs: Vital Signs Temp 98.2 F 10/18/22 12:00 Pulse 76 10/18/22 12:00 Resp 16 10/18/22 12:00 BP 134/70 10/18/22 12:00 Pulse Ox 99 10/18/22 12:00 FiO2 2 10/17/22 01:00 Intake & Output 10/17/22 10/18/22 10/18/22 18:59 06:59 18:59 Intake Total 240 236 Output Total 780 350 Balance -540 -350 236 Weight 97.9 kg Intake: Oral 240 236 Output: Urine 780 350 Other: Voiding Method Indwelling Catheter Indwelling Catheter Indwelling Catheter # Bowel Movements 1 ABP, PAP, CO, CI - Last Documented Arterial Blood Pressure 81/75 - Exam GENERAL DESCRIPTION: Elderly female lying in bed in no distress RESPIRATORY SYSTEM: Unlabored breathing , decreased breath sounds at bases HEART: S1 S2 regular rate and rhythm ,no loud murmurs ABDOMEN: Soft , no tenderness EXTREMITIES: No edema feet - Labs CBC & Chem 7: 10/17/22 03:40 10/18/22 11:33 Labs: Abnormal Lab Results - Last 24 Hours (Table) 10/17/22 10/18/22 Range/Units 18:39 11:33 Sodium 128 L 127 L (137-145) mmol/L Chloride 90 L (98-107) mmol/L Carbon Dioxide 32 H (22-30) mmol/L Creatinine 0.42 L (0.52-1.04) mg/dL Glucose 120 H (74-99) mg/dL Calcium 7.7 L (8.4-10.2) mg/dL Assessment and Plan (1) C. difficile colitis Current Visit: Yes Status: Acute Code(s): A04.72 - ENTEROCOLITIS D/T CLOSTRIDIUM DIFFICILE, NOT SPCF RECUR SNOMED Code(s): 693193409 Plan: 1patient presented to hospital with a fall with evidence of left distal femur/periprosthetic joint fracture being treated conservatively patient did have a fever yesterday and also having significant diarrhea with the stool for C. difficile is positive, I currently do not have any other obvious focus of infection and need for Rocephin which was discontinued 2patient has shown clinical improvement and did have improvement the diarrhea, patient will continue the patient on oral vancomycin and continue supportive care 3-patient did have persistent fever to slightly concerning we will repeat her blood culture check a CRP , CBC and pro-calcitonin as well as UA Dictation was produced using [employer] dictation software. please excuse any grammatical, word or spelling errors. Time with Patient: Less than 30
[2022-10-18 15:44] LABS: Basophils % (A) 0 %; Eosinophils # (A) 0.1 k/uL (0-0.7); Eosinophils % (A) 1 %; HCT 27.7 % (34.0-46.0); HGB 9.1 gm/dL (11.4-16.0); Lymphocytes # (A) 0.9 k/uL (1.0-4.8); Lymphocytes % (A) 8 %; MCH 31.4 pg (25.0-35.0); MCHC 33.1 g/dL (31.0-37.0); MCV 94.9 fL (80.0-100.0); Mean Platelet Volume 9.2; Monocytes # (A) 0.3 k/uL (0-1.0); Monocytes % (A) 3 %; Neutrophils # (A) 9.5 k/uL (1.3-7.7); Neutrophils % (A) 86 %; Platelet Count 246 k/uL (150-450); RBC 2.92 m/uL (3.80-5.40); RDW 14.3 % (11.5-15.5)
--- NOTE | 2022-10-18 15:51 | P.PN ---
Subjective Progress Note Date: 10/18/22 This is a pleasant 82-year-old female who was recently admitted with chest pain and generalized weakness with recent fall. Patient being evaluated by cardiology as well as pulmonary recently underwent a CT of the chest which showed emphysematous changes with a prominent lymph node in the pretracheal sp wily and a 1.0 cm pleural based density. There is a nondisplaced posterior lateral right third rib fracture. Will add incentive spirometer and continue with pain management and lidocaine patches. Patient working with physical therapy reports she feels she did a little better today and will have therapy evaluate for possible ECF. Social work is following and has been accepted and requires insurance authorization which has been submitted and pending. Patient is afebrile but no reports of shortness of breath or palpitations. No reported nausea or vomiting and encouraged oral intake. 10/12/2022 Patient is seen and evaluated in follow-up this morning currently sitting up in the chair and has been cleared by cardiology and pulmonary. Patient continues to report some chest wall pain and feeling generally weak. Repeat labs done showing a sodium of 122 which she reports she runs in the 127 range normally. Patient does take Tegretol scheduled which could contribute to some of the hypon atremia along with poor oral intake. Patient reports has not been eating very well. Nephrology consulted and appreciate input and recommendations. Patient also having some intermittent nausea which is being controlled by Zofran. Patient is currently afebrile denies vomiting, denies palpitations or shortness of breath. Patient to be started on gentle IV hydration with follow-up labs this afternoon as well as tomorrow. Encouraged increase activity as tolerated and continued physical therapy evaluation. Plan is for ECF in the next few days and insurance authorization has been obtained. 10/13/2022 Patient is seen and evaluated and was transferred to the ICU after patient's sodium was found to be 120 and placed on 3% hypertonic solution with nephrology following. Patient became somewhat more lethargic and delayed and confused with difficulty in ambulation and left leg buckling from under her while attempting to get up from the commode and assisted to the floor and having some increased pain in the left knee. CT brain along with hip and left knee x-rays were obtained and CT was negative for acute process. Hip was intact with postsurgical changes noted from previous surgery. Left knee showed a minimally comminuted long oblique fracture spanning from the distal femoral diaphysis down to the femoral component of the knee arthroplasty with oblique component along the shaft of the femur minimally offset by 5 mm along with an associated large knee effusion. Orthopedics consultation recommending conservative management is patient is not a good surgical candidate at this time and a knee brace is being ordered. Patient is having some pain and will readdress medications as mentation is improved somewhat today. Patient continues on 3% and sodium level is improved at 121. Nephrology following closely. Patient is hypotensive as well and currently on pressor support which per nursing staff is slowly being weaned. Patient is afebrile currently although did have a low-grade temp of 100.4 this morning and has been started on antibiotics empirically. CT Billie of the chest was also done showing some prominent proximal LAD coronary artery calcifications with no evidence of aortic dissection or PE with some groundglass changes and scattered interstitial changes with concerns of pneumonitis with some tree-in-bud opacification is noted that may be seen in those with bronchiolitis along with a small hiatal hernia and some circumferential wall thickening of the distal esophagus representing possible esophagitis. Patient is on Protonix IV twice daily and is continued on a heart healthy diet with fluid restrictions. Neurology consulted as well and pending. 2-D echo was ordered and awaiting report. 10/14/2022 Patient seen and evaluated in the ICU continues to be on low-dose Levophed for low blood pressures and has been started on midodrine although continues to have periods of fatigue and lethargy. Patient is maintained on pain medications as patient continues to report significant left knee pain. Patient was evaluated by orthopedics recommending no surgical interventions and conservative management for now. Discussed possible large knee effusion drainage as well as possible steroid injection and was reported to risky and close to her previous l eft knee arthroplasty. Patient also continues to be hyponatremic and sodium is improving and currently at 125. Kidney function stable at 1.02 with a BUN of 31. Patient is having some diarrhea and C. diff sample was sent and came back positive. Will initiate oral Vanco liquid and consult infectious disease and appreciate input and recommendations. 10/17/2022 Patient is seen and evaluated in the ICU although awaiting a down grade out of ICU to [facility]. Multiple medical consultations including nephrology, infectious disease, orthopedics, pulmonary following. Patient is currently maintained on 2 L via nasal cannula and denies any worsening shortness of breath. Sodium today is 128 with nephrology following and is maintained on sodium chloride tabs. Recommend to continue with fluid restrictions. Orthopedics with no plans for surgical intervention on the left lower extremity fracture currently awaiting a brace to be fitted for the left knee and patient will likely continue to be ECF on discharge. Encourage physical therapy evaluation daily and continued increased activity with restrictions per orthopedics. Patient is afebrile with no reports of chest pain or worsening shortness of breath. Patient reports feeling better and pain is currently managed. Patient reporting less frequent stools and is maintained on oral vancomycin with infectious disease following as patient was C. diff positive. 10/18/2022 Patient is seen and evaluated and follow-up has been moved out of the ICU on the stepdown unit currently awake, alert and oriented 3. Patient developed temps last night although denies any chest pain or shortness of breath. Patient continues to report some left knee pain and does have a brace at the bedside and will need assistance on properly placing the brace and recommend physical therapy evaluation. Nephrology following and labs this morning show a sodium of 127, potassium is 3.5, kidney functions within normal limits. Infectious disease following as patient does have C. diff and maintained on oral Vanco. Repeat chest x-ray along with cultures and urinalysis are ordered and pending at this time. Inflammatory markers including pro-calcitonin also ordered. Patient continues with significant weakness and left knee pain and reports does not want any narcotics. Nephrology recommending holding NSAIDs and patient is requesting Tylenol. Patient is currently afebrile with no reported chest pain or shortness of breath. Patient is continued on 2 L via nasal cannula. No reported nausea or vomiting and patient tolerating diet. Review of systems: Constitutional: no reports of fatigue, reports of fever last night, or chills Cardiovascular: No reports of chest pain or palpitations Respiratory: No reports of shortness of breath or cough GI: No reports of nausea, no reports of vomiting, reports diarrhea that is improving : No reports of dysuria or retention Neurovascular: reports of generalized weakness, reports some better pain con trol of the left knee and lower extremity, although reports severe intense pain when moving or position changing All medications have been reviewed PHYSICAL EXAMINATION: GENERAL: The patient is alert and oriented x3, awake, Well developed, well nourished. Obese, elderly-appearing HEENT: Pupils are round and equally reacting to light. EOMI. no scleral icterus. No conjunctival pallor. Normocephalic, atraumatic. No pharyngeal erythema. No thyromegaly. CARDIOVASCULAR: S1 and S2 muffled PULMONARY: diminished breath sounds bilaterally with no wheezing or rhonchi noted. ABDOMEN: soft. Nontender on exam. obese. non-distended, normoactive bowel sounds. No palpable organomegaly. MUSCULOSKELETAL: No joint swelling or deformity. EXTREMITIES: No cyanosis, clubbing, or pedal edema. Left knee and lower extremity tenderness and pain with palpation with some swelling noted at the kneecap NEUROLOGICAL: Gross neurological examination did not reveal any focal deficits. Diffuse weakness SKIN: No rashes. Assessment: Chest pain, likely musculoskeletal due to fall, ruled out coronary disease hypovolemic Hyponatremia, multifactorial, likely secondary to SIADH as well as poor solute intake, improving Debility with generalized weakness and gait dysfunction Change in mental status, acute metabolic encephalopathy, multifactorial secondary to low sodium as well as narcotic use, improved Hypertension history Hypotension, did require pressor support, secondary to hypovolemic shock, im proved Fall with left knee pain , comminuted long oblique fracture spanning from the distal femoral diaphysis down to the femoral component of the knee arthroplasty with oblique component along the shaft of the femur minimally offset by 5 mm along with an associated large knee effusion. Diarrhea with multiple loose stools, positive for C. diff 10/14/2022 History of asthma, not in exacerbation Obesity with a BMI of 33.8 GI prophylaxis DVT prophylaxis Full code Plan: Patient is currently out of the ICU on the stepdown unit with multiple medical consultations following Patient did develop a fever last night and repeat chest x-ray along with urinalysis and cultures are ordered and pending. Inflammatory markers ordered as well including pro-calcitonin with infectious disease following. Sodium 127 and will likely receive a dose of samsca per nephrology. Recommend follow-up labs. Encouraged oral intake and continued fluid restrictions Patient has a knee brace at bedside which needs to be put back on and asked nursing staff to follow-up with orthopedics on how to properly place this brace. Was reported that the senior property manager right and follow-up is should have fitted the patient. Orthopedics with no plans for surgical intervention and would recommend restrictions per orthopedics physical therapy evaluation in the a.m. Patient to go to [facility] once cleared by consultations. Patient will require insurance authorization and case management/social work following Mentation has improved and would recommend limiting narcotic use Patient is continued on antibiotics with infectious disease following for C. diff and reports less frequent stools and slightly more formed Will follow-up with consultations about discharge planning to ECF once stabilized Due to multiple complex medical issues, prognosis is guarded Possible discharge in the next 24-48 hours The impression and plan of care has been dictated by Jessica Castro, nurse practitioner as directed. Dr. Sondra MD I have performed a history and examination and MDM of this patient, discussed the same with the dictator, and agree with the dictator's assessment and plan as written ,documented as a scribe. Based on total visit time, I have performed more than 50% of the visit. Any additional findings or plans will be noted. Objective - Vital Signs Vital signs: Vital Signs Temp 98.2 F 10/18/22 12:00 Pulse 76 10/18/22 12:00 Resp 16 10/18/22 12:00 BP 134/70 10/18/22 12:00 Pulse Ox 99 10/18/22 12:00 FiO2 2 10/17/22 01:00 Intake & Output 10/17/22 10/18/22 10/18/22 18:59 06:59 18:59 Intake Total 240 236 Output Total 780 350 Balance -540 -350 236 Weight 97.9 kg Intake: Oral 240 236 Output: Urine 780 350 Other: Voiding Method Indwelling Catheter Indwelling Catheter Indwelling Catheter # Bowel Movements 1 ABP, PAP, CO, CI - Last Documented Arterial Blood Pressure 81/75 - Labs CBC & Chem 7: 10/17/22 03:40 10/18/22 11:33 Labs: Abnormal Lab Results - Last 24 Hours (Table) 10/17/22 10/18/22 Range/Units 18:39 11:33 Sodium 128 L 127 L (137-145) mmol/L Chloride 90 L (98-107) mmol/L Carbon Dioxide 32 H (22-30) mmol/L Creatinine 0.42 L (0.52-1.04) mg/dL Glucose 120 H (74-99) mg/dL Calcium 7.7 L (8.4-10.2) mg/dL
[2022-10-18 16:36] LABS: Appearance,Urine Clear (Clear); Bacteria,Urine Rare /hpf; Bilirubin,Urine Negative (Negative); Blood,Urine Negative (Negative); Color,Urine Yellow; Glucose,Urine (UA) Negative (Negative); Ketones,Urine Negative (Negative); Leukocyte Esterase,Urine Negative (Negative); Mucus,Urine Rare /hpf; Nitrite,Urine Negative (Negative); Protein,Urine 2+ (Negative); RBC,Urine 2 /hpf (0-5); Specific Gravity,Urine 1.027 (1.001-1.035); Urobilinogen,Urine <2.0 mg/dL (<2.0); WBC,Urine 3 /hpf (0-5)
[2022-10-18] MEDS: GABAPENTIN 400 MG CAP PO SCH (23:06)
[2022-10-19] MEDS: ACETAMINOPHEN TAB 325 MG TAB PO PRN ×2 (03:20→18:07)
[2022-10-19] MEDS: MIDODRINE 5 MG TAB PO SCH ×3 (06:25→17:08)
[2022-10-19] MEDS: GABAPENTIN 300 MG CAP PO SCH ×3 (06:26→17:32)
[2022-10-19 09:05] LABS: Basophils % (A) 0 %; Eosinophils # (A) 0.1 k/uL (0-0.7); Eosinophils % (A) 1 %; HCT 26.4 % (34.0-46.0); HGB 9.1 gm/dL (11.4-16.0); Lymphocytes # (A) 0.9 k/uL (1.0-4.8); Lymphocytes % (A) 10 %; MCH 32.1 pg (25.0-35.0); MCHC 34.3 g/dL (31.0-37.0); MCV 93.7 fL (80.0-100.0); Monocytes # (A) 0.2 k/uL (0-1.0); Monocytes % (A) 3 %; Neutrophils # (A) 7.6 k/uL (1.3-7.7); Neutrophils % (A) 84 %; Platelet Count 281 k/uL (150-450); RBC 2.82 m/uL (3.80-5.40); RDW 14.2 % (11.5-15.5)
[2022-10-19 09:13] LABS: African American GFR (CKD) >90 (>60 ml/min/1.73 sqM); Anion Gap 5 mmol/L; Blood Urea Nitrogen 15 mg/dL (7-17); Carbon Dioxide 32 mmol/L (22-30); Chloride 91 mmol/L (98-107); Glucose 159 mg/dL (74-99); Magnesium 1.6 mg/dL (1.6-2.3); Non-African American GFR(CKD) >90 (>60 ml/min/1.73 sqM); Potassium 3.5 mmol/L (3.5-5.1); Sodium 128 mmol/L (137-145)
[2022-10-19] MEDS: SYMBICORT 80-4.5 MCG INHALER INHALATION SCH ×2 (09:34→21:27)
[2022-10-19] MEDS: carBAMazepine 200 MG TAB PO SCH ×2 (09:46→21:30)
[2022-10-19] MEDS: APIXABAN 2.5 MG TABLET PO SCH ×2 (09:47→21:30)
[2022-10-19] MEDS: LACTOBACILLUS ACIDOPHILUS/PECT 1 EACH CAPSULE PO SCH (09:47)
[2022-10-19] MEDS: ASCORBIC ACID 500 MG TAB PO SCH (09:47)
[2022-10-19] MEDS: CYANOCOBALAMIN 500 MCG TAB PO SCH (09:47)
[2022-10-19] MEDS: PANTOPRAZOLE 40 MG/10 ML VIAL IVP SCH ×2 (09:48→21:31)
[2022-10-19] MEDS: LIDOCAINE 5% PATCH TOPICAL SCH (09:48)
[2022-10-19] MEDS: METOPROLOL SUCCINATE (ER) 25 MG TAB.ER.24H PO SCH (09:48)
[2022-10-19] MEDS: VANCOMYCIN ORAL SOLUTION 250 MG/5 ML BOTTLE PO SCH ×4 (09:51→22:02)
[2022-10-19] MEDS: SODIUM CHLORIDE TAB 1 GM TAB PO SCH (09:52)
[2022-10-19] MEDS ORDERED: TOLVAPTAN 15 MG TABLET PO ONE (10:00)
--- NOTE | 2022-10-19 10:38 | P.PN ---
Subjective Progress Note Date: 10/19/22 History of present illness: This is an 82 year old female patient with past medical history of hypertension, gastroesophageal reflux disease, asthma. We have been asked to evaluate the patient for chest pain. Patient was brought into the emergency center on 10/08 after a trip and fall forward landing with her chest on her walker and also hit the back of the head. No loss of consciousness. She underwent a CAT scan of the chest which revealed nondisplaced posterior lateral right third rib fractures not excluded. CAT scan of the head and neck did not show any acute findings. EKG unable to be obtained today due to broken EKG machine CBC is unremarkable. Sodium 132, potassium 4.1, chloride 95, CO2 27, BUN 16 creatinine 2.7. Glucose 101. His C-reactive protein 3.4. Sed rate 11. Home cardiac medications: Amlodipine 5 mg daily, lisinopril 40 mg daily 10/18 Patient has had a complicated stay finding a distal femur fracture, unresponsive episode with hypotension requiring Levophed and was transferred into the intensive care unit. She is also treated for C. difficile colitis She is now seen today on the cardiac stepdown unit. We have been reconsulted for A. fib with RVR. Patient went into A. fib yesterday EKG showing ventricular rate of 143. Patient was started on amiodarone and has subsequently converted to sinus rhythm. Blood pressure 139/97, heart rate 55847. Sodium today 128. TSH on 10/13 was 0.23. Patient is not on thyroid medication. 10/19 Patient is found sitting up in bed. She denies any new complaints. No chest pain or shortness of breath. She has converted to sinus rhythm and remains in sinus rhythm this morning. Patient was started on eliquis and Toprol yesterday. Heart rate is in the 70s to 90s, blood pressure 140/73, pulse ox 96% on 2 L. Repeat blood work reveals sodium 128, potassium 3.5, BUN 15 creatinine 0.48. Physical examination: Gen: This is an 82-year-old female. She is resting in bed and appears to be in no acute distress VS: reviewed 166/88, heart rate in the 70s, pulse ox 96% on room air, afebrile HEENT: Head is atraumatic, normocephalic. Pupils equal, round. Sclerae is anicteric. NECK: Supple. No JVD. . LUNGS: Clear to auscultation. No wheezes or rhonchi. No intercostal retractions. HEART: Regular rate and rhythm. No murmur. ABDOMEN: Soft EXTREMITIES: No pedal edema. Assessment: Mechanical fall Musculoskeletal chest pain, rule out cardiac contusion Hypertension New onset atrial fibrillation with RVR, paroxysmal Plan: Continue patient on Toprol-XL 25 mg every day Continue patient on eliquis 2.5 mg twice daily Patient is cleared from cardiology for discharge. Cardiology will sign off this case and follow on an as-needed basis. Please reconsult for any new concerns. Patient may follow-up in the office in one to 2 weeks. Nurse practitioner note has been reviewed, I agree with documented findings and plan of care. Patient was seen and examined. Objective - Vital Signs Vital signs: Vital Signs Temp 97.8 F 10/19/22 08:00 Pulse 72 10/19/22 08:00 Resp 16 10/19/22 08:00 BP 140/72 10/19/22 08:00 Pulse Ox 96 10/19/22 08:00 FiO2 2 10/17/22 01:00 Intake & Output 10/18/22 10/19/22 10/19/22 18:59 06:59 18:59 Intake Total 776 10 118 Output Total 450 925 Balance 326 -915 118 Intake: IV 10 normal saline 10 Oral 776 118 Output: Urine 450 925 Other: Voiding Method Indwelling Catheter Indwelling Catheter Indwelling Catheter # Bowel Movements 1 1 ABP, PAP, CO, CI - Last Documented Arterial Blood Pressure 81/75 - Labs CBC & Chem 7: 10/19/22 08:18 10/19/22 08:18 Labs: Abnormal Lab Results - Last 24 Hours (Table) 10/18/22 10/18/22 10/18/22 Range/Units 11:30 11:33 15:24 WBC 11.0 H (3.8-10.6) k/uL RBC 2.92 L (3.80-5.40) m/uL Hgb 9.1 L (11.4-16.0) gm/dL Hct 27.7 L (34.0-46.0) % Neutrophils # 9.5 H (1.3-7.7) k/uL Lymphocytes # 0.9 L (1.0-4.8) k/uL Sodium 127 L (137-145) mmol/L Chloride 90 L (98-107) mmol/L Carbon Dioxide 32 H (22-30) mmol/L Creatinine 0.42 L (0.52-1.04) mg/dL Glucose 120 H (74-99) mg/dL Calcium 7.7 L (8.4-10.2) mg/dL C-Reactive Protein 19.7 H (<1.0) mg/dL Procalcitonin (0.02-0.09) ng/mL Urine Protein (Negative) Urine Bacteria (None) /hpf Urine Mucus (None) /hpf 10/18/22 10/18/22 Range/Units 15:24 16:04 WBC (3.8-10.6) k/uL RBC (3.80-5.40) m/uL Hgb (11.4-16.0) gm/dL Hct (34.0-46.0) % Neutrophils # (1.3-7.7) k/uL Lymphocytes # (1.0-4.8) k/uL Sodium (137-145) mmol/L Chloride (98-107) mmol/L Carbon Dioxide (22-30) mmol/L Creatinine (0.52-1.04) mg/dL Glucose (74-99) mg/dL Calcium (8.4-10.2) mg/dL C-Reactive Protein (<1.0) mg/dL Procalcitonin 0.18 H (0.02-0.09) ng/mL Urine Protein 2+ H (Negative) Urine Bacteria Rare H (None) /hpf Urine Mucus Rare H (None) /hpf Microbiology - Last 24 Hours (Table) 10/13/22 15:30 Blood Culture - Final Blood
--- NOTE | 2022-10-19 11:41 | P.PN ---
Subjective Progress Note Date: 10/19/22 Principal diagnosis: Weakness. This is a pleasant 82-year-old female patient with a known history of hypertension, mild intermittent chronic bronchial asthma, gastroesophageal ref lux disease, depression. She was brought into the emergency room on 10/08/2022 after sustaining a fall at her home. She states she was sitting on her toilet and fell forward hitting her walker with her chest and also hit the back of her head. She denied any loss of consciousness. She came in with ongoing chest wall pain. Pelvis x-ray revealed no acute fractures. The skin of the brain and C-sp ine revealed no acute intracranial process. No acute osseous abnormality. Computed tomography scan of the chest revealed areas of emphysema. A prominent pretracheal space lymph node. 1.0 cm pleural-based density. A nondisplaced posterior lateral right third rib fracture not excluded. White count 6.2. Hemoglobin 14.1. Platelets 199. Sodium 132. Potassium 4.1. Bicarb 27. BUN 16. Creatinine 0.7. Glucose 101. HEENT today in consultation on the regular medical floor. She is currently sitting up in a chair at the bedside. Awake and alert in no acute distress. She denies any worsening shortness of breath, cough or congestion. She is having some chest wall pain on deep inhalation. She is maintaining O2 saturations in the 90s on room air. Afebrile. Hemodynamically stable. She is continued on Symbicort and albuterol. Pain is better controlled today. The patient is seen today 10/11/2022 in follow-up on the regular medical floor. She is currently sitting up in bed. Awake and alert in no acute distress. She is still having ongoing issues with anterior chest wall pain over the sternal area. No worsening shortness of breath, cough or congestion. Maintaining good O2 saturations in the mid 90s on room air. She's afebrile. Follow-up chest x- ray revealed no acute cardiopulmonary process. She is working well with the incentive spirometer. He tended on Symbicort and albuterol. This is a pleasant 82-year-old female patient with a known history of hypertension, mild intermittent chronic bronchial asthma, gastroesophageal reflux disease, depression. She was brought into the emergency room on 10/08/2022 after sustaining a fall at her home. She states she was sitting on her toilet and fell forward hitting her walker with her chest and also hit the back of her head. She denied any loss of consciousness. She came in with ongoing chest wall pain. Pelvis x-ray revealed no acute fractures. The skin of the brain and C-spine revealed no acute intracranial process. No acute osseous abnormality. Computed tomography scan of the chest revealed areas of emphysema. A prominent pretracheal space lymph node. 1.0 cm pleural-based density. A nondisplaced posterior lateral right third rib fracture not excluded. White count 6.2. Hemoglobin 14.1. Platelets 199. Sodium 132. Potassium 4.1. Bicarb 27. BUN 16. Creatinine 0.7. Glucose 101. HEENT today in consultation on the regular medical floor. She is currently sitting up in a chair at the bedside. Awake and alert in no acute distress. She denies any worsening shortness of breath, cough or congestion. She is having some chest wall pain on deep inhalation. She is maintaining O2 saturations in the 90s on room air. Afebrile. Hemodynamically stable. She is continued on Symbicort and albuterol. Pain is better controlled today. The patient is seen today 10/11/2022 in follow-up on the regular medical floor. She is currently sitting up in bed. Awake and alert in no acute distress. She is still having ongoing issues with anterior chest wall pain over the sternal area. No worsening shortness of breath, cough or congestion. Maintaining good O2 saturations in the mid 90s on room air. She's afebrile. Follow-up chest x- ray revealed no acute cardiopulmonary process. She is working well with the incentive spirometer. He tended on Symbicort and albuterol. Patient is seen today 10/12/2022 in follow-up on the regular medical floor. She is currently sitting up in bed. Awake and alert in no acute distress. Her pain is better controlled today compared to yesterday. Still with discomfort with minimal movement. She continues to work with the incentive spirometer. She is maintaining good O2 saturations in the 90s on room air. Sodium 122. Potassium 4.6. Bicarb 29. BUN 19. Creatinine 0.60. Glucose 114. Pro-calcitonin 0.05. She is continued on Symbicort and albuterol. The patient is seen today October 17 2022 in follow-up in the intensive care unit. She is currently awake and alert sitting up in bed having breakfast. She is maintaining good O2 saturations in the 90s on 2 L/m per nasal cannula. White count 8.9. Hemoglobin 8.5. Platelets 213. Sodium 128. Potassium 3.7. Bicarb 29. BUN 19. Creatinine 0.40. Glucose 1:15. She remains on Symbicort, albut bimal. Continued on oral vancomycin for her C. diff colitis. Progress note dated 10/18/2022. The patient was seen in the intensive care unit yesterday. She was transferred out, and seen today on the floor, room 366. She continues on oxygen by nasal cannula at 2 L. She is currently on amiodarone at 0.5 mg/m. She is feeling a lot better. No new labs today. Labs from October 17 have been reviewed. Blood cultures are negative. The most recent chest x-ray was done on October 16. Progress note dated 10/19/2022. The patient is seen today in room 366. 2 days ago, she was in the intensive ca re unit. Currently, she is on 2 L of oxygen, saturations of 96%. She's not receiving any IV fluids. She was on amiodarone drip, but that has been weaned off. The plan is for possible discharge, local [facility]ci/rehab facility. Clinically, the patient has no complaints. From the pulmonary status, she is doing well, and she denies any significant shortness of breath. White count 9, hemoglobin 9.1, hematocrit 26.4, and platelet count is normal. Sodium 128, potassium 3.5, chlorides 91, CO2 32, the 1:15, creatinine 0.48. Pro-calcitonin level 0.18. Objective - Vital Signs Vital signs: Vital Signs Temp 97.8 F 10/19/22 08:00 Pulse 72 10/19/22 08:00 Resp 16 10/19/22 08:00 BP 140/72 10/19/22 08:00 Pulse Ox 96 10/19/22 08:00 FiO2 2 10/17/22 01:00 Intake & Output 10/18/22 10/19/22 10/19/22 18:59 06:59 18:59 Intake Total 776 10 118 Output Total 450 925 225 Balance 326 -915 -107 Intake: IV 10 normal saline 10 Oral 776 118 Output: Urine 450 925 225 Other: Voiding Method Indwelling Catheter Indwelling Catheter Indwelling Catheter # Bowel Movements 1 1 2 ABP, PAP, CO, CI - Last Documented Arterial Blood Pressure 81/75 - Exam No acute distress, oriented 3. Currently on 2 L by nasal cannula. Saturations are 96 % HEENT examination is grossly unremarkable. Neck supple. Full range of motion. No adenopathy thyromegaly or neck vein distention. Cardiovascular examination reveals regular rhythm rate. S1-S2 normal. No S3 or S4. No discernible murmur noted. Heart rate 72 bpm. Heart sounds are distant. Lungs reveal mostly clear breath sounds. Breath sounds are equal bilaterally. Scattered rhonchi and crackles are noted. No wheezes. Abdomen soft bowel sounds are heard. No masses or tenderness. Extremities are intact. No cyanosis clubbing or edema. Skin is without rash or lesion. Neurologic examination is brief but nonfocal. - Labs CBC & Chem 7: 10/19/22 08:18 10/19/22 08:18 Labs: Abnormal Lab Results - Last 24 Hours (Table) 10/18/22 10/18/22 10/18/22 Range/Units 11:30 11:33 15:24 WBC 11.0 H (3.8-10.6) k/uL RBC 2.92 L (3.80-5.40) m/uL Hgb 9.1 L (11.4-16.0) gm/dL Hct 27.7 L (34.0-46.0) % Neutrophils # 9.5 H (1.3-7.7) k/uL Lymphocytes # 0.9 L (1.0-4.8) k/uL Sodium 127 L (137-145) mmol/L Chloride 90 L (98-107) mmol/L Carbon Dioxide 32 H (22-30) mmol/L Creatinine 0.42 L (0.52-1.04) mg/dL Glucose 120 H (74-99) mg/dL Calcium 7.7 L (8.4-10.2) mg/dL C-Reactive Protein 19.7 H (<1.0) mg/dL Procalcitonin (0.02-0.09) ng/mL Urine Protein (Negative) Urine Bacteria (None) /hpf Urine Mucus (None) /hpf 10/18/22 10/18/22 10/19/22 Range/Units 15:24 16:04 08:18 WBC (3.8-10.6) k/uL RBC 2.82 L (3.80-5.40) m/uL Hgb 9.1 L (11.4-16.0) gm/dL Hct 26.4 L (34.0-46.0) % Neutrophils # (1.3-7.7) k/uL Lymphocytes # 0.9 L (1.0-4.8) k/uL Sodium (137-145) mmol/L Chloride (98-107) mmol/L Carbon Dioxide (22-30) mmol/L Creatinine (0.52-1.04) mg/dL Glucose (74-99) mg/dL Calcium (8.4-10.2) mg/dL C-Reactive Protein (<1.0) mg/dL Procalcitonin 0.18 H (0.02-0.09) ng/mL Urine Protein 2+ H (Negative) Urine Bacteria Rare H (None) /hpf Urine Mucus Rare H (None) /hpf 10/19/22 Range/Units 08:18 WBC (3.8-10.6) k/uL RBC (3.80-5.40) m/uL Hgb (11.4-16.0) gm/dL Hct (34.0-46.0) % Neutrophils # (1.3-7.7) k/uL Lymphocytes # (1.0-4.8) k/uL Sodium 128 L (137-145) mmol/L Chloride 91 L (98-107) mmol/L Carbon Dioxide 32 H (22-30) mmol/L Creatinine 0.48 L (0.52-1.04) mg/dL Glucose 159 H (74-99) mg/dL Calcium 8.0 L (8.4-10.2) mg/dL C-Reactive Protein (<1.0) mg/dL Procalcitonin (0.02-0.09) ng/mL Urine Protein (Negative) Urine Bacteria (None) /hpf Urine Mucus (None) /hpf Microbiology - Last 24 Hours (Table) 10/13/22 15:30 Blood Culture - Final Blood Assessment and Plan Assessment: Acute anterior chest wall pain secondary to fall. Computed tomography scan of the chest revealed emphysematous changes with a prominent lymph node in the pretracheal space and a 1.0 cm pleural based density. There is a nondisplaced posterior lateral right third rib fracture. Acute atrial tachycardia, controlled. Altered mental status, suspect metabolic encephalopathy also suspect possible fat embolism, from recent left femoral fracture. 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 Hypotension requiring norepinephrine, recovered. Hypertension. Mild intermittent chronic bronchial asthma. Gastroesophageal reflux disease without esophagitis. History of anxiety/depression. Nonspecific mediastinal adenopathy, recommend follow-up computed tomography scan or PET scan in 3 months. Acute kidney injury secondary to ATN and hypotension. Plan: Plan dated 10/18/2022. The patient is seen today in room 366. She remains on oxygen by nasal cannula at 2 L. Because of her irregular atrial tachycardia, the patient was placed on amiodarone 0.5 mg/m labs, x-rays, and all medications are reviewed. Clinically, the patient feels much better. We will continue to follow the patient and make recommendations along the way. Prognosis is certainly guarded. Plan dated 10/19/2022. The patient is currently on 2 L of oxygen. Saturations are 96%. She's not receiving any IV fluids. Yesterday, she was on amiodarone, but that has been turned off. The patient is being evaluated for possible placement, in a convalescent home, in [place], [place]. Labs, x-rays, and medications are reviewed. Prognosis is guarded. All questions are answered. Time with Patient: Less than 30
--- NOTE | 2022-10-19 13:24 | P.PN ---
Subjective Patient is seen for follow-up for hyponatremia and acute kidney injury. Renal function has improved Serum sodium staying around 128. Maintained on sodium chloride tab 1 g twice a day Diarrhea from C. diff colitis is improving. No complaints today. Objective - Vital Signs Vital signs: Vital Signs Temp 98 F 10/19/22 12:00 Pulse 73 10/19/22 12:00 Resp 16 10/19/22 12:00 BP 179/83 10/19/22 12:00 Pulse Ox 93 L 10/19/22 12:00 FiO2 2 10/17/22 01:00 Intake & Output 10/18/22 10/19/22 10/19/22 18:59 06:59 18:59 Intake Total 776 10 118 Output Total 450 925 225 Balance 326 -535 -107 Intake: IV 10 normal saline 10 Oral 776 118 Output: Urine 450 925 225 Other: Voiding Method Indwelling Catheter Indwelling Catheter Indwelling Catheter # Bowel Movements 1 1 2 ABP, PAP, CO, CI - Last Documented Arterial Blood Pressure 81/75 - Exam Awake, comfortable, no acute distress Examination of the heart S1 and S2 Examination of the lungs bilateral breath sounds are heard Abdomen is soft nontender Examination lower extremities shows 1+ edema CALENDERER exam shows patient is moving all 4 extremities. - Labs CBC & Chem 7: 10/19/22 08:18 10/19/22 08:18 Labs: Abnormal Lab Results - Last 24 Hours (Table) 10/18/22 10/18/22 10/18/22 Range/Units 11:30 15:24 15:24 WBC 11.0 H (3.8-10.6) k/uL RBC 2.92 L (3.80-5.40) m/uL Hgb 9.1 L (11.4-16.0) gm/dL Hct 27.7 L (34.0-46.0) % Neutrophils # 9.5 H (1.3-7.7) k/uL Lymphocytes # 0.9 L (1.0-4.8) k/uL Sodium (137-145) mmol/L Chloride (98-107) mmol/L Carbon Dioxide (22-30) mmol/L Creatinine (0.52-1.04) mg/dL Glucose (74-99) mg/dL Calcium (8.4-10.2) mg/dL C-Reactive Protein 19.7 H (<1.0) mg/dL Procalcitonin 0.18 H (0.02-0.09) ng/mL Urine Protein (Negative) Urine Bacteria (None) /hpf Urine Mucus (None) /hpf 10/18/22 10/19/22 10/19/22 Range/Units 16:04 08:18 08:18 WBC (3.8-10.6) k/uL RBC 2.82 L (3.80-5.40) m/uL Hgb 9.1 L (11.4-16.0) gm/dL Hct 26.4 L (34.0-46.0) % Neutrophils # (1.3-7.7) k/uL Lymphocytes # 0.9 L (1.0-4.8) k/uL Sodium 128 L (137-145) mmol/L Chloride 91 L (98-107) mmol/L Carbon Dioxide 32 H (22-30) mmol/L Creatinine 0.48 L (0.52-1.04) mg/dL Glucose 159 H (74-99) mg/dL Calcium 8.0 L (8.4-10.2) mg/dL C-Reactive Protein (<1.0) mg/dL Procalcitonin (0.02-0.09) ng/mL Urine Protein 2+ H (Negative) Urine Bacteria Rare H (None) /hpf Urine Mucus Rare H (None) /hpf Microbiology - Last 24 Hours (Table) 10/13/22 15:30 Blood Culture - Final Blood Assessment and Plan Assessment: 1. Hypovolemic hyponatremia (acute on chronic) from poor solute intake and use of NSAIDs. 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 Status post 3% saline Sodium had improved to 113 down to 128 today. Patient received Toradol and sodium had dropped to 128 from 130. TSH 0.23. Cortisol level not low. Urine sodium 25 and urine osmolality 454. Maintained on sodium chloride tab. 2. Status post fall with left knee fracture. 3. Shock s/p Levophed. Questionable septic versus fat emboli. CTA done 10/12/2022 showed no evidence of pericardial effusion or tamponade. No evidence of PE. 4. Lymphadenopathy and lung nodule being followed by pulmonology. 5. Acute kidney injury secondary to ATN secondary to hypotension. Also received IV contrast on 10/12/2022. Creatinine 1.02 today. 6. C. diff colitis Plan: Avoid NSAIDs Continue with sodium chloride tabs. Decrease dose to once a day as blood pressure is now on the higher side Continue to encourage increase oral intake. Samsc[place] 1
[2022-10-19] MEDS: CALCIUM CARB-VIT D 500 MG-5 MCG TAB PO SCH (14:16)
[2022-10-19 19:51] LABS: Glucose,Whole Blood 148 mg/dL (70-110)
[2022-10-19] MEDS ORDERED: Magnesium Replacement Protocol 1 EACH MISC MISCELLANE PRN (19:53)
[2022-10-19] MEDS ORDERED: MAGNESIUM SULFATE-D5W PMX 1 GM in DEXTROSE/WATER 1 100ML.BAG IVPB ONE (19:53)
[2022-10-19] MEDS: GABAPENTIN 400 MG CAP PO SCH (21:30)
[2022-10-20] MEDS: GABAPENTIN 300 MG CAP PO SCH ×3 (05:32→17:20)
[2022-10-20] MEDS: MIDODRINE 5 MG TAB PO SCH ×3 (05:33→17:21)
--- NOTE | 2022-10-20 07:02 | P.PN ---
Subjective Progress Note Date: 10/19/22 This is a pleasant 82-year-old female who was recently admitted with chest pain and generalized weakness with recent fall. Patient being evaluated by cardiology as well as pulmonary recently underwent a CT of the chest which showed emphysematous changes with a prominent lymph node in the pretracheal sp wily and a 1.0 cm pleural based density. There is a nondisplaced posterior lateral right third rib fracture. Will add incentive spirometer and continue with pain management and lidocaine patches. Patient working with physical therapy reports she feels she did a little better today and will have therapy evaluate for possible ECF. Social work is following and has been accepted and requires insurance authorization which has been submitted and pending. Patient is afebrile but no reports of shortness of breath or palpitations. No reported nausea or vomiting and encouraged oral intake. 10/12/2022 Patient is seen and evaluated in follow-up this morning currently sitting up in the chair and has been cleared by cardiology and pulmonary. Patient continues to report some chest wall pain and feeling generally weak. Repeat labs done showing a sodium of 122 which she reports she runs in the 127 range normally. Patient does take Tegretol scheduled which could contribute to some of the hypon atremia along with poor oral intake. Patient reports has not been eating very well. Nephrology consulted and appreciate input and recommendations. Patient also having some intermittent nausea which is being controlled by Zofran. Patient is currently afebrile denies vomiting, denies palpitations or shortness of breath. Patient to be started on gentle IV hydration with follow-up labs this afternoon as well as tomorrow. Encouraged increase activity as tolerated and continued physical therapy evaluation. Plan is for ECF in the next few days and insurance authorization has been obtained. 10/13/2022 Patient is seen and evaluated and was transferred to the ICU after patient's sodium was found to be 120 and placed on 3% hypertonic solution with nephrology following. Patient became somewhat more lethargic and delayed and confused with difficulty in ambulation and left leg buckling from under her while attempting to get up from the commode and assisted to the floor and having some increased pain in the left knee. CT brain along with hip and left knee x-rays were obtained and CT was negative for acute process. Hip was intact with postsurgical changes noted from previous surgery. Left knee showed a minimally comminuted long oblique fracture spanning from the distal femoral diaphysis down to the femoral component of the knee arthroplasty with oblique component along the shaft of the femur minimally offset by 5 mm along with an associated large knee effusion. Orthopedics consultation recommending conservative management is patient is not a good surgical candidate at this time and a knee brace is being ordered. Patient is having some pain and will readdress medications as mentation is improved somewhat today. Patient continues on 3% and sodium level is improved at 121. Nephrology following closely. Patient is hypotensive as well and currently on pressor support which per nursing staff is slowly being weaned. Patient is afebrile currently although did have a low-grade temp of 100.4 this morning and has been started on antibiotics empirically. CT Billie of the chest was also done showing some prominent proximal LAD coronary artery calcifications with no evidence of aortic dissection or PE with some groundglass changes and scattered interstitial changes with concerns of pneumonitis with some tree-in-bud opacification is noted that may be seen in those with bronchiolitis along with a small hiatal hernia and some circumferential wall thickening of the distal esophagus representing possible esophagitis. Patient is on Protonix IV twice daily and is continued on a heart healthy diet with fluid restrictions. Neurology consulted as well and pending. 2-D echo was ordered and awaiting report. 10/14/2022 Patient seen and evaluated in the ICU continues to be on low-dose Levophed for low blood pressures and has been started on midodrine although continues to have periods of fatigue and lethargy. Patient is maintained on pain medications as patient continues to report significant left knee pain. Patient was evaluated by orthopedics recommending no surgical interventions and conservative management for now. Discussed possible large knee effusion drainage as well as possible steroid injection and was reported to risky and close to her previous l eft knee arthroplasty. Patient also continues to be hyponatremic and sodium is improving and currently at 125. Kidney function stable at 1.02 with a BUN of 31. Patient is having some diarrhea and C. diff sample was sent and came back positive. Will initiate oral Vanco liquid and consult infectious disease and appreciate input and recommendations. 10/17/2022 Patient is seen and evaluated in the ICU although awaiting a down grade out of ICU to [facility]. Multiple medical consultations including nephrology, infectious disease, orthopedics, pulmonary following. Patient is currently maintained on 2 L via nasal cannula and denies any worsening shortness of breath. Sodium today is 128 with nephrology following and is maintained on sodium chloride tabs. Recommend to continue with fluid restrictions. Orthopedics with no plans for surgical intervention on the left lower extremity fracture currently awaiting a brace to be fitted for the left knee and patient will likely continue to be ECF on discharge. Encourage physical therapy evaluation daily and continued increased activity with restrictions per orthopedics. Patient is afebrile with no reports of chest pain or worsening shortness of breath. Patient reports feeling better and pain is currently managed. Patient reporting less frequent stools and is maintained on oral vancomycin with infectious disease following as patient was C. diff positive. 10/18/2022 Patient is seen and evaluated and follow-up has been moved out of the ICU on the stepdown unit currently awake, alert and oriented 3. Patient developed temps last night although denies any chest pain or shortness of breath. Patient continues to report some left knee pain and does have a brace at the bedside and will need assistance on properly placing the brace and recommend physical therapy evaluation. Nephrology following and labs this morning show a sodium of 127, potassium is 3.5, kidney functions within normal limits. Infectious disease following as patient does have C. diff and maintained on oral Vanco. Repeat chest x-ray along with cultures and urinalysis are ordered and pending at this time. Inflammatory markers including pro-calcitonin also ordered. Patient continues with significant weakness and left knee pain and reports does not want any narcotics. Nephrology recommending holding NSAIDs and patient is requesting Tylenol. Patient is currently afebrile with no reported chest pain or shortness of breath. Patient is continued on 2 L via nasal cannula. No reported nausea or vomiting and patient tolerating diet. 10/19/2022 Patient is seen this morning in follow-up quite agitated and frustrated that her left knee continues to cause her pain with bowel movements and difficulty in ambulation. Patient reports she will not get up to ambulate until something is done about her knee. Orthopedics has evaluated the patient with no surgical interventions planned and has ordered a knee brace which physical therapy will, and placed back on the patient. Patient continues to report significant pain and swelling of the left knee and will ask orthopedics to reevaluate and have been re-consulted as patient and daughter are persistent that something be done. Sodium level stable at 128 and is maintained on sodium and chloride tablets and being decreased to once daily and given a dose of Samsca today and will follow- up repeat labs in a.m. Nephrology is following. Cardiology following and evaluated and has signed off as she is currently rate controlled and will continue current regimen. Patient needs to work with physical therapy although extremely anxious and concerned about falling. Patient will need ECF. Review of systems: Constitutional: no reports of fatigue, no reports of fever in 24 hours, or chills Cardiovascular: No reports of chest pain or palpitations Respiratory: No reports of shortness of breath or cough GI: No reports of nausea, no reports of vomiting, reports diarrhea that is improving : No reports of dysuria or retention Neurovascular: reports of generalized weakness, reports continued left knee and lower extremity pain, reports severe intense pain when moving or position changing All medications have been reviewed PHYSICAL EXAMINATION: GENERAL: The patient is alert and oriented x3, awake, anxious and agitated today. Well developed, well nourished. Obese, elderly-appearing HEENT: Pupils are round and equally reacting to light. EOMI. no scleral icterus. No conjunctival pallor. Normocephalic, atraumatic. No pharyngeal erythema. No thyromegaly. CARDIOVASCULAR: S1 and S2 muffled PULMONARY: diminished breath sounds bilaterally with no wheezing or rhonchi noted. ABDOMEN: soft. Nontender on exam. obese. non-distended, normoactive bowel sounds. No palpable organomegaly. MUSCULOSKELETAL: No joint swelling or deformity. EXTREMITIES: No cyanosis, clubbing, or pedal edema. Left knee and lower extremity tenderness and pain with palpation with some swelling noted at the kneecap NEUROLOGICAL: Gross neurological examination did not reveal any focal deficits. Diffuse weakness SKIN: No rashes. Assessment: Chest pain, likely musculoskeletal due to fall, ruled out coronary disease hypovolemic Hyponatremia, multifactorial, likely secondary to SIADH as well as poor solute intake, improving Debility with generalized weakness and gait dysfunction Change in mental status, acute metabolic encephalopathy, multifactorial secondary to low sodium as well as narcotic use, improved Hypertension history Hypotension, did require pressor support, secondary to hypovolemic shock, improved Fall with left knee pain , comminuted long oblique fracture spanning from the distal femoral diaphysis down to the femoral component of the knee arthroplasty with oblique component along the shaft of the femur minimally offset by 5 mm along with an associated large knee effusion. Diarrhea with multiple loose stools, positive for C. diff 10/14/2022 History of asthma, not in exacerbation Obesity with a BMI of 33.8 GI prophylaxis DVT prophylaxis Full code Plan: Patient is currently on the stepdown unit with multiple medical consultations following. Patient okay for transfer to [facility] with telemetry. Cardiology evaluated the patient and has signed off recommending continuing with current medications infectious disease following and patient is maintained on oral vancomycin for C. diff. Patient was having fevers with unknown source or etiology. Sodium 128 and will receive a dose of samsca per nephrology. Recommend follow- up labs. Sodium chloride Is being transitioned to once daily Encouraged oral intake and continued fluid restrictions Patient has a knee brace at bedside which physical therapy will put back on and will attempt to work with the patient Orthopedics were consulted for reevaluation as patient continues to report significant intense pain of the left knee and swelling physical therapy evaluation daily Patient to go to [facility] once cleared by consultations. Patient will require insurance authorization and case management/social work following Mentation has improved and would recommend limiting narcotic use Patient is continued on antibiotics with infectious disease following for C. diff and reports less frequent stools and slightly more formed. Patient to continue one-week course of oral Vanco Due to multiple complex medical issues, prognosis is guarded Possible discharge in the next 24-48 hours The impression and plan of care has been dictated by Jessica Castro, nurse practitioner as directed. Dr. Sondra MD I have performed a history and examination and MDM of this patient, discussed the same with the dictator, and agree with the dictator's assessment and plan as written ,documented as a scribe. Based on total visit time, I have performed more than 50% of the visit. Any additional findings or plans will be noted. Objective - Vital Signs Vital signs: Vital Signs Temp 98 F 10/19/22 12:00 Pulse 73 10/19/22 12:00 Resp 16 10/19/22 12:00 BP 179/83 10/19/22 12:00 Pulse Ox 93 L 10/19/22 12:00 FiO2 2 10/17/22 01:00 Intake & Output 10/18/22 10/19/22 10/19/22 18:59 06:59 18:59 Intake Total 776 10 118 Output Total 450 925 225 Balance 326 -915 -107 Intake: IV 10 normal saline 10 Oral 776 118 Output: Urine 450 925 225 Other: Voiding Method Indwelling Catheter Indwelling Catheter Indwelling Catheter # Bowel Movements 1 1 2 ABP, PAP, CO, CI - Last Documented Arterial Blood Pressure 81/75 - Labs CBC & Chem 7: 10/19/22 08:18 10/19/22 08:18 Labs: Abnormal Lab Results - Last 24 Hours (Table) 10/18/22 10/18/22 10/18/22 Range/Units 11:30 15:24 15:24 WBC 11.0 H (3.8-10.6) k/uL RBC 2.92 L (3.80-5.40) m/uL Hgb 9.1 L (11.4-16.0) gm/dL Hct 27.7 L (34.0-46.0) % Neutrophils # 9.5 H (1.3-7.7) k/uL Lymphocytes # 0.9 L (1.0-4.8) k/uL Sodium (137-145) mmol/L Chloride (98-107) mmol/L Carbon Dioxide (22-30) mmol/L Creatinine (0.52-1.04) mg/dL Glucose (74-99) mg/dL Calcium (8.4-10.2) mg/dL C-Reactive Protein 19.7 H (<1.0) mg/dL Procalcitonin 0.18 H (0.02-0.09) ng/mL Urine Protein (Negative) Urine Bacteria (None) /hpf Urine Mucus (None) /hpf 10/18/22 10/19/22 10/19/22 Range/Units 16:04 08:18 08:18 WBC (3.8-10.6) k/uL RBC 2.82 L (3.80-5.40) m/uL Hgb 9.1 L (11.4-16.0) gm/dL Hct 26.4 L (34.0-46.0) % Neutrophils # (1.3-7.7) k/uL Lymphocytes # 0.9 L (1.0-4.8) k/uL Sodium 128 L (137-145) mmol/L Chloride 91 L (98-107) mmol/L Carbon Dioxide 32 H (22-30) mmol/L Creatinine 0.48 L (0.52-1.04) mg/dL Glucose 159 H (74-99) mg/dL Calcium 8.0 L (8.4-10.2) mg/dL C-Reactive Protein (<1.0) mg/dL Procalcitonin (0.02-0.09) ng/mL Urine Protein 2+ H (Negative) Urine Bacteria Rare H (None) /hpf Urine Mucus Rare H (None) /hpf Microbiology - Last 24 Hours (Table) 10/13/22 15:30 Blood Culture - Final Blood
[2022-10-20] MEDS: SYMBICORT 80-4.5 MCG INHALER INHALATION SCH ×2 (07:59→20:26)
[2022-10-20] MEDS: ALBUTEROL NEBULIZED 2.5 MG/3 ML INHALATION PRN ×2 (07:59→20:26)
[2022-10-20] MEDS: SODIUM CHLORIDE TAB 1 GM TAB PO SCH (08:57)
[2022-10-20] MEDS: LIDOCAINE 5% PATCH TOPICAL SCH (08:57)
[2022-10-20] MEDS: PANTOPRAZOLE 40 MG/10 ML VIAL IVP SCH ×2 (08:58→20:27)
[2022-10-20] MEDS: carBAMazepine 200 MG TAB PO SCH ×2 (08:58→20:27)
[2022-10-20] MEDS: CYANOCOBALAMIN 500 MCG TAB PO SCH (08:59)
[2022-10-20] MEDS: METOPROLOL SUCCINATE (ER) 25 MG TAB.ER.24H PO SCH (08:59)
[2022-10-20] MEDS: ASCORBIC ACID 500 MG TAB PO SCH (08:59)
[2022-10-20] MEDS: APIXABAN 2.5 MG TABLET PO SCH ×2 (08:59→20:27)
[2022-10-20] MEDS: LACTOBACILLUS ACIDOPHILUS/PECT 1 EACH CAPSULE PO SCH (08:59)
[2022-10-20 09:44] LABS: African American GFR (CKD) >90 (>60 ml/min/1.73 sqM); Anion Gap 4 mmol/L; Blood Urea Nitrogen 14 mg/dL (7-17); Calcium 7.9 mg/dL (8.4-10.2); Carbon Dioxide 32 mmol/L (22-30); Chloride 94 mmol/L (98-107); Glucose 140 mg/dL (74-99); Magnesium 1.9 mg/dL (1.6-2.3); Non-African American GFR(CKD) >90 (>60 ml/min/1.73 sqM); Potassium 3.7 mmol/L (3.5-5.1); Sodium 130 mmol/L (137-145)
[2022-10-20] MEDS: VANCOMYCIN ORAL SOLUTION 250 MG/5 ML BOTTLE PO SCH ×4 (10:22→20:28)
[2022-10-20] MEDS: lisinopriL 20 MG TAB PO SCH (12:29)
--- NOTE | 2022-10-20 13:03 | P.PN ---
Subjective Progress Note Date: 10/20/22 Principal diagnosis: Weakness. This is a pleasant 82-year-old female patient with a known history of hypertension, mild intermittent chronic bronchial asthma, gastroesophageal ref lux disease, depression. She was brought into the emergency room on 10/08/2022 after sustaining a fall at her home. She states she was sitting on her toilet and fell forward hitting her walker with her chest and also hit the back of her head. She denied any loss of consciousness. She came in with ongoing chest wall pain. Pelvis x-ray revealed no acute fractures. The skin of the brain and C-sp ine revealed no acute intracranial process. No acute osseous abnormality. Computed tomography scan of the chest revealed areas of emphysema. A prominent pretracheal space lymph node. 1.0 cm pleural-based density. A nondisplaced posterior lateral right third rib fracture not excluded. White count 6.2. Hemoglobin 14.1. Platelets 199. Sodium 132. Potassium 4.1. Bicarb 27. BUN 16. Creatinine 0.7. Glucose 101. HEENT today in consultation on the regular medical floor. She is currently sitting up in a chair at the bedside. Awake and alert in no acute distress. She denies any worsening shortness of breath, cough or congestion. She is having some chest wall pain on deep inhalation. She is maintaining O2 saturations in the 90s on room air. Afebrile. Hemodynamically stable. She is continued on Symbicort and albuterol. Pain is better controlled today. The patient is seen today 10/11/2022 in follow-up on the regular medical floor. She is currently sitting up in bed. Awake and alert in no acute distress. She is still having ongoing issues with anterior chest wall pain over the sternal area. No worsening shortness of breath, cough or congestion. Maintaining good O2 saturations in the mid 90s on room air. She's afebrile. Follow-up chest x- ray revealed no acute cardiopulmonary process. She is working well with the incentive spirometer. He tended on Symbicort and albuterol. This is a pleasant 82-year-old female patient with a known history of hypertension, mild intermittent chronic bronchial asthma, gastroesophageal reflux disease, depression. She was brought into the emergency room on 10/08/2022 after sustaining a fall at her home. She states she was sitting on her toilet and fell forward hitting her walker with her chest and also hit the back of her head. She denied any loss of consciousness. She came in with ongoing chest wall pain. Pelvis x-ray revealed no acute fractures. The skin of the brain and C-spine revealed no acute intracranial process. No acute osseous abnormality. Computed tomography scan of the chest revealed areas of emphysema. A prominent pretracheal space lymph node. 1.0 cm pleural-based density. A nondisplaced posterior lateral right third rib fracture not excluded. White count 6.2. Hemoglobin 14.1. Platelets 199. Sodium 132. Potassium 4.1. Bicarb 27. BUN 16. Creatinine 0.7. Glucose 101. HEENT today in consultation on the regular medical floor. She is currently sitting up in a chair at the bedside. Awake and alert in no acute distress. She denies any worsening shortness of breath, cough or congestion. She is having some chest wall pain on deep inhalation. She is maintaining O2 saturations in the 90s on room air. Afebrile. Hemodynamically stable. She is continued on Symbicort and albuterol. Pain is better controlled today. The patient is seen today 10/11/2022 in follow-up on the regular medical floor. She is currently sitting up in bed. Awake and alert in no acute distress. She is still having ongoing issues with anterior chest wall pain over the sternal area. No worsening shortness of breath, cough or congestion. Maintaining good O2 saturations in the mid 90s on room air. She's afebrile. Follow-up chest x- ray revealed no acute cardiopulmonary process. She is working well with the incentive spirometer. He tended on Symbicort and albuterol. Patient is seen today 10/12/2022 in follow-up on the regular medical floor. She is currently sitting up in bed. Awake and alert in no acute distress. Her pain is better controlled today compared to yesterday. Still with discomfort with minimal movement. She continues to work with the incentive spirometer. She is maintaining good O2 saturations in the 90s on room air. Sodium 122. Potassium 4.6. Bicarb 29. BUN 19. Creatinine 0.60. Glucose 114. Pro-calcitonin 0.05. She is continued on Symbicort and albuterol. The patient is seen today October 17 2022 in follow-up in the intensive care unit. She is currently awake and alert sitting up in bed having breakfast. She is maintaining good O2 saturations in the 90s on 2 L/m per nasal cannula. White count 8.9. Hemoglobin 8.5. Platelets 213. Sodium 128. Potassium 3.7. Bicarb 29. BUN 19. Creatinine 0.40. Glucose 1:15. She remains on Symbicort, albut bimal. Continued on oral vancomycin for her C. diff colitis. Progress note dated 10/18/2022. The patient was seen in the intensive care unit yesterday. She was transferred out, and seen today on the floor, room 366. She continues on oxygen by nasal cannula at 2 L. She is currently on amiodarone at 0.5 mg/m. She is feeling a lot better. No new labs today. Labs from October 17 have been reviewed. Blood cultures are negative. The most recent chest x-ray was done on October 16. Progress note dated 10/19/2022. The patient is seen today in room 366. 2 days ago, she was in the intensive ca re unit. Currently, she is on 2 L of oxygen, saturations of 96%. She's not receiving any IV fluids. She was on amiodarone drip, but that has been weaned off. The plan is for possible discharge, local fdc/rehab facility. Clinically, the patient has no complaints. From the pulmonary status, she is doing well, and she denies any significant shortness of breath. White count 9, hemoglobin 9.1, hematocrit 26.4, and platelet count is normal. Sodium 128, potassium 3.5, chlorides 91, CO2 32, the 1:15, creatinine 0.48. Pro-calcitonin level 0.18. Progress note dated 10/20/2022. The patient is seen today in room 366. The patient was initially seen, by her team in the intensive care unit. Currently, the patient is on 2 L by nasal cannula. Saturations are 91-93%. She's not receiving any IV fluids. According to the maintenance planner, the patient may be discharged to a fdc, and [place], [place]. Current labs include a sodium 1:30, potassium 3.7, chlorides 94, CO2 32, BUN 14, creatinine 0.42. Glucose is 140. Objective - Vital Signs Vital signs: Vital Signs Temp 98 F 10/20/22 12:28 Pulse 83 10/20/22 12:28 Resp 18 10/20/22 12:28 BP 158/71 10/20/22 12:28 Pulse Ox 93 L 10/20/22 12:28 FiO2 2 10/17/22 01:00 Intake & Output 10/19/22 10/20/22 10/20/22 18:59 06:59 18:59 Intake Total 118 190 120 Output Total 1425 1300 Balance -1307 -1110 120 Intake: IV 90 normal saline 90 Intake, IV Titration 100 Amount Magnesium Sulfate-D5w Pmx 100 1 gm In Dextrose/Water 1 100ml.bag @ 100 mls/hr IVPB ONCE ONE Rx#: [id number] Oral 118 0 120 Output: Urine 1425 1300 Other: Voiding Method Indwelling Catheter Indwelling Catheter # Bowel Movements 2 ABP, PAP, CO, CI - Last Documented Arterial Blood Pressure 81/75 - Exam No acute distress, oriented 3. Currently on 2 L by nasal cannula. Saturations are 97 % HEENT examination is grossly unremarkable. Neck supple. Full range of motion. No adenopathy thyromegaly or neck vein distention. Cardiovascular examination reveals regular rhythm rate. S1-S2 normal. No S3 or S4. No discernible murmur noted. Heart rate 80 bpm. Heart sounds are distant. Lungs reveal mostly clear breath sounds. Breath sounds are equal bilaterally. Scattered rhonchi and crackles are noted. No wheezes. Abdomen soft bowel sounds are heard. No masses or tenderness. Extremities are intact. No cyanosis clubbing or edema. Skin is without rash or lesion. Neurologic examination is brief but nonfocal. - Labs CBC & Chem 7: 10/19/22 08:18 10/20/22 08:25 Labs: Abnormal Lab Results - Last 24 Hours (Table) 10/19/22 10/20/22 Range/Units 19:45 08:25 Sodium 130 L (137-145) mmol/L Chloride 94 L (98-107) mmol/L Carbon Dioxide 32 H (22-30) mmol/L Creatinine 0.42 L (0.52-1.04) mg/dL Glucose 140 H (74-99) mg/dL POC Glucose (mg/dL) 148 H (70-110) mg/dL Calcium 7.9 L (8.4-10.2) mg/dL Microbiology - Last 24 Hours (Table) 10/18/22 15:24 Blood Culture - Preliminary Blood Assessment and Plan Assessment: Acute anterior chest wall pain secondary to fall. Computed tomography scan of the chest revealed emphysematous changes with a prominent lymph node in the pretracheal space and a 1.0 cm pleural based density. There is a nondisplaced posterior lateral right third rib fracture. Acute atrial tachycardia, controlled. Altered mental status, suspect metabolic encephalopathy also suspect possible fat embolism, from recent left femoral fracture. 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 Hypotension requiring norepinephrine, recovered. Hypertension. Mild intermittent chronic bronchial asthma. Gastroesophageal reflux disease without esophagitis. History of anxiety/depression. Nonspecific mediastinal adenopathy, recommend follow-up computed tomography scan or PET scan in 3 months. Acute kidney injury secondary to ATN and hypotension. Plan: Plan dated 10/18/2022. The patient is seen today in room 366. She remains on oxygen by nasal cannula at 2 L. Because of her irregular atrial tachycardia, the patient was placed on amiodarone 0.5 mg/m labs, x-rays, and all medications are reviewed. Clinically, the patient feels much better. We will continue to follow the patient and make recommendations along the way. Prognosis is certainly guarded. Plan dated 10/19/2022. The patient is currently on 2 L of oxygen. Saturations are 96%. She's not receiving any IV fluids. Yesterday, she was on amiodarone, but that has been turned off. The patient is being evaluated for possible placement, in a convalescent home, in [place], [place]. Labs, x-rays, and medications are reviewed. Prognosis is guarded. All questions are answered. Plan dated 10/20/2022. The patient is seen today in room 366. The patient continues on oxygen at 2 L. The patient's not receiving any IV fluids. Labs, x-rays, medications are all reviewed. The patient is being considered for possible discharge later today, to a fdc, and [place], [place]. She appears to be relatively stable. Prognosis is certainly guarded. Time with Patient: Less than 30
[2022-10-20] MEDS: CALCIUM CARB-VIT D 500 MG-5 MCG TAB PO SCH ×2 (13:36→13:42)
--- NOTE | 2022-10-20 14:30 | P.PN ---
Progress Note - Text Progress Note Date: 10/20/22 I was contacted by the internal medicine group regarding this patient. We had initially underwent the patient on 10/13/2022, was determined that she had a left periprosthetic femur fracture after sustaining a fall. We recommended conservative measures, this to include use of the hinge knee brace from 0-30 with partial weight bearing. Patient's family was requesting reevaluation due to further questions regarding patient's current state along with issues with the brace. I was able to evaluate the patient today at bedside, she was resting comfortably. She states that the brace is very cumbersome and very difficult to put on. Patient was getting a lot of increasing pain in the thigh when using the brace. She's been up and standing at the side of the bed very minimally. Patient is being followed by multiple medical specialties for multiple medical comorbidities. Plan is for discharge to subacute rehab when medically optimized. I did have a lot of discussion with the patient and her daughter over the phone today regarding the fracturing recommendations for treatment. Patient is a very poor surgical candidate at this time, the patient's fracture is adequately aligned and attempting conservative measures for healing is what we are continuing to recommend. Discussed with the patient and her daughter that utilizing a sweat pain or leg pain prior to putting the brace that would help cut down on pain and skin irritation. Patient was advised that the brace needs to be worn when she is up and attempting ambulation. While she is lying flat the knee should remain in extension, also utilizing ice and elevation. Recommending follow-up in the outpatient setting with Dr. Palacios in the next 7-10 days for clinical and x-ray reevaluation. Please contact our service with any further questions.
[2022-10-20] MEDS: GABAPENTIN 400 MG CAP PO SCH (22:16)
[2022-10-21] MEDS: GABAPENTIN 300 MG CAP PO SCH ×3 (05:04→17:35)
--- NOTE | 2022-10-21 05:52 | P.PN ---
Subjective Progress Note Date: 10/20/22 This is a pleasant 82-year-old female who was recently admitted with chest pain and generalized weakness with recent fall. Patient being evaluated by cardiology as well as pulmonary recently underwent a CT of the chest which showed emphysematous changes with a prominent lymph node in the pretracheal sp wily and a 1.0 cm pleural based density. There is a nondisplaced posterior lateral right third rib fracture. Will add incentive spirometer and continue with pain management and lidocaine patches. Patient working with physical therapy reports she feels she did a little better today and will have therapy evaluate for possible ECF. Social work is following and has been accepted and requires insurance authorization which has been submitted and pending. Patient is afebrile but no reports of shortness of breath or palpitations. No reported nausea or vomiting and encouraged oral intake. 10/12/2022 Patient is seen and evaluated in follow-up this morning currently sitting up in the chair and has been cleared by cardiology and pulmonary. Patient continues to report some chest wall pain and feeling generally weak. Repeat labs done showing a sodium of 122 which she reports she runs in the 127 range normally. Patient does take Tegretol scheduled which could contribute to some of the hypon atremia along with poor oral intake. Patient reports has not been eating very well. Nephrology consulted and appreciate input and recommendations. Patient also having some intermittent nausea which is being controlled by Zofran. Patient is currently afebrile denies vomiting, denies palpitations or shortness of breath. Patient to be started on gentle IV hydration with follow-up labs this afternoon as well as tomorrow. Encouraged increase activity as tolerated and continued physical therapy evaluation. Plan is for ECF in the next few days and insurance authorization has been obtained. 10/13/2022 Patient is seen and evaluated and was transferred to the ICU after patient's sodium was found to be 120 and placed on 3% hypertonic solution with nephrology following. Patient became somewhat more lethargic and delayed and confused with difficulty in ambulation and left leg buckling from under her while attempting to get up from the commode and assisted to the floor and having some increased pain in the left knee. CT brain along with hip and left knee x-rays were obtained and CT was negative for acute process. Hip was intact with postsurgical changes noted from previous surgery. Left knee showed a minimally comminuted long oblique fracture spanning from the distal femoral diaphysis down to the femoral component of the knee arthroplasty with oblique component along the shaft of the femur minimally offset by 5 mm along with an associated large knee effusion. Orthopedics consultation recommending conservative management is patient is not a good surgical candidate at this time and a knee brace is being ordered. Patient is having some pain and will readdress medications as mentation is improved somewhat today. Patient continues on 3% and sodium level is improved at 121. Nephrology following closely. Patient is hypotensive as well and currently on pressor support which per nursing staff is slowly being weaned. Patient is afebrile currently although did have a low-grade temp of 100.4 this morning and has been started on antibiotics empirically. CT Billie of the chest was also done showing some prominent proximal LAD coronary artery calcifications with no evidence of aortic dissection or PE with some groundglass changes and scattered interstitial changes with concerns of pneumonitis with some tree-in-bud opacification is noted that may be seen in those with bronchiolitis along with a small hiatal hernia and some circumferential wall thickening of the distal esophagus representing possible esophagitis. Patient is on Protonix IV twice daily and is continued on a heart healthy diet with fluid restrictions. Neurology consulted as well and pending. 2-D echo was ordered and awaiting report. 10/14/2022 Patient seen and evaluated in the ICU continues to be on low-dose Levophed for low blood pressures and has been started on midodrine although continues to have periods of fatigue and lethargy. Patient is maintained on pain medications as patient continues to report significant left knee pain. Patient was evaluated by orthopedics recommending no surgical interventions and conservative management for now. Discussed possible large knee effusion drainage as well as possible steroid injection and was reported to risky and close to her previous l eft knee arthroplasty. Patient also continues to be hyponatremic and sodium is improving and currently at 125. Kidney function stable at 1.02 with a BUN of 31. Patient is having some diarrhea and C. diff sample was sent and came back positive. Will initiate oral Vanco liquid and consult infectious disease and appreciate input and recommendations. 10/17/2022 Patient is seen and evaluated in the ICU although awaiting a down grade out of ICU to [facility]. Multiple medical consultations including nephrology, infectious disease, orthopedics, pulmonary following. Patient is currently maintained on 2 L via nasal cannula and denies any worsening shortness of breath. Sodium today is 128 with nephrology following and is maintained on sodium chloride tabs. Recommend to continue with fluid restrictions. Orthopedics with no plans for surgical intervention on the left lower extremity fracture currently awaiting a brace to be fitted for the left knee and patient will likely continue to be ECF on discharge. Encourage physical therapy evaluation daily and continued increased activity with restrictions per orthopedics. Patient is afebrile with no reports of chest pain or worsening shortness of breath. Patient reports feeling better and pain is currently managed. Patient reporting less frequent stools and is maintained on oral vancomycin with infectious disease following as patient was C. diff positive. 10/18/2022 Patient is seen and evaluated and follow-up has been moved out of the ICU on the stepdown unit currently awake, alert and oriented 3. Patient developed temps last night although denies any chest pain or shortness of breath. Patient continues to report some left knee pain and does have a brace at the bedside and will need assistance on properly placing the brace and recommend physical therapy evaluation. Nephrology following and labs this morning show a sodium of 127, potassium is 3.5, kidney functions within normal limits. Infectious disease following as patient does have C. diff and maintained on oral Vanco. Repeat chest x-ray along with cultures and urinalysis are ordered and pending at this time. Inflammatory markers including pro-calcitonin also ordered. Patient continues with significant weakness and left knee pain and reports does not want any narcotics. Nephrology recommending holding NSAIDs and patient is requesting Tylenol. Patient is currently afebrile with no reported chest pain or shortness of breath. Patient is continued on 2 L via nasal cannula. No reported nausea or vomiting and patient tolerating diet. 10/19/2022 Patient is seen this morning in follow-up quite agitated and frustrated that her left knee continues to cause her pain with bowel movements and difficulty in ambulation. Patient reports she will not get up to ambulate until something is done about her knee. Orthopedics has evaluated the patient with no surgical interventions planned and has ordered a knee brace which physical therapy will, and placed back on the patient. Patient continues to report significant pain and swelling of the left knee and will ask orthopedics to reevaluate and have been re-consulted as patient and daughter are persistent that something be done. Sodium level stable at 128 and is maintained on sodium and chloride tablets and being decreased to once daily and given a dose of Samsca today and will follow- up repeat labs in a.m. Nephrology is following. Cardiology following and evaluated and has signed off as she is currently rate controlled and will continue current regimen. Patient needs to work with physical therapy although extremely anxious and concerned about falling. Patient will need ECF. 10/20/2022 Patient is seen in follow-up this morning with multiple medical consultations following. Orthopedics has been reconsult to reevaluate the patient and answer their questions and concerns. Patient is continuing with conservative management and will continue with knee brace while out of bed and trying to ambulate. Patient continues with significant weakness and [facility] and awaiting insurance authorization. Patient has been afebrile for over 48 hours and reports is feeling better. Sodium is 130 post Samsca dose with nephrology following. Patient's blood pressure slightly more elevated and will resume lisinopril. Patient denies chest pain or shortness of breath. No reported nausea or vomiting patient is tolerating diet. Discharge planning for 24 hours. Review of systems: Constitutional: no reports of fatigue, no reports of fever in 24 hours, or chills Cardiovascular: No reports of chest pain or palpitations Respiratory: No reports of shortness of breath or cough GI: No reports of nausea, no reports of vomiting, reports diarrhea that is improving : No reports of dysuria or retention Neurovascular: reports of generalized weakness, reports continued left knee and lower extremity pain, reports severe intense pain when moving or position changing All medications have been reviewed PHYSICAL EXAMINATION: GENERAL: The patient is alert and oriented x3, awake, Well developed, well nourished. Obese, elderly-appearing HEENT: Pupils are round and equally reacting to light. EOMI. no scleral icterus. No conjunctival pallor. Normocephalic, atraumatic. No pharyngeal erythema. No thyromegaly. CARDIOVASCULAR: S1 and S2 muffled PULMONARY: diminished breath sounds bilaterally with no wheezing or rhonchi noted. ABDOMEN: soft. Nontender on exam. obese. non-distended, normoactive bowel sounds. No palpable organomegaly. MUSCULOSKELETAL: No joint swelling or deformity. EXTREMITIES: No cyanosis, clubbing, or pedal edema. Left knee and lower extremity tenderness and pain with palpation with some swelling noted at the kneecap NEUROLOGICAL: Gross neurological examination did not reveal any focal deficits. Diffuse weakness SKIN: No rashes. Assessment: Chest pain, likely musculoskeletal due to fall, ruled out coronary disease hypovolemic Hyponatremia, multifactorial, likely secondary to SIADH as well as poor solute intake, improving Debility with generalized weakness and gait dysfunction Change in mental status, acute metabolic encephalopathy, multifactorial secondary to low sodium as well as narcotic use, improved Hypertension history Hypotension, did require pressor support, secondary to hypovolemic shock, improved Fall with left knee pain , comminuted long oblique fracture spanning from the distal femoral diaphysis down to the femoral component of the knee arthroplasty with oblique component along the shaft of the femur minimally offset by 5 mm along with an associated large knee effusion. Diarrhea with multiple loose stools, positive for C. diff 10/14/2022 History of asthma, not in exacerbation Obesity with a BMI of 33.8 GI prophylaxis DVT prophylaxis Full code Plan: Patient is currently with multiple medical consultations following. Etiology has seen the patient with medication recommendations and has signed off recommending outpatient follow-up infectious disease following and patient is maintained on oral vancomycin for C. diff. patient will need one-week course of oral antibiotic to complete the course Sodium 130 and will continue current medications per nephrology. Recommend follow-up labs. Encouraged oral intake and continued fluid restrictions Patient has a knee brace at bedside which physical therapy has helped apply the brace. Orthopedics came and reevaluated the patient gave instruction on the knee brace with restrictions and continuing to recommend conservative management . This was explained with patient and family in detail. Patient follow-up with orthopedics outpatient in the next 2-3 weeks. Patient to go to [facility] once cleared by consultations. Insurance authorization was submitted and case management/social work following Mentation has improved and would recommend limiting narcotic use Due to multiple complex medical issues, prognosis is guarded Discharge in the next 24-48 hours to [facility] The impression and plan of care has been dictated by Jessica Castro, nurse practitioner as directed. Dr. Sondra MD I have performed a history and examination and MDM of this patient, discussed the same with the dictator, and agree with the dictator's assessment and plan as written ,documented as a scribe. Based on total visit time, I have performed more than 50% of the visit. Any additional findings or plans will be noted. Objective - Vital Signs Vital signs: Vital Signs Temp 98.8 F 10/20/22 04:00 Pulse 80 10/20/22 08:14 Resp 18 10/20/22 04:00 BP 164/67 10/20/22 04:00 Pulse Ox 91 L 10/20/22 04:00 FiO2 2 10/17/22 01:00 Intake & Output 10/19/22 10/20/22 10/20/22 18:59 06:59 18:59 Intake Total 118 190 120 Output Total 1425 1300 Balance -1307 -1110 120 Intake: IV 90 normal saline 90 Intake, IV Titration 100 Amount Magnesium Sulfate-D5w Pmx 100 1 gm In Dextrose/Water 1 100ml.bag @ 100 mls/hr IVPB ONCE ONE Rx#: [id number] Oral 118 0 120 Output: Urine 1425 1300 Other: Voiding Method Indwelling Catheter Indwelling Catheter # Bowel Movements 2 ABP, PAP, CO, CI - Last Documented Arterial Blood Pressure 81/75 - Labs CBC & Chem 7: 10/19/22 08:18 10/20/22 08:25 Labs: Abnormal Lab Results - Last 24 Hours (Table) 10/19/22 10/20/22 Range/Units 19:45 08:25 Sodium 130 L (137-145) mmol/L Chloride 94 L (98-107) mmol/L Carbon Dioxide 32 H (22-30) mmol/L Creatinine 0.42 L (0.52-1.04) mg/dL Glucose 140 H (74-99) mg/dL POC Glucose (mg/dL) 148 H (70-110) mg/dL Calcium 7.9 L (8.4-10.2) mg/dL Microbiology - Last 24 Hours (Table) 10/18/22 15:24 Blood Culture - Preliminary Blood
[2022-10-21 07:39] VITALS: RESP 17
[2022-10-21] MEDS: ALBUTEROL NEBULIZED 2.5 MG/3 ML INHALATION PRN (09:02)
[2022-10-21] MEDS: SYMBICORT 80-4.5 MCG INHALER INHALATION SCH (09:02)
[2022-10-21] MEDS: ASCORBIC ACID 500 MG TAB PO SCH (09:18)
[2022-10-21] MEDS: MIDODRINE 5 MG TAB PO SCH ×4 (09:18→17:03)
[2022-10-21] MEDS: APIXABAN 2.5 MG TABLET PO SCH (09:18)
--- NOTE | 2022-10-21 09:18 | P.PN ---
Subjective Progress Note Date: 10/19/22 Principal diagnosis: c diff colitis Patient is a 82-year-old female presenting to the hospital about a week ago after the patient did have a fall apparently the patient did got up and lost her balance fell forward and struck her chest on the walker no loss of consciousness, patient did have a left distal femur/periprosthetic fracture being managed by Ortho conservatively did spike a fever significant diarrhea stool for C. difficile positive. On today's evaluation that is 10/19/2022 patient is afebrile, the patient is breathing comfortably on 2 L nasal cannula oxygen denies any chest pain shortness of breath or cough no abdominal pain patient diarrhea has slowed down still complaining of pain to the left lower extremity. Patient did have hemoglobin of 9.1 about 9.0 creatinine 0.48 blood culture has been negative Objective - Vital Signs Vital signs: Vital Signs Temp 98 F 10/19/22 12:00 Pulse 73 10/19/22 12:00 Resp 16 10/19/22 12:00 BP 179/83 10/19/22 12:00 Pulse Ox 93 L 10/19/22 12:00 FiO2 2 10/17/22 01:00 Intake & Output 10/18/22 10/19/22 10/19/22 18:59 06:59 18:59 Intake Total 776 10 118 Output Total 450 925 225 Balance 300 -637 -720 Intake: IV 10 normal saline 10 Oral 776 118 Output: Urine 450 925 225 Other: Voiding Method Indwelling Catheter Indwelling Catheter Indwelling Catheter # Bowel Movements 1 1 2 ABP, PAP, CO, CI - Last Documented Arterial Blood Pressure 81/75 - Exam GENERAL DESCRIPTION: Elderly female lying in bed in no distress RESPIRATORY SYSTEM: Unlabored breathing , decreased breath sounds at bases HEART: S1 S2 regular rate and rhythm ,no loud murmurs ABDOMEN: Soft , no tenderness EXTREMITIES: No edema feet - Labs CBC & Chem 7: 10/19/22 08:18 10/20/22 08:25 Labs: Abnormal Lab Results - Last 24 Hours (Table) 10/18/22 10/18/22 10/18/22 Range/Units 11:30 15:24 15:24 WBC 11.0 H (3.8-10.6) k/uL RBC 2.92 L (3.80-5.40) m/uL Hgb 9.1 L (11.4-16.0) gm/dL Hct 27.7 L (34.0-46.0) % Neutrophils # 9.5 H (1.3-7.7) k/uL Lymphocytes # 0.9 L (1.0-4.8) k/uL Sodium (137-145) mmol/L Chloride (98-107) mmol/L Carbon Dioxide (22-30) mmol/L Creatinine (0.52-1.04) mg/dL Glucose (74-99) mg/dL Calcium (8.4-10.2) mg/dL C-Reactive Protein 19.7 H (<1.0) mg/dL Procalcitonin 0.18 H (0.02-0.09) ng/mL Urine Protein (Negative) Urine Bacteria (None) /hpf Urine Mucus (None) /hpf 10/18/22 10/19/22 10/19/22 Range/Units 16:04 08:18 08:18 WBC (3.8-10.6) k/uL RBC 2.82 L (3.80-5.40) m/uL Hgb 9.1 L (11.4-16.0) gm/dL Hct 26.4 L (34.0-46.0) % Neutrophils # (1.3-7.7) k/uL Lymphocytes # 0.9 L (1.0-4.8) k/uL Sodium 128 L (137-145) mmol/L Chloride 91 L (98-107) mmol/L Carbon Dioxide 32 H (22-30) mmol/L Creatinine 0.48 L (0.52-1.04) mg/dL Glucose 159 H (74-99) mg/dL Calcium 8.0 L (8.4-10.2) mg/dL C-Reactive Protein (<1.0) mg/dL Procalcitonin (0.02-0.09) ng/mL Urine Protein 2+ H (Negative) Urine Bacteria Rare H (None) /hpf Urine Mucus Rare H (None) /hpf Microbiology - Last 24 Hours (Table) 10/13/22 15:30 Blood Culture - Final Blood Assessment and Plan (1) C. difficile colitis Current Visit: Yes Status: Acute Code(s): A04.72 - ENTEROCOLITIS D/T CLOSTRIDIUM DIFFICILE, NOT SPCF RECUR SNOMED Code(s): 213046743 Plan: 1patient presented to hospital with a fall with evidence of left distal femur/periprosthetic joint fracture being treated conservatively patient did have a fever yesterday and also having significant diarrhea with the stool for C. difficile is positive, I currently do not have any other obvious focus of infection and need for Rocephin which was discontinued 2patient has shown clinical improvement and did have improvement the diarrhea, patient will continue the patient on oral vancomycin and continue supportive care 3-Patient fever has resolved questionable related to the left lower extremity with recent fracture and the fluid collection awaiting reevaluation by orthopedics care discussed with the [employer] for admitting team Dictation was produced using [employer] dictation software. please excuse any grammatical, word or spelling errors. Time with Patient: Less than 30
[2022-10-21] MEDS: LACTOBACILLUS ACIDOPHILUS/PECT 1 EACH CAPSULE PO SCH (09:19)
[2022-10-21] MEDS: lisinopriL 20 MG TAB PO SCH (09:19)
[2022-10-21] MEDS: SODIUM CHLORIDE TAB 1 GM TAB PO SCH (09:19)
[2022-10-21] MEDS: CYANOCOBALAMIN 500 MCG TAB PO SCH (09:19)
[2022-10-21] MEDS: PANTOPRAZOLE 40 MG/10 ML VIAL IVP SCH (09:19)
[2022-10-21] MEDS: LIDOCAINE 5% PATCH TOPICAL SCH (09:19)
[2022-10-21] MEDS: carBAMazepine 200 MG TAB PO SCH (09:20)
[2022-10-21] MEDS: VANCOMYCIN ORAL SOLUTION 250 MG/5 ML BOTTLE PO SCH ×3 (09:20→17:35)
--- NOTE | 2022-10-21 09:20 | P.PN ---
Subjective Progress Note Date: 10/20/22 Principal diagnosis: c diff colitis Patient is a 82-year-old female presenting to the hospital about a week ago after the patient did have a fall apparently the patient did got up and lost her balance fell forward and struck her chest on the walker no loss of consciousness, patient did have a left distal femur/periprosthetic fracture being managed by Ortho conservatively did spike a fever significant diarrhea stool for C. difficile positive. On today's evaluation that is 10/20/2022 the patient remains to be afebrile, the patient is breathing comfortably on room air denies any chest pain shortness of breath or cough no abdominal pain still complaining of some pain to the left lower extremity and wants to have an MRI. No CBC was done today creatinine 0.4 2 repeat UA was negative blood cultures so far negative Objective - Vital Signs Vital signs: Vital Signs Temp 98 F 10/20/22 12:28 Pulse 83 10/20/22 12:28 Resp 18 10/20/22 12:28 BP 158/71 10/20/22 12:28 Pulse Ox 93 L 10/20/22 12:28 FiO2 2 10/17/22 01:00 Intake & Output 10/19/22 10/20/22 10/20/22 18:59 06:59 18:59 Intake Total 118 190 120 Output Total 1425 1300 Balance -1307 -1110 120 Intake: IV 90 normal saline 90 Intake, IV Titration 100 Amount Magnesium Sulfate-D5w Pmx 100 1 gm In Dextrose/Water 1 100ml.bag @ 100 mls/hr IVPB ONCE ONE Rx#: [id number] Oral 118 0 120 Output: Urine 1425 1300 Other: Voiding Method Indwelling Catheter Indwelling Catheter # Bowel Movements 2 ABP, PAP, CO, CI - Last Documented Arterial Blood Pressure 81/75 - Exam GENERAL DESCRIPTION: Elderly female lying in bed in no distress RESPIRATORY SYSTEM: Unlabored breathing , decreased breath sounds at bases HEART: S1 S2 regular rate and rhythm ,no loud murmurs ABDOMEN: Soft , no tenderness EXTREMITIES: No edema feet - Labs CBC & Chem 7: 10/19/22 08:18 10/20/22 08:25 Labs: Abnormal Lab Results - Last 24 Hours (Table) 10/19/22 10/20/22 Range/Units 19:45 08:25 Sodium 130 L (137-145) mmol/L Chloride 94 L (98-107) mmol/L Carbon Dioxide 32 H (22-30) mmol/L Creatinine 0.42 L (0.52-1.04) mg/dL Glucose 140 H (74-99) mg/dL POC Glucose (mg/dL) 148 H (70-110) mg/dL Calcium 7.9 L (8.4-10.2) mg/dL Microbiology - Last 24 Hours (Table) 10/18/22 15:24 Blood Culture - Preliminary Blood Assessment and Plan (1) C. difficile colitis Current Visit: Yes Status: Acute Code(s): A04.72 - ENTEROCOLITIS D/T CLOSTRIDIUM DIFFICILE, NOT SPCF RECUR SNOMED Code(s): 640737940 Plan: 1patient presented to hospital with a fall with evidence of left distal femur/periprosthetic joint fracture being treated conservatively patient did have a fever yesterday and also having significant diarrhea with the stool for C. difficile is positive, I currently do not have any other obvious focus of infection and need for Rocephin which was discontinued 2patient has shown clinical improvement and did have improvement the diarrhea, patient will continue the patient on oral vancomycin and continue supportive care, awaiting reevaluation by orthopedics Dictation was produced using [employer] dictation software. please excuse any grammatical, word or spelling errors. Time with Patient: Less than 30
--- NOTE | 2022-10-21 11:42 | P.PN ---
Subjective Progress Note Date: 10/21/22 Principal diagnosis: This is a pleasant 82-year-old female patient with a known history of hypertension, mild intermittent chronic bronchial asthma, gastroesophageal reflux disease, depression. She was brought into the emergency room on 10/08/2022 after sustaining a fall at her home. She states she was sitting on her toilet and fell forward hitting her walker with her chest and also hit the back of her head. She denied any loss of consciousness. She came in with ongoing chest wall pain. Pelvis x-ray revealed no acute fractures. The skin of the brain and C-spine revealed no acute intracranial process. No acute osseous abnormality. Computed tomography scan of the chest revealed areas of emphysema. A prominent pretracheal space lymph node. 1.0 cm pleural-based density. A nondisplaced posterior lateral right third rib fracture not excluded. White count 6.2. Hemoglobin 14.1. Platelets 199. Sodium 132. Potassium 4.1. Bicarb 27. BUN 16. Creatinine 0.7. Glucose 101. HEENT today in consultation on the regular medical floor. She is currently sitting up in a chair at the bedside. Awake and alert in no acute distress. She denies any worsening shortness of breath, cough or congestion. She is having some chest wall pain on deep inhalation. She is maintaining O2 saturations in the 90s on room air. Afebrile. Hemodynamically stable. She is continued on Symbicort and albuterol. Pain is better controlled today. The patient is seen today 10/11/2022 in follow-up on the regular medical floor. She is currently sitting up in bed. Awake and alert in no acute distress. She is still having ongoing issues with anterior chest wall pain over the sternal area. No worsening shortness of breath, cough or congestion. Maintaining good O2 saturations in the mid 90s on room air. She's afebrile. Follow-up chest x- ray revealed no acute cardiopulmonary process. She is working well with the incentive spirometer. He tended on Symbicort and albuterol. This is a pleasant 82-year-old female patient with a known history of hypertension, mild intermittent chronic bronchial asthma, gastroesophageal reflux disease, depression. She was brought into the emergency room on 10/08/2022 after sustaining a fall at her home. She states she was sitting on h er toilet and fell forward hitting her walker with her chest and also hit the back of her head. She denied any loss of consciousness. She came in with ongoing chest wall pain. Pelvis x-ray revealed no acute fractures. The skin of the brain and C-spine revealed no acute intracranial process. No acute osseous abnormality. Computed tomography scan of the chest revealed areas of emphysema. A prominent pretracheal space lymph node. 1.0 cm pleural-based density. A nondisplaced posterior lateral right third rib fracture not excluded. White count 6.2. Hemoglobin 14.1. Platelets 199. Sodium 132. Potassium 4.1. Bicarb 27. BUN 16. Creatinine 0.7. Glucose 101. HEENT today in consultation on the regular medical floor. She is currently sitting up in a chair at the bedside. Awake and alert in no acute distress. She denies any worsening shortness of breath, cough or congestion. She is having some chest wall pain on deep inhalation. She is maintaining O2 saturations in the 90s on room air. Afebrile. Hemodynamically stable. She is continued on Symbicort and albuterol. Pain is better controlled today. The patient is seen today 10/11/2022 in follow-up on the regular medical floor. She is currently sitting up in bed. Awake and alert in no acute distress. She is still having ongoing issues with anterior chest wall pain over the sternal area. No worsening shortness of breath, cough or congestion. Maintaining good O2 saturations in the mid 90s on room air. She's afebrile. Follow-up chest x- ray revealed no acute cardiopulmonary process. She is working well with the incentive spirometer. He tended on Symbicort and albuterol. Patient is seen today 10/12/2022 in follow-up on the regular medical floor. She is currently sitting up in bed. Awake and alert in no acute distress. Her pain is better controlled today compared to yesterday. Still with discomfort with minimal movement. She continues to work with the incentive spirometer. She is maintaining good O2 saturations in the 90s on room air. Sodium 122. Potassium 4.6. Bicarb 29. BUN 19. Creatinine 0.60. Glucose 114. Pro-calcitonin 0.05. She is continued on Symbicort and albuterol. The patient is seen today October 17 2022 in follow-up in the intensive care unit. She is currently awake and alert sitting up in bed having breakfast. She is maintaining good O2 saturations in the 90s on 2 L/m per nasal cannula. White count 8.9. Hemoglobin 8.5. Platelets 213. Sodium 128. Potassium 3.7. Bicarb 29. BUN 19. Creatinine 0.40. Glucose 1:15. She remains on Symbicort, albuterol. Continued on oral vancomycin for her C. diff colitis. The patient is seen today 10/21/2022 in follow-up on the regular medical floor. She is sitting up in bed. Awake and alert in no acute distress. Denies any worsening shortness of breath, cough or congestion. She is maintaining good O2 saturations in the mid 90s on 2 L/m per nasal cannula. Afebrile. Blood and a medically stable. She is status post 1 unit of packed red blood cells this admission. Most recent hemoglobin was 9.1. Blood cultures revealed no growth she is continued on Symbicort, albuterol. Anticoagulated with Eliquis. Objective - Vital Signs Vital signs: Vital Signs Temp 99.8 F H 10/21/22 06:40 Pulse 82 10/21/22 09:16 Resp 17 10/21/22 06:40 BP 173/68 10/21/22 06:40 Pulse Ox 95 10/21/22 09:03 FiO2 2 10/17/22 01:00 Intake & Output 10/20/22 10/21/22 10/21/22 18:59 06:59 18:59 Intake Total 120 Output Total 250 Balance 120 -250 Intake: Oral 120 Output: Urine 250 Other: Voiding Method Indwelling Catheter Indwelling Catheter # Bowel Movements 1 1 ABP, PAP, CO, CI - Last Documented Arterial Blood Pressure 81/75 - Exam GENERAL EXAM: Alert, pleasant 82-year-old female, on 2 L nasal cannula, comfortable in no apparent distress. HEAD: Normocephalic. Small hematoma noted on the back of head. EYES: Normal reaction of pupils, equal size. NOSE: Clear with pink turbinates. THROAT: No erythema or exudates. NECK: No masses, no JVD. CHEST: No chest wall deformity. LUNGS: Equal air entry with no crackles, wheeze, rhonchi or dullness. CVS: S1 and S2 normal with no audible murmur, regular rhythm. ABDOMEN: No hepatosplenomegaly, normal bowel sounds, no guarding or rigidity. SPINE: No scoliosis or deformity SKIN: No rashes CENTRAL NERVOUS SYSTEM: No focal deficits, tone is normal in all 4 extremities. EXTREMITIES: There is no peripheral edema. No clubbing, no cyanosis. Peripheral pulses are intact. - Labs CBC & Chem 7: 10/19/22 08:18 10/20/22 08:25 Labs: Microbiology - Last 24 Hours (Table) 10/18/22 15:24 Blood Culture - Preliminary Blood Assessment and Plan Assessment: Acute anterior chest wall pain secondary to fall. Computed tomography scan of the chest revealed emphysematous changes with a prominent lymph node in the pretracheal space and a 1.0 cm pleural based density. There is a nondisplaced posterior lateral right third rib fracture Altered mental status, suspect metabolic encephalopathy also suspect possible fat embolism. From recent left femoral fracture. 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 much improved with fluid restrictions Hypotension requiring norepinephrine, recovered Hypertension, history of Mild intermittent chronic bronchial asthma Gastroesophageal reflux disease without esophagitis History of anxiety/depression Nonspecific mediastinal adenopathy, recommend follow-up computed tomography scan or PET scan in 3 months Acute kidney injury secondary to ATN and hypotension, recovered Plan: The patient was seen and evaluated medications reviewed Current stable and on 2 L nasal cannula Plan is to discharge to [facility] I have personally seen and examined the patient, performed the documentation and the assessment and plan as written. Number of minutes spent on the visit: 10.
--- NOTE | 2022-10-21 13:09 | P.DS ---
Providers Date of admission: 10/10/22 09:19 Expected date of discharge: 10/21/22 Attending physician: Yandy Etienne MD Consults: 10/10/22 10:57 Consult Physician Routine Consulting Provider: Gregorio Carlos Consult Reason/Comments: chest pain Do you want consulting provider notified?: Yes 10/10/22 10:58 Consult Physician Routine Consulting Provider: Jessenia Mcclendon Consult Reason/Comments: abnormal ct chest Do you want consulting provider notified?: Yes 10/12/22 09:05 Consult Physician Urgent Consulting Provider: Ignacio Armstrong Consult Reason/Comments: hyponatremia Do you want consulting provider notified?: Yes 10/12/22 13:29 Consult Physician Urgent Consulting Provider: Carson Tripp Consult Reason/Comments: altered mentation, fall, weakness Do you want consulting provider notified?: Yes 10/12/22 15:06 Consult Physician Urgent Consulting Provider: Abhi Palacios Consult Reason/Comments: left knee pain, status post fall, fracture noted on the xray Do you want consulting provider notified?: Yes 10/12/22 20:09 Consult Physician Stat Consulting Provider: Janes Weldon Consult Reason/Comments: Hypotension Do you want consulting provider notified?: Yes 10/14/22 15:34 Consult Physician Urgent Consulting Provider: Tra Fisher Consult Reason/Comments: c diff positive Do you want consulting provider notified?: Yes 10/15/22 10:41 Consult Physician Routine Consulting Provider: Tra Fisher Consult Reason/Comments: C DIFF Do you want consulting provider notified?: Yes 10/17/22 17:45 Consult Physician Routine Consulting Provider: Janes Weldon Consult Reason/Comments: a-fib rvr, on amio gtt Do you want consulting provider notified?: Yes, Notify in am 10/19/22 12:46 Consult Physician Stat Consulting Provider: Abhi Palacios Consult Reason/Comments: left knee pain, knee effusion? tap, re-eval, had fevers with no source Do you want consulting provider notified?: Yes Primary care physician: Physician Nonstaff Hospital Course: Final diagnosis Chest pain, musculoskeletal due to fall, ruled out coronary disease hypovolemic Hyponatremia, multifactorial, likely secondary to SIADH as well as poor solute intake, improving Debility with generalized weakness and gait dysfunction Change in mental status, acute metabolic encephalopathy, multifactorial secondary to low sodium as well as narcotic use, resolved Hypertension history Hypotension, did require pressor support, secondary to hypovolemic shock, improved Fall with left knee pain , comminuted long oblique fracture spanning from the distal femoral diaphysis down to the femoral component of the knee arthroplasty with oblique component along the shaft of the femur minimally offset by 5 mm along with an associated large knee effusion. Orthopedics recommending conservative management Diarrhea with multiple loose stools, positive for C. diff 10/14/2022 History of asthma, not in exacerbation Obesity with a BMI of 33.8 GI prophylaxis DVT prophylaxis Full code Discharge disposition Patient is being discharged in a stable condition [facility] Patient will follow-up with primary care provider in [place] in the outpatient setting upon discharge. Patient is to continue with fluid restrictions of 1500 mL and repeat labs Monday and close outpatient follow-up with nephrology and orthopedics as scheduled. Total time taken is greater than 35 minutes. Hospital course This is a 82-year-old female who was recently admitted with increased weakness and falls and had chest pain along with a nondisplaced posterior lateral right third rib fracture. Patient was also noticed to have hyponatremia and she reports is chronically in between 125 and 128 although dipped down to 120 and was maintained in the ICU on hypertonic solution. Sodium today is 128 and received a dose of Samsca 15 mg and has been instructed to have repeat labs on Monday per nephrology recommendations. 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 Patient is to continue with this hinge brace of 0-30 while up and out of bed. Patient to continue with a slight bend in the left knee and elevating while at rest as well. Patient also noted to have some diarrhea and was found to have C. diff. Patient will continue on oral Vanco 4 times daily for the next 1 week and then may discontinue. Patient has been cleared by consultations for discharge to [facility] today. Please refer to consultation notes for further HPI. Currently no reports of chest pain, shortness of breath, or palpitations. Patient is afebrile. No reports of nausea or vomiting and patient is tolerating diet. Patient will be going to [facility] today. Guarded prognosis and high risk for readmission given patient's significant comorbidities. Physical exam: Gen: This is a 82-year-old female who is awake, alert 903, well-developed, well-nourished, obese HEENT: Head is atraumatic, normocephalic. Pupils equal, round. Sclerae is anicteric. NECK: Supple. No JVD. No lymphadenopathy. No thyromegaly. LUNGS: Clear to auscultation. No wheezes or rhonchi. No intercostal retractio ns. HEART: S1, S2 muffled ABDOMEN: Soft. Bowel sounds are present. No masses. No tenderness. EXTREMITIES: No pedal edema. No calf tenderness. Left knee swelling noted surrounding and in the popliteal region NEUROLOGICAL: Patient is awake, alert and oriented x3. Cranial nerves 2 through 12 are grossly intact. Diffusely weak Please refer to medication reconciliation sheet for a list of medications. The impression and plan of care has been dictated by Jessica Castro, Nurse Practitioner as directed. Dr. Sondra MD I have performed a history and examination and MDM of this patient, discussed the same with the dictator, and agree with the dictator's assessment and plan as written ,documented as a scribe. Based on total visit time, I have performed more than 50% of the visit. Patient Condition at Discharge: Fair Plan - Discharge Summary Discharge Rx Participant: No New Discharge Prescriptions: New traMADol HCl [Ultram] 50 mg PO QID PRN #4 tab PRN Reason: Pain Apixaban [Eliquis] 2.5 mg PO BID tab Gabapentin [Neurontin] 600 mg PO 0500,1400,1800 #6 cap Gabapentin [Neurontin] 400 mg PO DAILY@2300 #2 cap Sodium Chloride Tab 1 gm PO DAILY tab carBAMazepine [TEGretol] 400 mg PO DAILY tab Vancomycin Oral Solution 250 mg PO QID 7 Days #140 ml Cyclobenzaprine [Flexeril] 5 mg PO TID PRN tab PRN Reason: Muscle Spasm Lidocaine 5% Patch [Lidoderm 5% Patch] 1 patch TOPICAL DAILY patch Ondansetron Odt [Zofran ODT] 4 mg PO Q6HR PRN tab PRN Reason: Nausea And Vomiting carBAMazepine [TEGretol] 300 mg PO HS tab Acetaminophen Tab [Tylenol] 650 mg PO Q6HR PRN tab PRN Reason: Fever And/ Or Pain Continue Albuterol Inhaler [Ventolin Hfa Inhaler] 1 - 2 puff INHALATION RT-Q6H PRN PRN Reason: Shortness Of Breath Fluticasone/Vilanterol [Breo Ellipta 100-25 Mcg Inhaler] 1 puff INHALATION R T-DAILY Bifidobacterium Infantis [Align Chew] 10.5 mg PO DAILY Calcium Carbonate/Vitamin D3 [Caltrate 600 Plus D3 20 Mcg (800 Iu)] 2 tab PO DAILY@1400 Cyanocobalamin (Vitamin B-12) [Vitamin B-12] 1,000 mcg PO DAILY lisinopriL 40 mg PO DAILY@1000 Ascorbic Acid [Vitamin C] 1,000 mg PO DAILY Lansoprazole [Prevacid 24Hr] 15 mg PO DAILY Omeprazole 20 mg PO DAILY@0500 Discontinued Gabapentin 400 mg PO HS@2330 Nortriptyline [Pamelor] 50 mg PO HS@2300 Gabapentin 800 mg PO TID@0500,1400,1800 amLODIPine [Norvasc] 5 mg PO DAILY@1800 carBAMazepine 400 mg PO BID@1000,2300 Discharge Medication List Albuterol Inhaler [Ventolin Hfa Inhaler] 1 - 2 puff INHALATION RT-Q6H PRN 10/08/22 [History] Ascorbic Acid [Vitamin C] 1,000 mg PO DAILY 10/08/22 [History] Bifidobacterium Infantis [Align Chew] 10.5 mg PO DAILY 10/08/22 [History] Calcium Carbonate/Vitamin D3 [Caltrate 600 Plus D3 20 Mcg (800 Iu)] 2 tab PO DAILY@1400 10/08/22 [History] Cyanocobalamin (Vitamin B-12) [Vitamin B-12] 1,000 mcg PO DAILY 10/08/22 [History] Fluticasone/Vilanterol [Breo Ellipta 100-25 Mcg Inhaler] 1 puff INHALATION RT- DAILY 10/08/22 [History] Lansoprazole [Prevacid 24Hr] 15 mg PO DAILY 10/08/22 [History] Omeprazole 20 mg PO DAILY@0500 10/08/22 [History] lisinopriL 40 mg PO DAILY@1000 10/08/22 [History] Cyclobenzaprine [Flexeril] 5 mg PO TID PRN tab 10/12/22 [Rx] Lidocaine 5% Patch [Lidoderm 5% Patch] 1 patch TOPICAL DAILY patch 10/12/22 [Rx] Ondansetron Odt [Zofran ODT] 4 mg PO Q6HR PRN tab 10/12/22 [Rx] traMADol HCl [Ultram] 50 mg PO QID PRN #4 tab 10/12/22 [Rx] Acetaminophen Tab [Tylenol] 650 mg PO Q6HR PRN tab 10/21/22 [Rx] Apixaban [Eliquis] 2.5 mg PO BID tab 10/21/22 [Rx] Gabapentin [Neurontin] 400 mg PO DAILY@2300 #2 cap 10/21/22 [Rx] Gabapentin [Neurontin] 600 mg PO 0500,1400,1800 #6 cap 10/21/22 [Rx] Sodium Chloride Tab 1 gm PO DAILY tab 10/21/22 [Rx] Vancomycin Oral Solution 250 mg PO QID 7 Days #140 ml 10/21/22 [Rx] carBAMazepine [TEGretol] 300 mg PO HS tab 10/21/22 [Rx] carBAMazepine [TEGretol] 400 mg PO DAILY tab 10/21/22 [Rx] Follow up Appointment(s)/Referral(s): Jessenia Mcclendon MD [STAFF PHYSICIAN] - 1 Week Rodney Duncan MD [Medical Doctor] - 1 Week Cori Flores MD [STAFF PHYSICIAN] - 1 Week Nonstaff,Physician [Primary Care Provider] - 1-2 days Ambulatory/Diagnostic Orders: Complete Blood Count w/diff [LAB.AMB] Time Frame: 3 Days, Location: None Selected Activity/Diet/Wound Care/Special Instructions: Patient is going to [facility]CF Activity as tolerated Continue medications as prescribed Follow-up with primary care provider discharge Follow-up pulmonary outpatient Follow-up with nephrology outpatient Continue with fluid restrictions of 1500 mL's per day Repeat labs of CBC, BMP, magnesium in 2-3 days Continue incentive spirometer use at least 10 times every hour while awake Continue heart healthy diet [facility]: [place] - [address], [place] [address] - Discharge Disposition: TRANSFER TO SNF/ECF
[2022-10-21] MEDS: CALCIUM CARB-VIT D 500 MG-5 MCG TAB PO SCH (13:45)
[2022-10-21] MEDS: ACETAMINOPHEN TAB 325 MG TAB PO PRN ×2 (13:45→19:35)
[2022-10-21] MEDS ORDERED: TOLVAPTAN 15 MG TABLET PO ONE (14:00)
[2022-10-21 14:31] VITALS: BP 156/77; PULSE 79; TEMP 97.9
--- NOTE | 2022-10-21 16:09 | P.PN ---
Subjective Progress Note Date: 10/21/22 Principal diagnosis: c diff colitis Patient is a 82-year-old female presenting to the hospital about a week ago after the patient did have a fall apparently the patient did got up and lost her balance fell forward and struck her chest on the walker no loss of consciousness, patient did have a left distal femur/periprosthetic fracture being managed by Ortho conservatively did spike a fever significant diarrhea stool for C. difficile positive. On today's evaluation that is 10/21/2022, the patient did have a low-grade fever of 99.8F this morning the patient is afebrile since the patient is breathing comfortably on room air is any chest pain shortness of breath or cough no abdominal pain and left lower extremity pain has decreased intensity and diarrhea has slowed down No blood draw today Objective - Vital Signs Vital signs: Vital Signs Temp 99.8 F H 10/21/22 06:40 Pulse 82 10/21/22 09:16 Resp 17 10/21/22 06:40 BP 173/68 10/21/22 06:40 Pulse Ox 95 10/21/22 09:03 FiO2 2 10/17/22 01:00 Intake & Output 10/20/22 10/21/22 10/21/22 18:59 06:59 18:59 Intake Total 120 Output Total 250 Balance 120 -250 Intake: Oral 120 Output: Urine 250 Other: Voiding Method Indwelling Catheter Indwelling Catheter # Bowel Movements 1 1 ABP, PAP, CO, CI - Last Documented Arterial Blood Pressure 81/75 - Exam GENERAL DESCRIPTION: Elderly female lying in bed in no distress RESPIRATORY SYSTEM: Unlabored breathing , decreased breath sounds at bases HEART: S1 S2 regular rate and rhythm ,no loud murmurs ABDOMEN: Soft , no tenderness EXTREMITIES: No edema feet - Labs CBC & Chem 7: 10/19/22 08:18 10/21/22 11:53 Labs: Abnormal Lab Results - Last 24 Hours (Table) 10/21/22 Range/Units 11:53 Sodium 128 L (137-145) mmol/L Microbiology - Last 24 Hours (Table) 10/18/22 15:24 Blood Culture - Preliminary Blood Assessment and Plan (1) C. difficile colitis Current Visit: Yes Status: Acute Code(s): A04.72 - ENTEROCOLITIS D/T CLOSTRIDIUM DIFFICILE, NOT SPCF RECUR SNOMED Code(s): 305573079 Plan: 1patient presented to hospital with a fall with evidence of left distal femur/periprosthetic joint fracture being treated conservatively patient did have a fever yesterday and also having significant diarrhea with the stool for C. difficile is positive, 2patient has shown clinical improvement and did have improvement the diarrhea, patient will continue on oral vancomycin 7 more days on discharge and advised to increase her probiotic and yogurt intake Dictation was produced using [employer] dictation software. please excuse any grammatical, word or spelling errors. Time with Patient: Less than 30
--- NOTE | 2022-10-22 11:28 | P.PN ---
Subjective Patient is seen for follow-up for hyponatremia and acute kidney injury. Renal function has improved Serum sodium staying around 128. Maintained on sodium chloride tab 1 g twice a day. INCREASED TO 130 AFTER SCA Diarrhea from C. diff colitis is improving. No complaints today. Objective - Vital Signs Vital signs: Vital Signs Temp 97.9 F 10/21/22 14:30 Pulse 79 10/21/22 14:30 Resp 17 10/21/22 14:30 BP 156/77 10/21/22 14:30 Pulse Ox 92 L 10/21/22 14:30 FiO2 2 10/17/22 01:00 Intake & Output 10/21/22 10/22/22 10/22/22 18:59 06:59 18:59 Output Total 750 Balance -750 Output: Urine 750 Other: Voiding Method Indwelling Catheter # Bowel Movements 1 ABP, PAP, CO, CI - Last Documented Arterial Blood Pressure 81/75 - Exam Awake, comfortable, no acute distress Examination of the heart S1 and S2 Examination of the lungs bilateral breath sounds are heard Abdomen is soft nontender Examination lower extremities shows 1+ edema LOAN INSPECTOR exam shows patient is moving all 4 extremities. - Labs CBC & Chem 7: 10/19/22 08:18 10/21/22 11:53 Labs: Abnormal Lab Results - Last 24 Hours (Table) 10/21/22 Range/Units 11:53 Sodium 128 L (137-145) mmol/L Microbiology - Last 24 Hours (Table) 10/18/22 15:24 Blood Culture - Preliminary Blood Assessment and Plan Assessment: 1. Hypovolemic hyponatremia (acute on chronic) from poor solute intake and use of NSAIDs. 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 Status post 3% saline Sodium had improved to 113 down to 128 and increased again after sca. Patient received Toradol and sodium had dropped to 128 from 130. TSH 0.23. Cortisol level not low. Urine sodium 25 and urine osmolality 454. Maintained on sodium chloride tab. 2. Status post fall with left knee fracture. 3. Shock s/p Levophed. Questionable septic versus fat emboli. CTA done 10/12/2022 showed no evidence of pericardial effusion or tamponade. No evidence of PE. 4. Lymphadenopathy and lung nodule being followed by pulmonology. 5. Acute kidney injury secondary to ATN secondary to hypotension. Also received IV contrast on 10/12/2022. Creatinine 1.02 today. 6. C. diff colitis Plan: Avoid NSAIDs Continue with sodium chloride tabs. Decrease dose to once a day as blood pressure is now on the higher side Continue to encourage increase oral intake. May need samsca as out patient.
--- NOTE | 2022-10-22 11:30 | P.PN ---
Subjective Patient is seen for follow-up for hyponatremia and acute kidney injury. Renal function has improved Serum sodium staying around 128. Maintained on sodium chloride tab 1 g twice a day. INCREASED TO 130 AFTER SCA Diarrhea from C. diff colitis is improving. No complaints today. Labs pending from today. Objective - Vital Signs Vital signs: Vital Signs Temp 97.9 F 10/21/22 14:30 Pulse 79 10/21/22 14:30 Resp 17 10/21/22 14:30 BP 156/77 10/21/22 14:30 Pulse Ox 92 L 10/21/22 14:30 FiO2 2 10/17/22 01:00 Intake & Output 10/21/22 10/22/22 10/22/22 18:59 06:59 18:59 Output Total 750 Balance -750 Output: Urine 750 Other: Voiding Method Indwelling Catheter # Bowel Movements 1 ABP, PAP, CO, CI - Last Documented Arterial Blood Pressure 81/75 - Exam Awake, comfortable, no acute distress Examination of the heart S1 and S2 Examination of the lungs bilateral breath sounds are heard Abdomen is soft nontender Examination lower extremities shows 1+ edema ATTENDANCE CLERK exam shows patient is moving all 4 extremities. - Labs CBC & Chem 7: 10/19/22 08:18 10/21/22 11:53 Labs: Abnormal Lab Results - Last 24 Hours (Table) 10/21/22 Range/Units 11:53 Sodium 128 L (137-145) mmol/L Microbiology - Last 24 Hours (Table) 10/18/22 15:24 Blood Culture - Preliminary Blood Assessment and Plan Assessment: 1. Hypovolemic hyponatremia (acute on chronic) from poor solute intake and use of NSAIDs. 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 Status post 3% saline Sodium had improved to 113 down to 128 and increased again after sca. Patient received Toradol and sodium had dropped to 128 from 130. TSH 0.23. Cortisol level not low. Urine sodium 25 and urine osmolality 454. Maintained on sodium chloride tab. Decreased to once a day due to high BP 2. Status post fall with left knee fracture. 3. Shock s/p Levophed. Questionable septic versus fat emboli. CTA done 10/12/2022 showed no evidence of pericardial effusion or tamponade. No evidence of PE. 4. Lymphadenopathy and lung nodule being followed by pulmonology. 5. Acute kidney injury secondary to ATN secondary to hypotension. Also received IV contrast on 10/12/2022. Creatinine 1.02 today. 6. C. diff colitis Plan: Avoid NSAIDs Continue with sodium chloride tabs. Decrease dose to once a day as blood pressure is now on the higher side Continue to encourage increase oral intake. May need samsca as out patient.
== END 2022-10-21 20:11 | DRG 963 ==
LOC: EC 08:38 → 6NMEDSUR 12:15 → OBSVTOIN 10-10 09:19 → 2SICU 10-12 17:58 → 3SCARD 10-17 17:48 → 4SSUR 10-20 23:24
PROVIDERS: ADMIT Internal Medicine; ATTEND Internal Medicine
PROC: 3E043XZ Introduction of Vasopressor into Central Vein, Percutaneous Approach (ICD-10-PCS; principal; 2022-10-12)
PROC: 03HY32Z Insertion of Monitoring Device into Upper Artery, Percutaneous Approach (ICD-10-PCS; 2022-10-13)
PROC: 4A133J1 Monitoring of Arterial Pulse, Peripheral, Percutaneous Approach (ICD-10-PCS; 2022-10-13)
PROC: 4A133B1 Monitoring of Arterial Pressure, Peripheral, Percutaneous Approach (ICD-10-PCS; 2022-10-13)
PROC: 30233N1 Transfusion of Nonautologous Red Blood Cells into Peripheral Vein, Percutaneous Approach (ICD-10-PCS; 2022-10-16)
DX: S72.401A Unspecified fracture of lower end of right femur, initial encounter for closed fracture (principal); G93.41 Metabolic encephalopathy; T79.1XXA Fat embolism (traumatic), initial encounter; R57.1 Hypovolemic shock; N17.0 Acute kidney failure with tubular necrosis; M97.12XA Periprosthetic fracture around internal prosthetic left knee joint, initial encounter; S22.31XA Fracture of one rib, right side, initial encounter for closed fracture; E87.20 Acidosis, unspecified; A04.72 Enterocolitis due to Clostridium difficile, not specified as recurrent; E22.2 Syndrome of inappropriate secretion of antidiuretic hormone; S27.321A Contusion of lung, unilateral, initial encounter; K21.9 Gastro-esophageal reflux disease without esophagitis; J43.9 Emphysema, unspecified; K81.9 Cholecystitis, unspecified; S09.90XA Unspecified injury of head, initial encounter; T42.1X5A Adverse effect of iminostilbenes, initial encounter; E86.0 Dehydration; R27.0 Ataxia, unspecified; J45.20 Mild intermittent asthma, uncomplicated; F41.9 Anxiety disorder, unspecified; E66.9 Obesity, unspecified; Z68.33 Body mass index [BMI] 33.0-33.9, adult; G50.0 Trigeminal neuralgia; R91.1 Solitary pulmonary nodule; F32.A Depression, unspecified; M50.30 Other cervical disc degeneration, unspecified cervical region; T39.395A Adverse effect of other nonsteroidal anti-inflammatory drugs [NSAID], initial encounter; R29.6 Repeated falls; E86.1 Hypovolemia; M25.462 Effusion, left knee; N39.41 Urge incontinence; R07.89 Other chest pain; E55.9 Vitamin D deficiency, unspecified; R59.0 Localized enlarged lymph nodes; W01.198A Fall on same level from slipping, tripping and stumbling with subsequent striking against other object, initial encounter; Y92.002 Bathroom of unspecified non-institutional (private) residence as the place of occurrence of the external cause; W01.0XXA Fall on same level from slipping, tripping and stumbling without subsequent striking against object, initial encounter; Y92.239 Unspecified place in hospital as the place of occurrence of the external cause; Z63.4 Disappearance and death of family member; Z79.01 Long term (current) use of anticoagulants; Z79.899 Other long term (current) drug therapy; Z79.51 Long term (current) use of inhaled steroids; Z96.611 Presence of right artificial shoulder joint; Z96.642 Presence of left artificial hip joint; Z96.653 Presence of artificial knee joint, bilateral; G62.9 Polyneuropathy, unspecified; Z98.1 Arthrodesis status; Z88.2 Allergy status to sulfonamides; Z28.311 Partially vaccinated for COVID-19
CPT/HCPCS: 36415; 36600; 70450; 71045; 71046; 71250; 71275; 72125; 72170; 73501; 80048; 80053; 80156; 81001; 82533; 82607; 82746; 82805; 83519; 83605; 83735; 83921; 83930; 83935; 84145; 84295; 84300; 84439; 84443; 84484; 85025; 85027; 85652; 86140; 86850; 86880; 86900; 86901; 86920; 87040; 87324; 93308; 94640; 94667; 94760; 96374; 99285